=== PATIENT | female | born 1965 | race Caucasian/White ===

== ENCOUNTER → 2018-03-06 15:12 | Outpatient (CLI) | payer BC, SELFPAY ==
[2018-03-06 17:46] LABS: Absolute Lymphocyte Count 2.09 X10^3/ul (0.83-4.51); Absolute Neutrophil Count 5.8 X10^3/uL (2.0-7.7); Basophil# 0.05 X10^3/uL; Basophil% 0.6 % (0-1); Eosinophil# 0.31 X10^3/uL; Eosinophils% 3.5 % (0-5); Hematocrit 37.1 % (37-47); Lymphocyte # 2.09 X10^3/ul (4.0); Lymphocyte % 23.7 % (19-41); Mean Corp Hgb Conc 32.3 g/gl (32-36); Mean Corpuscular Hgb 29.6 pg (27.0-32.0); Mean Corpuscular Volume 91.6 fL (81-99); Mean Platelet Vol. 10.1 fl (6.2-12.0); Monocyte# 0.61 X10^3/uL; Monocyte% 6.9 % (0-10); Neutrophil # 5.75 X10^3/uL (2.7-7.7); Neutrophil % 65.2 % (47-70); Platelet Count 377 K/mm3 (150-450); RBC Distribution Width CV 13.4 % (11.6-14.6); RBC Distribution Width SD 44.3 fl (35.1-43.9); Red Blood Count 4.05 M/mm3 (4.2-5.4); White Blood Count 8.8 K/mm3 (4.4-11.0)
[2018-03-06 17:49] LABS: POSITIVE COUNT NO; POSITIVE DIFFERENTIAL NO; POSITIVE MORPHOLOGY NO
[2018-03-06 18:28] LABS: ALB/GLOB Ratio 1.1 RATIO (0.9-2.4); AST(SGOT) 20 U/L (15-37); Alanine Aminotransfer ALT/SGPT 26 U/L (13-56); Albumin, Serum 3.7 g/dL (3.2-5.0); Alkaline Phosphatase 69 U/L (45-117); Anion Gap 6 (5-15); BUN 15 mg/dL (7-18); BUN/Creat Ratio 20.1 RATIO (10-20); Calcium,Total 8.3 mg/dL (8.5-10.1); Chloride 107 mmol/L (98-107); Creatinine, Serum 0.75 mg/dL (0.55-1.02); EST Glomerular Filtration Rate 87 mL/min (>60); Est Glom Filt Rate - Afr Amer 105 mL/min (>60); Globulin 3.3 g/dL (2.2-4.2); Glucose 79 mg/dL (74-106); Potassium 4.3 mmol/L (3.5-5.1); Sodium Level 141 mmol/L (136-145); Thyroid Stim Hormone (TSH) 0.81 uIU/mL (0.358-3.74)
[2018-03-07 08:36] LABS: Vitamin D,25 Hydroxy 31.4 ng/mL (29.95-100.01)
[2018-03-07 08:40] LABS: PTHIN 73.1 pg/mL (18.4-80.1)
== END ==
PROVIDERS: Family Provider Family Medicine; PCP Family Medicine; Visit Provider Family Medicine
DX: N25.81 Secondary hyperparathyroidism of renal origin (principal); R53.83 Other fatigue
CPT/HCPCS: 36415; 80053; 82306; 83970; 84443; 85025

== ENCOUNTER 2020-11-17 08:55 | Day surgery (SDC) | payer OTHER, SELFPAY ==
[2020-08-27 12:11] VITALS: BMI 33.2
--- NOTE | 2020-11-14 17:30 | HP.PCM_ITS ---
- Problem List (1) Menorrhagia Status: Acute History and Physical Date of Admission: 11/17/20 DATE OF SERVICE: November 10, 2020 ? PROBLEM:?Menorrhagia ? DIAGNOSIS:?Menorrhagia ? PAST SURGICAL HISTORY:? PAST SURGICAL HISTORY PAST SURGICAL HISTORY Procedure Laterality Date ? D+C ? ? ? PAST SURGICAL HISTORY OF ? ? ? bengin lumps removals from different parts of body ? PAST MEDICAL HISTORY:? PAST MEDICAL HISTORY PAST MEDICAL HISTORY Diagnosis Date ? Blood clot in vein ? ? left leg linked to nuvaring ? Thyroid disease ? ? SUBJECTIVE:?Menstrual cycles irregular with menorrhagia. IUD was placed 01/2020 and she reports her bleeding is still heavy where she is passing clots. She reports there is tissue in the clots as well. She also reports pain with ovarian cysts since the IUD was placed. Currently sexually active. Using IUD for contraception. She reports a prior blood clot?while on nuvaring. She says she has never been formally worked up for any blood clotting disorders.? ? Pelvic US 09/13/2020: Impression Normal appearing retroverted uterus that measures 81 mm x 50 mm x 55 mm. 3-D imaging of the uterus confirms the proper location of the IUD within the endometrial cavity. Normal appearing endometrium measuring 7.2 mm in thickness - limited visibility given presence of IUD. The right ovary is normal appearing. There is a 3.9 cm simple appearing left ovarian cyst present. There is no free fluid visualized in the peritoneal cavity. Recommendations A simple ovarian cyst less than 5cm in a premenopausal woman is likely benign. Follow up imaging as clinically indicated. IUD correctly positioned. Follow up as clinically indicated. ? EMB 10/05/2020: FINAL DIAGNOSIS Endometrium, biopsy - Benign endometrium with hormonal therapy effect. ? ? ? SOCIAL HISTORY:? SOCIAL HISTORY Social History ? Tobacco Use ? Smoking status: Never Smoker ? Smokeless tobacco: Never Used Substance Use Topics ? Alcohol use: Yes ? ? Comment: occasional ? Drug use: No ? ALLERGIES ALLERGIES No Known Allergies ? Current Outpatient Medications on File Prior to Visit Medication Sig ? levonorgestrel (MIRENA) 20 mcg/24 hours (5 yrs) 52 mg IUD 1 Each by INTRAUTERINE route as directed. ? calcium-vits X5-Y-G9-minerals 166.75 mg- 166.75 unit cap Take by mouth. ? glucosamine/msm/chondroitin A ([id number]-JGNLCX-WBD ORAL) Take by mouth. ? ibuprofen (ADVIL) 200 mg tablet Take 200 mg by mouth every 6 hours as needed. ? FLUTICASONE PROPIONATE (FLONASE NASAL)w Use ?in the nose. No current facility-administered medications on file prior to visit. ? ? OBJECTIVE: ? VITALS:? BP 110/70 ? Pulse 76 ? Resp 16 ? Ht 5' 5.5 (1.664 m) ? Wt 209 lb 12.8 oz (95.2 kg) ? LMP 07/19/2020 ? BMI 34.38 kg/m? ? HEENT: ?Normocephalic, atraumatic, Mucus membranes moist without lesions. ? NECK: ???Soft and Supple. ?No adenopathy , thyromegaly or bruits. ? SKIN: No lesions. ? CHEST: Clear to auscultation. ?No wheezes or rales. ?Good air exchange. ? HEART: Regular rate and rhythm ?No S3 or S4. ?No gallops or rubs. ? BACK: Nontender with no CVA tenderness. ? ABDOMEN: Soft, non-tender, non-distended, no masses, no hepatosplenomegaly. ? LOWER EXTREMITIES: There was no pitting edema, no palpable cords and no skin changes. ? ASSESSMENT:?Menorrhagia ? PLAN:?Discussed hysteroscopy, D&C, ablation, IUD removal, laparoscopic bilateral salpingectomy, possible ovarian cystectomy, possible oophorectomy. Discussed that the ovarian cyst will likely resolve given size and appearance. Reviewed physiologic cysts. Discussed r/b/a of ovarian cystectomy or oophorectomy. Discussed that if cyst is not removed, there is a chance that she needs surgery in the future. Pt desires to monitor cyst at this time, but desires a cystectomy or oophorectomy if the cyst has significantly grown in size or has concerning features. She understands that a tubal ligation is permanent and irreversilbe and she can no longer have children.?The rationale for the proposed surgery was discussed in addition to risks, benefits, and alternatives. ?General pre- and post-operative care was reviewed. ?Questions were answered. ?After discussion, the patient indicated a desire to proceed with the planned surgery. ? Lisseth Meek,?DO
[2020-11-17] VITALS (10 sets, daily range): BP systolic 123–146; BP diastolic 70–91; PULSE 56–89; RESP 16–18; TEMP 36.1–36.9; O2SAT 93–99; BMI 33.6
[2020-11-17 09:26] LABS: Hematocrit 40.4 % (37-47); Mean Corp Hgb Conc 32.2 g/dL (32-36); Mean Corpuscular Hgb 29.1 pg (27.0-32.0); Mean Corpuscular Volume 90.4 fL (81-99); Mean Platelet Vol. 9.3 fl (6.2-12.0); Platelet Count 431 K/mm3 (150-450); RBC Distribution Width CV 13.7 % (11.6-14.6); RBC Distribution Width SD 45.8 fl (35.1-43.9); Red Blood Count 4.47 M/mm3 (4.2-5.4); White Blood Count 9.5 K/mm3 (4.4-11.0)
[2020-11-17 09:28] LABS: Internal QC Validated? YES +Cl - CLEAR BKGD; Pregnancy, Urine Negative Negative
[2020-11-17] MEDS: Lactated Ringers 1,000 ML 100 ML IV ×2 (09:58→11:33)
--- NOTE | 2020-11-17 09:59 | PCM.DC ---
- Discharge Diagnoses Current Active Problems: Current Active and Chronic Problems (Last Updated 08/27/20 @ 12:16 by Falguni Cleary) Menorrhagia (Acute) You will use the following diet at home:: Regular Your food should be the consistency of: Regular Discharge Activity: May not drive while taking narcotic pain medications., May Shower May resume sexual activity in: 1 week - No intercourse, no tampons, no hot tubs, no tub baths for 1 week after the surgery Ice area for (Minutes): 15 Weight Bearing Status: Weight bearing as tolerated Lifting Restrictions: Nothing greater than 5-10 lbs for 1-2 weeks Call your doctor if your incision/area has: Sudden Increased Bleeding, Increased Pain/ Swelling, Increased Redness, Foul Smelling Discharge, Swelling at the incision site Call your doctor if you observe: Fever of 101 or Higher, Change in Color, Inability to urinate, Inability to have a bowel movement, Using more than one pad per hour, Shortness of breath, Dizziness, Fainting spells, Swelling in the ankles, Chest pain, Increased palpitations (irregular heartbeat), Calf discomfort, Uncontrolled pain Suture Line Care: Avoid Pulling/Pushing, Avoid Pinching/Bending Cleanse incision/area with: Soap & Water Allergies/Adverse Reactions: Allergies No Known Allergies Allergy (Unverified 11/17/20 09:25) Medications to take at Discharge acetaminophen 325 mg capsule 325 mg PO ONCE PRN 08/27/20 calcium carbonate 500 mg (1,250 mg)-vitamin D3 200 unit tablet 1 tab PO DAILY 08/27/20 glucosamine sulfate 500 mg tablet 500 mg PO QODAY 08/27/20 ibuprofen 200 mg tablet 400 mg PO DAILY 08/27/20 Keto Bhb 1 tab PO DAILY 11/09/20 Orders to be completed after discharge: Type & Screen - PAT ONLY Time Frame: 11/17/20, Facility: [facility], Location: Laboratory Primary Care Physician: Indio Singh MD [Primary Care Provider] - Test Results: Test results from this visit will be discussed in further detail at your follow-up appointment, if applicable. Please Follow Up With: Lisseth Meek DO When: 1 week
--- NOTE | 2020-11-17 10:01 | OP.PCM_ITS ---
Problem List (1) Menorrhagia Status: Acute Report of Operation Date of Procedure: 11/17/20 Pre-Operative Diagnosis: Menorrhagia, failed medical management, desires permanent sterilization Post-Operative Diagnosis: As above Surgery/Procedure Performed:: IUD removal, hysteroscopy, Rita ablation, laparoscopic bilateral salpingectomy Description of Surgical Findings:: Good descent of the uterus and cervix. Normal-appearing uterine cavity and bilateral tubal ostia visualized. Endometrium very thin appearing consistent with progesterone effect given the presence of the Mirena IUD. Normal-appearing pelvis. The uterus was normal-appearing. Bilateral fallopian tubes were normal-appearing. The right ovary was normal-appearing. The left ovary had a 1 to 2 cm simple cyst present. director of direct marketing: Saima Jo Type of Anesthesia:: General Special Medications: None Specimen's removed: Bilateral fallopian tubes Drains: None Estimated Blood Loss (mL): < 50 cc Fluids Replaced: Fluid deficit 100 cc Description of Procedure: Start time: 1026 Stop time: 1118 Food And Nutrition Services Assistant was present for the entire laparoscopic portion of the case. She assisted with prepping the patient, draping the patient, assisted with the salpingectomy, and assisted with closure of port sites. The patient was taken back to the operating room where general anesthesia was induced. She was prepped and draped in the dorsal lithotomy position using yellowfin stirrups. From below a weighted speculum was placed to expose the cervix. A straight catheterization was performed to drain the bladder. A single -tooth tenaculum was placed on the anterior lip of the cervix. The IUD was removed with a polyp forceps as the IUD strings were not visualized. The IUD was removed easily and intact. The cervix was serially dilated to accommodate the hysteroscope. The hysteroscope was advanced to the fundus of the uterus, and the uterus was distended using normal saline. The uterine cavity was normal-appearing. Bilateral tubal ostia visualized. The endometrium was very thin appearing consistent with progesterone effect. No polyps or fibroids were noted. The cervical canal was normal-appearing. The uterus sounded to 10 cm. The cervical length was 5 cm. A uterine cavity of 4 cm was noted. The Rita ablation device was set to a cavity length of 4 cm. The Rita ablation device was easily inserted to the fundus of the uterus. The device passed the cavity test assessment. The Rita ablation was performed in usual fashion. The Rita ablation device was then removed. The Florina cannula was placed for uterine manipulation with the single-tooth tenaculum. The speculum was removed. Gloves were changed and attention was turned to the abdominal portion of the procedure. Local was infiltrated at all port sites. An incision was made infraumbilically to accommodate a 5 mm port. This port was placed under direct visualization with the laparoscope. Once confirmed intraperitoneal, CO2 insufflation was initiated. Next a left lateral 5 mm port was placed. Then a right lateral 5 mm port was placed. The pelvis was inspected and noted to be normal-appearing. The left ovary had a 1 to 2 cm simple cyst. The right fallopian tubes was followed out to the fimbriated end. The right fallopian tube was elevated and using the LigaSure device the mesosalpinx was serially clamped, cauterized and transected to the level of the cornua of the uterus. The right fallopian tube was then removed and sent to pathology review. The left fallopian tube and elevated on the pelvis and followed out to the fimbriated end. Using the LigaSure device the mesosalpinx was serially clamped, cauterized and transected to the level of the cornua of the uterus. The left fallopian tube was then removed and sent to pathology for review. Hemostasis was noted. All ports were removed and the abdomen was exsufflated. Suture and glue were placed over the incision sites. From below all instruments were removed and a vaginal sweep was performed. Instrument, sponge count and the needle counts were correct. Patient was taken to recovery in stable condition. Grafts/Implants Used: None - Complications None - Admit VTE Documentation VTE Present on Admission: No VTE Mechan Device Prophylaxis: SCD's VTE Pharm Prophylaxis ordered?: No
[2020-11-17] MEDS: Bupivacaine Mpf 0.5% 30 ML VIAL (10:26)
[2020-11-17] MEDS: Lidocaine 1%/Epi 1:200 (30ml) 30 ML AMPUL (10:26)
--- NOTE | 2020-11-17 10:30 | FALS_PTH ---
PATIENT: JOSE MOYA LOC: [facility] U#:[id number] AGE/SX: 55/F ROOM: RE11/17/[address]: Dr. Lisseth Meek DO : 1965 BED: DIS: 11/17/2020 SPEC #: [id number] RECD: 11/17/20 12:23 STATUS: GUERDA JENNYFER #: [id number] MURIEL: 11/17/20 10:[address]: Lisseth Meek DEPT: SURGICAL PATHOLOGY RECD BY: Mady Canas ENTERED: 11/17/20 13:06 SP TYPE: FALL TUBES OTHR DR: Dr. Indio Singh MD Tissues: Fallopian tube Procedures: Surgery Specimen Level II Surgery Specimen Level IV HEADER OPERATION: Hysteroscopy, uterine ablation, Rita, IUD removal PRE-OP DIAGNOSIS: Menorrhagia TISSUE SUBMITTED: Bilateral fallopian tubes MICROSCOPIC DIAGNOSIS Right and left fallopian tubes, bilateral salpingectomies: Complete cross-sections of two fallopian tubes. One fallopian tube with benign paratubal cyst. AM:ayan 11/18/2020 MICROSCOPIC DESCRIPTION Slides are reviewed. GROSS DESCRIPTION Received in fixative is one container labeled with the patient's name and designated bilateral fallopian tubes. The specimen consists of two fallopian tubes with an average length of 7 cm and has an average diameter of 0.8 cm. The fallopian tubes are not identified as right or left. One fallopian tube contains a smooth, glistening, benign paratubal cyst measuring 5 mm in greatest dimension. This fallopian tube and paratubal cyst are submitted in cassette 1. Admissions Manager sections of the other fallopian tube are submitted in cassette 2. / AM:ayan 11/17/20 TC:5 CPT: 44295, 76010
== END 2020-11-17 15:00 | disposition home or self-care (01) ==
LOC: SDC 08:57 → AC 08:58
PROVIDERS: Anesthesiology; PCP Family Medicine; Referring Provider Obstetrics & Gynecology; Visit Provider Obstetrics & Gynecology
PROC: 0U5B8ZZ Destruction of Endometrium, Via Natural or Artificial Opening Endoscopic (ICD-10-PCS; CPT 58558; principal; 2020-11-17 10:15)
PROC: (CPT 58661; 2020-11-17 10:15)
DX: N92.0 Excessive and frequent menstruation with regular cycle (principal); N83.8 Other noninflammatory disorders of ovary, fallopian tube and broad ligament; N83.292 Other ovarian cyst, left side; Z30.2 Encounter for sterilization; Z86.718 Personal history of other venous thrombosis and embolism
CPT/HCPCS: 58301; 58563; 58661; 81025; 85027; 86850; 86900; 86901; 88302; 88305; 93005; J7120; J2405

== ENCOUNTER → 2022-07-06 | Outpatient (CLI) | payer BC, SELFPAY ==
--- NOTE | 2022-07-06 08:33 | US_ITS ---
STUDY: ABDOMINAL ULTRASOUND REASON FOR EXAM: Female, 57 years old. Pain and indigestion TECHNIQUE: Transabdominal ultrasound was performed with real-time and static mason scale imaging. TECHNICAL QUALITY: Adequate. COMPARISON: None. FINDINGS: Liver: The liver measures 12.4 cm. There is increased echogenicity consistent with a mild degree of fatty infiltration. The bile ducts are within normal limits. There is hepatic color flow. The direction of portal flow is hepatopetal. There is no demonstrated mass lesion. Gallbladder: Normal distended gallbladder. The gallbladder wall measures 3.0 mm. There is a negative sonographic Streeter''s sign. There is no pericholecystic fluid. There are multiple echogenic structures within the gallbladder, consistent with multiple gallstones. Common Bile Duct (C.B.D.): The common bile duct measures 2.4 mm. Pancreas: Normal size of the head, body and tail of the pancreas. There is normal echogenicity of the pancreas. There is no demonstrated pancreatic mass or cyst. Spleen: Normal size of the spleen. The spleen measures 8.8 cm x 6.4 cm x 3.7 cm. Right Kidney: Normal size of the right kidney. The right kidney measures 10.4 cm x 5.2 cm x 4.7 cm. Normal renal cortex. The right cortex measures 1.6 cm. There is a 1.4 cm x 1 cm x 1.4 cm cyst. There is no right hydronephrosis. Left Kidney: Normal size of the left kidney. The left kidney measures 11.1 cm x 4.2 cm x 5.1 cm. Normal renal cortex. The left cortex measures 1.8 cm. There is a 1.1 cm x 1.2 cm x 2.9 cm cyst. There is no left hydronephrosis. Aorta: Limited visualization due to overlying bowel gas. I.V.C.: The IVC is patent. There is no ascites. US/Abdomen Complete IMPRESSION: Mild degree of fatty infiltration of the liver. Multiple gallstones. Electronically Signed: Bryan Barriga MD at 12:20 EDT ,
== END | disposition home or self-care (01) ==
LOC: US 08:32 → OPUS 08:38
PROVIDERS: PCP Family Medicine; Referring Provider Family Medicine; Visit Provider Family Medicine
DX: K76.0 Fatty (change of) liver, not elsewhere classified (principal); K80.20 Calculus of gallbladder without cholecystitis without obstruction; K30 Functional dyspepsia
CPT/HCPCS: 76700

== ENCOUNTER 2023-05-02 10:18 | Emergency (ER) | payer BC, SELFPAY ==
[2023-05-02 10:19] VITALS: BP 124/81; PULSE 91; RESP 16; TEMP 36.7; O2SAT 100; BMI 32.5
--- NOTE | 2023-05-02 10:49 | US_ITS ---
STUDY: ABDOMINAL ULTRASOUND - RIGHT UPPER QUADRANT REASON FOR VISIT: Female, 58 years old RUQ PAIN . History of gallstones. TECHNIQUE: Ultrasound evaluation of the right upper quadrant was performed with real-time and static mason-scale imaging. TECHNICAL QUALITY: Adequate. COMPARISON: Comparison is made with prior study July 06, 2022. FINDINGS: Liver: The liver measures 14.1 cm. There is normal echogenicity of the liver. The bile ducts are within normal limits. There is hepatic color flow. The direction of portal flow is hepatopetal. There is no demonstrated mass lesion. Gallbladder: Normal distended gallbladder. The gallbladder wall measures 3 mm. There is a negative sonographic Streeter''s sign. There is no pericholecystic fluid. There are multiple echogenic structures within the gallbladder, consistent with multiple gallstones. Common Bile Duct (C.B.D.): The common bile duct measures 4 mm. Pancreas: Normal size of the head, body of the pancreas. The tail portion is obscured due to overlying bowel gas. There is normal echogenicity of the pancreas. There is no demonstrated pancreatic mass or cyst. Right Kidney: Normal size of the right kidney. The right kidney measures 10.6 cm x 4.9 cm x 4.9 cm. Normal renal cortex. The right cortex measures 1.6 cm. There is no demonstrated renal mass or cyst. There is no right hydronephrosis. US/Gallbladder IMPRESSION: Multiple gallstones in the gallbladder lumen. Electronically Signed: Bryan Barriga MD at 12:08 EDT ,
--- NOTE | 2023-05-02 10:51 | EX.ED.DYSGE1 ---
HPI History of Present Illness Chief Complaint: Nausea/Vomiting/Diarrhea Narrative Narrative: Presents with nausea and upper abdominal pain since Saturday 3 days ago. She ate chili the night before. 1 emesis on Saturday no hematemesis. No diarrhea. Has not eaten for 3 days due to nausea symptoms. 2 days ago had a fever. States myalgias. No cough or urinary symptoms. No congestion. Tolerating liquids. Has not had an appetite. Denies any abdominal surgeries in the past. Reports last fall had findings of cholelithiasis by her PCP follow-up with surgeon Dr. Ta, watch and monitoring plan per patient. Had not had issues since then until 3 days ago. Pain is in the epigastrium more than right upper quadrant. Denies any allergies. COVID vaccinated is to had COVID back in 2019. Prior similar symptoms: Yes PFSH PFSH Medical History Abnormal bruising child Chronic neck and back pain Fatigue Hemorrhoids Hx of blood clots Home Medications acetaminophen 325 mg capsule (Tylenol) 325 mg PO ONCE PRN Pain 1-10 Or Fever 08/27/20 [History Last Taken Unknown] calcium carbonate 500 mg-vitamin D3 5 mcg (200 unit) tablet (Calcium 500 + D) 1 tab PO DAILY 08/27/20 [History Last Taken Unknown] glucosamine sulfate 500 mg tablet (Glucosamine) 500 mg PO QODAY 08/27/20 [History Last Taken Unknown] ibuprofen 200 mg tablet (Advil) 400 mg PO DAILY 08/27/20 [History Last Taken Unknown] docusate sodium 100 mg capsule 100 mg PO BID PRN PRN Constipation #20 caps 11/17/20 [Rx Last Taken Unknown] ondansetron 4 mg disintegrating tablet 4 mg PO Q8H PRN PRN Nausea #10 tabs 05/02/23 [Rx Last Taken Unknown] Allergy/AdvReac Type Severity Reaction Status Date / Time No Known Allergies Allergy Verified 05/02/23 10:21 Family History Unknown Diabetes CVA (cerebral vascular accident) Other Heart disease Surgical History History of dilatation and curettage History of endometrial ablation History of lumpectomy Social History Smoking Status: Never smoker alcohol intake: current details: occasional substance use type: does not use ROS ROS ED Constitutional Constitutional ED: Reports fever(s); Denies chills or sweats Eyes Eyes: Denies change in vision ENT ENT ED: Denies dysphagia or sore throat Cardiovascular Cardiovascular: Denies chest pain, leg edema, palpitations or racing heartbeat Respiratory/Chest Respiratory/Chest: Denies cough, dyspnea or dyspnea on exertion Gastrointestinal Gastrointestinal: Reports abdominal pain, nausea and vomiting; Denies diarrhea Genitourinary Genitourinary ED: Denies dysuria, hematuria or urinary frequency Musculoskeletal Musculoskeletal: Reports myalgias; Denies back pain, extremity pain or neck pain Integumentary Denies rash or wounds Neurologic Neurologic: Denies headache(s), paresthesias or weakness EXAM Physical Exam Const Vital Signs: 05/02/23 10:19 05/02/23 12:19 Temperature 98.0 F Temperature Source Temporal Pulse Rate 91 Respiratory Rate 16 16 Blood Pressure 124/81 H Blood Pressure Mean 95 Pulse Ox 100 Oxygen Delivery Method Room Air Positive well nourished and well developed General Appearance ED: well developed and NAD HEENT Reports moist mucous membranes normocephalic and atraumatic Eyes PERRL, EOMs intact bilaterally and conjunctivae normal General Eye ED: Yes normal appearance of both eyes Neck no lymphadenopathy and supple General: Negative for tenderness Chest Wall Chest: Negative for tenderness Resp normal respiratory effort and normal air movement Effort and Inspection: symmetric chest movement; Negative for respiratory distress Cardio regular rate, regular rhythm and no murmurs Peripheral Pulses: pulses 2+ throughout GI normal to inspection, nondistended, normoactive bowel sounds GI Narrative: Tender epigastrium and right upper quadrant without guarding or rebound. Negative McBurney's. Palpation: Negative for guarding or rebound tenderness present Back/Spine no CVA tenderness and no thoracic nor lumbar tenderness Extremity normal to inspection General Extremety ED: Negative for edema or tenderness General Extremity: Negative for edema Neuro oriented x3 and no sensory deficits noted Sensorium / Orientation: awake and alert Skin no rashes or lesions noted and no wounds MDM MDM MDM Narrative Medical decision making narrative: Interventions / MDM: Differential diagnosis: Cholelithiasis, cholecystitis, gastritis Diagnosis considered but do not suspect: N/A My EKG interpretation: N/A Imaging independently reviewed and interpreted by myself: Right upper quadrant ultrasound: Cholelithiasis without cholecystitis. Also read by radiology. External documents reviewed: Patient's visit from surgery office July 2022, no clear biliary colic symptoms there was plans for colonoscopy with monitoring symptoms. Test considered but not ordered:N/A ED course: Patient declines any pain medicines. We will start fluids Zofran we will check abdominal labs and right upper quadrant ultrasound for further evaluation. Re-evaluation: stable, abdominal labs are all stable and normal. Ultrasound possible cholelithiasis with no signs of cholecystitis. Patient feeling better tolerating oral fluids on reevaluation. Prescription for Zofran to use as needed. Outpatient follow-up with her surgeon with return precautions. All questions were answered. Disposition discussed with patient/family/significant other: Patient Case discussed with consulting clinician: N/A This note was generated with [employer] dictation software. It may contain incorrect words, spelling, and punctuation that were not noted in checking the note before signing. Lab Data Attestation: I reviewed the patient's lab results. Labs: Laboratory Results - last 24 hr 05/02/23 11:00 WBC 8.6 RBC 4.45 Hgb 13.0 Hct 40.1 MCV 90.1 MCH 29.2 MCHC 32.4 RDW Std Deviation 42.5 RDW Coeff of April 12.8 Plt Count 326 MPV 9.0 Immature Gran % (Auto) 0.300 Neut % (Auto) 75.5 H Lymph % (Auto) 14.7 L [place] % (Auto) 7.8 Eos % (Auto) 1.2 Baso % (Auto) 0.5 Absolute Neuts (auto) 6.5 Absolute Lymphs (auto) 1.26 Nucleated RBC % 0 Sodium 138 Potassium 3.2 L Chloride 105 Carbon Dioxide 24.0 Anion Gap 9 BUN 10 Creatinine 0.76 Estim Creat Clear Calc 74.38 Est GFR (MDRD) Af Amer 101 Est GFR (MDRD) Non-Af 84 BUN/Creatinine Ratio 13.2 Glucose 101 Calcium 8.5 Total Bilirubin 0.40 Direct Bilirubin 0.11 AST 17 ALT 18 Alkaline Phosphatase 71 Total Protein 6.9 Albumin 3.4 Globulin 3.5 Lipase 20 Radiography Diagnostic Testing: Clinical Impression(s) from Imaging Studies Gallbladder Ultrasound 05/02/23 10:49 IMPRESSION: Multiple gallstones in the gallbladder lumen. Electronically Signed: Bryan Barriga MD at 12:08 EDT , Discharge Plan Triage Chief Complaint: Nausea/Vomiting/Diarrhea ED Provider: Salvatore Lamb Dx/Rx/DC Orders Clinical Impression: Nausea & vomiting, Cholelithiases, Abdominal pain, Acute viral syndrome Instructions: ED Diet Vomiting Diarrhea, ED Gallstones with Biliary Colic Prescriptions: New ondansetron [ondansetron] 4 mg tablet,disintegrating 4 mg PO Q8H PRN PRN (Reason: Nausea) Qty: 10 0RF No Action ibuprofen [Advil] 200 mg tablet 400 mg PO DAILY acetaminophen [Tylenol] 325 mg capsule 325 mg PO ONCE PRN (Reason: Pain 1-10 Or Fever) calcium carbonate-vitamin D3 [Calcium 500 + D] 500 mg(1,250mg) -200 unit tablet 1 tab PO DAILY glucosamine sulfate [Glucosamine] 500 mg tablet 500 mg PO QODAY Rx Instructions: administer with meals docusate sodium 100 MG capsule 100 mg PO BID PRN PRN (Reason: Constipation) Qty: 20 0RF Primary Care Provider: Indio Singh Referrals: Indio Singh MD [Primary Care Provider] - Farooq Ta MD [Med Staff - Active Staff] - 3-5 Days Activity Restrictions/Additional Instructions: Ultrasound with gallstones, no signs of cholecystitis. White count 8.6 normal lipase and liver enzymes. Continue oral fluids. Avoid dairy products and greasy products. Follow-up with Dr. Ta. COVID influenza negative. Return if worsening symptoms.. Disposition Disposition: Home, Self Care Discharge Date/Time: 05/02/23 12:51
[2023-05-02] MEDS: Ondansetron 4 MG/2 ML Vial IV (11:04)
[2023-05-02] MEDS: 0.9% Normal Saline 1,000 ML 1000 ML IV (11:04)
[2023-05-02 11:12] LABS: Absolute Lymphocyte Count 1.26 X10^3/uL (0.83-4.51); Absolute Neutrophil Count 6.5 X10^3/uL (2.0-7.7); Basophil# 0.04 X10^3/uL; Basophil% 0.5 % (0-1); Eosinophils% 1.2 % (0-5); Hematocrit 40.1 % (37-47); Lymphocyte # 1.26 X10^3/ul (0.83-4.51); Lymphocyte % 14.7 % (19-41); Mean Corp Hgb Conc 32.4 g/dL (32-36); Mean Corpuscular Hgb 29.2 pg (27.0-32.0); Mean Corpuscular Volume 90.1 fL (81-99); Monocyte# 0.67 X10^3/uL; Monocyte% 7.8 % (0-10); NRBC Flagged by Analyzer 0 % (0-5); Neutrophil # 6.48 X10^3/uL (2.7-7.7); Neutrophil % 75.5 % (47-70); Platelet Count 326 K/mm3 (150-450); RBC Distribution Width CV 12.8 % (11.6-14.6); RBC Distribution Width SD 42.5 fl (35.1-43.9); Red Blood Count 4.45 M/mm3 (4.2-5.4); White Blood Count 8.6 K/mm3 (4.4-11.0)
[2023-05-02 11:33] LABS: AST(SGOT) 17 U/L (15-37); Alanine Aminotransfer ALT/SGPT 18 U/L (13-56); Albumin, Serum 3.4 g/dL (3.2-5.0); Alkaline Phosphatase 71 U/L (45-117); Anion Gap 9 (5-15); BUN 10 mg/dL (7-18); BUN/Creat Ratio 13.2 RATIO (10-20); Bilirubin, Direct 0.11 mg/dL (0.00-0.30); Calcium,Total 8.5 mg/dL (8.5-10.1); Chloride 105 mmol/L (98-107); Creatinine, Serum 0.76 mg/dL (0.55-1.02); EST Glomerular Filtration Rate 84 mL/min (>60); Est Glom Filt Rate - Afr Amer 101 mL/min (>60); Estimated Creatinine Clearance 74.38 ml/min; Globulin 3.5 g/dL (2.2-4.2); Glucose 101 mg/dL (74-106); Lipase 20 U/L (13-75); Potassium 3.2 mmol/L (3.5-5.1); Protein, Total 6.9 g/dL (6.4-8.2); Sodium Level 138 mmol/L (136-145)
[2023-05-02 12:19] VITALS: RESP 16
== END 2023-05-02 12:51 | disposition home or self-care (01) ==
PROVIDERS: Emergency Provider Emergency Medicine; PCP Family Medicine; Visit Provider Emergency Medicine
DX: K80.20 Calculus of gallbladder without cholecystitis without obstruction (principal); B34.9 Viral infection, unspecified
CPT/HCPCS: 76705; 80048; 80076; 83690; 85025; 87428; 96374; 99283; J7030; A4216; J2405

== ENCOUNTER 2025-09-12 14:53 | Observation (INO) | payer BC, SELFPAY ==
[2025-09-12] VITALS (9 sets, daily range): BP systolic 133–170; BP diastolic 79–94; PULSE 78–94; RESP 13–18; TEMP 36.5–37.3; O2SAT 94–99; BMI 34.8; BMI 34.1
--- NOTE | 2025-09-12 15:34 | EX.ED.DYSGE1 ---
HPI History of Present Illness Chief Complaint: Ear Problem Informant: patient Onset/Context/Timing Onset: Weeks (1) Context: Gradual Onset Timing: Continuous Quality: Sharp, stabbing Location: Left ear, head Worsened by: Nothing Relieved by: Nothing Narrative Narrative: Patient presents with left ear pain and dizziness that has been getting worse over the past week. Patient was started on Augmentin for mastoiditis 3 days ago. Patient states he has not felt any relief after taking this. Patient describes her pain as sharp and stabbing. Patient states it is over the posterior aspect of her left ear and head. Patient states nothing makes it worse and nothing makes it better. Patient admits to some vertigo symptoms where she feels like everything is spinning. Patient admits to low-grade fever of 100. Patient also admits to some blurred vision with the dizziness. Patient admits to some nausea but denies any vomiting. Patient states she had a lumbar epidural injection 10 days ago. Patient states she called her pain management physician who performed this and he does not feel this is related to that. [facility] Medical History Bacterial sinusitis child Chronic neck and back pain Abnormal bruising Hx of blood clots Fatigue Hemorrhoids Home Medications ?Medication ?Instructions ?Recorded ?Last Taken ?Type acetaminophen 325 mg capsule 325 mg PO ONCE PRN Pain 1-10 Or 08/27/20 Unknown History (Tylenol) Fever ascorbate calcium (vitamin C) 500 500 mg PO QDAY 07/01/25 Unknown History mg tablet magnesium 200 mg tablet 200 mg PO QDAY 07/01/25 Unknown History methocarbamol 500 mg tablet 500 mg PO TID PRN pain/spasms #60 07/01/25 Unknown Rx tabs turmeric 400 mg capsule mg PO 07/01/25 Unknown History amoxicillin 875 mg-potassium 1 tab PO BID 09/12/25 Unknown History clavulanate 125 mg tablet Allergy/AdvReac Type Severity Reaction Status Date / Time No Known Allergies Allergy Verified 09/12/25 14:57 Family History Unknown Diabetes CVA (cerebral vascular accident) Other Heart disease Surgical History History of endometrial ablation History of dilatation and curettage History of lumpectomy Social History (Updated 09/12/25 @ 22:[address] Barbara Carlin, DO) household members: spouse housing: house current occupational status: employed Smoking Status: Never smoker alcohol intake: current details: occasional substance use type: does not use ROS ROS ED Constitutional Constitutional ED: Reports chills and fever(s) Eyes Eyes: Denies blurry vision or change in vision ENT ENT ED: Reports ear pain left; Denies rhinorrhea or sore throat Cardiovascular Cardiovascular: Denies chest pain or palpitations Respiratory/Chest Respiratory/Chest: Denies cough or dyspnea Gastrointestinal Gastrointestinal: Reports nausea; Denies vomiting Genitourinary Genitourinary ED: Denies dysuria or hematuria Musculoskeletal Musculoskeletal: Reports neck pain; Denies back pain Integumentary Denies abscess or rash Neurologic Neurologic: Reports headache(s); Denies weakness Allergic/Immunologic Allergic/Immunologic ED: Denies mouth swelling or urticaria EXAM Physical Exam Const Vital Signs: 09/12/25 14:54 09/12/25 16:09 09/12/25 16:13 Temperature 97.7 F L 98.6 F Temperature Source Oral Oral Pulse Rate 90 83 Pulse Rate [Lying] 92 Pulse Rate [Sitting (for 1 minute prior to obtaining)] 94 Pulse Rate [Standing (for 1 minute prior to obtaining)] 91 Respiratory Rate 18 14 Blood Pressure 133/93 H 135/85 H Blood Pressure [Lying] 141/80 H Blood Pressure [Sitting (for 1 minute prior to obtaining)] 143/91 H Blood Pressure [Standing (for 1 minute prior to obtaining)] 135/85 H Blood Pressure Mean 106 101 Blood Pressure Mean [Lying] 100 Blood Pressure Mean [Sitting (for 1 minute prior to obtaining)] 108 Blood Pressure Mean [Standing (for 1 minute prior to obtaining)] 101 Pulse Ox 99 96 Oxygen Delivery Method Room Air Room Air 09/12/25 17:00 09/12/25 18:00 09/12/25 19:47 Temperature 98.4 F 99.2 F H Temperature Source Oral Oral Pulse Rate 78 81 88 Pulse Rate [Lying] Pulse Rate [Sitting (for 1 minute prior to obtaining)] Pulse Rate [Standing (for 1 minute prior to obtaining)] Respiratory Rate 14 14 16 Blood Pressure 146/79 H 149/85 H 138/84 H Blood Pressure [Lying] Blood Pressure [Sitting (for 1 minute prior to obtaining)] Blood Pressure [Standing (for 1 minute prior to obtaining)] Blood Pressure Mean 101 106 102 Blood Pressure Mean [Lying] Blood Pressure Mean [Sitting (for 1 minute prior to obtaining)] Blood Pressure Mean [Standing (for 1 minute prior to obtaining)] Pulse Ox 99 99 95 Oxygen Delivery Method Room Air Room Air 09/12/25 19:58 Temperature 99.2 F H Temperature Source Pulse Rate 84 Pulse Rate [Lying] Pulse Rate [Sitting (for 1 minute prior to obtaining)] Pulse Rate [Standing (for 1 minute prior to obtaining)] Respiratory Rate 13 Blood Pressure 170/94 H Blood Pressure [Lying] Blood Pressure [Sitting (for 1 minute prior to obtaining)] Blood Pressure [Standing (for 1 minute prior to obtaining)] Blood Pressure Mean 119 Blood Pressure Mean [Lying] Blood Pressure Mean [Sitting (for 1 minute prior to obtaining)] Blood Pressure Mean [Standing (for 1 minute prior to obtaining)] Pulse Ox 96 Oxygen Delivery Method Positive well nourished and well developed General Appearance ED: well developed and NAD HEENT Reports TM's clear and moist mucous membranes Tympanic Membrane ED: Yes TM's clear bilateral Eyes PERRL and EOMs intact bilaterally Eyes Narrative: There is nystagmus with left lateral gaze. This did reproduce her dizziness. Neck supple and no JVD Resp normal respiratory effort and clear to auscultation bilaterally Cardio regular rate and regular rhythm GI non-tender and non-distended Palpation: soft Extremity normal to inspection General Extremety ED: Negative for edema or tenderness General Extremity: Negative for edema Neuro oriented x3, CN's II-XII intact bilaterally and no sensory deficits noted Sensorium / Orientation: alert Motor Exam: strength 5/5 throughout Psych mental status grossly normal MDM MDM MDM Narrative Medical decision making narrative: Differential diagnosis includes mastoiditis, stroke, intracranial bleeding, viral illness, electrolyte abnormality, vertigo, and dehydration. CT scan of the brain will be obtained to assess for intracranial bleeding and mastoiditis. CBC will be obtained to assess for leukocytosis and anemia. Basic metabolic profile will be obtained to assess for electrolyte abnormality and renal function. Urinalysis will be obtained to assess for urinary tract infection and hematuria. COVID-19, influenza, RSV PCR will be obtained to assess for viral illness. Orthostatic vital signs will be obtained to assess for hypokalemia and dehydration. History & Record Review Additional record(s) reviewed:: Prior outpatient record and Prior labs Lab Data Attestation: I reviewed the patient's lab results. Lab results narrative: CBC was reviewed. There is a mild leukocytosis of 11.7. The remainder is within normal limits. Basic metabolic profile was reviewed and was essentially within normal limits. Urinalysis was reviewed. There is no evidence of urinary tract infection or hematuria. Labs: Laboratory Results - last 24 hr 09/12/25 09/12/25 16:05 16:19 WBC 11.7 H RBC 4.65 Hgb 13.5 Hct 40.0 MCV 86.0 MCH 29.0 MCHC 33.8 RDW Std Deviation 42.1 RDW Coeff of April 13.3 Plt Count 383 MPV 9.2 Immature Gran % (Auto) 0.400 Neut % (Auto) 72.1 H Lymph % (Auto) 20.9 Garza % (Auto) 5.2 Eos % (Auto) 0.9 Baso % (Auto) 0.5 Absolute Neuts (auto) 8.4 H Absolute Lymphs (auto) 2.44 Nucleated RBC % 0 ESR 5 Sodium 137 Potassium 3.8 Chloride 102 Carbon Dioxide 23.4 Anion Gap 12 BUN 12 Creatinine 0.66 L Estim Creat Clear Calc 105.84 Est GFR (MDRD) Non-Af 102 BUN/Creatinine Ratio 18.4 Glucose 129 H Calcium 9.3 C-React Prot Ext Range 6.89 H Procalcitonin 0.05 Urine Color Straw Urine Clarity Clear Urine pH 7.0 Ur Specific [place] 1.005 Urine Protein Negative Urine Glucose (UA) Normal Urine Ketones Negative Urine Occult Blood Negative Urine Nitrite Negative Urine Bilirubin Negative Urine Urobilinogen Normal Ur Leukocyte Esterase Negative Urine RBC 0 SEEN Urine WBC 0 SEEN Ur Squamous Epith Cells 0 SEEN Urine Bacteria RARE Urine Mucus 0 SEEN Radiography Diagnostic Testing: Clinical Impression(s) from Imaging Studies Brain CT 09/12/25 16:35 IMPRESSION: Negative study Reading [facility] Head/Neck CTA 09/12/25 19:58 IMPRESSION: Normal CTA of the head and neck. Reading Location: [id number] CT scan of the brain was obtained. There is no acute intracranial abnormality. This was interpreted by the radiologist and was also independently reviewed by myself. CTA of the head and neck was obtained. There is no evidence of large vessel occlusion. There is no aneurysm or dissection. This was interpreted by the radiologist and was also independently reviewed by myself. Management Discussion w/another healthcare provider: Hospitalist Treatment and Re-Evaluation :: Patient was given IV fluids and Valium. Patient had minimal relief with Valium. Patient was given a dose of meclizine. Patient had minimal relief with this. Patient states she was able to ambulate to the bathroom but felt very unsteady with ambulation. Patient states she still feels like she is off balance. Case was discussed with the hospitalist. She recommended obtaining a CTA of the head and neck. This was ordered. She will admit the patient to her service. Patient and family understood and were agreeable with the plan. All questions were answered. Discharge Plan Dx/Rx/DC Orders Clinical Impression: Vertigo, Leukocytosis, Elevated blood pressure reading Disposition Disposition: Acute Care Hospital [facility] Discharge Date/Time: 09/12/25 22:26
--- OUTSIDE RECORDS SUMMARY | 2025-09-12 15:47 | XMS RPT_ITS | CCD ---
Author Organization [facility] Care Team Providers Care Joiner Name Role Phone Vince Murry Unavailable Christina Singh MD Primary Care Provider Christina Singh MD Primary Care Provider [phone] RAFI LUBIN Attending Unavailable OSWALDO, RAFI P Referring Unavailable FRANCISCO, CHRISTINA A Primary Care Unavailable OSWALDO, RAFI Thorne Referring Unavailable FRANCISCO, CHRISTINA A Primary Care Unavailable TIZZANO, RAFI P Referring Unavailable SINGH, CHRISTINA A Primary Care Unavailable TIZZANO, RAFI P Attending Unavailable FRANCISCO, CHRISTINA A Primary Care Unavailable TISTELLA, RAFI Thorne Attending Unavailable FRANCISCO, CHRISTINA A Primary Care Unavailable TIZZANO, RAFI P Referring Unavailable SINGH, CHRISTINA A Primary Care Unavailable TIZZANO, RAFI P Attending Unavailable MICHAEL EUBANKS Referring Unavailable FRANCISCO, CHRISTINA A Primary Care Unavailable Dr. Christina Singh MD Primary Care Provider Dr. Christina Singh MD Referring Provider [phone] Jennifer Kim Attending Provider [phone] Tony Elliott MD Attending Provider [phone] Christina Singh Primary Care Unavailable Tony Elliott Attending Unavailable Christina Singh Primary Care Unavailable Christina Singh Referring Unavailable Torrey Solano Attending Unavailable Francisco, Christina Primary Care Unavailable Singh, Christina Referring Unavailable Jennifer Daly Attending Unavailable Francisco, Christina Primary Care Unavailable Torrey Solano Attending Unavailable Medications Current Medications Medication Drug Class(es) Dates Sig (Normalized) Sig (Original) acetaminophen 325 mg oral capsule (4 sources) Start: 08-27-2020 take 1-10 capsules by mouth once as needed for pain Acetaminophen (Tylenol) 325 mg capsule Active 325 mg PO ONCE as needed for Pain 1-10 Or Fever August 27, 2020 12:00am Ascorbic Acid (8 sources) Vitamin C ascorbic acid (VITAMIN C ORAL) Take by mouth. Active calcium ascorbate 500 mg oral tablet (2 sources) Start: 07-01-2025 take 1 tablet by mouth once daily Ascorbate Calcium (Vitamin C) 500 mg tablet Active 500 mg PO daily July 01, 2025 12:00am ELDERBERRY FRUIT (8 sources) elderberry fruit (ELDERBERRY ORAL) Take by mouth. Active Magnesium (15 sources) Start: 07-01-2025 take 1 tablet by mouth once daily Magnesium 200 mg tablet Active 200 mg PO daily July 01, 2025 12:00am Magnesium 250 mg tab Take 250 mg by mouth. Active Magnesium 250 mg tab Take 250 mg by mouth. 0 Active Comment on above: Take 250 mg by mouth . methocarbamol 500 mg oral tablet (1 source) Muscle Relaxant Start: take 1 tablet by mouth three times daily as needed for pain Methocarbamol 500 mg tablet Active 500 mg PO THREE TIMES A DAY as needed for pain/spasms 60 0 July 01, 2025 12:00am Turmeric extract (2 sources) Start: Turmeric 400 mg capsule Active mg PO July 01, 2025 12:00am Zinc (8 sources) ZINC ORAL Take b y mouth. Active Completed/Discontinued Medications Medication Drug Class(es) Dates Sig (Normalized) Sig (Original) acetaminophen 325 mg / oxyCODONE hydrochloride 5 mg oral tablet (4 sources) Opioid Agonist Start: 11-17-2020 End: 11-24-2020 Oxycodone-Acetaminoph en 1 TABLET tablet Discontinued 1 {tbl} PO EVERY 6 HOURS NEEDED as needed for Pain Score 6-10 15 7 0 November 17, 2020 November 23, 2020 1:00am November 24, 2020 1:03am Postoperative pain Other acute postprocedural pain Start: 11-17-2020 End: 11-24-2020 take 1 tablet by mouth every six hours as needed Oxycodone-Acetaminophen Discontinued 1 TABLET PO EVERY 6 HOURS NEEDED 15 7 November 17, 2020 November 24, 2020 1:03am amoxicillin 500 mg oral capsule (6 sources) Penicillin-class Antibacterial Start: 08-27-2020 End: 09-06-2020 take 2 capsules by mouth twice daily Amoxicillin 500 mg capsule Discontinued 1000 mg PO TWICE A DAY 40 10 August 27, 2020 12:00am September 05, 2020 1:00am September 06, 2020 1:02am Start: 08-27-2020 End: 09-06-2020 take 1000 mg by mouth twice daily Amoxicillin Discontinued 1000 MG PO TWICE A DAY 40 August 27, 2020 12:00am September 06, 2020 1:02am Start: 03-11-2017 AMOXICILLIN 50 0 MG CAPS 2 capsules twice daily AMOXICILLIN [id number] Vince FRANCO amoxicillin 875 mg / clavulanate 125 mg oral tablet (2 sources) Penicillin-class Antibacterial Start: 12-22-2024 End: 12-29-2024 Amoxicillin-Pot Clavulanate 875-125 mg tablet Discontinued 1 {tbl} PO TWICE A DAY 14 7 0 December 22, 2024 1:00am December 28, 2024 1:00am December 29, 2024 1:12am calcium carbonate 1250 mg / cholecalciferol 200 unt oral tablet (4 sources) Vitamin D Start: 08-27-2020 End: 07-01-2025 Calcium Carbonate-Vitamin D3 (Calcium 500 + D) 500 mg(1,250mg) -200 unit tablet Discontinued 1 {tbl} PO DAILY August 27, 2020 12:00am July 01, 2025 2:28pm calcium-vits X9-H-R1-minerals 166.75 mg- 166.75 unit cap (1 source) End: 10-14-2023 calcium-vits H9-W-S9-minerals 166.75 mg- 166.75 unit cap Take by mouth. 0 10/14/2023 Discontinued (Course of therapy completed) Comment on above: Take by mouth. docusate sodium 100 mg oral capsule (4 sources) Start: 11-17-2020 End: 07-01-2025 take 1 capsule by mouth twice daily as needed for constipation Docusate Sodium 100 MG capsule Discontinued 100 mg PO TWICE DAILY NEEDED as needed for Constipation 20 0 November 17, 2020 1:00am July 01, 2025 2:28pm ergocalciferol, vitamin D2, (VITAMIN D2 ORAL) (2 sources) End: 03-09-2025 ergocalciferol, vitamin D2, (VITAMIN D2 ORAL) Take by mouth. 03/09/2025 Discontinued ergocalciferol, vitamin D2, (VITAMIN D2 ORAL) Take by mouth. Active fluconazole 200 mg oral tablet (2 sources) Azole Antifungal Start: 03-11-2017 DIFLUCAN 200 MG TABS 1 tablet 1 FLUCONAZOLE [id number] Vince FRANCO fluticasone (1 source) Corticosteroid End: 10-14-2023 FLUTICASONE PROPIONATE (FLONASE NASAL) Use in the nose. 0 10/14/2023 Discontinued (Course of therapy completed) Comment on above: Use in the nose. glucosamine sulfate 500 mg oral tablet (4 sources) Start: 08-27-2020 End: 07-01-2025 take 1 tablet by mouth every other day at mealtime Glucosamine Sulfate (Glucosamine) 500 mg tablet Discontinued 500 mg PO EVERY OTHER DAY August 27, 2020 12:00am July 01, 2025 2:28pm administer with meals glucosamine/msm/c hondroitin A (GLUCOSAMINE-IGLESIA DR-MSM ORAL) (1 source) End: 10-14-2023 glucosamine/msm/ch ondroitin A (GLUCOSAMINE-CHOND R-MSM ORAL) Take by mouth. 0 10/14/2023 Discontinued (Course of therapy completed) Comment on above: Take by mouth. ibuprofen 600 mg oral tablet (20 sources) Nonsteroidal Anti-inflammatory Drug Start: 11-17-2020 End: 07-31-2022 take 1 tablet by mouth every six hours as needed for pain Ibuprofen 600 MG tablet Discontinued 600 mg PO EVERY 6 HOURS NEEDED as needed for Pain Score 4-10 30 0 November 17, 2020 1:00am July 31, 2022 3:10pm Start: 08-27-2020 take 2 tablets by mo uth once daily Ibuprofen (Advil) 200 mg tablet Active 400 mg PO DAILY August 27, 2020 12:00am take 1 tablet by monica th every six hours as needed ibuprofen (ADVIL) 200 mg tablet Take 200 mg by mouth every 6 hours as needed. Active Comment on above: Take 200 mg by mouth every 6 hours as needed. Keto Bhb (4 sources) Start: 11-09-2020 End: 07-31-2022 Keto Bhb Discontinued 1 {tbl} PO DAILY November 09, 2020 1:00am July 31, 2022 3:11pm Start: 11-09-2020 End: 07-31-2022 take 1 tablet by mouth once daily Keto Bhb Discontinued 1 TABLET PO DAILY November 09, 2020 1:00am July 31, 2022 3:11pm Start: 11-09-2020 take 1 tablet by monica th once daily Keto Bhb Active 1 TABLET PO DAILY November 09, 2020 1:00am levonorgestrel 0.212674 mg/hr intrauterine system (1 source) Progestin, Progestin-containing Intrauterine Device Start: 02-01-2020 End: 10-14-2023 levonorgestrel (MIRENA) 20 mcg/24 hours (5 yrs) 52 mg IUD Indications: Encounter for IUD insertion 1 Each by INTRAUTERINE route as directed. 1 Each 0 02/01/2020 10/14/2023 Discontinued (Course of therapy completed) Comment on above: 1 Each by INTRAUTERI NE route as directed. MEDROXYPROGESTERONE ACETATE MEGAN (2 sources) Progestin Start: 03-11-2017 DEPO-SUBQ PROVERA 104 MEGAN as directed MEDROXYPROGESTERONE ACETATE MEGAN [id number] Vince FRANCO ondansetron 4 mg disintegrating oral tablet (3 sources) Serotonin-3 Receptor Antagonist Start: 05-02-2023 End: 07-01-2025 take 1 tablet by mouth every eight hours as needed for nausea Ondansetron 4 mg tablet,disintegrating Discontinued 4 mg PO EVERY 8 HOURS NEEDED as needed for Nausea 10 0 May 02, 2023 12:00am July 01, 2025 2:28pm Problems Active Problems Problem Classification Problem Date Documented Da te Episodic/Chronic Abdominal pain (6 sources) Abdominal pain; Translations: [Unspecified abdominal pain] 07-31-2022 Episodic Biliary tract disease (6 sources) Calculus of gallbladder with cholecystitis; Translations: [Calculus of gallbladder with chronic cholecystitis without obstruction] 07-31-2022 Episodic Cancer of cervix (9 sources) Atypical squamous cells of undetermined significance on cervical Papanicolaou smear; Translations: [Atypical squamous cells of undetermined significance on cytologic smear of cervix (ASC-US)] Onset: 03-11-2025 03-15-2025 Episodic Endometriosis (1 source) Uterine adenomyosis; Translations: [Adenomyosis] 04-14-2025 Chronic Immunizations and screening for infectious disease (7 sources) Contact with and (suspected) exposure to other viral communicable diseases; Translations: [Contact with or suspected exposure to other viral communicable disease] Onset: 03-03-2025 11-14-2020 Episodic Menopausal disorders (12 sources) Postmenopausal bleeding; Translations: [Postmenopausal bleeding] Onset: 11-14-2023 03-03-2025 Chronic Menstrual disorders (4 sources) Menorrhagia; Translations: [Excessive and frequent menstruation with regular cycle] 11-14-2020 Chronic Nausea and vomiting (3 sources) Nausea and vomiting; Translations: [Nausea with vomiting, unspecified] 05-02-2023 Episodic Other female genital disorders (10 sources) Postcoital bleeding; Translations: [Postcoital and contact bleeding] Onset: 11-14-2023 10-14-2023 Chronic Other female genital disorders (6 sources) Abnormal uterine bleeding; Translations: [Abnormal uterine and vaginal bleeding, unspecified] 03-03-2025 Chronic Other female genital disorders (1 source) Abnormal uterine and vaginal bleeding, unspecified; Translations: [Abnormal uterine bleeding (AUB)] Onset: 03-10-2025 Chronic Other screening for suspected conditions (not mental disorders or infectious disease) (9 sources) Patient encounter status; Translations: [Encounter for screening for malignant neoplasm of cervix] Onset: 03-03-2025 10-14-2023 Episodic Other upper respiratory infections (2 sources) Bacterial sinusitis; Translations: [Chronic sinusitis, unspecified] 12-22-2024 Chronic Other upper respiratory infections (6 sources) Acute maxillary sinusitis; Translations: [Acute maxillary sinusitis, unspecified] Onset: 03-11-2017 03-11-2017 Episodic Phlebitis; thrombophlebitis and thromboembolism (1 source) H/O: Deep vein thrombosis; Translations: [Personal history of other venous thrombosis and embolism] 10-14-2023 Episodic Residual codes; unclassified (1 source) FH: Thrombosis; Translations: [Family history of ischemic heart disease and other diseases of the circulatory system] 10-14-2023 Episodic Sexually transmitted infections (not HIV or hepatitis) (1 source) Cervical high risk human papillomavirus (HPV) DNA test positive; Translations: [ASCUS with positive high risk HPV cervical] Onset: 03-11-2025 Episodic Spondylosis; intervertebral disc disorders; other back problems (1 source) Inflammation of sacroiliac joint Chronic Spondylosis; intervertebral disc disorders; other back problems (2 sources) Lumbar radiculopathy; Translations: [Dorsalgia, unspecified] Onset: 07-01-2025 Episodic Unclassified (1 source) Patient encounter status 03-03-2025 Unclassified (1 source) Adenomyosis; Translations: [Adenomyosis] Onset: 04-14-2025 Unclassified (1 source) M54.16 - Radiculopathy, lumbar region,M46.1 - Sacroiliitis, not elsewhere classified Viral infection (3 sources) Acute viral disease; Translations: [Viral infection, unspecified] 05-02-2023 Episodic Past or Other Problems Problem Classification Problem Date Documented Da te Episodic/Chronic Unclassified (4 sources) child 05-25-2022 Results Test Name Value Interpretation Reference Range Facility L/S Spine Min 4 Viewson 06-05 L/S Spine Min 4 Views [facility] [address] [place], [place] [id number] L/S Spine Min 4 Views MR#: [id number] Acct: [id number] Name: KATHRIN BROWNLEE Rep #: [id number] : 1965 F 60 From: Diana Lin MD PCP: Dr. Christina Singh MD Status: DEP AMB Study: L/S Spine Min 4 Views Date of Exam: 07/01/25 Exam# [id number] Ordering Dr: Jennifer Daly PROCEDURE: L/S SPINE MIN 4 VIEWS 07/01/2025 REASON FOR EXAM: CHRONIC BACK PAIN TECHNIQUE: L/S SPINE MIN 4 VIEWS COMPARISON: None. FINDINGS: BONES: Five pqe-rgy-xrbvcfq lumbar vertebral bodies. No fracture or focal osseous lesion. Minimal grade 1 anterolisthesis of L4 on L5, which is unchanged with flexion and extension. Minimal thoracolumbar levoscoliosis. DISC/DEGENERATIVE CHANGES: Disc spaces are preserved. Minimal vertebral endplate osteophytes at a few levels. SOFT TISSUES: No acute abnormality seen. RAD/L/S Spine Min 4 Views IMPRESSION: 1. No acute osseous abnormality. 2. Grade 1 anterolisthesis at L4-L5. No instability with flexion or extension. Reading Location: [id number] CC: SALVADOR Tatum; Dr. Christina Singh MD Blacksmith Assistant: Signed Normal [facility] Orthopedic Visit Reporton Orthopedic Visit Report [facility] [address] [place] [address] [address] [place] [address] OFFICE VISIT Date of Service: 07/01/25 MR#: [id number] Acct: [id number] Name: KATHRIN BROWNLEE Rep #: [id number] : 1965 Provider: SALVADOR Tatum Age/Sex: 60/F Location: [facility] Status: Signed Intake Vital Signs 12/22/24 16:44 07/01/25 14:26 Height 5 ft 5 in 5 ft 5 in Weight: 217 lb 215 lb BMI 36.1 35.7 BP 128/70 H Blood Pressure Location Lt brachial Position Sitting Respiration 112 H Pulse 76 Pulse Source NIBP Temp 98.4 F Temp Source Oral Pulse Oximetry (%) 100 Oxygen Delivery Method room air Intake Visit Reasons: LUMBAR SPINE Chief Complaint: Lumbar Spine Pain Accompanied by: Self Is patient in pain?: Yes Pain scale (1-10): 5 Allergies No Known Allergies Allergy (Verified 07/01/25 14:26) Medications ???Medication ???Instructions ???Recorded ???Confirmed ???Type acetaminophen 325 mg capsule 325 mg PO ONCE PRN Pain 1-10 Or 07/01/25 History (Tylenol) Fever ibuprofen 200 mg tablet (Advil) 400 mg PO DAILY 08/27/20 07/01/25 History ascorbate calcium (vitamin C) 500 500 mg PO QDAY 07/01/25 07/01/25 History mg tablet magnesium 200 mg tablet 200 mg PO QDAY 07/01/25 07/01/25 H istory methocarbamol 500 mg tablet 500 mg PO TID PRN pain/spasms #60 07/01/25 07/01/25 Rx tabs turmeric 400 mg capsule mg PO 07/01/25 07/01/25 History PFSH Medical History Bacterial sinusitis child Chronic neck and back pain Abnormal bruising Hx of blood clots Fatigue Hemorrhoids Surgical History History of endometrial ablation History of dilatation and curettage History of lumpectomy Family History Unknown Diabetes CVA (cerebral vascular accident) Other Heart disease Social History Smoking Status: Never smoker alcohol intake: current details: occasional substance use type: does not use HPI LUMBAR SPINE Details: This documentation accurately reflects the service provided and the decisions made by me, SALVADOR Tatum 07/01/25 [id number]. Part of today???s visit was documented by Pao Andrade ATC, acting as scribe. KATHRIN BROWNLEE is a 60 year old F here today for lumbar spine pain. Patient rates her pain a 5/10 today. Patient saw Андрей Hung a little over a year ago for sciatica and they did x-rays and an MRI. She states they gave her a prescription for prednisone but denies any pain management or physical therapy. She states [facility] did have her see the physical therapist but she did not continue on. She did a home exercise program on her own. She states she was doing really well and towards the end of May it flared up. She describes the pain across the lumbar spine. Says that it is equal on both sides. She denies any falls or injuries to increase this pain. She states occasionally she will get tingling in the left leg. Says that she will get pain that goes down the lateral side of the left leg that stops above the knees. She gets this bilaterally but the left side is worse. Says that her symptoms increased with sitting. She states she can feel pain radiating towards her hips and outward occasionally. She states she has to lean forward when sitting because of the pain. She states it is very uncomfortable to sit and ride in a car. She states standing, walking and laying flat seems to alleviate the pain at times. She states she had leftover prednisone from the initial injury and it did take the edge off. She has been taking Advil twice a day and she states it does seem to keep it under control. She denies any surgery on the cervical or lumbar spine. Tylenol hasn't worked. hx of renal cyst and is uncertain about the amount of ibuprofen that she can take. No diabetes, no heart or lung issues, no current blood thinners. Last blood thinner was in 2009 for blood clot. Ortho Exam General General: Yes no acute distress Neurologic: Yes alert and Yes oriented x3 Psychologic: Yes reasonable and appropriate Spine SPINE TESTING CERVICAL THORACIC LUMBAR Musculoskeletal Strength 0=absent - 5=normal Details: Neurological exam of the lower extremities shows 5x5 power. Normal sensations across all dermatomes. No hyperreflexia. No midline or paraspinal tenderness. Figure 4 positive on the left. Gaenslen's negative. Coding Level of Care Code Off vis,new,level 4 Diagnoses Lumbar radiculopathy M54.16 Spondylolisthesis of lumbar region M43.16 Sacroiliitis M46.1 Assessment and Plan Assessment and Plan (1) Lumbar radiculopathy: Status: Acute (2) Spondy (more content not included)... Normal [facility] CNOVon 04-14-2025 CNOV Office Visit (OBGYWM) KATHRIN BROWNLEE ([id number]) 1965 F Date Time Provider Department 04/14/25 10:30 AM RAFI LUBIN OBGYWM During your visit today, we recorded the following information about you: Blood pressure Weight 128/72 98.1 kg Rafi Lubin MD 04/14/2025 10:59 AM Signed Kathrin Cross Torrie is a 60 year old female who presents for problem visit discuss AUB, ultrasound results 03/05/2025. HPI: No additional bleeding since endometrial Unremarkable colp, endocervical cells, pelvic ultrasound and FSH suggesting at 26 suggesting perimenopause. 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 Thyroid disease PAST SURGICAL HISTORY Procedure Laterality Date D+C HYSTEROSCOPY, DIAGNOSTIC (SEPARATE 11/17/2020 IUD Removal, baltazar ablation laproscopic bilateral salpingectomy LIGATE FALLOPIAN TUBE PAST SURGICAL HISTORY OF bengin lumps removals from different parts of body FAMILY HISTORY Problem Relation Age of Onset Stroke Mother Blood Clots Father after knee surgery Stroke Brother Diabetes Brother Breast Cancer Paternal Grandmother Blood Clots Paternal Grandmother Social History Tobacco Use Smoking status: Never Passive exposure: Never Smokeless tobacco: Never Vaping Use Vaping status: Never Used Substance Use Topics Alcohol use: Yes Comment: occasional Drug use: No Current Outpatient Medications Medication Sig elderberry fruit (ELDERBERRY ORAL) Take by mouth. ZINC ORAL Take by mouth. ascorbic acid (VITAMIN C ORAL) Take by mouth. Magnesium 250 mg tab Take 250 mg by mouth. ibuprofen (ADVIL) 200 mg tablet Take 200 mg by mouth every 6 hours as needed. No current facility-administere d medications for this visit. Allergies As of Date: 04/14/2025 (No Known Allergies) Fully Assessed 03/15/2025 REVIEW OF SYSTEMS Abdomen: No bloating, early satiety, indigestion, or increased flatulence. No abdominal pain, nausea, vomiting, diarrhea, or constipation. Bladder: No dysuria, gross hematuria, urinary frequency, urinary urgency, or incontinence. Breast: No breast lumps, nipple d/c, overlying skin changes, redness or skin retraction. Expanded ROS: N/A Allergies and current medication updated:Yes SENSITIVE EXAM: Sensitive exam not performed. EXAM: LMP 07/19/2020 GENERAL: pleasant, female in no apparent distress ASSESSMENT AND PLAN: Assessment AND Plan Perimenopause Adenomyosis ftft > 30 min Rafi Lubin MD Allergies As of Date: 04/14/2025 (No Known Allergies) Date Reviewed: 04/14/2025 Reviewed by: Tiffanie Ignacio LPN - Fully Assessed Reason for Visit: Problem Visit [Other] Primary Visit Diagnosis:Perimenopa use [N95.1] Other Visit Diagnosis:Adenomyosi s [N80.03] Prescriptions as of 04/14/2025 - elderberry fruit (ELDERBERRY ORAL) Take by mouth. - ZINC ORAL Take by mouth. - ascorbic acid (VITAMIN C ORAL) Take by mouth. - Magnesium 250 mg tab Take 250 mg by mouth. - ibuprofen (ADVIL) 200 mg tablet Take 200 mg by mouth every 6 hours as needed. Problem List As Of Date 04/14/2025 Noted Resolved PCB (post coital bleeding) [N93.0] 11/14/2023 Post-menopausal bleeding [N95.0] 11/14/2023 ASCUS with positive high risk HPV cervical [R87*03/11/2025 Encounter Status:Closed by RAFI LUBIN on 04/14/25 Normal [facility] DUANE SCREENING W TOMOon 03-17 DUANE SCREENING W BRADEN * * *Final Report* * * DATE OF EXAM: Mar 17 2025 1:51PM [facility]UST 0582 - DUANE SCREENING W BRADEN / PROCEDURE REASON: Encounter for screening mammogram for breast cancer * * * * Physician Interpretation * * * * RESULT: [place] [address] #[id number] - DUANE SCREENING W BRADEN HISTORY: 59 year-old patient seen for screening. Patient is asymptomatic in both breasts. Patient states no personal history of breast cancer. The patient has a family history of breast cancer. COMPARISON STUDIES: The present examination has been compared to prior imaging studies dated 04/03/2018 (mammogram), 04/10/2019 (mammogram) and 10/17/2020 (mammogram). MAMMOGRAM TECHNIQUE: The study was acquired using full field digital technology and interpreted from soft copy. Digital Breast Tomosynthesis (DBT) images were obtained and used to assist in the interpretation of this examination. MAMMOGRAM FINDINGS: There are scattered areas of fibroglandular density. No suspicious masses, calcifications or other abnormalities are seen in either breast. There are no significant interval changes. IMPRESSION: There is no mammographic evidence of malignancy in either breast. Routine screening mammogram is recommended. Annual mammogram will be due in 1 year. BI-RADS Category 1: Negative RISK: Based on the Tyrer-Cuzick (TC) risk assessment model, this patient has a 15.5% lifetime risk of developing breast cancer, meaning they are at average risk for developing breast cancer. However, this is only an estimate based on available history provided on the patient's questionnaire. We encourage all patients to talk with their providers about these results, further recommendations for managing breast health, and appropriate supplemental screening options if the patient has dense breast tissue. Interpreting Radiologist: Rafi Barrera M.D. Electronically signed on: 03/20/2025 Blacksmith Assistant: CRISTOFER Transcribe Date/Time: Mar 17 2025 12:55P Dictated by: RAFI BARRERA MD This examination was interpreted and the report reviewed and electronically signed by: RAFI BARRERA MD on Mar 20 2025 10:48AM EST [id number] CN Normal [facility] CNOVon 03-15-2025 CNOV Office Visit (OBGYWM) KATHRIN BROWNLEE ([id number]) 1965 F Date Time Provider Department 03/15/25 11:40 AM RAFI LUBIN OBGYWM During your visit today, we recorded the following information about you: Blood pressure Weight 124/82 97.5 kg Rafi Lubin MD 03/15/2025 12:23 PM Signed Kathrin is a 59 year old who presents today for a colposcopy. The patient's last pap smear was ASCUS with positive HPV from February 2025. Patient has a history of abnormal pap: No. The patient has had prior treatment: none. test: negative UNIVERSAL PROTOCOL / SAFETY CHECKLIST Procedure to be Performed: clposcopy Sign In: A Moment of CARE was completed. Appropriate PPE (Personal Protective Equipment) worn by all providers involved with the procedure. Special equipment utilized colposcope. Patient/Surrogate Stated/Verified: Patient name, Date of , Relevant allergies, and The intended procedure Time Out: Relevant labs, photos, and/or imaging studies have been reviewed. Intended patient and procedure match the source document(s) (e.g. consent, HANDP, associated studies [imaging, pathology]) are not applicable. Consent obtained and matches the intended procedure. Yes. Correct side/site is not applicable. Medications required for this procedure are verified. Fire risk assessed and is not applicable. Implants: are not applicable. Sign Out: Specimens are all correctly labeled and sent. All instruments, equipment, possible retained foreign bodies are accounted for. Yes. The post-procedure plan of care has been communicated to the patient or surrogate. PROCEDURE: EXTERNAL GENITALIA: Normal in appearance without lesions VAGINA: Normal in appearance without lesions CERVIX: Speculum placed in vagina and excellent visualization of cervix achieved. Cervix swabbed x 3 with 3% acetic acid solution. Cervix grossly normal. Squamocolumnar junction visualized. acetowhite changes noted at 1:00. BIOPSY: Done at 1:00 ECC: done HEMOSTASIS: Obtained with silver nitrate Procedure Summary: Patient tolerated procedure well and colposcopy was adequate. ASSESSMENT: HPV effect PLAN: Specimens labeled and sent to Pathology. If indicated, lesion by colpo is amenable to office LEEP as lesion is small. Rafi Lubin MD [place], [place] 03/15/2025 11:46 AM Signed YOUR RECOVERY It may take a few weeks for your cervix to heal. While your cervix heals, you may have: - Vaginal bleeding (less than a normal menstrual period) - Mild cramping - A brown-black vaginal discharge (similar to coffee grounds) which is a result of the paste used to help stop bleeding from the procedure Do NOT put anything in the vagina for 1 week after your colposcopy if your doctor does a biopsy of your cervix. This includes sex, tampons, and douches. If you have any discomfort, you may take an over the counter pain medication (motrin, advil, ibuprofen, tylenol, etc). If this does not relieve your discomfort, contact your doctor's office for a prescription strength pain medication. It is okay to wear a sanitary pad until the discharge and spotting stops. RISKS Although problems seldom occur with colposcopy, there can be some complications. You may feel faint during and shortly after the procedure as well as have some bleeding and vaginal discharge after the procedure. There is also a risk of infection after the procedure. These complications are rare and can be easily treated. You should contact you doctor is you have any of the following: - Heavy bleeding (more than your normal period) - Bleeding with clots - Severe abdominal pain - Fever (more than 100.4F) - Foul smelling vaginal discharge RESULTS If a biopsy was taken, we will have the results of your biopsy in 1-2 weeks. If you do not hear the results of your biopsy after 2 weeks, please contact your physicians office for the results. Depending on the biopsy results, your doctor will determine your follow up plan which may include further testing or treatments. STAYING HEALTHY After the procedure, you will need to see your doctor for follow up visits during the year. At these visits your doctor will check the health of your cervix with a pap smear. After three normal pap smears, your doctor will allow you to return to having exams once a year. If you have another abnormal pap smear, you may need closer follow up for longer or you may need additional treatment. By making a few lifestyle changes after the procedure, you can help protect the health of your cervix: - Have regular pelvic exams and pap smears as ordered by your doctor. - Stop smoking as smoking increases your risk of developing a cancer of the cervix - If you have more than one sexual partner, limit your number of partners and use condoms to reduce your risks of STDs. If you (more content not included)... Normal [facility] Pathology biopsy report Karel (Tiss)on 03-15-2025 AP DISCLAIMER Normal [facility] Comment on above: Order Comment: Speci men Type: TISSUE SPECIMEN Ordering Facility: [facility] Address: [address] [place] [address] Result Comment: Zakia cano Developed Test (LDT) Disclaimer: Performance characteristics of immunohistochemical, immunofluorescent, and chromogenic in-situ hybridization tests have been determined by the performing laboratory within [facility]'s [facility] Pathology and Laboratory Medicine Department ([facility], [facility], [facility], [facility], [facility], [facility], or [facility]) in a manner consistent with CLIA requirements. One or more of these tests may not have been cleared or approved by the FDA. RT-PLM is regulated under CLIA as qualified to perform high-complexity testing. These tests are used for clinical purposes. These should not be regarded as investigational or for research. Positive and negative controls stain appropriately. Performed By: #### 6 6121-5 #### [facility] CLIA [id number] [address] [place] [address] [place] CASE REPORT Normal [facility] Comment on above: Order Comment: Speci men Type: TISSUE SPECIMEN Ordering Facility: [facility] Address: [address] [place] [address] Result Comment: Surg [facility] Pathology Report Case: [id number] Authorizing Provider: Rafi Lubin MD Collected: 03/15/2025 12:31 PM Ordering Location: OB/Gynecology Received: 03/16/2025 07:14 AM Pathologist: Darcy Middleton MD Specimens: A) - Cervix, Biopsy, 1 oclock B) - Endocervix, Curettings Performed By: #### 6 6121-5 #### [facility] CLIA [id number] [address] [place] [address] [place] CLINICAL HISTORY ASCUS HPV POS Normal [facility] Comment on above: Order Comment: Speci men Type: TISSUE SPECIMEN Ordering Facility: [facility] Address: [address] [place] [address] Performed By: #### 6 6121-5 #### [facility] CLIA [id number] [address] [place] [address] [place] FINAL DIAGNOSIS Normal [facility] Comment on above: Order Comment: Speci men Type: TISSUE SPECIMEN Ordering Facility: [facility] Address: [address] [place] [address] Result Comment: A. C ervix, 1 o'clock, biopsy -Benign squamous mucosa B. Cervix, endocervix, curettage -Rare scant fragments of benign endocervix; nondiagnostic specimen -Predominantly mucin and inflammatory cells at 1255 EDT Performed By: #### 6 6121-5 #### [facility] CLIA [id number] [address] [place] [address] [place] FINAL PERFORMING LAB Normal [facility] Comment on above: Order Comment: Speci men Type: TISSUE SPECIMEN Ordering Facility: [facility] Address: [address] [place] [address] Result Comment: Diag nostic interpretation performed at: [facility], [address] [place] [address] CLIA# [id number] Ice Cream Van Vendor: Hector Drummond MD Performed By: #### 6 6121-5 #### [facility] CLIA [id number] [address] [place] [address] OF [facility] GROSS DESCRIPTION Normal [facility] Comment on above: Order Comment: Speci men Type: TISSUE SPECIMEN Ordering Facility: [facility] Address: [address] [place] [address] Result Comment: A. C ervix, Biopsy Received in formalin are two pieces of henderson-brown, soft mucosal covered tissue aggregating to 0.5 x 0.3 x 0.2 cm. Totally submitted in one cassette. B. Endocervix, Curettings Received in formalin are multiple henderson, soft feathery segments of tissue admixed with mucinous material aggregating to 0.2 x 0.1 x 0.1 cm. Totally submitted in one cassette. May not survive processing. DL March 17, 2025 1:45 AM Gross examination performed at [facility], [address] [place] [address] Performed By: #### 6 6121-5 #### [facility] CLIA [id number] [address] [place] [address] OF [place] CNOVon 03-10-2025 CNOV Office Visit (OBGYWM) KATHRIN BROWNLEE ([id number]) 1965 F Date Time Provider Department 03/10/25 11:40 AM RAFI LUBIN OBDEAWMeghna During your visit today, we recorded the following information about you: Blood pressure Weight 120/80 96.3 kg Rafi Lubin MD 03/10/2025 12:28 PM Signed Skiing Instructor offered: Patient accepts, visit chaperoned by Iris Greer MA. Kathrin is a 59 year old who presents today for an endometrial biopsy for abnormal uterine bleeding. test: n/a UNIVERSAL PROTOCOL / SAFETY CHECKLIST Procedure to be Performed: Endometrial Biopsy Sign In: A Moment of CARE was completed. Appropriate PPE (Personal Protective Equipment) worn by all providers involved with the procedure. Special equipment not required. Patient/Surrogate Stated/Verified: Patient name, Date of , Relevant allergies, and The intended procedure Time Out: Relevant labs, photos, and/or imaging studies have been reviewed. Intended patient and procedure match the source document(s) (e.g. consent, HANDP, associated studies [imaging, pathology]) are not applicable. Consent obtained and matches the intended procedure. Yes. Correct side/site is not applicable. Medications required for this procedure are verified. Fire risk assessed and is not applicable. Implants: are not applicable. Sign Out: Specimens are all correctly labeled and sent. All instruments, equipment, possible retained foreign bodies are accounted for. Yes. The post-procedure plan of care has been communicated to the patient or surrogate. PROCEDURE: EXTERNAL GENITALIA: Normal in appearance without lesions VAGINA: Normal in appearance without lesions BIOPSY: Speculum placed into the vagina with excellent visualization of the cervix. Cervix cleaned with betadine. Anterior lip of cervix grasped with single toothed tenaculum. Uterus sounded to 5 cm. Procedure Summary: Patient tolerated procedure well. ASSESSMENT: post menopausal bleeding PLAN: Specimens labeled and sent to Pathology. Will notify patient of results in 1-2 weeks. MD Zoey Driver [place], [place] 03/10/2025 11:56 AM Signed YOUR RECOVERY After your biopsy you may have: Vaginal bleeding (less than a normal menstrual period) Mild cramping Do NOT put anything in the vagina for 1 week after your endometrial biopsy. This includes: tampons douches and refraining from having sexual intercourse If you have any discomfort, you may take an over the counter pain medication (motrin, advil, ibuprofen, tylenol, etc). If this does not relieve your discomfort, contact the office. It is okay to wear a sanitary pad until the discharge and spotting stops. RISKS Although problems seldom occur with endometrial biopsies, there can be some complications. You may feel faint during and shortly after the procedure as well as have some bleeding after the procedure. There is also a risk of infection after the procedure. These complications are rare and can be easily treated. You should contact you doctor is you have any of the following: Heavy bleeding (more than your normal period) Bleeding with clots Severe abdominal pain Fever (more than 100.4F) Foul smelling vaginal discharge RESULTS We will have the results of your biopsy in 1-2 weeks. If you do not hear the results of your biopsy after 2 weeks, please contact the office for the results. If you have any additional questions or concerns please do not hesitate to contact the office. Referring Provider: RAFI LUBIN [[id number]] Allergies As of Date: 03/10/2025 (No Known Allergies) Date Reviewed: 03/10/2025 Reviewed by: Iris Greer MA - Fully Assessed Reason for Visit: Endometrial Biopsy [7501] Primary Visit Diagnosis:Abnormal uterine bleeding (AUB) [N93.9] Order(s):ENDOMETRIAL BIOPSY [[id number]] Order #: [id number] SURGICAL PATHOLOGY [XLS0356] Order #: [id number] Prescriptions as of 03/10/2025 - elderberry fruit (ELDERBERRY ORAL) Take by mouth. - ZINC ORAL Take by mouth. - ascorbic acid (VITAMIN C ORAL) Take by mouth. - Magnesium 250 mg tab Take 250 mg by mouth. - ibuprofen (ADVIL) 200 mg tablet Take 200 mg by mouth every 6 hours as needed. Problem List As Of Date 03/10/2025 Noted Resolved PCB (post coital bleeding) [N93.0] 11/14/2023 Post-menopausal bleeding [N95.0] 11/14/2023 Other instructions from your clinician: YOUR RECOVERY After your biopsy you may have: Vaginal bleeding (less than a normal menstrual period) Mild cramping Do NOT put anything in the vagina for 1 week after your endometrial biopsy. This includes: tampons douches and refraining from having sexual intercourse If you have any discomfort, you may take an over the counter pain medication (motrin, advil, ibuprofen, tylenol, etc). If this does not relieve your discomfort, conta (more content not included)... Normal [facility] Pathology biopsy report Karel (Tiss)on 03-10-2025 AP DISCLAIMER Normal [facility] Comment on above: Order Comment: Speci men Type: TISSUE SPECIMEN Ordering Facility: [facility] Address: [address] [place] [address] Result Comment: Zakia cano Developed Test (LDT) Disclaimer: Performance characteristics of immunohistochemical, immunofluorescent, and chromogenic in-situ hybridization tests have been determined by the performing laboratory within [facility]'s [facility] Pathology and Laboratory Medicine Department ([facility], [facility], [facility], [facility], [facility], [facility], or [facility]) in a manner consistent with CLIA requirements. One or more of these tests may not have been cleared or approved by the FDA. RT-PLM is regulated under CLIA as qualified to perform high-complexity testing. These tests are used for clinical purposes. These should not be regarded as investigational or for research. Positive and negative controls stain appropriately. Performed By: #### 6 6121-5 #### [facility] CLIA [id number] [address] [place], [place] [address] [place] [address] [place] CASE REPORT Normal [facility] Comment on above: Order Comment: Speci men Type: TISSUE SPECIMEN Ordering Facility: [facility] Address: [address] [place] [address] Result Comment: Surg ical Pathology Report Case: [id number] Authorizing Provider: Rafi Lubin MD Collected: 03/10/2025 12:34 PM Ordering Location: OB/Gynecology Received: 03/10/2025 04:15 PM Pathologist: Truong Greenwood MD Specimen: Endometrium, Biopsy Performed By: #### 6 6121-5 #### [facility] CLIA [id number] [address] [place] [address] [place] CLINICAL HISTORY AUB Normal [facility] Comment on above: Order Comment: Speci men Type: TISSUE SPECIMEN Ordering Facility: [facility] Address: [address] [place] [address] Performed By: #### 6 6121-5 #### [facility] CLIA [id number] [address] [place] [address] [place] FINAL DIAGNOSIS Normal [facility] Comment on above: Order Comment: Speci men Type: TISSUE SPECIMEN Ordering Facility: [facility] Address: [address] [place] [address] Result Comment: Endo metrium, biopsy: - Benign endocervix, no endometrium identified. ACV/bs 03/12/2025 at 1515 EDT Performed By: #### 6 6121-5 #### [facility] CLIA [id number] [address] [place] [address] [place] FINAL PERFORMING LAB Normal [facility] Comment on above: Order Comment: Speci men Type: TISSUE SPECIMEN Ordering Facility: [facility] Address: [address] [place] [address] Result Comment: Diag nostic interpretation performed at: [facility], [address] [place] [address] CLIA# [id number] Ice Cream Van Vendor: Hector Drummond MD Performed By: #### 6 6121-5 #### [facility] CLIA [id number] [address] [place], [place] [id number] [place] GROSS DESCRIPTION Normal [facility] Comment on above: Order Comment: Speci men Type: TISSUE SPECIMEN Ordering Facility: [facility] Address: [address] [place] [address] Result Comment: A. E ndometrium, Biopsy Received in formalin are multiple henderson-brown, soft feathery segments of tissue admixed with mucinous material aggregating to 1.4 x 0.3 x 0.1 cm. Totally submitted in one cassette. DL March 11, 2025 1:32 AM Gross examination performed at [facility], [address] [place] [address], [place] [address] Performed By: #### 6 6121-5 #### [facility] CLIA [id number] [address] [place] [address] [place] [address] [place] 03-09-2025 Indication Abnormal uterine bleeding Impression The uterus is anteflexed and measures 70 mm x 39 mm x 49 mm. The endometrial thickness is 3.3 mm. There are hyperechoic islands within the myometrium which are suggestive of adenomyosis. The junctional zone is ill defined, which is expected in the setting of endometrial ablation. The right ovary measures 21 mm x 10 mm x 14 mm. The left ovary measures 17 mm x 16 mm x 9 mm. There is no free fluid visualized. Recommendations Ultrasound suggestive of adenomyosis. History Medical History Surgery: Endometrial Ablation Year 2020 Surgery: Tubal ligation Menstrual History LMP on 02/26/2025. Cycle: irregular cycle Method Transabdominal, transvaginal, 3D ultrasound examination, Color Doppler examination. View: Suboptimal view: restricted by increased bowel gas Uterus Uterus: Visualized Uterus position: anteflexed Description of uterine malformations: arcuate Myometrium: heterogeneous, asymmetrically thickened Endometrium: normal Cervix details: normal Uterus length 70 mm Uterus width 49 mm Uterus height 39 mm Uterus Vol 70.4 cm Endometrial thickness, total 3.3 mm Fibroids: No fibroids identified Polyps: No polyps identified Right Ovary Rt ovary: Visualized Rt ovary morphology: postmenopausal atrophic Rt ovary D1 21 mm Rt ovary D2 10 mm Rt ovary D3 14 mm Rt ovary Vol 1.5 cm Left Ovary Lt ovary: Suboptimal Lt ovary details: TA only Lt ovary morphology: postmenopausal atrophic Lt ovary D1 17 mm Lt ovary D2 16 mm Lt ovary D3 9 mm Lt ovary Vol 1.3 cm Cul de Sac Visualized. no free fluid visualized Performed By: Amanda Nazario RDMS Read By: Alexia Cassidy M.D. MATERNAL MEDICINE [facility] US [place] 03-05-2025 Radiology Study observation (narrative) [facility] CNOVon 03-03-2025 CNOV Office Visit (OBGYWM) KATHRIN BROWNLEE ([id number]) 1965 F Date Time Provider Department 03/03/25 9:30 AM RAFI LUBIN During your visit today, we recorded the following information about you: Blood pressure Weight Height 120/80 97.7 kg 1.651 m Rafi Lubin MD 03/03/2025 10:45 AM Signed Skiing Instructor offered: Patient accepts, visit chaperoned by Iris Greer MA. Katrhin is a 59 year old who presents for an annual gynecologic exam with complaints, had an ablation in 2020, has just started having some AUB . Postmenopausal: ablation HRT use: No. Age at Menarche: 13 Still get period: No, had an ablation, recently started having bleeding LMP: 02/27/2025 Menses: AUB Menstrual flow: Heavy at first Bleeding amount bothersome: Yes Bleeding between periods: Yes Period symptoms: Breast tenderness, acne and cramps Sexually active: Yes Time with current partner: 2.5 years Contraception: Tubal Ligation Contraception frequency: Always HPV vaccine: No Last pap smear: 10/14/2023, ASCUS, HPV negative History of abnormal pap: Yes Colposcopy: No. Leep: No. Cone biopsy: No. Bothersome pelvic pain: No Last mammogram: 2022 normal History of abnormal mammogram: No OB History Gravida6 Para2 Term0 Preterm0 AB4 Living2 SAB4 IAB0 Ectopic0 Multiple0 Live Births2 Comment: x 2 FAMILY HISTORY Problem Relation Age of Onset Stroke Mother Blood Clots Father after knee surgery Stroke Brother Diabetes Brother Breast Cancer Paternal Grandmother Blood Clots Paternal Grandmother SOCIAL HISTORY Social History Tobacco Use Smoking status: Never Passive exposure: Never Smokeless tobacco: Never Vaping Use Vaping status: Never Used Substance Use Topics Alcohol use: Yes Comment: occasional Drug use: No REVIEW OF SYSTEMS Abdomen: No abdominal pain, nausea, vomiting, diarrhea, or constipation. No bloating, early satiety, indigestion, or increased flatulence. Bladder: No dysuria, gross hematuria, urinary frequency, urinary urgency, or incontinence Breast: No breast lumps, nipple d/c, overlying skin changes, redness or skin retraction Allergies and current medication updated:Yes SENSITIVE EXAM: Sensitive exam not performed. EXAM: BP 120/80 Ht 5' 5 (1.65m) Wt 215 lb 6.4 oz (97.7kg) LMP 07/19/2020 BMI 35.84 kg/(m2). GENERAL: pleasant, female in no apparent distress HEENT: Normocephalic, atraumatic, mucus membranes moist, and no lesions NECK: Supple, full range of motion, no adenopathy, and thyroid normal DERMATOLOGY: Normal, without lesions, non-icteric, and non-hirsute BREAST: soft, non-tender, symmetric, no dominant mass, normal nipple-areolar complex, no lymphadenopathy, and no nipple discharge CHEST: Normal inspiratory effort ABDOMEN: soft, non-tender, and no masses PELVIC: external genitalia normal, normal Bartholin's glands, urethra, [place]'s glands, no vulvar lesions, no cervical lesions, good vaginal support, physiologic discharge present, normal appearing perineal body and perianal region BIMANUAL: uterus normal size, shape and consistency, no adnexal masses, non-tender, and slow egress of dark blood from cervix RECTOVAGINAL: deferred. NEURO: alert and oriented x3,exam grossly non-focal EXTREMITIES: normal ASSESSMENT/PLAN: 1) Health maintenance: Pap done with reflex HPV Mammogram ordered 2) PMB schedule endometrial bx/pelvic ultrasound Rafi Lubin MD Allergies As of Date: 03/03/2025 (No Known Allergies) Date Reviewed: 03/03/2025 Reviewed by: Iris Greer MA - Fully Assessed Reason for Visit: Well Woman [1463] Visit Diagnoses:Encounter for gynecological examination (general) (routine) without abnormal findings [Z01.419] Encounter for screening mammogram for breast cancer [Z12.31] Abnormal uterine bleeding (AUB) [N93.9] Screening for cervical cancer [Z12.4] Screening for human papillomavirus (HPV) [Z11.51] PMB (postmenopausal bleeding) [N95.0] Order(s):DUANE SCREENING W BRADEN [[id number]] Order #: [id number] FUTURE PELVIC US WHI [[id number]] Order #: [id number]: 1 FUTURE ENDOMETRIAL BIOPSY [[id number]] Order #: [id number] PAP TEST [[id number]] Order #: [id number] FOLLICLE STIMULATING HORMONE [SQFSH] Order #: [id number] FUTURE Prescriptions as of 03/03/2025 - elderberry fruit (ELDERBERRY ORAL) Take by mouth. - ZINC ORAL Take by mouth. - ascorbic acid (VITAMIN C ORAL) Take by mouth. - ergocalciferol, vitamin D2, (VITAMIN D2 ORAL) Take by mouth. - Magnesium 250 mg tab Take 250 mg by mouth. - ibuprofen (ADVIL) 200 mg tablet Take 200 mg by mouth every 6 hours as needed. Problem List As Of Date 03/03/2025 Noted Resolved PCB (post coital bleeding) [N93.0] 11/14/2023 Post-menopausal bleeding [N95.0] 11/14/2023 Disposition: Return in 1 year (on 03/03/2026) for Annual Exam. Follow- (more content not included)... Normal [facility] SerPl-aCncon 03-03-2025 Follitropin Qn 24.8 m[IU]/mL Normal See comment [facility] Comment on above: Order Comment: Speci men Type: TISSUE SPECIMEN Ordering Facility: [facility] Address: [address] [place] [id number] Result Comment: Willie devries range: Follicular: 3.5-12.5 mIU/mL Ovulation: 4.7-21.5 mIU/mL Luteal: 1.7-7.7 mIU/mL Postmenopausal: 25.8-134.8 mIU/mL Performed By: #### 6 6121-5 #### [facility] CLIA [id number] [address] [place] [address] [place] HIGH RISK HUMAN PAPILLOMA SHANTA (HPV), PCR FOR DETECTION AND GENOTYPINGon 03-03-2025 HPV 16 Ag Ql (Unsp spec) Not detected Normal Not detected [facility] Comment on above: Order Comment: Speci men Type: TISSUE SPECIMEN Ordering Facility: [facility] Address: [address] [place] [address] Performed By: #### 6 6121-5 #### [facility] CLIA [id number] [address] [place] [address] [place] HPV 18 Ag Ql (Unsp spec) Not detected Normal Not detected [facility] Comment on above: Order Comment: Speci men Type: TISSUE SPECIMEN Ordering Facility: [facility] Address: [address] [place] [address] Performed By: #### 6 6121-5 #### [facility] CLIA [id number] [address] [place] [address] [place] HPV 31+33+35+39+45+51+52+5 6+58+59+66+68 DNA FLACA+probe Ql (Cvx) Detected Abnormal Not detected [facility] Comment on above: Order Comment: Speci men Type: TISSUE SPECIMEN Ordering Facility: [facility] Address: [address] [place] [address] Result Comment: High Risk HPV Other Type includes HPV types 31, 33, 35, 39, 45, 51, 52, 56, 58, 59, 66 and 68. Performed By: #### 6 6121-5 #### [facility] CLIA [id number] [address] [place] [address] [place] PAP TESTon 03-03-2025 ADEQUACY Normal [facility] Comment on above: Order Comment: Speci men Type: FLUID SPECIMEN Ordering Facility: [facility] Address: [address] [place] [address] Result Comment: Sati sfactory for interpretation. Transformation zone present Performed By: #### L [id number] #### [facility] CLIA [id number] [address] [place] [address] [place] [facility] CLIA [id number] [address] [place] [address] [place] CASE REPORT Normal [facility] Comment on above: Order Comment: Speci men Type: FLUID SPECIMEN Ordering Facility: [facility] Address: [address] [place] [address] Result Comment: Gyne cologic Cytology Report Case: [id number] Authorizing Provider: Rafi Lubin MD Collected: 03/03/2025 10:51 AM Ordering Location: OB/Gynecology Received: 03/03/2025 11:50 AM First Screen: Aleksandra Pope CT, ASCP Pathologist: Julieta Guo MD Specimen: Pap Test, ThinPrep, Cervix Performed By: #### L [id number] #### [facility] CLIA [id number] [address] [place] [address] [place] [facility] CLIA [id number] [address] [place] [address] [place] CLINICAL HISTORY, CYTOLOGY, TELEGRAPH MESSENGER Abnormal Bleeding (Describe) Normal [facility] Comment on above: Order Comment: Speci men Type: FLUID SPECIMEN Ordering Facility: [facility] Address: [address] [place] [address] Performed By: #### L [id number] #### [facility] CLIA [id number] [address] [place] [address] [place] [facility] CLIA [id number] [address] [place] [address] [place] FINAL PERFORMING LAB Normal [facility] Comment on above: Order Comment: Speci men Type: FLUID SPECIMEN Ordering Facility: [facility] Address: [address] [place] [address] Result Comment: Tech nical component, welding process specialist screening performed at: Laboratory, [address] [place] [address] CLIA: [id number] Diagnostic interpretation performed at: [facility], [address] [place] [address] CLIA# [id number] Ice Cream Van Vendor: Ephraim Fatima MD Performed By: #### L [id number] #### [facility] CLIA [id number] [address] [place], [place] [id number] [place] [facility] CLIA [id number] [address] [place], [place] [id number] [place] INTERPRETATION, CYTOLOGY, TELEGRAPH MESSENGER Abnormal [facility] Comment on above: Order Comment: Speci men Type: FLUID SPECIMEN Ordering Facility: [facility] Address: [address] [place] [address] Result Comment: Atyp ical squamous cells of undetermined significance (ASC-US). at 1309 EDT Performed By: #### L [id number] #### [facility] CLIA [id number] [address] [place] [address] [place] [facility] CLIA [id number] [address] [place] [address] [place] LMP 02/27/2025 Normal [facility] Comment on above: Order Comment: Speci men Type: FLUID SPECIMEN Ordering Facility: [facility] Address: [address] [place] [address] Performed By: #### L [id number] #### [facility] CLIA [id number] [address] [place] [address] [place] [facility] CLIA [id number] [address] [place] [address] [place] PAP DISCLAIMER COMMENT The Pap Smear is a screening test for cervical cancer. False negative results occur with all screening tests, emphasizing the need for rescreening at recommended intervals, and clinical correlation. Normal [facility] Comment on above: Order Comment: Speci men Type: FLUID SPECIMEN Ordering Facility: [facility] Address: [address] [place] [address] Performed By: #### L [id number] #### [facility] CLIA [id number] [address] [place] [address] [place] [facility] CLIA [id number] [address] [place] [address] [place] PAP GENERAL CATEGORIZATION Epithelial Cell Abnormality Normal [facility] Comment on above: Order Comment: Speci men Type: FLUID SPECIMEN Ordering Facility: [facility] Address: [address] [place] [address] Performed By: #### L [id number] #### [facility] CLIA [id number] [address] [place] [address] [place] [facility] CLIA [id number] [address] [place] [address] [place] PAP DISTRIBUTION A CLASS LINEMAN COMMENT This specimen has been analyzed by the ThinPrep Imaging System, an automated imaging and review system, which assists the laboratory in evaluating cells on ThinPrep Pap tests. Following automated imaging, selected [place] from every slide are reviewed by a welding process specialist. Normal [facility] Comment on above: Order Comment: Speci men Type: FLUID SPECIMEN Ordering Facility: [facility] Address: [address] [place] [address] Performed By: #### L [id number] #### [facility] CLIA [id number] [address] [place] [address] [place] [facility] CLIA [id number] [address] [place] [address] [place] Urgent Care Visit Reporton 0 12-22-2024 Urgent Care Visit Report [facility] [address] [facility], [address] [place] [address] OFFICE VISIT Date of Service: 12/22/24 MR#: [id number] Acct: [id number] Name: KATHRIN BROWNLEE Rep #: [id number] : 1965 Provider: MELIA Solano Age/Sex: 59/F Location: [facility] Status: Signed with Addenda ADDENDUM by MELIA Solano on 01/04/25 at 0742 HPI Details: KATHRIN BROWNLEE, is a 59 F who presents to the office today for Assessment and Plan Assessment and Plan (1) Bacterial sinusitis: Status: Acute (2) Contact with and (suspected) exposure to other viral communicable diseases: Status: Acute Plan: Patient tested for flu and COVID which were negative. Orders: Orders POC Polly Covid FLUAB PCR 12/22/24 01/04/25 0742 Date Torrey Solano cc: * Signed Intake Vital Signs 05/02/23 10:19 12/22/24 16:44 Height 5 ft 5 in 5 ft 5 in Weight: 217 lb BMI 36.1 BP 128/70 H Blood Pressure Location Lt brachial Position Sitting Respiration 112 H Pulse 76 Pulse Source NIBP Temp 98.4 F Temp Source Oral Pulse Oximetry (%) 100 Oxygen Delivery Method room air Intake Visit Reasons: ST/[facility]/SINUS COMPLAINT/BA Chief Complaint: Gallstones Allergies No Known Allergies Allergy (Verified 05/02/23 10:21) [facility] Medical History (Updated 12/22/24 @ 17:19 by MELIA Perera) Bacterial sinusitis child Chronic neck and back pain Abnormal bruising Hx of blood clots Fatigue Hemorrhoids Surgical History History of endometrial ablation History of dilatation and curettage History of lumpectomy Family History Unknown Diabetes CVA (cerebral vascular accident) Other Heart disease Social History Smoking Status: Never smoker alcohol intake: current details: occasional substance use type: does not use HPI HPI Chief Complaint: Gallstones Details: KATHRIN BROWNLEE, is a 59 F who presents to the office today for HPI: Starting about 10 days ago patient had nasal congestion and sore throat. She notes that the sore throat has mostly resolved but then suddenly today she developed worsening sinus pain and pressure and nasal drainage. She otherwise denies any known fevers or cough. ROS: As noted in HPI Physical Exam: VITALS: Reviewed. GEN: Healthy appearing, well-developed, NAD. PSYCH: AOx3. Normal memory, mood, and affect. HEENT -Eyes: -No discharge or redness; -Ears: Tympanic membranes normal bilaterally -Mouth and throat: Moist mucous membranes. No pharyngeal swelling, erythema, or exudate noted NECK: CV: Regular rate and rhythm LUNGS: Normal respiratory effort. Lungs clear bilaterally. SKIN: Warm, well perfused. No skin rashes or abnormal lesions noted. MSK: Normal gait. NEURO: Ambulating with no limitations. Normal muscle strength and tone. No focal deficits. Results POC POLLY Covid FluAB PCR POC Polly Covid PCR Not Detected Last Edit by Macarena Durbin on 12/22/24 17:06 POC POLLY FLU NOT DETECTED FLU A B Last Edit by Macarena Durbin on 12/22/24 17:06 Coding Level of Care Code Off vis,new,level 3 Diagnoses Bacterial sinusitis J32.9; B96.89 Assessment and Plan Assessment and Plan (1) Bacterial sinusitis: Status: Acute Plan: Flu and COVID test negative today. Symptoms do appear more consistent with a sinus infection and patient started on Augmentin. She will otherwise use Flonase and antihistamines for symptomatic relief. Orders: Orders POC Polly Covid FLUAB PCR Today Medications: New amoxicillin-pot clavulanate 875-125 mg 1 TAB PO BID 7 days 14 tabs 0RF 12/22/24 1720 Date Torrey Solano SOFTWARE QUALITY ASSURANCE ENGINEER-C Cosigner Signature: Date (if applicable) CC: Normal [facility] Absolute lymphocyte countOrd ered By: Salvatore Le on 05-02-2023 Lymphocytes Auto (Unsp spec) [#/Vol] 1.26 10*3/uL 0.83-4.51 [facility] Basophil percentageOrdered B y: Salvatore Lamb on 05-02-2023 Basophils/100 WBC (Bld) 0.5 % 0-1 [facility] Bilirubin [Mass/Vol] 0.40 mg/dL 0.20-1.00 [facility] Comment on above: For patients on eltr ombopag therapy, use of Dimension [place] TBIL is not recommended. Chloride [Moles/Vol] 105 mmol/L 98-107 [facility] Eosinophils/100 WBC (Bld) 1.2 % 0-5 [facility] Glucose [Mass/Vol] 101 mg/dL 74-106 [facility] Comment on above: Fasting Glucose resu lt from 100 to 125 mg/dL suggests IMPAIRED HOMEOSTASIS per A.D.A. criteria. Neutrophils (Bld) [#/Vol] 6.5 10*3/uL 2.0-7.7 [facility] Neutrophils/100 WBC (Bld) 75.5 % 47-70 [facility] Potassium [Moles/Vol] 3.2 mmol/L 3.5-5.1 [facility] Protein [Mass/Vol] 6.9 g/dL 6.4-8.2 [facility] Sodium [Moles/Vol] 138 mmol/L 136-145 [facility] WBC (Bld) [#/Vol] 8.6 10*3/uL 4.4-11.0 [facility] Blood erythrocytes count (nu mber/volume)Ordered By: Salvatore Lamb on 05-02-2023 RBC (Bld) [#/Vol] 4.45 10*6/uL 4.2-5.4 [facility] Blood hemoglobin measurement (mass/volume)Ordered By: Salvatore Lamb on 05-02-2023 Hemoglobin (Bld) [Mass/Vol] 13.0 g/dL 12.0-15.0 [facility] Blood lymphocytes/100 leukoc ytesOrdered By: Salvatore Lamb on 05-02-2023 Lymphocytes/100 WBC (Bld) 14.7 % 19-41 [facility] Blood monocytes/100 leukocyt esOrdered By: Salvatore Lamb on 05-02-2023 Monocytes/100 WBC (Bld) 7.8 % 0-10 [facility] Blood platelet mean volumeOr dered By: Salvatore Lamb on 05-02-2023 Platelet mean volume (Bld) [Entitic vol] 9.0 fL 6.2-12.0 [facility] Determination of erythrocyte mean corpuscular volume (MCV)Ordered By: Salvatore Lamb on 05-02-2023 MCV (RBC) [Entitic vol] 90.1 fL 81-99 [facility] Direct bilirubinOrdered By: Salvatore Lamb on 05-02-2023 Bilirubin.direct [Mass/Vol] 0.11 mg/dL 0.00-0.30 [facility] Hematocrit Auto (Bld) [Volum e fraction]Ordered By: Salvatore Lamb on 05-02-2023 Hematocrit (Bld) [Volume fraction] 40.1 % 37-47 [facility] Influenza virus A and B and SARS-CoV-2 (COVID-19) Ag panel - Upper respiratory specimOrdered By: Salvatore Lamb on 05-02-2023 SARS-CoV-2 (COVID-19) RNA FLACA+probe Ql (Resp) [facility] Laboratory - Chemistry and C hemistry - challengeOrdered By: Salvatore Lamb on 05-02-2023 ALP [Catalytic activity/Vol] 71 U/L 45-117 [facility] ALT [Catalytic activity/Vol] 18 U/L 13-56 [facility] CO2 [Moles/Vol] 24.0 mmol/L 21.0-32.0 [facility] Globulin (S) [Mass/Vol] 3.5 g/dL 2.2-4.2 [facility] Lipase [Catalytic activity/Vol] 20 U/L 13-75 [facility] Comment on above: Please note:LIPASE r evised reference range effective 23. New Lipase methodology. Expected to produce lower values than the previous assay method. NEW Reference Range: 13 - 75 U/L Urea nitrogen/Creatinine [Mass ratio] 13.2 mg/mg 10-20 [facility] Laboratory - Hematology and Cell countsOrdered By: Salvatore Lamb on 05-02-2023 Erythrocyte distribution width (RBC) [Entitic vol] 42.5 fL 35.1-43.9 [facility] Erythrocyte distribution width (RBC) [Ratio] 12.8 % 11.6-14.6 [facility] Immature granulocytes/100 WBC (Bld) 0.300 % 0.0-0.9 [facility] Comment on above: IG% - Immature Granu locytes (promyelocytes, myelocytes and metamyelocytes) > 1% indicates that a LEFT SHIFT is Present. MCH (RBC) [Entitic mass] 29.2 pg 27.0-32.0 [facility] Nucleated RBC/100 WBC (Bld) [Ratio] 0 % 0-5 [facility] MCHC Auto (RBC) [Mass/Vol]Or dered By: Salvatore Lamb on 05-02-2023 MCHC (RBC) [Mass/Vol] 32.4 g/dL 32-36 [facility] No Panel InformationOrdered By: Salvatore Lamb on 05-02-2023 Estimated Creatinine Clearance Calc 74.38 ml/min [facility] Estimated GFR (MDRD) Amer 101 mL/min >60 [facility] Comment on above: GFR Calc Estimated GFR (MDRD) Non-Af Amer 84 mL/min >60 [facility] Comment on above: Non- GFR Calc Platelets bldOrdered By: Baljit Lamb on 05-02-2023 Platelets (Bld) [#/Vol] 326 10*3/uL 150-450 [facility] Serum or plasma albumin aravind urement (mass/volume)Ordered By: Salvatore Lamb on 05-02-2023 Albumin [Mass/Vol] 3.4 g/dL 3.2-5.0 [facility] Serum or plasma calcium aravind urement (mass/volume)Ordered By: Salvatore Lamb on 05-02-2023 Calcium [Mass/Vol] 8.5 mg/dL 8.5-10.1 [facility] Serum or plasma creatinine m easurement (mass/volume)Ordered By: Salvatore Lamb on 05-02-2023 Creatinine [Mass/Vol] 0.76 mg/dL 0.55-1.02 [facility] Comment on above: The validity of the calculated GFR & GFRAA in patients over 70 years has not been determined. Clinical correlation is essential. Serum or plasma urea nitroge n measurement (mass/volume)Ordered By: Salvatore Lamb on 05-02-2023 Urea nitrogen [Mass/Vol] 10 mg/dL 7-18 [facility] Thin prep Papanicolaou smear with manual screeningOrdered By: Salvatore Lamb on 05-02-2023 Thin prep Papanicolaou smear with manual screening 17 U/L 15-37 [facility] Thin prep Papanicolaou smear with manual screening 9 5-15 [facility] Office Visit: UC: sinusitiso n 03-11-2017 Documentation of current medications (procedure) Done Invalid Interpretation Code [facility] Work Phone: Fall risk assessment No Invalid Interpretation Code [facility] Work Phone: Tobacco use [facility] Never smoker Invalid Interpretation Code [facility] Work Phone: Vital Signs Date Time Vital Sign Value Performing Clinician Faci lity 07-01-2025 14:26-0400 Body height 165.[address] Christina Singh MD Work Phone: [facility] 07-01-2025 14:26-0400 Body mass index (BMI) [Ratio] 35.7 kg/m2 Dr. Christina Singh MD Work Phone: [facility] 07-01-2025 14:26-0400 Body weight 97.[address] Christina Singh MD Work Phone: [facility] 04-14-2025 10:35-0400 Body mass index (BMI) [Ratio] 35.98 kg/m2 Rafi Lubin MD Work Phone: [facility] 04-14-2025 10:35-0400 Body weight 98.07 kg Rafi Lubin MD Work Phone: [facility] 04-14-2025 10:35-0400 Diastolic blood pressure 72 mm[Hg] Rafi Lubin MD Work Phone: [facility] 04-14-2025 10:35-0400 Systolic blood pressure 128 mm[Hg] Rafi Lubin MD Work Phone: [facility] 03-15-2025 11:50-0400 Body mass index (BMI) [Ratio] 35.78 kg/m2 Rafi Lubin MD Work Phone: [facility] 03-15-2025 11:50-0400 Body weight 97.52 kg Rafi Lubin MD Work Phone: [facility] 03-15-2025 11:50-0400 Diastolic blood pressure 82 mm[Hg] Rafi Lubin MD Work Phone: [facility] 03-15-2025 11:50-0400 Systolic blood pressure 124 mm[Hg] Rafi Lubin MD Work Phone: [facility] 03-10-2025 11:59-0400 Body mass index (BMI) [Ratio] 35.35 kg/m2 Rafi Lubin MD Work Phone: [facility] 03-10-2025 11:59-0400 Body weight 96.34 kg Rafi Lubin MD Work Phone: [facility] 03-10-2025 11:59-0400 Diastolic blood pressure 80 mm[Hg] Rafi Lubin MD Work Phone: [facility] 03-10-2025 11:59-0400 Systolic blood pressure 120 mm[Hg] Rafi Lubin MD Work Phone: [facility] 03-03-2025 10:16-0400 Body height 165.1 cm Rafi Lubin MD Work Phone: [facility] 03-03-2025 10:16-0400 Body mass index (BMI) [Ratio] 35.84 kg/m2 Rafi Lubin MD Work Phone: [facility] 03-03-2025 10:16-0400 Body weight 97.7 kg Rafi Lubin MD Work Phone: [facility] 03-03-2025 10:16-0400 Diastolic blood pressure 80 mm[Hg] Rafi Lubin MD Work Phone: [facility] 03-03-2025 10:16-0400 Systolic blood pressure 120 mm[Hg] Rafi Lubin MD Work Phone: [facility] 10-14-2023 15:30-0500 Body height 165.1 cm Shantal Montalvo APRN.CNP Work Phone: [facility] 10-14-2023 15:30-0500 Body weight 96.34 kg Shantal Montalvo SUPPORT TECHNICIAN.PRINCIPAL ACCOUNT CLERK Work Phone: [facility] 10-14-2023 15:30-0500 Diastolic blood pressure 66 mm[Hg] Shantal Montalvo SUPPORT TECHNICIAN.PRINCIPAL ACCOUNT CLERK Work Phone: [facility] 10-14-2023 15:30-0500 Systolic blood pressure 124 mm[Hg] Shantal Montalvo SUPPORT TECHNICIAN.PRINCIPAL ACCOUNT CLERK Work Phone: [facility] 05-02-2023 12:19-0400 Respiratory rate 16 /min [facility] 05-02-2023 10:19-0400 Body height 165.1 cm [facility] 05-02-2023 10:19-0400 Body mass index (BMI) [Ratio] 32.5 kg/m2 [facility] 05-02-2023 10:19-0400 Body temperature 98 [degF] [facility] 05-02-2023 10:19-0400 Body weight 88.9 kg [facility] 05-02-2023 10:19-0400 Diastolic blood pressure 81 mm[Hg] [facility] 05-02-2023 10:19-0400 Heart rate 91 /min [facility] 05-02-2023 10:19-0400 SaO2% (BldA) [Mass fraction] 100 % [facility] 05-02-2023 10:19-0400 Systolic blood pressure 124 mm[Hg] [facility] 03-11-2017 17:22-0400 BMI (Body Mass Index) 37.55 kg/m2 [facility] Work Phone: 03-11-2017 17:22-0400 Body Temperature 98.9 [degF] [facility] Work Phone: 03-11-2017 17:22-0400 BP Diastolic 82 mm[Hg] [facility] Work Phone: 03-11-2017 17:22-0400 BP Systolic 122 mm[Hg] Vince Morley [facility] Work Phone: 03-11-2017 17:22-040 Height 162.56 cm [facility] Work Phone: 03-11-2017 17:22-0400 Pulse (Heart Rate) 82 /min [facility] Work Phone: 03-11-2017 17:22-0400 Pulse Oximetry 99 % [facility] Work Phone: 03-11-2017 17:22-0400 Respiratory Rate 14 /min [facility] Work Phone: 03-11-2017 17:22-0400 Weight 99.25 kg Vince [facility] Work Phone: Encounters Encounter Date Encounter Type Care Provider Facility Start: 07-01-2025 End: 07-01-[address] Tony Elliott MD -[facility] Start: 07-01-2025 End: 07-01-[address] Christina Singh MD Work Phone: -[facility] Start: 04-14-2025 End: 04-14-2025 ambulatory RAFI LUBIN Facility:[facility] Start: 04-14-2025 End: 04-14-2025 Patient encounter procedure Rafi Lubin MD Work Phone: OB/Gynecology Comment on above: Perimenopause (Prima ry Dx); Adenomyosis Start: 03-17-2025 End: 05-17-2025 Follow-up encounter Michael Eubanks MD Work Phone: OB/Gynecology Start: 03-17-2025 ambulatory RAFI LUBIN [facility] ity:[facility] Start: 03-17-2025 End: 03-17-2025 Subsequent hospital visit by physician Screen Mammo [facility] Comment on above: Encounter for screen ing mammogram for breast cancer [Z12.31] Start: 03-15-2025 End: 03-15-2025 Patient encounter procedure Rafi Lubin MD Work Phone: OB/Gynecology Comment on above: ASCUS with positive high risk HPV cervical (Primary Dx) Start: 03-15-2025 End: 03-15-2025 ambulatory RAFI LUBIN Facility:[facility] Start: 03-10-2025 End: 03-10-2025 Patient encounter procedure Rafi Lubin MD Work Phone: OB/Gynecology Comment on above: Abnormal uterine ble eding (AUB) (Primary Dx) Start: 03-10-2025 End: 03-10-2025 ambulatory RAFI LUBIN Facility:[facility] Start: 03-05-2025 End: 05-05-2025 Follow-up encounter Rafi Lubin MD Work Phone: OB/Gynecology Comment on above: pap results Start: 03-05-2025 End: 03-05-2025 Patient encounter procedure [facility] Start: 03-05-2025 End: 03-05-2025 ambulatory Service Assistant [facility] Work Phone: OB/Gynecology Start: 03-03-2025 End: 03-03-2025 ambulatory RAFI LUBIN Facility:[facility] Start: 03-03-2025 End: 03-03-2025 Patient encounter procedure Rafi Lubin MD Work Phone: OB/Gynecology Comment on above: Encounter for gyneco logical examination (general) (routine) without abnormal findings; Encounter for screening mammogram for breast cancer; Abnormal uterine bleeding (AUB); Screening for cervical cancer; Screening for human papillomavirus (HPV); PMB (postmenopausal bleeding) Start: 03-03-2025 End: 03-03-2025 Patient encounter status Rafi Lubin MD Work Phone: [facility] Start: 03-03-2025 End: 03-03-2025 ambulatory RAFI LUBIN Facility:[facility] Start: 03-03-2025 Encounter for gynecological examination (general) (routine) without abnormal findings RAFI LUBIN [facility] Start: 12-22-2024 End: 12-22-2024 ambulatory Christina Singh Facility:[facility] Start: 10-21-2023 Documentation procedure Mammog briana Coordinator [facility] Start: 10-21-2023 Letter encounter Mammography Coordinator [facility] Department Start: 10-18-2023 End: 10-18-2023 Subsequent hospital visit by physician Screen Mammo [facility] M[facility]ogram Comment on above: Encounter for screen ing mammogram for breast cancer [Z12.31] PCB (post coital ble eding) [N93.0] Start: 10-14-2023 End: 10-14-2023 Patient encounter procedure Shantal Montalvo APRN.PRINCIPAL ACCOUNT CLERK Work Phone: OB/Gynecology Comment on above: Encounter for gyneco logical examination (general) (routine) without abnormal findings (Primary Dx); Encounter for screening for human papillomavirus (HPV); Pap smear for cervical cancer screening; Encounter for screening mammogram for breast cancer; Colon cancer screening; Family history of blood clots; History of deep vein thrombosis; PCB (post coital bleeding) Start: 10-14-2023 End: 10-14-2023 Patient encounter status Shantal Montalvo APRN.CNP Work Phone: [facility] Work Phone: Start: 10-14-2023 Telephone encounter Shantal nice APRN.CNP Work Phone: OB/Gynecology Comment on above: Orders; Patient Upda te Start: 05-02-2023 End: 05-02-2023 Emergency department patient visit [facility] Work Phone: Start: 07-06-2022 End: 07-06-2022 ambulatory [facility] Work Phone: Start: 07-06-2022 End: 07-06-2022 Patient encounter procedure [facility] Ultrasound Procedures Date Procedure Procedure Detail Performing Clinician Start: 03-05-2025 Us pelvic nonobstetr ic real-time image complete Rafi Lubin MD Work Phone: Start: 05-02-2023 SARS-CoV-2 & FLU Ant igen (Rapid) Start: 05-02-2023 US scan of gallbladder Start: 07-06-2022 CT of abdomen Plan of Treatment Date Care Activity Detail Author Start: 10-14-2028 Screening for malign ant neoplasm of cervix [facility] Start: 03-06-2028 Urine microalbumin profile DTaP,Tdap,Td Vaccine (3 - Td or Tdap) [facility] Start: 03-17-2026 Screening for malign ant neoplasm of breast Mammogram Screening [facility] Start: 03-03-2026 Screening for malign ant neoplasm of cervix Cervical Cancer Screening [facility] Start: 07-05-2025 Influenza vaccination [facility] Start: 07-01-2025 L/S Spine Min 4 Views L/S Spine Min 4 Views [facility] Start: 07-01-2025 XR Spine Lumbar and Sacrum GE 4 Views [facility] Start: 03-17-2025 End: 03-17-2025 Patient encounter procedure 03/17/2025 12:50 PM EDT Appointment Mammogram [address] [place] [address] Encounter for screening mammogram for breast cancer [Z12.31] Mammogram Comment on above: Encounter for screen ing mammogram for breast cancer [Z12.31] Start: 03-10-2025 End: 03-10-2025 Patient encounter procedure 03/10/2025 11:40 AM EDT Office Visit OB/Gynecology [address] [place] [address] Rafi Lubin MD [address] [place] [address] [facility] OB/Gynecology Comment on above: [facility] Start: 03-05-2025 End: 03-05-2025 ambulatory 03/05/2025 1:00 PM EDT Procedure OB/Gynecology [address] [place] [address] [facility], Service Assistant [facility] [address] [place] [address] Abnormal uterine bleeding (AUB) [N93.9] OB/Gynecology Comment on above: Abnormal uterine ble eding (AUB) [N93.9] Start: 03-03-2025 End: 06-02-2025 Follitropin [Units/volume] in Serum or Plasma [facility] Comment on above: Expected: 03/03/2025 , Expires: 06/02/2025 Start: 03-03-2025 End: 03-03-2026 US Pelvis PELVIC US [facility] Routine Abnormal uterine bleeding (AUB) Expected: 03/03/2025, Expires: 03/03/2026 [facility] Comment on above: Expected: 03/03/2025 , Expires: 03/03/2026 Start: 10-18-2024 Screening for malign ant neoplasm of breast Mammogram Screening [facility] Start: 10-14-2024 Screening for malign ant neoplasm of cervix Cervical Cancer Screening [facility] Start: 07-05-2024 Covid-19 Vaccine ( season) Covid-19 Vaccine () [facility] Start: 07-05-2024 Influenza vaccination Influenza Vacc ine (#1) [facility] Start: 07-05-2023 Influenza vaccination Influenza Vacc ine (#1) [facility] Start: 04-03-2023 HPV Testing HPV Testing [facility] Start: 04-03-2023 Pap Testing Pap Testing [facility] Start: 04-03-2023 Screening for malign ant neoplasm of cervix Pap Testing [facility] Start: 11-04-2022 Depression Assessment Depression Ass essment [facility] Start: 10-17-2021 Mammography Mammogram Screening [facility] Start: 10-17-2021 Screening for malign ant neoplasm of breast Mammogram Screening [facility] Start: 2017 Pneumococcal Vaccine : 50+ (1 of 1 - PCV) Pneumococcal Vaccine: 50+ (1 of 1 - PCV) [facility] Start: 2017 Shingrix Vaccine (1 of 2) Shingrix Vaccine (1 of 2) [facility] Start: 03-11-2017 End: 03-11-2017 Appointment Appointment [facility] Work Phone: Start: 2012 Cologuard (FIT-DNA) Cologuard (FIT-D NA) [facility] Start: 2012 Colonoscopy Colonoscopy [facility] Start: 2012 Colorectal Cancer Screening Colorectal Cancer Screening [facility] Start: [address] Colonography [facility] Start: 2012 Diabetes Screening Diabetes Screenin g [facility] Start: 2012 Fecal Occult Blood Fecal Occult Bloo d [facility] Start: 2012 Lipid 1996 panel - Serum or Plasma Lipid Screening [facility] Start: 2012 Lipid panel Lipid Screening [facility] Start: 2012 Screening for malign ant neoplasm of colon [facility] Start: 2012 Sigmoidoscopy Sigmoidoscopy [facility] Start: 1986 Hepatitis B Vaccine (1 of 3 - 19+ 3-dose series) Hepatitis B Vaccine (1 of 3 - 19+ 3-dose series) [facility] Start: 1985 Anxiety Screening Anxiety Screening [facility] Start: 1985 Depression Screening Depression Scre ening [facility] Start: 1985 Hepatitis C Screening Hepatitis C [facility] Start: 1985 Hepatitis C screening Hepatitis C [facility] Start: 1985 HIV Screening HIV Screening [facility] Start: 1985 HIV screening HIV Screening [facility] Start: 1967 Covid-19 Vaccine (#1) Covid-19 Vacci ne (#1) [facility] Start: 1967 Hepatitis B Vaccine (1 of 3 - 3-dose series) Hepatitis B Vaccine (1 of 3 - 3-dose series) [facility] COLPOSCOPY COLPOSCOPY Proce balbina Routine ASCUS with positive high risk HPV cervical Ordered: 03/11/2025 [facility] Work Phone: Comment on above: Ordered: 03/11/2025 End: 04-02-2026 DBT Breast - bilateral screening [facility] SCREENING [facility] Routine Encounter for screening mammogram for breast cancer 1 Occurrences starting 03/03/2025 until 04/02/2026 [facility] Work Phone: Comment on above: 1 Occurrences starti ng 03/03/2025 until 04/02/2026 DBT Breast - bilater al screening DUANE SCREENING [facility] Radiology Routine Encounter for screening mammogram for breast cancer 03/17/2025 1:51 PM EDT [facility] Work Phone: Endometrial bx w/wo endocervix bx w/o dilat spx ENDOMETRIAL BIOPSY Procedures Routine Abnormal uterine bleeding (AUB) Ordered: 03/03/2025 [facility] Comment on above: Ordered: 03/03/2025 Endometrial bx w/wo endocervix bx w/o dilat spx ENDOMETRIAL BIOPSY Procedures Routine Abnormal uterine bleeding (AUB) Ordered: 03/10/2025 [facility] Work Phone: Comment on above: Ordered: 03/10/2025 End: 11-12-2024 DUANE SCREENING [facility] SCREENING Radiology Routine Encounter for screening mammogram for breast cancer 1 Occurrences starting 10/14/2023 until 11/12/2024 [facility] Work Phone: Comment on above: 1 Occurrences starti ng 10/14/2023 until 11/12/2024 DUANE SCREENING DUANE SCREENING Ra diology Routine Encounter for screening mammogram for breast cancer 10/18/2023 10:40 AM [facility] Work Phone: PAP TEST PAP TEST Lab Rou in[place] Encounter for gynecological examination (general) (routine) without abnormal findings Encounter for screening for human papillomavirus (HPV) Pap smear for cervical cancer screening 10/14/2023 4:09 PM EST [facility] Work Phone: PAP TEST PAP TEST Lab [facility] Encounter for gynecological examination (general) (routine) without abnormal findings Abnormal uterine bleeding (AUB) Screening for cervical cancer Screening for human papillomavirus (HPV) 03/03/2025 10:51 AM EDT [facility] Patient Education ED Diet Vomiti ng Diarrhea ED Gallstones with Biliary Colic [facility] Work Phone: Patient referral [facility] Work Phone: Tissue Pathology bio psy report SURGICAL PATHOLOGY Lab Routine Abnormal uterine bleeding (AUB) 03/10/2025 12:34 PM EDT [facility] Tissue Pathology bio psy report SURGICAL PATHOLOGY Lab Routine ASCUS with positive high risk HPV cervical Ordered: 03/15/2025 [facility] Work Phone: Comment on above: Ordered: 03/15/2025 End: 11-12-2024 Us transvaginal US FEMALE PELVIS TRANSVAG Radiology Routine PCB (post coital bleeding) 1 Occurrences starting 10/14/2023 until 11/12/2024 [facility] Work Phone: Comment on above: 1 Occurrences starti ng 10/14/2023 until 11/12/2024 Us transvaginal US FEMALE PELVIS TRANSVAG Radiology Routine PCB (post coital bleeding) 10/18/2023 9:34 AM EST [facility] Work Phone: [facility] Work Phone: [facility] Immunizations Immunization Date Immunization Notes Care Provider Alex gilliland 10-11-2010 influenza virus vaccine, unspecified formulation Shantal Montalvo APRN.[facility] Work Phone: [facility] Work Phone: Payers Date Payer Category Payer Self-pay [id number] 2021 [employer] [facility] BLUE ACCE PPO Member Subscriber Plan / Payer (Effective 2021-Present) Name: Kathrin Brownlee Relation to Subscriber: Self Name: Kathrin Brownlee Payer ID: [id number] (NAIC) Type: PPO Address: [place] [id number] 2021 Unknown [employer] BLUE ACCE SS PPO [id number] 2021-Present [phone] [id number] [place] [address] O [id number] 2016 Unknown [id number] Unknown [id number] Unknown [id number] Unknown [id number] Social History Date Type Detail Facility Start: 11-09-2020 End: 05-02-2023 Tobacco smoking status IDIS Unknown if ever smoked [facility] Start: 11-09-2020 Non-smoker [facility] Start: 1965 Sex Assigned At Female W [facility] Start: 05-02-2023 End: 10-14-2023 Tobacco smoking status IDIS Never smoked tobacco [facility] Work Phone: Start: 10-14-2023 Tobacco use and exposure Smoke less tobacco non-user [facility] Work Phone: Start: 10-14-2023 End: 03-15-2025 Alcohol intake Current drinker of alcohol (finding) [facility] Start: 08-18-2020 End: 10-14-2023 History of Social function [facility] Work Phone: Start: 08-18-2020 End: 10-14-2023 Social connection and isolation panel [facility] Work Phone: Do you belong to any clubs or organizations such as bahai groups, unions, fraternal or athletic groups, or school groups? Yes [facility] Work Phone: Are you now , , , , never or living with a partner? [facility] Work Phone: How hard is it for y ou to pay for the very basics like food, housing, medical care, and heating Not hard at all [facility] Work Phone: Do you feel stress - tense, restless, nervous, or anxious, or unable to sleep at night because your mind is troubled all the time - these days [OSQ] Only a little [facility] Work Phone: (I/We) worried ingrid er (my/our) food would run out before (I/we) got money to buy more. Never true [facility] Work Phone: Start: 08-18-2020 Education 16 [facility] Start: 04-03-2018 Alcohol Comment [facility] Start: 1965 Sex Assigned At Not on file [facility] NEGATED: Highlighted rowStart: NINF History of tobacco use Passive smoker [facility] Work Phone: Clinical Notes 10-14-2023 to 04-14-2025 Rafi Lubin MD - 04/14/2025 10:32 AM Veda Velazquez Mammo Tech - 03/17/2025 12:50 PM EDTPatient InstructionsRafi Lubin MD - 03/15/2025 11:43 AM EDTPatient Instructions Note Date & Type Note Facility 04-14-2025 Note HNO ID: [id number] Author: RAFI LUBIN MD Service: ? Author Type: Physician Type: Progress Notes Filed: 04/14/2025 10:59 Note Text: Kathrin Brownlee is a 60 year old female who presents for problem visit discuss AUB, ultrasound results 03/05/2025. HPI: No additional bleeding since endometrial Unremarkable colp, endocervical cells, pelvic ultrasound and FSH suggesting at 26 suggesting perimenopause. 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 Thyroid disease PAST SURGICAL HISTORY Procedure Laterality Date D+C HYSTEROSCOPY, DIAGNOSTIC (SEPARATE 11/17/2020 IUD Removal, baltazar ablation laproscopic bilateral salpingectomy LIGATE FALLOPIAN TUBE PAST SURGICAL HISTORY OF bengin lumps removals from different parts of body FAMILY HISTORY Problem Relation Age of Onset Stroke Mother Blood Clots Father after knee surgery Stroke Brother Diabetes Brother Breast Cancer Paternal Grandmother Blood Clots Paternal Grandmother Social History Tobacco Use Smoking status: Never Passive exposure: Never Smokeless tobacco: Never Vaping Use Vaping status: Never Used Substance Use Topics Alcohol use: Yes Comment: occasional Drug use: No Current Outpatient Medications Medication Sig elderberry fruit (ELDERBERRY ORAL) Take by mouth. ZINC ORAL Take by mouth. ascorbic acid (VITAMIN C ORAL) Take by mouth. Magnesium 250 mg tab Take 250 mg by mouth. ibuprofen (ADVIL) 200 mg tablet Take 200 mg by mouth every 6 hours as needed. No current facility-administered medications for this visit. Allergies As of Date: 04/14/2025 (No Known Allergies) Fully Assessed 03/15/2025 REVIEW OF SYSTEMS Abdomen: No bloating, early satiety, indigestion, or increased flatulence. No abdominal pain, nausea, vomiting, diarrhea, or constipation. Bladder: No dysuria, gross hematuria, urinary frequency, urinary urgency, or incontinence. Breast: No breast lumps, nipple d/c, overlying skin changes, redness or skin retraction. Expanded ROS: N/A Allergies and current medication updated:Yes SENSITIVE EXAM: Sensitive exam not performed. EXAM: LMP 07/19/2020 GENERAL: pleasant, female in no apparent distress ASSESSMENT AND PLAN: Assessment AND Plan Perimenopause Adenomyosis ftft > 30 min Rafi Lubin MD [facility] 04-14-2025 History of Presen t illness Narrative Kathrin Brownlee is a 60 year old female who presents for problem visit discuss AUB, ultrasound results 03/05/2025. HPI: No additional bleeding since endometrial Unremarkable colp, endocervical cells, pelvic ultrasound and FSH suggesting at 26 suggesting perimenopause. 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 Thyroid disease PAST SURGICAL HISTORY Procedure Laterality Date D+C HYSTEROSCOPY, DIAGNOSTIC (SEPARATE 11/17/2020 IUD Removal, baltazar ablation laproscopic bilateral salpingectomy LIGATE FALLOPIAN TUBE PAST SURGICAL HISTORY OF bengin lumps removals from different parts of body FAMILY HISTORY Problem Relation Age of Onset Stroke Mother Blood Clots Father after knee surgery Stroke Brother Diabetes Brother Breast Cancer Paternal Grandmother Blood Clots Paternal Grandmother Social History Tobacco Use Smoking status: Never Passive exposure: Never Smokeless tobacco: Never Vaping Use Vaping status: Never Used Substance Use Topics Alcohol use: Yes Comment: occasional Drug use: No Current Outpatient Medications Medication Sig elderberry fruit (ELDERBERRY ORAL) Take by mouth. ZINC ORAL Take by mouth. ascorbic acid (VITAMIN C ORAL) Take by mouth. Magnesium 250 mg tab Take 250 mg by mouth. ibuprofen (ADVIL) 200 mg tablet Take 200 mg by mouth every 6 hours as needed. No current facility-administered medications for this visit. Allergies As of Date: 04/14/2025 (No Known Allergies) Fully Assessed 03/15/2025 REVIEW OF SYSTEMS Abdomen: No bloating, early satiety, indigestion, or increased flatulence. No abdominal pain, nausea, vomiting, diarrhea, or constipation. Bladder: No dysuria, gross hematuria, urinary frequency, urinary urgency, or incontinence. Breast: No breast lumps, nipple d/c, overlying skin changes, redness or skin retraction. Expanded ROS: N/A Allergies and current medication updated:Yes SENSITIVE EXAM: Sensitive exam not performed. EXAM: LMP 07/19/2020 GENERAL: pleasant, female in no apparent distress ASSESSMENT AND PLAN: Assessment & Plan Perimenopause Adenomyosis ftft > 30 min Rafi Lubin MD documented in this encounter [facility] 03-17-2025 History of Presen t illness Narrative Radiology Service Progress Note PATIENT NAME: Kathrin Brownlee DATE OF SERVICE: March 17, 2025 TIME: 12:54 PM PATIENT IDENTITY VERIFICATION COMPLETED USING TWO (2) IDENTIFIERS: Name and Date of confirmed by patient verbally. FALL SCREENING: Has the patient had 2 falls in the last year or 1 fall with injury or currently using an Ambulatory Assistive Device (Walker, Cane, Wheelchair, Crutches, etc.)? No PATIENT GENDER DATA: Assigned female at . status: : No status: NO. PATIENT RELEVANT IMPLANT DATA REVIEWED: Not Applicable PATIENT PRESENTS WITH AN IMPLANTABLE OR ATTACHED EVALUATION ENGINEER: No RADIOLOGY DEPARTMENT: Mammography PERIPHERAL IV DATA: Not applicable SIGNED BY: Liz Dawkins March 17, 2025 12:54 PM documented in this encounter [facility] 03-17-2025 Note HNO ID: [id number] Author: VEDA DOUGHERTY Mammo Tech Service: ? Author Type: Plate Glass Polisher Type: Progress Notes Filed: 03/17/2025 12:54 Note Text: Radiology Service Progress Note PATIENT NAME: Kathrin Brownlee DATE OF SERVICE: March 17, 2025 TIME: 12:54 PM PATIENT IDENTITY VERIFICATION COMPLETED USING TWO (2) IDENTIFIERS: Name and Date of confirmed by patient verbally. FALL SCREENING: Has the patient had 2 falls in the last year or 1 fall with injury or currently using an Ambulatory Assistive Device (Walker, Cane, Wheelchair, Crutches, etc.)? No PATIENT GENDER DATA: Assigned female at . status: : No status: NO. PATIENT RELEVANT IMPLANT DATA REVIEWED: Not Applicable PATIENT PRESENTS WITH AN IMPLANTABLE OR ATTACHED EVALUATION ENGINEER: No RADIOLOGY DEPARTMENT: Mammography PERIPHERAL IV DATA: Not applicable SIGNED BY: Liz Dawkins March 17, 2025 12:54 PM [facility] 03-15-2025 Instructions Juliette Jurado MA - 03/15/2025 11:46 AM EDT YOUR RECOVERY It may take a few weeks for your cervix to heal. While your cervix heals, you may have: - Vaginal bleeding (less than a normal menstrual period) - Mild cramping - A brown-black vaginal discharge (similar to coffee grounds) which is a result of the paste used to help stop bleeding from the procedure Do NOT put anything in the vagina for 1 week after your colposcopy if your doctor does a biopsy of your cervix. This includes sex, tampons, and douches. If you have any discomfort, you may take an over the counter pain medication (motrin, advil, ibuprofen, tylenol, etc). If this does not relieve your discomfort, contact your doctor's office for a prescription strength pain medication. It is okay to wear a sanitary pad until the discharge and spotting stops. RISKS Although problems seldom occur with colposcopy, there can be some complications. You may feel faint during and shortly after the procedure as well as have some bleeding and vaginal discharge after the procedure. There is also a risk of infection after the procedure. These complications are rare and can be easily treated. You should contact you doctor is you have any of the following: - Heavy bleeding (more than your normal period) - Bleeding with clots - Severe abdominal pain - Fever (more than 100.4F) - Foul smelling vaginal discharge RESULTS If a biopsy was taken, we will have the results of your biopsy in 1-2 weeks. If you do not hear the results of your biopsy after 2 weeks, please contact your physicians office for the results. Depending on the biopsy results, your doctor will determine your follow up plan which may include further testing or treatments. STAYING HEALTHY After the procedure, you will need to see your doctor for follow up visits during the year. At these visits your doctor will check the health of your cervix with a pap smear. After three normal pap smears, your doctor will allow you to return to having exams once a year. If you have another abnormal pap smear, you may need closer follow up for longer or you may need additional treatment. By making a few lifestyle changes after the procedure, you can help protect the health of your cervix: - Have regular pelvic exams and pap smears as ordered by your doctor. - Stop smoking as smoking increases your risk of developing a cancer of the cervix - If you have more than one sexual partner, limit your number of partners and use condoms to reduce your risks of STDs. If you have any additional questions, please contact your doctor's office. documented in this encounter [facility] 03-15-2025 Note HNO ID: [id number] Author: RAFI LUBIN MD Service: ? Author Type: Physician Type: Progress Notes Filed: 03/15/2025 12:23 Note Text: Kathrin is a 59 year old who presents today for a colposcopy. The patient's last pap smear was ASCUS with positive HPV from February 2025. Patient has a history of abnormal pap: No. The patient has had prior treatment: none. test: negative UNIVERSAL PROTOCOL / SAFETY CHECKLIST Procedure to be Performed: clposcopy Sign In: A Moment of CARE was completed. Appropriate PPE (Personal Protective Equipment) worn by all providers involved with the procedure. Special equipment utilized colposcope. Patient/Surrogate Stated/Verified: Patient name, Date of , Relevant allergies, and The intended procedure Time Out: Relevant labs, photos, and/or imaging studies have been reviewed. Intended patient and procedure match the source document(s) (e.g. consent, HANDP, associated studies [imaging, pathology]) are not applicable. Consent obtained and matches the intended procedure. Yes. Correct side/site is not applicable. Medications required for this procedure are verified. Fire risk assessed and is not applicable. Implants: are not applicable. Sign Out: Specimens are all correctly labeled and sent. All instruments, equipment, possible retained foreign bodies are accounted for. Yes. The post-procedure plan of care has been communicated to the patient or surrogate. PROCEDURE: EXTERNAL GENITALIA: Normal in appearance without lesions VAGINA: Normal in appearance without lesions CERVIX: Speculum placed in vagina and excellent visualization of cervix achieved. Cervix swabbed x 3 with 3% acetic acid solution. Cervix grossly normal. Squamocolumnar junction visualized. acetowhite changes noted at 1:00. BIOPSY: Done at 1:00 ECC: done HEMOSTASIS: Obtained with silver nitrate Procedure Summary: Patient tolerated procedure well and colposcopy was adequate. ASSESSMENT: HPV effect PLAN: Specimens labeled and sent to Pathology. If indicated, lesion by colpo is amenable to office LEEP as lesion is small. Rafi Lubin MD [facility] 03-15-2025 History of Presen t illness Narrative Kathrin is a 59 year old who presents today for a colposcopy. The patient's last pap smear was ASCUS with positive HPV from February 2025. Patient has a history of abnormal pap: No. The patient has had prior treatment: none. test: negative UNIVERSAL PROTOCOL / SAFETY CHECKLIST Procedure to be Performed: clposcopy Sign In: A Moment of CARE was completed. Appropriate PPE (Personal Protective Equipment) worn by all providers involved with the procedure. Special equipment utilized colposcope. Patient/Surrogate Stated/Verified: Patient name, Date of , Relevant allergies, and The intended procedure Time Out: Relevant labs, photos, and/or imaging studies have been reviewed. Intended patient and procedure match the source document(s) (e.g. consent, H&P, associated studies [imaging, pathology]) are not applicable. Consent obtained and matches the intended procedure. Yes. Correct side/site is not applicable. Medications required for this procedure are verified. Fire risk assessed and is not applicable. Implants: are not applicable. Sign Out: Specimens are all correctly labeled and sent. All instruments, equipment, possible retained foreign bodies are accounted for. Yes. The post-procedure plan of care has been communicated to the patient or surrogate. PROCEDURE: EXTERNAL GENITALIA: Normal in appearance without lesions VAGINA: Normal in appearance without lesions CERVIX: Speculum placed in vagina and excellent visualization of cervix achieved. Cervix swabbed x 3 with 3% acetic acid solution. Cervix grossly normal. Squamocolumnar junction visualized. acetowhite changes noted at 1:00. BIOPSY: Done at 1:00 ECC: done HEMOSTASIS: Obtained with silver nitrate Procedure Summary: Patient tolerated procedure well and colposcopy was adequate. ASSESSMENT: HPV effect PLAN: Specimens labeled and sent to Pathology. If indicated, lesion by colpo is amenable to office LEEP as lesion is small. Rafi Lubin MD documented in this encounter [facility] 03-10-2025 Instructions Iris Greer MA - 03/10/2025 11:56 AM EDT YOUR RECOVERY After your biopsy you may have: Vaginal bleeding (less than a normal menstrual period) Mild cramping Do NOT put anything in the vagina for 1 week after your endometrial biopsy. This includes: tampons douches and refraining from having sexual intercourse If you have any discomfort, you may take an over the counter pain medication (motrin, advil, ibuprofen, tylenol, etc). If this does not relieve your discomfort, contact the office. It is okay to wear a sanitary pad until the discharge and spotting stops. RISKS Although problems seldom occur with endometrial biopsies, there can be some complications. You may feel faint during and shortly after the procedure as well as have some bleeding after the procedure. There is also a risk of infection after the procedure. These complications are rare and can be easily treated. You should contact you doctor is you have any of the following: Heavy bleeding (more than your normal period) Bleeding with clots Severe abdominal pain Fever (more than 100.4F) Foul smelling vaginal discharge RESULTS We will have the results of your biopsy in 1-2 weeks. If you do not hear the results of your biopsy after 2 weeks, please contact the office for the results. If you have any additional questions or concerns please do not hesitate to contact the office. documented in this encounter [facility] 03-10-2025 Note HNO ID: [id number] Author: RAFI LUBIN MD Service: ? Author Type: Physician Type: Progress Notes Filed: 03/10/2025 12:28 Note Text: Skiing Instructor offered: Patient accepts, visit chaperoned by Iris Greer MA. Kathrin is a 59 year old who presents today for an endometrial biopsy for abnormal uterine bleeding. test: n/a UNIVERSAL PROTOCOL / SAFETY CHECKLIST Procedure to be Performed: Endometrial Biopsy Sign In: A Moment of CARE was completed. Appropriate PPE (Personal Protective Equipment) worn by all providers involved with the procedure. Special equipment not required. Patient/Surrogate Stated/Verified: Patient name, Date of , Relevant allergies, and The intended procedure Time Out: Relevant labs, photos, and/or imaging studies have been reviewed. Intended patient and procedure match the source document(s) (e.g. consent, HANDP, associated studies [imaging, pathology]) are not applicable. Consent obtained and matches the intended procedure. Yes. Correct side/site is not applicable. Medications required for this procedure are verified. Fire risk assessed and is not applicable. Implants: are not applicable. Sign Out: Specimens are all correctly labeled and sent. All instruments, equipment, possible retained foreign bodies are accounted for. Yes. The post-procedure plan of care has been communicated to the patient or surrogate. PROCEDURE: EXTERNAL GENITALIA: Normal in appearance without lesions VAGINA: Normal in appearance without lesions BIOPSY: Speculum placed into the vagina with excellent visualization of the cervix. Cervix cleaned with betadine. Anterior lip of cervix grasped with single toothed tenaculum. Uterus sounded to 5 cm. Procedure Summary: Patient tolerated procedure well. ASSESSMENT: post menopausal bleeding PLAN: Specimens labeled and sent to Pathology. Will notify patient of results in 1-2 weeks. Rafi Lubin MD [facility] 03-10-2025 History of Presen t illness Narrative Skiing Instructor offered: Patient accepts, visit chaperoned by Iris Greer MA. Kathrin is a 59 year old who presents today for an endometrial biopsy for abnormal uterine bleeding. test: n/a UNIVERSAL PROTOCOL / SAFETY CHECKLIST Procedure to be Performed: Endometrial Biopsy Sign In: A Moment of CARE was completed. Appropriate PPE (Personal Protective Equipment) worn by all providers involved with the procedure. Special equipment not required. Patient/Surrogate Stated/Verified: Patient name, Date of , Relevant allergies, and The intended procedure Time Out: Relevant labs, photos, and/or imaging studies have been reviewed. Intended patient and procedure match the source document(s) (e.g. consent, H&P, associated studies [imaging, pathology]) are not applicable. Consent obtained and matches the intended procedure. Yes. Correct side/site is not applicable. Medications required for this procedure are verified. Fire risk assessed and is not applicable. Implants: are not applicable. Sign Out: Specimens are all correctly labeled and sent. All instruments, equipment, possible retained foreign bodies are accounted for. Yes. The post-procedure plan of care has been communicated to the patient or surrogate. PROCEDURE: EXTERNAL GENITALIA: Normal in appearance without lesions VAGINA: Normal in appearance without lesions BIOPSY: Speculum placed into the vagina with excellent visualization of the cervix. Cervix cleaned with betadine. Anterior lip of cervix grasped with single toothed tenaculum. Uterus sounded to 5 cm. Procedure Summary: Patient tolerated procedure well. ASSESSMENT: post menopausal bleeding PLAN: Specimens labeled and sent to Pathology. Will notify patient of results in 1-2 weeks. Rafi Lubin MD documented in this encounter [facility] 03-09-2025 Note HNO ID: [id number] Author: ALEXIA CASSIDY MD Service: ? Author Type: Physician Type: Progress Notes Filed: 03/09/2025 10:22 Note Text: The patient presents for requested ultrasound. Full report available in the Imaging tab in [employer]. Alexia Cassidy MD [facility] 03-09-2025 History of Presen t illness Narrative The patient presents for requested ultrasound. Full report available in the Imaging tab in [employer]. Alexia Cassidy MD documented in this encounter [facility] 03-03-2025 Note HNO ID: [id number] Author: RAFI LUBIN MD Service: ? 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 Kathrin is a 59 year old who presents for an annual gynecologic exam with complaints, had an ablation in 2020, has just started having some AUB . Postmenopausal: ablation HRT use: No. Age at Menarche: 13 Still get period: No, had an ablation, recently started having bleeding LMP: 02/27/2025 Menses: AUB Menstrual flow: Heavy at first Bleeding amount bothersome: Yes Bleeding between periods: Yes Period symptoms: Breast tenderness, acne and cramps Sexually active: Yes Time with current partner: 2.5 years Contraception: Tubal Ligation Contraception frequency: Always HPV vaccine: No Last pap smear: 10/14/2023, ASCUS, HPV negative History of abnormal pap: Yes Colposcopy: No. Leep: No. Cone biopsy: No. Bothersome pelvic pain: No Last mammogram: 2022 normal History of abnormal mammogram: No OB History Gravida6 Para2 Term0 Preterm0 AB4 Living2 SAB4 IAB0 Ectopic0 Multiple0 Live Births2 Comment: x 2 FAMILY HISTORY Problem Relation Age of Onset Stroke Mother Blood Clots Father after knee surgery Stroke Brother Diabetes Brother Breast Cancer Paternal Grandmother Blood Clots Paternal Grandmother SOCIAL HISTORY Social History Tobacco Use Smoking status: Never Passive exposure: Never Smokeless tobacco: Never Vaping Use Vaping status: Never Used Substance Use Topics Alcohol use: Yes Comment: occasional Drug use: No REVIEW OF SYSTEMS Abdomen: No abdominal pain, nausea, vomiting, diarrhea, or constipation. No bloating, early satiety, indigestion, or increased flatulence. Bladder: No dysuria, gross hematuria, urinary frequency, urinary urgency, or incontinence Breast: No breast lumps, nipple d/c, overlying skin changes, redness or skin retraction Allergies and current medication updated:Yes SENSITIVE EXAM: Sensitive exam not performed. EXAM: BP 120/80 Ht 5' 5 (1.65m) Wt 215 lb 6.4 oz (97.7kg) LMP 07/19/2020 BMI 35.84 kg/(m2). GENERAL: pleasant, female in no apparent distress HEENT: Normocephalic, atraumatic, mucus membranes moist, and no lesions NECK: Supple, full range of motion, no adenopathy, and thyroid normal DERMATOLOGY: Normal, without lesions, non-icteric, and non-hirsute BREAST: soft, non-tender, symmetric, no dominant mass, normal nipple-areolar complex, no lymphadenopathy, and no nipple discharge CHEST: Normal inspiratory effort ABDOMEN: soft, non-tender, and no masses PELVIC: external genitalia normal, normal Bartholin's glands, urethra, [place]'s glands, no vulvar lesions, no cervical lesions, good vaginal support, physiologic discharge present, normal appearing perineal body and perianal region BIMANUAL: uterus normal size, shape and consistency, no adnexal masses, non-tender, and slow egress of dark blood from cervix RECTOVAGINAL: deferred. NEURO: alert and oriented x3,exam grossly non-focal EXTREMITIES: normal ASSESSMENT/PLAN: 1) Health maintenance: Pap done with reflex HPV Mammogram ordered 2) PMB schedule endometrial bx/pelvic ultrasound Rafi Lubin MD [facility] 03-03-2025 History of Presen t illness Narrative Skiing Instructor offered: Patient accepts, visit chaperoned by Iris Greer MA. Kathrin is a 59 year old who presents for an annual gynecologic exam with complaints, had an ablation in 2020, has just started having some AUB . Postmenopausal: ablation HRT use: No. Age at Menarche: 13 Still get period: No, had an ablation, recently started having bleeding LMP: 02/27/2025 Menses: AUB Menstrual flow: Heavy at first Bleeding amount bothersome: Yes Bleeding between periods: Yes Period symptoms: Breast tenderness, acne and cramps Sexually active: Yes Time with current partner: 2.5 years Contraception: Tubal Ligation Contraception frequency: Always HPV vaccine: No Last pap smear: 10/14/2023, ASCUS, HPV negative History of abnormal pap: Yes Colposcopy: No. Leep: No. Cone biopsy: No. Bothersome pelvic pain: No Last mammogram: 2022 normal History of abnormal mammogram: No OB History Gravida6 Para2 Term0 Preterm0 AB4 Living2 SAB4 IAB0 Ectopic0 Multiple0 Live Births2 Comment: x 2 FAMILY HISTORY Problem Relation Age of Onset Stroke Mother Blood Clots Father after knee surgery Stroke Brother Diabetes Brother Breast Cancer Paternal Grandmother Blood Clots Paternal Grandmother SOCIAL HISTORY Social History Tobacco Use Smoking status: Never Passive exposure: Never Smokeless tobacco: Never Vaping Use Vaping status: Never Used Substance Use Topics Alcohol use: Yes Comment: occasional Drug use: No REVIEW OF SYSTEMS Abdomen: No abdominal pain, nausea, vomiting, diarrhea, or constipation. No bloating, early satiety, indigestion, or increased flatulence. Bladder: No dysuria, gross hematuria, urinary frequency, urinary urgency, or incontinence Breast: No breast lumps, nipple d/c, overlying skin changes, redness or skin retraction Allergies and current medication updated:Yes SENSITIVE EXAM: Sensitive exam not performed. EXAM: BP 120/80 Ht 5' 5 (1.65m) Wt 215 lb 6.4 oz (97.7kg) LMP 07/19/2020 BMI 35.84 kg/(m^2). GENERAL: pleasant, female in no apparent distress HEENT: Normocephalic, atraumatic, mucus membranes moist, and no lesions NECK: Supple, full range of motion, no adenopathy, and thyroid normal DERMATOLOGY: Normal, without lesions, non-icteric, and non-hirsute BREAST: soft, non-tender, symmetric, no dominant mass, normal nipple-areolar complex, no lymphadenopathy, and no nipple discharge CHEST: Normal inspiratory effort ABDOMEN: soft, non-tender, and no masses PELVIC: external genitalia normal, normal Bartholin's glands, urethra, [place]'s glands, no vulvar lesions, no cervical lesions, good vaginal support, physiologic discharge present, normal appearing perineal body and perianal region BIMANUAL: uterus normal size, shape and consistency, no adnexal masses, non-tender, and slow egress of dark blood from cervix RECTOVAGINAL: deferred. NEURO: alert and oriented x3,exam grossly non-focal EXTREMITIES: normal ASSESSMENT/PLAN: 1) Health maintenance: Pap done with reflex HPV Mammogram ordered 2) PMB schedule endometrial bx/pelvic ultrasound Rafi Lubin MD documented in this encounter [facility] 10-21-2023 Miscellaneous Notes October 22, 2023 PID: [id number] Kathrin Brownlee [address] [place] [address] Dear Ms. Brownlee, We are pleased to inform you that the results of your recent breast imaging exam on 10/18/2023 are normal. Early detection of cancer is very important. We also understand recommendations regarding breast cancer screening are controversial. Please discuss with your primary care provider which strategy is best for you and whether a mammogram is right for you. Your imaging studies and report will be kept on file at [facility] as part of your permanent medical record and are available for your continuing care. Thank you for allowing us to help in meeting your health care needs. Sincerely, Dr. Puente Interpreting Radiologist [facility] (Normal over 40) documented in this encounter [facility] 10-18-2023 History of Presen t illness Narrative Radiology Service Progress Note PATIENT NAME: Kathrin Brownlee DATE OF SERVICE: October 18, 2023 TIME: 9:43 AM PATIENT IDENTITY VERIFICATION COMPLETED USING TWO (2) IDENTIFIERS: Name and Date of confirmed by patient verbally. FALL SCREENING: Has the patient had 2 falls in the last year or 1 fall with injury or currently using an Ambulatory Assistive Device (Walker, Cane, Wheelchair, Crutches, etc.)? No PATIENT GENDER DATA: Female. status: : No status: NO. PATIENT RELEVANT IMPLANT DATA REVIEWED: Not Applicable RADIOLOGY DEPARTMENT: Mammography PERIPHERAL IV DATA: Not applicable SIGNED BY: Liz Baxter October 18, 2023 9:43 AM documented in this encounter [facility] 10-18-2023 History of Presen t illness Narrative Radiology Service Progress Note PATIENT NAME: Kathrin Brownlee DATE OF SERVICE: October 18, 2023 TIME: 11:52 AM PATIENT IDENTITY VERIFICATION COMPLETED USING TWO (2) IDENTIFIERS: Name and Date of confirmed by patient verbally. FALL SCREENING: Has the patient had 2 falls in the last year or 1 fall with injury or currently using an Ambulatory Assistive Device (Walker, Cane, Wheelchair, Crutches, etc.)? No PATIENT GENDER DATA: Female. status: : No status: NO. PATIENT RELEVANT IMPLANT DATA REVIEWED: Not Applicable RADIOLOGY DEPARTMENT: Ultrasound PERIPHERAL IV DATA: Not applicable SIGNED BY: Aleksandra Spangler RDMS T October 18, 2023 11:52 AM documented in this encounter [facility] 10-14-2023 Miscellaneous Notes Patient notified and voiced understanding. Appointment scheduled. Oksana Patel RN Please notify patient: I would like her to have an ultrasound for the post coital bleeding. It has been ordered. Please assist in scheduling. Shantal Montalvo APRN.CNP documented in this encounter [facility] 10-14-2023 Instructions Shantal Montalvo APRN.CNP - 10/14/2023 3:53 PM EST Calcium and Vitamin D Supplementation (from the National Institutes of Health Office of Dietary Supplements 2011) Calcium is required by the body for blood vessel, muscle, hormone and nerve functioning. Most of the body's calcium is stored in the bones and teeth where it supports structure and function. Bone is continuously broken down and reformed. When bone breakdown exceeds formation, especially in postmenopausal women, bone loss can increase the risk of osteoporosis and fractures. In addition to low calcium intake, women who smoke, have a family history of osteoporosis, are thin, or , or who take certain medications such as cancer chemotherapy, seizure mediations and steroids are at increased risk of osteoporosis. The calcium requirements in women change with age. The National Institutes of Health (NIH) recommends: 1000mg elemental calcium for premenopausal women age 19-50 1200mg elemental calcium for postmenopausal women and all women over 50 Milk, yogurt, and cheese are rich natural sources of calcium and are the major food contributors in the [place]. For example, 8oz of milk (whole, lowfat or skim) contains about 300mg calcium, 8oz of yogurt contains 415mg. Nondairy sources include salmon and sardines and vegetables, such as Maltese cabbage, kale, and broccoli. Foods fortified with calcium include many fruit juices, tofu and cereals. For more food calcium content information, visit http://ods.od.nih.gov/factsheet s/calcium. Calcium supplements come in several different forms. Remember that the recommendations are for millgrams (mg) of elemental calcium which may be less than the total weight of the supplement. The amount of elemental calcium is required to be printed on the label. Calcium carbonate is the least expensive form. It must be taken on a full stomach to be properly absorbed. Some patients may experience gas or constipation. Calcium phosphate and calcium citrate may be taken either with or without food and tend to have less side effects but are generally more expensive. Because of its ability to neutralize stomach acid, calcium carbonate is found in some [id number] antacid products, such as Tums and Rolaids . Depending on its strength, each chewable pill or softchew provides 200 to 400 mg of elemental calcium. The percentage of calcium absorbed depends on the total amount of elemental calcium consumed at one time. Absorption is highest in doses <500mg. So a woman who takes 1,000mg/day of calcium from supplements should split the dose and take 500mg at two separate times during the day. Too much calcium can cause kidney stones, constipation, difficulty absorbing other nutrients and calcium buildup in blood vessels. Women under 50 should not exceed 2500mg/day (2000mg/day for women over 50) of calcium from food and supplements. Excessive alcohol and caffeine intake can inhibit absorption of calcium. Calcium can reduce the absorption of some medications if taken at the same time of day (bisphosphonates, thyroid medication, Phenytoin and other seizure medications, some antibiotics and iron supplements). Vitamin D promotes calcium absorption in the gut and maintains adequate blood levels of calcium and phosphate for normal bone growth and bone remodeling. Vitamin D also helps regulate cell growth as well as nerve, muscle and immune system function. Vitamin D is produced in the skin as a result of ultraviolet sunlight rays and must be altered in the liver and kidney to become its active form. Recommended intake according to the National Institutes of Health is 600 International Units (IU) for girls and women ages 1-70 and 800 IU for women over 70. Very few foods in nature contain vitamin D. The flesh of fatty fish (such as salmon, tuna, and mackerel) and fish liver oils are among the best sources. Small amounts of vitamin D are found in beef liver, cheese, mushrooms and egg yolks. Most people meet at least some of their vitamin D needs through exposure to sunlight. Season, time of day, length of day, cloud cover, smog, skin melanin content, and sunscreen are among the factors that affect UV radiation exposure and vitamin D synthesis. Despite the importance of the sun for vitamin D synthesis, it is prudent to limit exposure of skin to sunlight and avoid tanning beds. UV radiation is a carcinogen responsible for most of the estimated 1.5 million skin cancers that occur annually in the [place]. Lifetime cumulative UV damage to skin is also responsible for some age-associated dryness and other cosmetic changes. In supplements and fortified foods, vitamin D is available in two forms, D2 (ergocalciferol) and D3 (cholecalciferol). The two are equivalent at normal supplement doses. For women who require high supplement doses because of vitamin D deficiency, D3 may work better to raise blood levels. Some medications can prevent proper absorption of Vitamin D. These include laxatives, corticosteroids like prednisone, the seizure drugs phenobarbital and phenytoin, the weight-loss drug orlistat ( Xenical and AlliTM) and the cholesterol-lowering drug cholestyramine (Questran , LoCholest , and Prevalite ). Talk to your doctor about adjusting your recommended daily vitamin D dosage if you take these medications. You should not exceed 4000 mg of vitamin D supplementation daily unless specifically prescribed by your doctor. documented in this encounter [facility] 10-14-2023 History of Presen t illness Narrative Patient declined laminator printed circuit boards Kathrin is a 58 year old who presents for an annual gynecologic exam with complaints, bleeding with intercourse . Has not had period since , but now has bleeding today. Postmenopausal: No. LMP . Also history of ablation. HRT use: No. 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: 07/19/2020, Ablation Age at Menarche: Age at First : Age at Menopause: Job Counselor History Comments: Sexual Activity: Yes; Male Contraception: No contraception data on record PAST MEDICAL HISTORY Diagnosis Date 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 Thyroid disease PAST SURGICAL HISTORY Procedure Laterality Date D+C HYSTEROSCOPY, DIAGNOSTIC (SEPARATE 11/17/2020 IUD Removal, baltazar ablation laproscopic bilateral salpingectomy LIGATE FALLOPIAN TUBE PAST SURGICAL HISTORY OF bengin lumps removals from different parts of body FAMILY HISTORY Problem Relation Age of Onset Stroke Mother Blood Clots Father after knee surgery Stroke Brother Diabetes Brother Breast Cancer Paternal Grandmother Blood Clots Paternal Grandmother SOCIAL HISTORY Social History Tobacco Use Smoking status: Never Passive exposure: Never Smokeless tobacco: Never Vaping Use Vaping Use: Never used Substance Use Topics Alcohol use: Yes Comment: occasional Drug use: No REVIEW OF SYSTEMS Abdomen: No abdominal pain, nausea, vomiting, diarrhea, or constipation. No bloating, early satiety, indigestion, or increased flatulence. Bladder: No dysuria, gross hematuria, urinary frequency, urinary urgency, or incontinence Breast: No breast lumps, nipple d/c, overlying skin changes, redness or skin retraction Allergies and current medication updated:Yes EXAM: Ht 5' 5 (1.65m) Wt 212 lb 6.4 oz (96.3kg) LMP 07/19/2020 BMI 35.35 kg/(m^2). GENERAL: pleasant, female in no apparent distress HEENT: Normocephalic, atraumatic, mucus membranes moist, and no lesions NECK: Supple, full range of motion, no adenopathy, and thyroid normal DERMATOLOGY: Normal, without lesions, non-icteric, and non-hirsute BREAST: soft, non-tender, symmetric, no dominant mass, normal nipple-areolar complex, no lymphadenopathy, and no nipple discharge CHEST: Normal inspiratory effort ABDOMEN: soft, non-tender, and no masses PELVIC: external genitalia normal, normal Bartholin's glands, urethra, [place]'s glands, no vulvar lesions, no cervical lesions, good vaginal support, physiologic discharge present, normal appearing perineal body and perianal region BIMANUAL: uterus normal size, shape and consistency, no adnexal masses, and non-tender RECTOVAGINAL: deferred. NEURO: alert and oriented x3,exam grossly non-focal EXTREMITIES: normal ASSESSMENT/PLAN: 1) Health maintenance: Pap done with HPV. Mammogram ordered Nutrition, exercise and routine health maintenance exams reviewed. Calcium/Vitamin D supplementation information provided. Colon cancer screening: colonoscopy ordered 2) Follow up one year or sooner as needed Reviewed definition of menopause. Perimenopausal at this time. Has not completed a full year without bleeding. History of deep vein thrombosis - ICD9: V12.51, ICD10: Z86.718 Family history of blood clots - ICD9: V18.3, ICD10: Z82.49 - History of DVT (possibly r/t Nuvaring) - Strong family history of blood clots - Recommend following with hematology to consider ruling out underlying clotting disorders - CONSULT TO HEMATOLOGY PROBLEM PCB (post coital bleeding) - ICD9: 626.7, ICD10: N93.0 - Pap today - Patient denies concerns for vaginal dryness - No atrophy noted - Cervix WNL - Plan for pelvic ultrasound Shantal Montalvo APRN.CNP Medical Decision Making: Problems: Moderate: New problem with uncertain prognosis Data: Unique test(s) ordered: 1 Risk: Low: Low risk from testing/treatment Medical Decision Making Level: 3 - Low documented in this encounter [facility] Evaluation note No assessment inform ation available [facility] Work Phone: Evaluation note Diagnosis Encounter for gynecological examination (general) (routine) without abnormal findings- Primary Encounter for screening for human papillomavirus (HPV) Special screening examination for human papillomavirus (HPV) Pap smear for cervical cancer screening Screening for malignant neoplasm of the cervix Encounter for screening mammogram for breast cancer Colon cancer screening Special screening for malignant neoplasms, colon Family history of blood clots Family history of other blood disorders History of deep vein thrombosis Personal history of venous thrombosis and embolism PCB (post coital bleeding) Postcoital bleeding [facility] Diagnosis Encounter for screening mammogram for breast cancer [facility] Diagnosis PCB (post coital bleeding) Postcoital bleeding [facility] Diagnosis Encounter for gynecological examination (general) (routine) without abnormal findings Encounter for screening mammogram for breast cancer Abnormal uterine bleeding (AUB) Screening for cervical cancer Screening for malignant neoplasm of the cervix Screening for human papillomavirus (HPV) Special screening examination for human papillomavirus (HPV) PMB (postmenopausal bleeding) Postmenopausal bleeding [facility] Abnormal [facility] (AUB) [facility] Abnormal uterine bleeding (AUB)- Primary [facility] Diagnosis ASCUS with positive high risk HPV cervical- Primary Cervical high risk human papillomavirus (HPV) DNA test positive [facility] Diagnosis Encounter for screening mammogram for breast cancer [facility] Diagnosis Perimenopause- Primary Symptomatic menopausal or female climacteric states Adenomyosis Endometriosis of uterus [facility] Diagnosis ASCUS with positive high risk HPV cervical- Primary Cervical high risk human papillomavirus (HPV) DNA test positive [facility] Discharge instructions Additional Instructions Ultrasound with gallstones, no signs of cholecystitis. White count 8.6 normal lipase and liver enzymes. Continue oral fluids. Avoid dairy products and greasy products. Follow- up with Dr. Ta. COVID influenza negative. Return if worsening symptoms..[facility] Work Phone: Hospital Discharge instructionsAmbulatory Orders* Pain Management Location: None Selected [facility] Work Phone: Reason for referral (narrative)* Diagnostic Procedure Only (Routine) - Authorized Specialty Diagnoses / Procedures Referred By Mami yanes Referred To Contact [facility] Diagnoses PCB (post coital bleeding) Procedures US FEMALE PELVIS TRANSVAG US TRANSVAGINAL Shantal Montalvo APRN.CNP [address] [place] [address] [facility] [place] [address] Referral ID Status Reason Start Date Expiration Date Visits Requested Visits Authorized [id number] Authorized Auto-Generat ed Referral 3 11/12/2024 1 1 * Consult, Test, Treat (Routine) - Authorized Specialty Diagnoses / Procedures Referred By Mami yanes Referred To Contact Hematology Diagnoses Family history of blood clots History of deep vein thrombosis Procedures CONSULT TO HEMATOLOGY OFFICE/OUTPATIENT [facility] 60-74 MINUTES Shantal Montalvo APRN.CNP [address] [place] [address] Referral ID Status Reason Start Date Expiration Date Visits Requested Visits Authorized [id number] Authorized PCP Requested Referral 3 10/13/2024 1 1 * Consult, Test, Treat (Routine) - Authorized Specialty Diagnoses / Procedures Referred By Mami yanes Referred To Contact General Surgery Diagnoses Colon cancer screening Procedures CONSULT TO GENERAL SURGERY OFFICE/OUTPATIENT [facility] MDM 60-74 MINUTES Shantal Montalvo APRN.CNP [address] [place] [address] Referral ID Status Reason Start Date Expiration Date Visits Requested Visits Authorized [id number] Authorized PCP Requested Referral 3 10/13/2024 1 1 * Diagnostic Procedure Only (Routine) - Authorized Specialty Diagnoses / Procedures Referred By Mami yanes Referred To Contact [facility] Diagnoses Encounter for screening mammogram for breast cancer Procedures DUANE SCREENING SCREENING MAMMOGRAPHY BI 2-VIEW BREAST INC CAD Shantal Montalvo APRN.CNP [address] [place] [address] [facility] [address] [place] [address] Referral ID Status Reason Start Date Expiration Date Visits Requested Visits Authorized [id number] Authorized Auto-Generat ed Referral 3 11/12/2024 1 1 [facility]narrative)No reason for referral [facility] Work Phone: Reason for visit Narrative* Diagnostic Procedure Only (Routine) - Closed Specialty Diagnoses / Procedures Referred By Mami yanes Referred To Contact [facility] Diagnoses Encounter for screening mammogram for breast cancer Procedures DUANE SCREENING SCREENING MAMMOGRAPHY BI 2-VIEW BREAST INC CAD Shantal Montalvo APRN.CNP [address] [place] [address] [facility] [address] [place] [address] Referral ID Status Reason Start Date Expiration Date V isits Requested Visits Authorized [id number] Closed Auto-Generate d Referral 10/14/2023 11/12/2024 [address] [facility] for visit Narrative* Diagnostic Procedure Only (Routine) - Closed Specialty Diagnoses / Procedures Referred By Mami yanes Referred To Contact [facility] Diagnoses Abnormal uterine bleeding (AUB) Procedures PELVIC US WHI US PELVIC NONOBSTETRIC REAL-TIME IMAGE COMPLETE Rafi Lubin MD [address] [place] [address] Phone: tel: fax: [facility] [address] [place] [address] Referral ID Status Reason Start Date Expiration Date V isits Requested Visits Authorized [id number] Closed Auto-Generate d Referral 03/03/2025 03/03/2026 [address] [facility] for visit Narrative* Diagnostic Procedure Only (Routine) - Closed Specialty Diagnoses / Procedures Referred By Mami yanes Referred To Contact [facility] Diagnoses Encounter for screening mammogram for breast cancer Procedures DUANE SCREENING W BRADEN SCREENING DIGITAL BREAST TOMOSYNTHESIS BI SCREENING MAMMOGRAPHY BI 2-VIEW BREAST INC CAD Rafi Lubin MD [address] [place] [address] Phone: tel: fax:[phone] [facility] [address] [place] [address] Referral ID Status Reason Start Date Expiration Date V isits Requested Visits Authorized [id number] Closed Auto-Generate d Referral 03/03/2025 04/02/2026 1 1 [facility] Chief Complaint and Reason for Visit Chief Complaint PAIN AND INDIGESTION Chief Complaint ABD PAIN N/V/D Chief Complaint Admit Date LUMBAR SPINE July 01, 2025 2: 19pm Room 4 July 01, 2025 2: 35pm Advance Directives No Advanced Directives Records Found Advance Directive Response Recorded Date/ Time Living Will No November 09 2:10pm Power of Concrete Finisher Apprentice No November 09 2:10pm Advance Directive Response Recorded Date/ Time Living Will No May 02, 2023 10:26am Power of Concrete Finisher Apprentice No May 02 10:26am Family History Relationship Condition Age at Onset Recorded Date/T poornima Not Specified Cardiac disease Unknown unrelated friend Diabetes mellitus Unknown Cerebrovascular accident (CVA) Unknown No Family History Records Found Relationship Condition Age at Onset Recorded Date/T poornima Not Specified Cardiac disease Unknown Not Specified Diabetes mellitus Unknown Cerebrovascular accident (CVA) Unknown Summary Purpose Additional Source Comments Goals (unrecognized section and content) Goals may be documented in a n alternate sectionGoals may be documented in an alternate sectionGoals may be documented in an alternate sectionGoals may be documented in an alternate section Care Teams (unrecognized sec tion and content) Team Status: Active Member Role Status Dates Dr. Christina Singh MD Family Provider Active Dr. Christina Singh MD Primary Care Provider Active Team Status: Inactive Member Role Status Dates Dr. Christina Singh MD Primary Care Provider Active Dr. Salvatore Lamb DO Emergency Provider Active Joiner Relationship Specialty Start Date End Date Christina Singh MD PCP - General Family Medicine 10/11/10 Joiner Relationship Specialty Start Date End Date Christina Singh MD PCP - General Family Medicine 10/11/10 Joiner Relationship Specialty Start Date End Date Christina Singh MD PCP - General Family Medicine 10/11/10 Joiner Relationship Specialty Start Date End Date Christina Singh MD PCP - General Family Medicine 10/11/10 Joiner Relationship Specialty Start Date End Date Christina Singh MD PCP - General Family Medicine 10/11/10 Joiner Relationship Specialty Start Date End Date Christina Singh MD PCP - General Family Medicine 10/11/10 Joiner Relationship Specialty Start Date End Date Christina Singh MD PCP - General Family Medicine 10/11/10 Joiner Relationship Specialty Start Date End Date Christina Singh MD PCP - General Family Medicine 10/11/10 Joiner Relationship Specialty Start Date End Date Christina Singh MD PCP - General Family Medicine 10/11/10 Joiner Relationship Specialty Start Date End Date Christina Singh MD PCP - General Family Medicine 10/11/10 Joiner Relationship Specialty Start Date End Date Christina Singh MD PCP - General Family Medicine 10/11/10 Joiner Relationship Specialty Start Date End Date Christina Singh MD PCP - General Family Medicine 10/11/10 Team Status: Active Member Role/Relationship Status Dates Dr. Christina Singh MD Family Provider Active Dr. Christina Singh MD Primary Care Provider Active Team Status: Active Member Role/Relationship Status Dates Dr. Christina Singh MD Primary Care Provider Active Start: July 01, 2025 Dr. Christina Singh MD Referring Provider Active St art: July 01, 2025 SALVADOR Tatum Attending Provider Active Star t: July 01, 2025 Team Status: Inactive Member Role/Relationship Status Dates Dr. Christina Singh MD Primary Care Provider Active Start: July 01, 2025 End: July 01, 2025 Dr. Tony Elliott MD Attending Provider Active S tart: July 01, 2025 End: July 01, 2025 Team Status: Inactive Member Role/Relationship Status Dates Dr. Christina Singh MD Primary Care Provider Active Start: July 01, 2025 End: July 01, 2025 Dr. Christina Singh MD Referring Provider Active St art: July 01, 2025 End: July 01, 2025 SALVADOR Tatum Attending Provider Active Star t: July 01, 2025 End: July 01, 2025 Source Comments (unrecognize d section and content) In the event this informatio n is protected by the Federal Confidentiality of Alcohol and Drug Abuse Patient Records regulations: The Federal rules restrict any use of the information to criminally investigate or prosecute any alcohol or drug abuse patient.[facility] the event this information is protected by the Federal Confidentiality of Alcohol and Drug Abuse Patient Records regulations: The Federal rules restrict any use of the information to criminally investigate or prosecute any alcohol or drug abuse patient.[facility] the event this information is protected by the Federal Confidentiality of Alcohol and Drug Abuse Patient Records regulations: The Federal rules restrict any use of the information to criminally investigate or prosecute any alcohol or drug abuse patient.[facility] the event this information is protected by the Federal Confidentiality of Alcohol and Drug Abuse Patient Records regulations: The Federal rules restrict any use of the information to criminally investigate or prosecute any alcohol or drug abuse patient.[facility] the event this information is protected by the Federal Confidentiality of Alcohol and Drug Abuse Patient Records regulations: The Federal rules restrict any use of the information to criminally investigate or prosecute any alcohol or drug abuse patient.[facility] the event this information is protected by the Federal Confidentiality of Alcohol and Drug Abuse Patient Records regulations: The Federal rules restrict any use of the information to criminally investigate or prosecute any alcohol or drug abuse patient.[facility] the event this information is protected by the Federal Confidentiality of Alcohol and Drug Abuse Patient Records regulations: The Federal rules restrict any use of the information to criminally investigate or prosecute any alcohol or drug abuse patient.[facility] the event this information is protected by the Federal Confidentiality of Alcohol and Drug Abuse Patient Records regulations: The Federal rules restrict any use of the information to criminally investigate or prosecute any alcohol or drug abuse patient.[facility] the event this information is protected by the Federal Confidentiality of Alcohol and Drug Abuse Patient Records regulations: The Federal rules restrict any use of the information to criminally investigate or prosecute any alcohol or drug abuse patient.[facility] the event this information is protected by the Federal Confidentiality of Alcohol and Drug Abuse Patient Records regulations: The Federal rules restrict any use of the information to criminally investigate or prosecute any alcohol or drug abuse patient.[facility] the event this information is protected by the Federal Confidentiality of Alcohol and Drug Abuse Patient Records regulations: The Federal rules restrict any use of the information to criminally investigate or prosecute any alcohol or drug abuse patient.[facility] the event this information is protected by the Federal Confidentiality of Alcohol and Drug Abuse Patient Records regulations: The Federal rules restrict any use of the information to criminally investigate or prosecute any alcohol or drug abuse patient.[facility] the event this information is protected by the Federal Confidentiality of Alcohol and Drug Abuse Patient Records regulations: The Federal rules restrict any use of the information to criminally investigate or prosecute any alcohol or drug abuse patient.[facility] Reason for Visit (unrecogniz ed section and content) Reason Comments Yearly Exam Reason Comments Orders Patient Update Reason Comments Radiology US Specialty Diagnoses / Procedures Referred By Contac t Referred To Contact [facility] Diagnoses PCB (post coital bleeding) Procedures US FEMALE PELVIS TRANSVAG US TRANSVAGINAL Shantal Montalvo APRN.SAROJ [address] [place] [address] [place] [address] Referral ID Status Reason Start Date Expiration Date V isits Requested Visits Authorized [id number] Closed Auto-Generate d Referral 10/14/2023 11/12/2024 1 1 Reason Comments Well Woman Reason Comments Endometrial Biopsy Specialty Diagnoses / Procedures Referred By Contac t Referred To Contact [facility] Diagnoses Abnormal uterine bleeding (AUB) Procedures ENDOMETRIAL BIOPSY ENDOMETRIAL BX W/WO ENDOCERVIX BX W/O DILAT SPX Rafi Lubin MD [address] [place] [address] Phone: tel: fax: [facility] [address] [place] [address] Referral ID Status Reason Start Date Expiration Date V isits Requested Visits Authorized [id number] Closed Auto-Generate d Referral 03/03/2025 03/03/2026 1 1 Reason Comments Colposcopy Specialty Diagnoses / Procedures Referred By Contjaylene t Referred To Contact [facility] Diagnoses ASCUS with positive high risk HPV cervical Procedures COLPOSCOPY COLPOSCOPY CERVIX BX CERVIX & ENDOCRV Michael Pretty MD [address] [place] [address] Phone: tel: fax: [facility] [address] [place] [address] Referral ID Status Reason Start Date Expiration Date V isits Requested Visits Authorized [id number] Closed Auto-Generate d Referral 03/11/2025 03/11/2026 1 1 Reason Comments Problem Visit Reason Onset Date Comments pap results 03/05/2025 INFORMATION SOURCE (unrecogn ized section and content) DATE CREATED AUTHOR 04/16/2025 [facility] DATE CREATED AUTHOR AUTHOR'S ORGANIZ ATION 07/01/2025 [facility] FOR RECORDS PERTAINING TO PATIENTS WHO ARE OR HAVE BEEN ENROLLED IN A CHEMICAL DEPENDENCY/SUBSTANCEABUSE PROGRAM, SOME INFORMATION MAY BE OMITTED. This clinical summary was aggregated from multiple sources. Caution should be exercised in using it in the provision of clinical care. This summary normalizes information from multiple sources, and as a consequence, information in this document may materially change the coding, format and clinical context of patient data. In addition, data may be omitted in some cases. CLINICAL DECISIONS SHOULD BE BASED ON THE PRIMARY CLINICAL RECORDS. [employer] [facility]. provides no warranty or guarantee of the accuracy or completeness of information in this document.
[2025-09-12] MEDS: 0.9% Normal Saline (1000mL) 1,000 ML 1000 ML IV (15:56)
[2025-09-12 16:20] LABS: Mucous, Urine 0 SEEN /hpf (<or=2+); Red Blood Cells-Urine 0 SEEN /hpf (0-5); Squamous Epithelial Cells - UA 0 SEEN /hpf (5-10)
[2025-09-12 16:22] LABS: Color, Urine Straw (Yellow); Glucose, Dipstick Normal (Normal); Hematocrit 40.0 % (37-47); Hemoglobin 13.5 g/dL (12.0-15.0); Immature Granulocytes Count 0.050 X10^3/uL (0.0-0.0); Ketone-Dipstick Negative (Negative); Leukocyte Esterase-Dipstick Negative /ul (Negative); Mean Corp Hgb Conc 33.8 g/dL (32-36); Mean Corpuscular Volume 86.0 fL (81-99); Mean Platelet Vol. 9.2 fl (6.2-12.0); NRBC Flagged by Analyzer 0 % (0-5); Nitrite-Dipstick Negative (Negative); Occult Blood-Urine Negative /ul (Negative); Platelet Count 383 K/mm3 (150-450); Protein-Dipstick Negative (Negative); RBC Distribution Width CV 13.3 % (11.6-14.6); RBC Distribution Width SD 42.1 fl (35.1-43.9); Red Blood Count 4.65 M/mm3 (4.2-5.4); Specific Gravity, Urine 1.005 (1.002-1.030); Urine Bilirubin Dipstick Negative (Negative); White Blood Count 11.7 K/mm3 (4.4-11.0)
--- NOTE | 2025-09-12 16:35 | CT_ITS ---
PROCEDURE: BRAIN/HEAD WITHOUT CONTRAST 09/12/2025 REASON FOR EXAM: DIZZINESS, LEFT MASTOID TENDERNESS TECHNIQUE: Procedure Code: CTBR Modality: CT Procedure: BRAIN/HEAD WITHOUT CONTRAST Coronal and Sagittal reconstruction series were provided. One or more dose reduction techniques were used (e.g., Automated exposure control, adjustment of the mA and/or kV according to patient size, use of iterative reconstruction technique. RADIATION DOSE SUMMARY: CTDlvol: 45 mGy DLP: 830 mGycm FINDINGS: There is no mastoid or middle ear fluid. The bony calvarium appears intact. The sinuses are clear. Normal brainstem and cerebellum. No mass, hydrocephalus or edema CT/Brain/Head without Contrast IMPRESSION: Negative study Reading [facility]
[2025-09-12 16:46] LABS: Anion Gap 12 (5-15); BUN 12 mg/dL (4-19); BUN/Creat Ratio 18.4 RATIO (10-20); Calcium,Total 9.3 mg/dL (7.6-11.0); Carbon Dioxide 23.4 mmol/L (21.0-32.0); Chloride 102 mmol/L (98-108); Estimated Creatinine Clearance 105.84 ml/min (50-250); Glucose 129 mg/dL (70-99); Potassium 3.8 mmol/L (3.3-5.1)
--- NOTE | 2025-09-12 19:58 | CT_ITS ---
PROCEDURE: CTA HEAD AND NECK W/ CONTRAST 09/12/2025 REASON FOR EXAM: VERTIGO TECHNIQUE: Procedure Code: CTCTA.HDNCK Modality: CT Procedure: CTA HEAD AND NECK W/ CONTRAST Multiplanar Sagittal and Coronal images were obtained. 3D post processing was performed. CONTRAST: Isovue 370 VOLUME: 100 mL One or more dose reduction techniques were used (e.g., Automated exposure control, adjustment of the mA and/or kV according to patient size, use of iterative reconstruction technique). RADIATION DOSE SUMMARY: DLP: 705.41 mGycm COMPARISON: None. FINDINGS: CTA HEAD: Patent intracranial arterial vasculature. No large vessel occlusion, significant stenosis, saccular aneurysm, or vascular malformation identified. Dural venous sinuses appear patent. CTA NECK: Conventional aortic arch branching. Bilateral cervical carotid and codominant vertebral arteries are patent, normal in course and caliber. No aneurysm or dissection. CT/CTA Head AND Neck W/ Contrast IMPRESSION: Normal CTA of the head and neck. Reading Location: [id number]
--- NOTE | 2025-09-12 19:59 | HP.PCM.HOS_ITS ---
HPI - General General Date of Admission: 09/12/25 Date of Service: 09/12/25 Chief Complaint: Vertigo HPI Narrative JOSE MOYA, is a 60 F who presented to the emergency department at [facility] on 09/12/2025 due to worsening vertigo symptoms. Patient states that she has had symptoms similar for about a week. She has had associated left-sided mastoid and neck pain. She was seen by her primary care physician and was given the diagnosis of mastoiditis and placed on Augmentin. She has been taking this but continuing to get worse. She stated she presented today because of the vertigo has been very debilitating for her. She states she gets spinning anytime she moves. She states she has mild disequilibrium when she is lying down. She states that the spinning does trent slowly when she holds her position after she is moves but never completely goes away. She denies any tingling numbness or weakness. She has had no speech abnormalities. She has never had anything like this previously. She has had no recent viral illnesses. She also states that she feels a fullness in her left ear and she is having difficulty hearing out of that side. Vital signs at the time of presentation showed temperature of 97.7, heart rate 90, blood pressure 133/93, respiratory rate was 18 and pulse ox was 99% on room air. CBC showed a very mild leukocytosis with white count of 11.7. She does have a minimal left shift with a 72.1% neutrophilia but her CBC is otherwise unremarkable. Chemistry panel was unremarkable. Procalcitonin was 0.05. Her urine was unremarkable. CT of the brain was obtained and was unremarkable and not consistent with mastoiditis. Given her vertigo a CTA of the head and neck was performed and was unremarkable. Given her persistent vertigo and length of symptoms, observation status was pursued as we do anticipate hospital stay less than 2 midnights for continued workup and treatment. [facility], [facility] Medical History Bacterial sinusitis child Chronic neck and back pain Abnormal bruising Hx of blood clots Fatigue Hemorrhoids Home Medications ?Medication ?Instructions ?Recorded ?Last Taken ?Type acetaminophen 325 mg capsule 325 mg PO ONCE PRN Pain 1 -10 Or 08/27/20 Unknown History (Tylenol) Fever ascorbate calcium (vitamin C) 500 500 mg PO QDAY 07/01 Unknown History mg tablet magnesium 200 mg tablet 200 mg PO QDAY 07/01/25 Unkn own History methocarbamol 500 mg tablet 500 mg PO TID PRN pain/spa sms #60 07/01/25 Unknown Rx tabs turmeric 400 mg capsule mg PO 07/01/25 Unknown Histo ry amoxicillin 875 mg-potassium 1 tab PO BID 09/12/25 Unk nown History clavulanate 125 mg tablet Allergy/AdvReac Type Severity Reaction Status Date / Time No Known Allergies Allergy Verified 09/12/25 14:57 Family History Unknown Diabetes CVA (cerebral vascular accident) Other Heart disease Surgical History History of endometrial ablation History of dilatation and curettage History of lumpectomy Social History (Updated 09/12/25 @ 22:[address] Barbara Carlin DO) household members: spouse housing: house current occupational status: employed Smoking Status: Never smoker alcohol intake: current details: occasional substance use type: does not use ROS Constitutional Constitutional: Denies anorexia, change in weight, chills, fatigue, fever(s), malaise, night sweats, weakness or other Eyes Eyes: Denies blurry vision, change in eye color, change in vision, discharge from eye(s), double vision, erythema, eye pain, loss of vision or other ENT HEENT: Reports abnormal hearing and ear pain; Denies dysphagia, epistaxis, headache(s), hearing loss, nasal congestion, nasal discharge, post nasal drip, sinus pressure, sore throat or other Cardiovascular Cardiovascular: Denies chest pain, claudication, dyspnea on exertion, edema, lightheadedness, orthopnea, palpitations, paroxysmal nocturnal dyspnea, rapid heart rate, syncope or other Respiratory/Chest Respiratory/Chest: Denies cough, dyspnea, excessive phlegm production, hemoptysis, productive cough, shortness of breath at rest, shortness of breath with exertion, wheezing or other Gastrointestinal Gastrointestinal: Reports nausea; Denies abdominal pain, coffee ground emesis, constipation, diarrhea, dyspepsia, hematemesis, hematochezia, loose stools, melena, vomiting or other Genitourinary Genitourinary: Denies burning urination, difficulty urinating, dysuria, hematuria, nocturia, urinary frequency, urinary hesitancy, urinary incontinence, urinary urgency or other Musculoskeletal Musculoskeletal: Denies arthralgias, back pain, joint pain, joint stiffness, joint swelling, myalgias, neck pain or other Neurologic Neurologic: Reports disequilibrium and other Details: Vertigo Psychiatric Psychiatric: Denies anxiety, depression, homicidal ideation, suicidal ideation or other Endocrine Endocrinology: Denies change in body appearance, cold intolerance, excessive sweating, heat intolerance, polydipsia, polyuria or other Hematologic/Lymphatic Hematologic/Lymphatic: Denies anemia, easy bleeding, easy bruising, lymphadenopathy or other Allergic/Immunologic Allergic/Immunologic: Denies rhinitis, hives, eczemia, asthma or other Vital Signs Vital Signs Vital Signs: 09/12/25 14:54 09/12/25 16:09 09/12/25 16:13 Temperature 97.7 F L 98.6 F Temperature Source Oral Oral Pulse Rate 90 83 Pulse Rate [Lying] 92 Pulse Rate [Sitting (for 1 minute prior to obtaining)] 94 Pulse Rate [Standing (for 1 minute prior to obtaining)] 91 Respiratory Rate 18 14 Blood Pressure 133/93 H 135/85 H Blood Pressure [Lying] 141/80 H Blood Pressure [Sitting (for 1 minute prior to obtaining)] 143/91 H Blood Pressure [Standing (for 1 minute prior to obtaining)] 135/85 H Blood Pressure Mean 106 101 Blood Pressure Mean [Lying] 100 Blood Pressure Mean [Sitting (for 1 minute prior to obtaining)] 108 Blood Pressure Mean [Standing (for 1 minute prior to obtaining)] 101 Pulse Ox 99 96 Oxygen Delivery Method Room Air Room Air 09/12/25 17:00 09/12/25 18:00 09/12/25 19:47 Temperature 98.4 F 99.2 F H Temperature Source Oral Oral Pulse Rate 78 81 88 Pulse Rate [Lying] Pulse Rate [Sitting (for 1 minute prior to obtaining)] Pulse Rate [Standing (for 1 minute prior to obtaining)] Respiratory Rate 14 14 16 Blood Pressure 146/79 H 149/85 H 138/84 H Blood Pressure [Lying] Blood Pressure [Sitting (for 1 minute prior to obtaining)] Blood Pressure [Standing (for 1 minute prior to obtaining)] Blood Pressure Mean 101 106 102 Blood Pressure Mean [Lying] Blood Pressure Mean [Sitting (for 1 minute prior to obtaining)] Blood Pressure Mean [Standing (for 1 minute prior to obtaining)] Pulse Ox 99 99 95 Oxygen Delivery Method Room Air Room Air Weight Weight: 94.9 kg Body Mass Index (BMI) 34.8 Physical Exam Const alert, oriented x3, no apparent distress, healthy appearing and well nourished; Negative for average body habitus Constitutional Narrative: Obese, upper middle-aged, white female, lying in bed, appears afraid to move but does not appear sick or toxic, pleasant, at bedside General Appearance: cooperative HEENT normocephalic, head/scalp atraumatic and moist oral mucous membranes; Negative for hearing grossly normal bilaterally HEENT Narrative: Decreased hearing left ear, left ear is mildly swollen and the auricle region, eardrum is unremarkable bilaterally with no tenderness to external ear with palpation Eyes conjunctivae normal Eyes Narrative: No scleral icterus Neck supple Neck Narrative: Trachea midline Resp normal respiratory effort, no retractions, no use of accessory muscles and clear to auscultation bilaterally Auscultation: Negative for rales, rhonchi or wheezes Cardio regular rate, regular rhythm, S1 normal heart sound, S2 normal heart sound, no murmurs, no rub, no gallops and no clicks GI normal to inspection, nondistended, normoactive bowel sounds, soft to palpation and non-tender Extremity no clubbing, cyanosis or edema Extremity Narrative: 2+ pedal pulses Neuro moves all extremities and no focal motor deficits Neuro Narrative: Patient very hesitant to move so unable to elicit any nystagmus at this time Speech: speech normal Psych affect normal Psych Narrative: Pleasant, interacts appropriately Results Lab / Micro Data 09/12/25 16:05 09/12/25 16:05 Labs: Laboratory Results - last 24 hr 09/12/25 16:05: WBC 11.7 H, RBC 4.65, Hgb 13.5, Hct 40.0, MCV 86.0, MCH 29.0, MCHC 33.8, RDW Std Deviation 42.1, RDW Coeff of April 13.3, Plt Count 383, MPV 9.2, Immature Gran % (Auto) 0.400, Neut % (Auto) 72.1 H, Lymph % (Auto) 20.9, [place] % (Auto) 5.2, Eos % (Auto) 0.9, Baso % (Auto) 0.5, Absolute Neuts (auto) 8.4 H, Absolute Lymphs (auto) 2.44, Nucleated RBC % 0, Sodium 137, Potassium 3.8, Chloride 102, Carbon Dioxide 23.4, Anion Gap 12, BUN 12, Creatinine 0.66 L, Estim Creat Clear Calc 105.84, Est GFR (MDRD) Non-Af 102, BUN/Creatinine Ratio 18.4, Glucose 129 H, Calcium 9.3, Urine Color Straw, Urine Clarity Clear, Urine pH 7.0, Ur Specific [place] 1.005, Urine Protein Negative, Urine Glucose (UA) Normal, Urine Ketones Negative, Urine Occult Blood Negative, Urine Nitrite Negative, Urine Bilirubin Negative, Urine Urobilinogen Normal, Ur Leukocyte Esterase Negative, Urine RBC 0 SEEN, Urine WBC 0 SEEN, Ur Squamous Epith Cells 0 SEEN, Urine Bacteria RARE, Urine Mucus 0 SEEN Micro: Microbiology 09/12/25 16:05 Mucosa - Nose SARS-CoV-2, Influenza & RSV (PCR) - Final Imaging Radiology Impression Brain CT 09/12/25 16:35 IMPRESSION: Negative study Reading Location: [facility] Assessment & Plan Assessment/Plan (1) Elevated blood pressure reading: (2) Leukocytosis: (3) Vertigo: (4) Neck pain on left side: PLAN: Plan Vertigo - Rule out posterior fossa stroke with MRI - Obtain MRI with and without contrast - Will hold on echocardiogram for now - Check hemoglobin A1c and lipid profile per stroke order set - Patient received Valium in the emergency department with not much relief so we will try meclizine - PT/OT consultation as mobility have been a problem due to her vertiginous state - Neuro consultation Left-sided neck pain/ ear pain - Seems to be nerve related - Will try low-dose Lyrica 25 mg p.o. 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
[2025-09-12 21:08] LABS: Procalcitonin 0.05 ng/mL (<=0.10)
--- OUTSIDE RECORDS SUMMARY | 2025-09-12 21:37 | XMS RPT_ITS | CCD ---
Author Organization [facility] Care Team Providers Care Mouthpiece Maker Name Role Phone Vince Murry Unavailable [phone] Christina Singh MD Primary Care Provider Christina Singh MD Primary Care Provider RAFI LUBIN Attending Unavailable OSWALDO, RAFI P Referring Unavailable FRANCISCO, CHRISTINA A Primary Care Unavailable OSWALDO, RAFI Thoren Referring Unavailable FRANCISCO, CHRISTINA A Primary Care [...] Dr. Christina Singh MD Primary Care Provider [phone] Dr. Christina Singh MD Referring Provider [phone] Jennifer Kim Attending Provider [phone] Tony Elliott MD Attending Provider [phone] Christina Singh Primary Care Unavailable Tony Elliott [...] MG CAPS 2 capsules twice daily AMOXICILLIN [id number] Vince FRANCO amoxicillin 875 mg / clavulanate [...] 2020 12:00am July 01, 2025 2:28pm calcium-vits T0-A-F8-minerals 166.75 mg- 166.75 unit cap (1 source) End: 10-14-2023 calcium-vits H4-X-U7-minerals 166.75 mg- 166.75 unit cap Take by [...] 200 MG TABS 1 tablet 1 FLUCONAZOLE [id number] Vince FRANCO fluticasone (1 source) Corticosteroid End: [...] PO DAILY November 09, 2020 1:00am levonorgestrel 0.925666 mg/hr intrauterine system (1 source) Progestin, Progestin-containing [...] 104 MEGAN as directed MEDROXYPROGESTERONE ACETATE MEGAN [id number] Vince FRANCO ondansetron 4 mg disintegrating oral [...] Viewson 06-05 L/S Spine Min 4 Views [facility] [address] [place], [place] [address] L/S Spine Min 4 Views MR#: [id number] Acct: [id number] Name: KATHRIN BROWNLEE Rep #: [id number] : 1965 F 60 From: Diana Lin MD PCP: Dr. Christina Singh MD Status: DEP AMB Study: L/S Spine Min 4 Views Date of Exam: 07/01/25 Exam# [id number] Ordering Dr: Jennifer Daly PROCEDURE: L/S SPINE MIN 4 VIEWS 07/01/2025 REASON FOR EXAM: CHRONIC BACK PAIN TECHNIQUE: L/S SPINE MIN 4 VIEWS COMPARISON: None. FINDINGS: BONES: Five gbw-fji-heytisi lumbar vertebral bodies. No fracture or focal [...] instability with flexion or extension. Reading Location: [facility] CC: SALVADOR Tatum; Dr. Christina Singh MD Carpenter Refrigerator: Signed Normal [facility] Orthopedic Visit Reporton Orthopedic Visit Report [facility] [address] [place] [address] [address] [place] [address] OFFICE VISIT Date of Service: 07/01/25 MR#: [id number] Acct: [id number] Name: KATHRIN BROWNLEE Rep #: [id number] : 1965 Provider: SALVADOR Tatum Age/Sex: 60/F Location: [facility] Status: Signed Intake Vital Signs 12/22/24 16:44 [...] decisions made by me, SALVADOR Tatum 07/01/25 6823. Part of today???s visit was documented by [...] pain management or physical therapy. She states [facility] did have her see the physical [...] (2) Spondy (more content not included)... Normal [facility] CNOVon 04-14-2025 CNOV Office Visit (OBGYWM) KATHRIN BROWNLEE ([id number]) 1965 F Date Time Provider Department 04/14/25 [...] Ectopic0 Multiple0 Live Births2 Comment: x 2 Tripe Scraper History LMP: 07/19/2020, Ablation Age at Menarche: Age at First : Age at Menopause: Tripe Scraper History Comments: Sexual Activity: Yes; Male Contraception: [...] HPV cervical [R87*03/11/2025 Encounter Status:Closed by RAFI LUIBN on 04/14/25 Normal [facility] DUANE SCREENING W TOMOon 03-17 DUANE SCREENING W BRADEN * * *Final Report* * * DATE OF EXAM: Mar 17 2025 1:51PM [facility] 0582 - DUANE SCREENING W BRADEN / PROCEDURE REASON: Encounter for screening mammogram for breast cancer * * * * Physician Interpretation * * * * RESULT: [place] [address] #[id number] - DUANE SCREENING W BRADEN HISTORY: 59 [...] Rafi Barrera M.D. Electronically signed on: 03/20/2025 Carpenter Refrigerator: CRISTOFER Transcribe Date/Time: Mar 17 2025 12:55P Dictated by: RAFI BARRERA MD This examination was interpreted and the report reviewed and electronically signed by: RAFI BARRERA MD on Mar 20 2025 10:48AM EST [id number] Normal [facility] CNOVon 03-15-2025 CNOV Office Visit (OBGYWM) KATHRIN BROWNLEE ([id number]) 1965 F Date Time Provider Department 03/15/25 [...] as lesion is small. Rafi Lubin MD [place], [place] 03/15/2025 11:46 AM Signed YOUR RECOVERY [...] If you (more content not included)... Normal [facility] Pathology biopsy report Karel (Tiss)on 03-15-2025 AP DISCLAIMER Normal [facility] Comment on above: Order Comment: Speci men Type: TISSUE SPECIMEN Ordering Facility: [facility] Address: [address] [place] [address] Result Comment: Zakia cano Developed Test (LDT) Disclaimer: Performance characteristics of immunohistochemical, immunofluorescent, and chromogenic in-situ hybridization tests have been determined by the performing laboratory within [facility]'s [facility]night Pathology and Laboratory Medicine Department ([facility], [facility], [facility], [facility], [facility], [facility], or [facility]) in a manner consistent with CLIA requirements. One or more of these tests may not have been cleared or approved by the FDA. RT-PLM is regulated under CLIA as qualified to perform high-complexity testing. These tests are used for clinical purposes. These should not be regarded as investigational or for research. Positive and negative controls stain appropriately. Performed By: #### 6 6121-5 #### [facility] CLIA [id number] [address] [place] [address] [place] CASE REPORT Normal [facility] Comment on above: Order Comment: Speci men Type: TISSUE SPECIMEN Ordering Facility: [facility] Address: [address] [place] [address] Result Comment: Surg [facility] Pathology Report Case: [id number] Authorizing Provider: Rafi Lubin MD Collected: 03/15/2025 12:31 PM Ordering Location: OB/Gynecology Received: 03/16/2025 07:14 AM Pathologist: Darcy Middleton MD Specimens: A) - Cervix, Biopsy, 1 oclock B) - Endocervix, Curettings Performed By: #### 6 6121-5 #### [facility] CLIA [id number] [address] [place] [address] [place] CLINICAL HISTORY ASCUS HPV POS Normal [facility] Comment on above: Order Comment: Speci men Type: TISSUE SPECIMEN Ordering Facility: [facility] Address: [address] [place] [address] Performed By: #### 6 6121-5 #### [facility] CLIA [id number] [address] [place] [address] [place] FINAL DIAGNOSIS Normal [facility] Comment on above: Order Comment: Speci men Type: TISSUE SPECIMEN Ordering Facility: [facility] Address: [address] [place] [address] Result Comment: A. C ervix, 1 o'clock, biopsy -Benign squamous mucosa B. Cervix, endocervix, curettage -Rare scant fragments of benign endocervix; nondiagnostic specimen -Predominantly mucin and inflammatory cells at 1255 EDT Performed By: #### 6 6121-5 #### [facility] CLIA [id number] [address] [place] [address] [place] FINAL PERFORMING LAB Normal [facility] Comment on above: Order Comment: Speci men Type: TISSUE SPECIMEN Ordering Facility: [facility] Address: [address] [place] [address] Result Comment: Diag nostic interpretation performed at: [facility], [address] [place] [address] CLIA# [id number] People Greeter: Hector Drummond MD Performed By: #### 6 6121-5 #### [facility] CLIA [id number] [address] [place] [address] [facility] GROSS DESCRIPTION Normal [facility] Comment on above: Order Comment: Speci men Type: TISSUE SPECIMEN Ordering Facility: [facility] Address: [address] [place] [address] Result Comment: A. C ervix, Biopsy Received [...] 2025 1:45 AM Gross examination performed at [facility], [address] [place] [address] Performed By: #### 6 6121-5 #### [facility] CLIA [id number] [address] [place] [address] OF [place] CNOVon 03-10-2025 CNOV Office Visit (OBGYWM) KATHRIN BROWNLEE ([id number]) 1965 F Date Time Provider Department 03/10/25 11:40 AM RAFI LUBIN OBDEAWMeghna During your visit today, we recorded the following information about you: Blood pressure Weight 120/80 96.3 kg Rafi Lubin MD 03/10/2025 12:28 PM Signed Rehab Manager offered: Patient accepts, visit chaperoned by Iris [...] contact the office. Referring Provider: RAFI LUBIN [[id number]] Allergies As of Date: 03/10/2025 (No Known Allergies) Date Reviewed: 03/10/2025 Reviewed by: Iris Greer MA - Fully Assessed Reason for Visit: Endometrial Biopsy [7501] Primary Visit Diagnosis:Abnormal uterine bleeding (AUB) [N93.9] Order(s):ENDOMETRIAL BIOPSY [2013059] Order #: [id number] SURGICAL PATHOLOGY [BIP0033] Order #: [id number] Prescriptions as of 03/10/2025 - elderberry fruit [...] discomfort, conta (more content not included)... Normal [facility] Pathology biopsy report Karel (Tiss)on 03-10-2025 AP DISCLAIMER Normal [facility] Comment on above: Order Comment: Speci men Type: TISSUE SPECIMEN Ordering Facility: [facility] Address: [address] [place] [address] Result Comment: Zakia cano Developed Test (LDT) Disclaimer: Performance characteristics of immunohistochemical, immunofluorescent, and chromogenic in-situ hybridization tests have been determined by the performing laboratory within [facility]'s [facility] Pathology and Laboratory Medicine Department ([facility], [facility], [facility], [facility], [facility], [facility], or [facility]) in a manner consistent with CLIA requirements. One or more of these tests may not have been cleared or approved by the FDA. RT-PLM is regulated under CLIA as qualified to perform high-complexity testing. These tests are used for clinical purposes. These should not be regarded as investigational or for research. Positive and negative controls stain appropriately. Performed By: #### 6 6121-5 #### [facility] CLIA [id number] [address] [place], [place] [address] [address] [place] CASE REPORT Normal [facility] Comment on above: Order Comment: Speci men Type: TISSUE SPECIMEN Ordering Facility: [facility] Address: [address] [place] [address] Result Comment: Surg ical Pathology Report Case: [id number] Authorizing Provider: Rafi Lubin MD Collected: 03/10/2025 12:34 PM Ordering Location: OB/Gynecology Received: 03/10/2025 04:15 PM Pathologist: Truong Greenwood MD Specimen: Endometrium, Biopsy Performed By: #### 6 6121-5 #### [facility] CLIA [id number] [address] [place] [address] [place] CLINICAL HISTORY AUB Normal [facility] Comment on above: Order Comment: Speci men Type: TISSUE SPECIMEN Ordering Facility: [facility] Address: [address] [place] [address] Performed By: #### 6 6121-5 #### [facility] CLIA [id number] [address] [place] [address] [place] FINAL DIAGNOSIS Normal [facility] Comment on above: Order Comment: Speci men Type: TISSUE SPECIMEN Ordering Facility: [facility] Address: [address] [place] [address] Result Comment: Endo metrium, biopsy: - Benign endocervix, no endometrium identified. ACV/bs 03/12/2025 at 1515 EDT Performed By: #### 6 6121-5 #### [facility] CLIA [id number] [address] [place] [address] [place] FINAL PERFORMING LAB Normal [facility] Comment on above: Order Comment: Speci men Type: TISSUE SPECIMEN Ordering Facility: [facility] Address: [address] [place] [address] Result Comment: Diag nostic interpretation performed at: [facility], [address] [place] [address] CLIA# [id number] People Greeter: Hector Drummond MD Performed By: #### 6 6121-5 #### [facility] CLIA [id number] [address] [place], [place] [address] [place] GROSS DESCRIPTION Normal [facility] Comment on above: Order Comment: Speci men Type: TISSUE SPECIMEN Ordering Facility: [facility] Address: [address] [place] [address] Result Comment: A. E ndometrium, Biopsy Received in formalin are multiple henderson-brown, soft feathery segments of tissue admixed with mucinous material aggregating to 1.4 x 0.3 x 0.1 cm. Totally submitted in one cassette. DL March 11, 2025 1:32 AM Gross examination performed at [facility], [address] [place] [address], [place] [address] Performed By: #### 6 6121-5 #### [facility] CLIA [id number] [address] [place] [address] [place] [address] [place] US Pelvison 03-09-2025 [...] Read By: Alexia Cassidy M.D. MATERNAL MEDICINE [facility] US Pelvison 03-05-2025 Radiology Study observation (narrative) [facility] CNOVon 03-03-2025 CNOV Office Visit (OBGYWM) KATHRIN BROWNLEE ([id number]) 1965 F Date Time Provider Department 03/03/25 9:30 AM RAFI LUBIN During your visit today, we recorded the following information about you: Blood pressure Weight Height 120/80 97.7 kg 1.651 m Rafi Lubin MD 03/03/2025 10:45 AM Signed Rehab Manager offered: Patient accepts, visit chaperoned by Iris [...] external genitalia normal, normal Bartholin's glands, urethra, [place]'s glands, no vulvar lesions, no cervical lesions, [...] (postmenopausal bleeding) [N95.0] Order(s):DUANE SCREENING W BRADEN [1588582] Order #: [id number] FUTURE PELVIC US WHI [2084582] Order #: [id number]: 1 FUTURE ENDOMETRIAL BIOPSY [8293351] Order #: [id number] PAP TEST [XUS8053] Order #: [id number] FOLLICLE STIMULATING HORMONE [SQFSH] Order #: [id number] FUTURE Prescriptions as of 03/03/2025 - elderberry [...] Exam. Follow- (more content not included)... Normal [facility] FSH SerPl-aCncon 03-03-2025 Follitropin Qn 24.8 m[IU]/mL Normal See comment [facility] Comment on above: Order Comment: Speci men Type: TISSUE SPECIMEN Ordering Facility: [facility] Address: [address] [place] [address] Result Comment: Willie devries range: Follicular: 3.5-12.5 mIU/mL Ovulation: 4.7-21.5 mIU/mL Luteal: 1.7-7.7 mIU/mL Postmenopausal: 25.8-134.8 mIU/mL Performed By: #### 6 6121-5 #### [facility] CLIA [id number] [address] [place] [address] [place] HIGH RISK HUMAN PAPILLOMA SHANTA (HPV), PCR FOR DETECTION AND GENOTYPINGon 03-03-2025 HPV 16 Ag Ql (Unsp spec) Not detected Normal Not detected [facility] Comment on above: Order Comment: Speci men Type: TISSUE SPECIMEN Ordering Facility: [facility] Address: [address] [place] [address] Performed By: #### 6 6121-5 #### [facility] CLIA [id number] [address] [place] [address] [place] HPV 18 Ag Ql (Unsp spec) Not detected Normal Not detected [facility] Comment on above: Order Comment: Speci men Type: TISSUE SPECIMEN Ordering Facility: [facility] Address: [address] [place] [address] Performed By: #### 6 6121-5 #### [facility] CLIA [id number] [address] [place] [address] [place] HPV 31+33+35+39+45+51+52+5 6+58+59+66+68 DNA FLACA+probe Ql (Cvx) Detected Abnormal Not detected [facility] Comment on above: Order Comment: Speci men Type: TISSUE SPECIMEN Ordering Facility: [facility] Address: [address] [place] [address] Result Comment: High Risk HPV Other Type includes HPV types 31, 33, 35, 39, 45, 51, 52, 56, 58, 59, 66 and 68. Performed By: #### 6 6121-5 #### [facility] CLIA [id number] [address] [place] [address] [place] PAP TESTon 03-03-2025 ADEQUACY Normal [facility] Comment on above: Order Comment: Speci men Type: FLUID SPECIMEN Ordering Facility: [facility] Address: [address] [place] [address] Result Comment: Sati sfactory for interpretation. Transformation zone present Performed By: #### L [id number] #### [facility] CLIA [id number] [address] [place] [address] [place] [facility] CLIA [id number] [address] [place] [address] [place] CASE REPORT Normal [facility] Comment on above: Order Comment: Speci men Type: FLUID SPECIMEN Ordering Facility: [facility] Address: [address] [place] [address] Result Comment: Gyne cologic Cytology Report Case: [id number] Authorizing Provider: Rafi Lubin MD Collected: 03/03/2025 10:51 AM Ordering Location: OB/Gynecology Received: 03/03/2025 11:50 AM First Screen: Aleksandra Pope CT, ASCP Pathologist: Julieta Guo MD Specimen: Pap Test, ThinPrep, Cervix Performed By: #### L [id number] #### [facility] CLIA [id number] [address] [place] [address] [place] [facility] CLIA [id number] [address] [place] [address] [place] CLINICAL HISTORY, CYTOLOGY, PROFILING MACHINE SET UP OPERATOR Abnormal Bleeding (Describe) Normal [facility] Comment on above: Order Comment: Speci men Type: FLUID SPECIMEN Ordering Facility: [facility] Address: [address] [place] [address] Performed By: #### L [id number] #### [facility] CLIA [id number] [address] [place] [address] [place] [facility] CLIA [id number] [address] [place] [address] [place] FINAL PERFORMING LAB Normal [facility] Comment on above: Order Comment: Speci men Type: FLUID SPECIMEN Ordering Facility: [facility] Address: [address] [place] [address] Result Comment: Tech nical component, traffic signal technician screening performed at: [facility], [address] [place] [address] CLIA: [id number] Diagnostic interpretation performed at: [facility], [address] [place] [address] CLIA# [id number] People Greeter: Ephraim Fatima MD Performed By: #### L [id number] #### [facility] CLIA [id number] [address] [place], [place] [address] [place] [facility] CLIA [id number] [address] [place], [place] [address] [place] INTERPRETATION, CYTOLOGY, PROFILING MACHINE SET UP OPERATOR Abnormal [facility] Comment on above: Order Comment: Speci men Type: FLUID SPECIMEN Ordering Facility: [facility] Address: [address] [place] [address] Result Comment: Atyp ical squamous cells of undetermined significance (ASC-US). at 1309 EDT Performed By: #### L [id number] #### [facility] CLIA [id number] [address] [place] [address] [place] [facility] CLIA [id number] [address] [place] [address] [place] LMP 02/27/2025 Normal [facility] Comment on above: Order Comment: Speci men Type: FLUID SPECIMEN Ordering Facility: [facility] Address: [address] [place] [address] Performed By: #### L [id number] #### [facility] CLIA [id number] [address] [place] [address] [place] [facility] CLIA [id number] [address] [place] [address] [place] PAP DISCLAIMER COMMENT The Pap Smear is a screening test for cervical cancer. False negative results occur with all screening tests, emphasizing the need for rescreening at recommended intervals, and clinical correlation. Normal [facility] Comment on above: Order Comment: Speci men Type: FLUID SPECIMEN Ordering Facility: [facility] Address: [address] [place] [address] Performed By: #### L [id number] #### [facility] CLIA [id number] [address] [place] [address] [place] [facility] CLIA [id number] [address] [place] [address] [place] PAP GENERAL CATEGORIZATION Epithelial Cell Abnormality Normal [facility] Comment on above: Order Comment: Speci men Type: FLUID SPECIMEN Ordering Facility: [facility] Address: [address] [place] [address] Performed By: #### L [id number] #### [facility] CLIA [id number] [address] [place] [address] [place] [facility] CLIA [id number] [address] [place] [address] [place] PAP ICT SUPPORT TECHNICIANS COMMENT This specimen has been analyzed by the ThinPrep Imaging System, an automated imaging and review system, which assists the laboratory in evaluating cells on ThinPrep Pap tests. Following automated imaging, selected [place] from every slide are reviewed by a traffic signal technician. Normal [facility] Comment on above: Order Comment: Speci men Type: FLUID SPECIMEN Ordering Facility: [facility] Address: [address] [place] [address] Performed By: #### L [id number] #### [facility] CLIA [id number] [address] [place] [address] [place] [facility] CLIA [id number] [address] [place] [address] [place] Urgent Care Visit Reporton 0 12-22-2024 Urgent Care Visit Report [facility] [address] [facility], [address] [place] [address] OFFICE VISIT Date of Service: 12/22/24 MR#: [id number] Acct: [id number] Name: KATHRIN BROWNLEE Rep #: [id number] : 1965 Provider: MELIA Solano Age/Sex: 59/F Location: [facility] Status: Signed with Addenda ADDENDUM by MELIA [...] No Known Allergies Allergy (Verified 05/02/23 10:21) [facility] Medical History (Updated 12/22/24 @ 17:19 by [...] tabs 0RF 12/22/24 1720 Date Torrey Solano TECHNOLOGIST DEVELOPMENT-C Cosigner Signature: Date (if applicable) CC: Normal [facility] Absolute lymphocyte countOrd ered By: Salvatore Le on 05-02-2023 Lymphocytes Auto (Unsp spec) [#/Vol] 1.26 10*3/uL 0.83-4.51 [facility] Basophil percentageOrdered B y: Salvatore Lamb on 05-02-2023 Basophils/100 WBC (Bld) 0.5 % 0-1 [facility] Bilirubin [Mass/Vol] 0.40 mg/dL 0.20-1.00 [facility] Comment on above: For patients on eltr ombopag therapy, use of Dimension [place] TBIL is not recommended. Chloride [Moles/Vol] 105 mmol/L 98-107 [facility] Eosinophils/100 WBC (Bld) 1.2 % 0-5 [facility] Glucose [Mass/Vol] 101 mg/dL 74-106 [facility] Comment on above: Fasting Glucose resu lt from 100 to 125 mg/dL suggests IMPAIRED HOMEOSTASIS per A.D.A. criteria. Neutrophils (Bld) [#/Vol] 6.5 10*3/uL 2.0-7.7 [facility] Neutrophils/100 WBC (Bld) 75.5 % 47-70 [facility] Potassium [Moles/Vol] 3.2 mmol/L 3.5-5.1 [facility] Protein [Mass/Vol] 6.9 g/dL 6.4-8.2 [facility] Sodium [Moles/Vol] 138 mmol/L 136-145 [facility] WBC (Bld) [#/Vol] 8.6 10*3/uL [facility] Blood erythrocytes count (nu mber/volume)Ordered By: Salvatore Lamb on 05-02-2023 RBC (Bld) [#/Vol] 4.45 10*6/uL 4.2-5.4 [facility] Blood hemoglobin measurement (mass/volume)Ordered By: Salvatore Lamb on 05-02-2023 Hemoglobin (Bld) [Mass/Vol] 13.0 g/dL 12.0-15.0 [facility] Blood lymphocytes/100 leukoc ytesOrdered By: Salvatore Lamb on 05-02-2023 Lymphocytes/100 WBC (Bld) 14.7 % 19-41 [facility] Blood monocytes/100 leukocyt esOrdered By: Salvatore Lamb on 05-02-2023 Monocytes/100 WBC (Bld) 7.8 % 0-10 [facility] Blood platelet mean volumeOr dered By: Salvatore Lamb on 05-02-2023 Platelet mean volume (Bld) [Entitic vol] 9.0 fL 6.2-12.0 [facility] Determination of erythrocyte mean corpuscular volume (MCV)Ordered By: Salvatore Lamb on 05-02-2023 MCV (RBC) [Entitic vol] 90.1 fL 81-99 [facility] Direct bilirubinOrdered By: Salvatore Lamb on 05-02-2023 Bilirubin.direct [Mass/Vol] 0.11 mg/dL 0.00-0.30 [facility] Hematocrit Auto (Bld) [Volum e fraction]Ordered By: Salvatore Lamb on 05-02-2023 Hematocrit (Bld) [Volume fraction] 40.1 % 37-47 [facility] Influenza virus A and B and SARS-CoV-2 (COVID-19) Ag panel - Upper respiratory specimOrdered By: Salvatore Lamb on 05-02-2023 SARS-CoV-2 (COVID-19) RNA FLACA+probe Ql (Resp) [facility] Laboratory - Chemistry and C hemistry - challengeOrdered By: Salvatore Lamb on 05-02-2023 ALP [Catalytic activity/Vol] 71 U/L 45-117 [facility] ALT [Catalytic activity/Vol] 18 U/L 13-56 [facility] CO2 [Moles/Vol] 24.0 mmol/L 21.0-32.0 [facility] Globulin (S) [Mass/Vol] 3.5 g/dL 2.2-4.2 [facility] Lipase [Catalytic activity/Vol] 20 U/L 13-75 [facility] Comment on above: Please note:LIPASE r evised reference range effective 23. New Lipase methodology. Expected to produce lower values than the previous assay method. NEW Reference Range: 13 - 75 U/L Urea nitrogen/Creatinine [Mass ratio] 13.2 mg/mg 10-20 [facility] Laboratory - Hematology and Cell countsOrdered By: Salvatore Lamb on 05-02-2023 Erythrocyte distribution width (RBC) [Entitic vol] 42.5 fL 35.1-43.9 [facility] Erythrocyte distribution width (RBC) [Ratio] 12.8 % 11.6-14.6 [facility] Immature granulocytes/100 WBC (Bld) 0.300 % 0.0-0.9 [facility] Comment on above: IG% - Immature Granu locytes (promyelocytes, myelocytes and metamyelocytes) > 1% indicates that a LEFT SHIFT is Present. MCH (RBC) [Entitic mass] 29.2 pg 27.0-32.0 [facility] Nucleated RBC/100 WBC (Bld) [Ratio] 0 % 0-5 [facility] MCHC Auto (RBC) [Mass/Vol]Or dered By: Salvatore Lamb on 05-02-2023 MCHC (RBC) [Mass/Vol] 32.4 g/dL 32-36 [facility] No Panel InformationOrdered By: Salvatore Lamb on 05-02-2023 Estimated Creatinine Clearance Calc 74.38 ml/min [facility] Estimated GFR (MDRD) Amer 101 mL/min >60 [facility] Comment on above: GFR Calc Estimated GFR (MDRD) Non-Af Amer 84 mL/min >60 [facility] Comment on above: Non- GFR Calc Platelets bldOrdered By: Baljit Lamb on 05-02-2023 Platelets (Bld) [#/Vol] 326 10*3/uL 150-450 [facility] Serum or plasma albumin aravind urement (mass/volume)Ordered By: Salvatore Lamb on 05-02-2023 Albumin [Mass/Vol] 3.4 g/dL 3.2-5.0 [facility] Serum or plasma calcium aravind urement (mass/volume)Ordered By: Salvatore Lamb on 05-02-2023 Calcium [Mass/Vol] 8.5 mg/dL 8.5-10.1 [facility] Serum or plasma creatinine m easurement (mass/volume)Ordered By: Salvatore Lamb on 05-02-2023 Creatinine [Mass/Vol] 0.76 mg/dL 0.55-1.02 [facility] Comment on above: The validity of the calculated GFR & GFRAA in patients over 70 years has not been determined. Clinical correlation is essential. Serum or plasma urea nitroge n measurement (mass/volume)Ordered By: Salvatore Lamb on 05-02-2023 Urea nitrogen [Mass/Vol] 10 mg/dL 7-18 [facility] Thin prep Papanicolaou smear with manual screeningOrdered By: Salvatore Lamb on 05-02-2023 Thin prep Papanicolaou smear with manual screening 17 U/L 15-37 [facility] Thin prep Papanicolaou smear with manual screening 9 5-15 [facility] Office Visit: UC: sinusitiso n 03-11-2017 Documentation of current medications (procedure) Done Invalid Interpretation Code [facility] Work Phone: Fall risk assessment No Invalid Interpretation Code [facility] Work Phone: Tobacco use CPHS Never smoker Invalid Interpretation Code [facility] Work Phone: Vital Signs Date Time Vital Sign Value Performing Clinician Faci lity 07-01-2025 14:26-0400 Body height 165.[address] Christina Singh MD Work Phone: [facility] 07-01-2025 14:26-0400 Body mass index (BMI) [Ratio] 35.7 kg/m2 Dr. Christina Singh MD Work Phone: [facility] 07-01-2025 14:26-0400 Body weight 97.[address] Christina Singh MD Work Phone: [facility] 04-14-2025 10:35-0400 Body mass index (BMI) [Ratio] 35.98 kg/m2 Rafi Lubin MD Work Phone: [facility] 04-14-2025 10:35-0400 Body weight 98.07 kg Rafi Lubin MD Work Phone: [facility] 04-14-2025 10:35-0400 Diastolic blood pressure 72 mm[Hg] Rafi Lubin MD Work Phone: [facility] 04-14-2025 10:35-0400 Systolic blood pressure 128 mm[Hg] Rafi Lubin MD Work Phone: [facility] 03-15-2025 11:50-0400 Body mass index (BMI) [Ratio] 35.78 kg/m2 Rafi Lubin MD Work Phone: [facility] 03-15-2025 11:50-0400 Body weight 97.52 kg Rafi Lubin MD Work Phone: [facility] 03-15-2025 11:50-0400 Diastolic blood pressure 82 mm[Hg] Rafi Lubin MD Work Phone: [facility] 03-15-2025 11:50-0400 Systolic blood pressure 124 mm[Hg] Rafi Lubin MD Work Phone: [facility] 03-10-2025 11:59-0400 Body mass index (BMI) [Ratio] 35.35 kg/m2 Rafi Lubin MD Work Phone: [facility] 03-10-2025 11:59-0400 Body weight 96.34 kg Rafi Lubin MD Work Phone: [facility] 03-10-2025 11:59-0400 Diastolic blood pressure 80 mm[Hg] Rafi Lubin MD Work Phone: [facility] 03-10-2025 11:59-0400 Systolic blood pressure 120 mm[Hg] Rafi Lubin MD Work Phone: [facility] 03-03-2025 10:16-0400 Body height 165.1 cm Rafi Lubin MD Work Phone: [facility] 03-03-2025 10:16-0400 Body mass index (BMI) [Ratio] 35.84 kg/m2 Rafi Lubin MD Work Phone: [facility] 03-03-2025 10:16-0400 Body weight 97.7 kg Rafi Lubin MD Work Phone: [facility] 03-03-2025 10:16-0400 Diastolic blood pressure 80 mm[Hg] Rafi Lubin MD Work Phone: [facility] 03-03-2025 10:16-0400 Systolic blood pressure 120 mm[Hg] Rafi Lubin MD Work Phone: [facility] 10-14-2023 15:30-0500 Body height 165.1 cm Shantal Montalvo APRN.CNP Work Phone: [facility] 10-14-2023 15:30-0500 Body weight 96.34 kg Shantal Montalvo [employer] Work Phone: [facility] 10-14-2023 15:30-0500 Diastolic blood pressure 66 mm[Hg] Shantal Montalvo [employer] Work Phone: [facility] 10-14-2023 15:30-0500 Systolic blood pressure 124 mm[Hg] Shantal Montalvo [employer] Work Phone: [facility] 05-02-2023 12:19-0400 Respiratory rate 16 /min [facility] 05-02-2023 10:19-0400 Body height 165.1 cm [facility] 05-02-2023 10:19-0400 Body mass index (BMI) [Ratio] 32.5 kg/m2 [facility] 05-02-2023 10:19-0400 Body temperature 98 [degF] [facility] 05-02-2023 10:19-0400 Body weight 88.9 kg [facility] 05-02-2023 10:19-0400 Diastolic blood pressure 81 mm[Hg] [facility] 05-02-2023 10:19-0400 Heart rate 91 /min [facility] 05-02-2023 10:19-0400 SaO2% (BldA) [Mass fraction] 100 % [facility] 05-02-2023 10:19-0400 Systolic blood pressure 124 mm[Hg] [facility] 03-11-2017 17:22-0400 BMI (Body Mass Index) 37.55 kg/m2 Vince FRANCO [facility] Work Phone: 03-11-2017 17:22-0400 Body Temperature 98.9 [degF] Vince FRANCO [facility] Work Phone: 03-11-2017 17:22-0400 BP Diastolic 82 mm[Hg] Vince FRANCO [facility] Work Phone: 03-11-2017 17:22-0400 BP Systolic 122 mm[Hg] Vince Morley SALVADOR [facility] Work Phone: 03-11-2017 17:22-040 Height 162.56 cm Vince FRANCO [facility] Work Phone: 03-11-2017 17:22-0400 Pulse (Heart Rate) 82 /min Vince [facility]ANCO [facility] Work Phone: 03-11-2017 17:22-0400 Pulse Oximetry 99 % Vince FRANCO [facility] Work Phone: 03-11-2017 17:22-0400 Respiratory Rate 14 /min Vince FRANCO [facility] Work Phone: 03-11-2017 17:22-0400 Weight 99.25 kg Vince FRANCO [facility] Work Phone: Encounters Encounter Date Encounter Type Care Provider Facility Start: 07-01-2025 End: 07-01-[address] Tony Elliott MD -[facility] Start: 07-01-2025 End: 07-01-[address] Christina Singh MD Work Phone: -[facility] Start: 04-14-2025 End: 04-14-2025 ambulatory RAFI LUBIN Facility:[facility] Start: 04-14-2025 End: 04-14-2025 Patient encounter procedure Rafi Lubin MD Work Phone: OB/Gynecology Comment on above: Perimenopause (Prima ry Dx); Adenomyosis Start: 03-17-2025 End: 05-17-2025 Follow-up encounter Michael Eubanks MD Work Phone: OB/Gynecology Start: 03-17-2025 ambulatory RAFI LUBIN [facility] ity:[facility] Start: 03-17-2025 End: 03-17-2025 Subsequent hospital visit by physician Screen Mammo [facility] Comment on above: Encounter for screen ing mammogram for breast cancer [Z12.31] Start: 03-15-2025 End: 03-15-2025 Patient encounter procedure Rafi Lubin MD Work Phone: OB/Gynecology Comment on above: ASCUS with positive high risk HPV cervical (Primary Dx) Start: 03-15-2025 End: 03-15-2025 ambulatory RAFI LUBIN Facility:[facility] Start: 03-10-2025 End: 03-10-2025 Patient encounter procedure Rafi Lubin MD Work Phone: OB/Gynecology Comment on above: Abnormal uterine ble eding (AUB) (Primary Dx) Start: 03-10-2025 End: 03-10-2025 ambulatory RAFI LUBIN Facility:[facility] Start: 03-05-2025 End: 05-05-2025 Follow-up encounter Rafi Lubin MD Work Phone: OB/Gynecology Comment on above: pap results Start: 03-05-2025 End: 03-05-2025 Patient encounter procedure [facility] OB/Gynecology Start: 03-05-2025 End: 03-05-2025 ambulatory [employer] [facility] Work Phone: OB/Gynecology Start: 03-03-2025 End: 03-03-2025 ambulatory RAFI LUBIN Facility:[facility] Start: 03-03-2025 End: 03-03-2025 Patient encounter procedure Rafi Lubin MD Work Phone: OB/Gynecology Comment on above: Encounter for gyneco logical examination (general) (routine) without abnormal findings; Encounter for screening mammogram for breast cancer; Abnormal uterine bleeding (AUB); Screening for cervical cancer; Screening for human papillomavirus (HPV); PMB (postmenopausal bleeding) Start: 03-03-2025 End: 03-03-2025 Patient encounter status Rafi Lubin MD Work Phone: [facility] Start: 03-03-2025 End: 03-03-2025 ambulatory RAFI LUBIN Facility:[facility] Start: 03-03-2025 Encounter for gynecological examination (general) (routine) without abnormal findings RAFI LUBIN [facility] Start: 12-22-2024 End: 12-22-2024 ambulatory Christina Singh Facility:[facility] Start: 10-21-2023 Documentation procedure Mammog briana Coordinator [facility] Start: 10-21-2023 Letter encounter Mammography Coordinator [facility] Department Start: 10-18-2023 End: 10-18-2023 Subsequent hospital visit by physician Screen Mammo [facility] Comment on above: Encounter for screen ing mammogram for breast cancer [Z12.31] PCB (post coital ble eding) [N93.0] Start: 10-14-2023 End: 10-14-2023 Patient encounter procedure Shantal Montalvo APRN.[employer] Work Phone: OB/Gynecology Comment on above: Encounter [...] encounter status Shantal Montalvo APRN.CNP Work Phone: [facility] Work Phone: Start: 10-14-2023 Telephone encounter Shantal nice APRN.CNP Work Phone: OB/Gynecology Comment on above: Orders; Patient Upda te Start: 05-02-2023 End: 05-02-2023 Emergency department patient visit [facility] Work Phone: Start: 07-06-2022 End: 07-06-2022 ambulatory [facility] Work Phone: Start: 07-06-2022 End: 07-06-2022 Patient encounter procedure [facility] Ul[facility]ound Procedures Date Procedure Procedure Detail Performing Clinician Start: 03-05-2025 Us pelvic nonobstetr ic real-time image complete Rafi Lubin MD Work Phone: Start: 05-02-2023 SARS-CoV-2 & FLU Ant igen (Rapid) Start: 05-02-2023 US scan of gallbladder Start: 07-06-2022 CT of abdomen Plan of Treatment Date Care Activity Detail Author Start: 10-14-2028 Screening for malign ant neoplasm of cervix [facility] Start: 03-06-2028 Urine microalbumin profile DTaP,Tdap,Td Vaccine (3 - Td or Tdap) [facility] Start: 03-17-2026 Screening for malign ant neoplasm of breast Mammogram Screening [facility] Start: 03-03-2026 Screening for malign ant neoplasm of cervix Cervical Cancer Screening [facility] Start: 07-05-2025 Influenza vaccination [facility] Start: 07-01-2025 L/S Spine Min 4 Views L/S Spine Min 4 Views [facility] Start: 07-01-2025 XR Spine Lumbar and Sacrum GE 4 Views [facility] Start: 03-17-2025 End: 03-17-2025 Patient encounter procedure 03/17/2025 12:50 PM EDT Appointment Mammogram [address] [place] [address] Encounter for screening mammogram for breast cancer [Z12.31] Mammogram Comment on above: Encounter for screen ing mammogram for breast cancer [Z12.31] Start: 03-10-2025 End: 03-10-2025 Patient encounter procedure 03/10/2025 11:40 AM EDT Office Visit OB/Gynecology [address] [place] [address] Rafi Lubin MD [address] [place] [address] [facility] OB/Gynecology Comment on above: [facility] Start: 03-05-2025 End: 03-05-2025 ambulatory 03/05/2025 1:00 PM EDT Procedure OB/Gynecology [address] [place] [address] [facility], [facility] [facility] [address] [place] [address] Abnormal uterine bleeding (AUB) [N93.9] OB/Gynecology Comment on above: Abnormal uterine ble eding (AUB) [N93.9] Start: 03-03-2025 End: 06-02-2025 Follitropin [Units/volume] in Serum or Plasma [facility] Comment on above: Expected: 03/03/2025 , Expires: 06/02/2025 Start: 03-03-2025 End: 03-03-2026 US Pelvis PELVIC US [facility] Anc Imaging Routine Abnormal uterine bleeding (AUB) Expected: 03/03/2025, Expires: 03/03/2026 [facility] Comment on above: Expected: 03/03/2025 , Expires: 03/03/2026 Start: 10-18-2024 Screening for malign ant neoplasm of breast Mammogram Screening [facility] Start: 10-14-2024 Screening for malign ant neoplasm of cervix Cervical Cancer Screening [facility] Start: 07-05-2024 Covid-19 Vaccine ( season) Covid-19 Vaccine () [facility] Start: 07-05-2024 Influenza vaccination Influenza Vacc ine (#1) [facility] Start: 07-05-2023 Influenza vaccination Influenza Vacc ine (#1) [facility] Start: 04-03-2023 HPV Testing HPV Testing [facility] Start: 04-03-2023 Pap Testing Pap Testing [facility] Start: 04-03-2023 Screening for malign ant neoplasm of cervix Pap Testing [facility] Start: 11-04-2022 Depression Assessment Depression Ass essment [facility] Start: 10-17-2021 Mammography Mammogram Screening [facility] Start: 10-17-2021 Screening for malign ant neoplasm of breast Mammogram Screening [facility] Start: 2017 Pneumococcal Vaccine : 50+ (1 of 1 - PCV) Pneumococcal Vaccine: 50+ (1 of 1 - PCV) [facility] Start: 2017 Shingrix Vaccine (1 of 2) Shingrix Vaccine (1 of 2) [facility] Start: 03-11-2017 End: 03-11-2017 Appointment Appointment [facility] Work Phone: Start: 2012 Cologuard (FIT-DNA) Cologuard (FIT-D NA) [facility] Start: 2012 Colonoscopy Colonoscopy [facility] Start: 2012 Colorectal Cancer Screening Colorectal Cancer Screening [facility] Start: [address] Colonography [facility] Start: 2012 Diabetes Screening Diabetes Screenin g [facility] Start: 2012 Fecal Occult Blood Fecal Occult Bloo d [facility] Start: 2012 Lipid 1996 panel - Serum or Plasma Lipid Screening [facility] Start: 2012 Lipid panel Lipid Screening [facility] Start: 2012 Screening for malign ant neoplasm of colon [facility] Start: [address] [facility] Start: 1986 Hepatitis B Vaccine (1 of 3 - 19+ 3-dose series) Hepatitis B Vaccine (1 of 3 - 19+ 3-dose series) [facility] Start: 1985 Anxiety Screening Anxiety Screening [facility] Start: 1985 Depression Screening Depression Scre ening [facility] Start: 1985 Hepatitis C Screening Hepatitis C [facility] Start: 1985 Hepatitis C screening Hepatitis C [facility] Start: 1985 HIV Screening HIV Screening [facility] Start: 1985 HIV screening HIV Screening [facility] Start: 1967 Covid-19 Vaccine (#1) Covid-19 Vacci ne (#1) [facility] Start: 1967 Hepatitis B Vaccine (1 of 3 - 3-dose series) Hepatitis B Vaccine (1 of 3 - 3-dose series) [facility] COLPOSCOPY COLPOSCOPY Proce balbina Routine ASCUS with positive high risk HPV cervical Ordered: 03/11/2025 [facility] Work Phone: Comment on above: Ordered: 03/11/2025 End: 04-02-2026 DBT Breast - bilateral screening [facility] Routine Encounter for screening mammogram for breast cancer 1 Occurrences starting 03/03/2025 until 04/02/2026 [facility] Work Phone: Comment on above: 1 Occurrences starti ng 03/03/2025 until 04/02/2026 DBT Breast - bilater al screening [facility]CREEN[facility] Routine Encounter for screening mammogram for breast cancer 03/17/2025 1:51 PM EDT [facility] Work Phone: Endometrial bx w/wo endocervix bx w/o dilat spx ENDOMETRIAL BIOPSY Procedures Routine Abnormal uterine bleeding (AUB) Ordered: 03/03/2025 [facility] Comment on above: Ordered: 03/03/2025 Endometrial bx w/wo endocervix bx w/o dilat spx ENDOMETRIAL BIOPSY Procedures Routine Abnormal uterine bleeding (AUB) Ordered: 03/10/2025 [facility] Work Phone: Comment on above: Ordered: 03/10/2025 End: 11-12-2024 DUANE SCREENING [facility] Routine Encounter for screening mammogram for breast cancer 1 Occurrences starting 10/14/2023 until 11/12/2024 [facility] Work Phone: Comment on above: 1 Occurrences starti ng 10/14/2023 until 11/12/2024 DUANE SCREENING DUANE SCREENING Ra diology Routine Encounter for screening mammogram for breast cancer 10/18/2023 10:40 AM [facility] Work Phone: PAP TEST PAP TEST Lab Rou inna Encounter for gynecological examination (general) (routine) without abnormal findings Encounter for screening for human papillomavirus (HPV) Pap smear for cervical cancer screening 10/14/2023 4:09 PM EST [facility] Work Phone: PAP TEST PAP TEST Lab [facility] Encounter for gynecological examination (general) (routine) without abnormal findings Abnormal uterine bleeding (AUB) Screening for cervical cancer Screening for human papillomavirus (HPV) 03/03/2025 10:51 AM EDT [facility] Patient Education ED Diet Vomiti ng Diarrhea ED Gallstones with Biliary Colic [facility] Work Phone: Patient referral [facility] Work Phone: Tissue Pathology bio psy report SURGICAL PATHOLOGY Lab Routine Abnormal uterine bleeding (AUB) 03/10/2025 12:34 PM EDT [facility] Tissue Pathology bio psy report SURGICAL PATHOLOGY Lab Routine ASCUS with positive high risk HPV cervical Ordered: 03/15/2025 [facility] Work Phone: Comment on above: Ordered: 03/15/2025 End: 11-12-2024 Us transvaginal US FEMALE PELVIS TRANSVAG Radiology Routine PCB (post coital bleeding) 1 Occurrences starting 10/14/2023 until 11/12/2024 [facility] Work Phone: Comment on above: 1 Occurrences starti ng 10/14/2023 until 11/12/2024 Us transvaginal US FEMALE PELVIS TRANSVAG Radiology Routine PCB (post coital bleeding) 10/18/2023 9:34 AM EST [facility] Work Phone: [facility] Work Phone: [facility] Immunizations Immunization Date Immunization Notes Care Provider Alex gilliland 10-11-2010 influenza virus vaccine, unspecified formulation Shantal Montalvo APRN.[facility] Work Phone: [facility] Work Phone: Payers Date Payer Category Payer Self-pay [id number] 2021 [employer] [facility] BLUE ACCE PPO Member Subscriber Plan / Payer (Effective 2021-Present) Name: Kathrin Brownlee Relation to Subscriber: Self Name: Kathrin Brownlee Payer ID: [id number] (NAIC) Type: PPO Address: [place] [id number] 2021 Unknown [employer]ING BLUE ACCE SS PPO [id number] 2021-Present [phone] [address] [place] [address] O [id number] 2016 Unknown [id number] Unknown [id number] Unknown [id number] Unknown [id number] Social History Date Type Detail Facility Start: 11-09-2020 End: 05-02-2023 Tobacco smoking status MIIS Unknown if ever smoked [facility] Start: 11-09-2020 Non-smoker [facility] Start: 1965 Sex Assigned At Female [facility] Start: 05-02-2023 End: 10-14-2023 Tobacco smoking status MIIS Never smoked tobacco [facility] Work Phone: Start: 10-14-2023 Tobacco use and exposure Smoke less tobacco non-user [facility] Work Phone: Start: 10-14-2023 End: 03-15-2025 Alcohol intake Current drinker of alcohol (finding) [facility] Start: 08-18-2020 End: 10-14-2023 History of Social function [facility] Work Phone: Start: 08-18-2020 End: 10-14-2023 Social connection and isolation panel [facility] Work Phone: Do you belong to any clubs or organizations such as hinduism groups, unions, fraternal or athletic groups, or school groups? Yes [facility] Work Phone: Are you now , , , , never or living with a partner? [facility] Work Phone: How hard is it for y ou to pay for the very basics like food, housing, medical care, and heating Not hard at all [facility] Work Phone: Do you feel stress - tense, restless, nervous, or anxious, or unable to sleep at night because your mind is troubled all the time - these days [OSQ] Only a little [facility] Work Phone: (I/We) worried ingrid er (my/our) food would run out before (I/we) got money to buy more. Never true [facility] Work Phone: Start: 08-18-2020 Education 16 [facility] Start: 04-03-2018 [facility] Start: 1965 Sex Assigned At [facility] NEGATED: Highlighted rowStart: NINF History of tobacco use Passive smoker [facility] Work Phone: Clinical Notes 10-14-2023 to 04-14-2025 Rafi Lubin MD - 04/14/2025 10:32 AM Veda Velazquez Mammo Tech - 03/17/2025 12:50 PM EDTPatient InstructionsRafi Lubin MD - 03/15/2025 11:43 AM EDTPatient Instructions Note Date & Type Note Facility 04-14-2025 Note HNO ID: [id number] Author: RAFI LUBIN MD Service: ? Author [...] Ectopic0 Multiple0 Live Births2 Comment: x 2 [employer] History LMP: 07/19/2020, Ablation Age at Menarche: Age at First : Age at Menopause: Tripe Scraper History Comments: Sexual Activity: Yes; Male Contraception: [...] ftft > 30 min Rafi Lubin MD [facility] 04-14-2025 History of Presen t illness [...] Ectopic0 Multiple0 Live Births2 Comment: x 2 [employer] Sc[employer] History LMP: 07/19/2020, Ablation Age at Menarche: Age at First : Age at Menopause: Tripe Scraper History Comments: Sexual Activity: Yes; Male Contraception: [...] Rafi Lubin MD documented in this encounter [facility] 03-17-2025 History of Presen t illness Narrative [...] PATIENT PRESENTS WITH AN IMPLANTABLE OR ATTACHED CLARIFIER: No RADIOLOGY DEPARTMENT: Mammography PERIPHERAL IV DATA: Not applicable SIGNED BY: Liz Dawkins March 17, 2025 12:54 PM documented in this encounter [facility] 03-17-2025 Note HNO ID: [id number] Author: VEDA DOUGHERTY Mammo Tech Service: ? Author Type: Brush Cleaner Type: Progress Notes Filed: 03/17/2025 12:54 Note [...] PATIENT PRESENTS WITH AN IMPLANTABLE OR ATTACHED CLARIFIER: No RADIOLOGY DEPARTMENT: Mammography PERIPHERAL IV DATA: Not applicable SIGNED BY: Liz Dawkins March 17, 2025 12:54 PM [facility] 03-15-2025 Instructions Juliette Jurado MA - [...] your doctor's office. documented in this encounter [facility] 03-15-2025 Note HNO ID: [id number] Author: RAFI LUBIN MD Service: ? Author [...] as lesion is small. Rafi Lubin MD [facility] 03-15-2025 History of Presen t illness [...] Rafi Lubin MD documented in this encounter [facility] 03-10-2025 Instructions Iris Greer MA - 03/10/2025 [...] contact the office. documented in this encounter [facility] 03-10-2025 Note HNO ID: [id number] Author: RFAI LUBIN MD Service: ? Author Type: Physician Type: Progress Notes Filed: 03/10/2025 12:28 Note Text: Rehab Manager offered: Patient accepts, visit chaperoned by Iris [...] results in 1-2 weeks. Rafi Lubin MD [facility] 03-10-2025 History of Presen t illness Narrative Rehab Manager offered: Patient accepts, visit chaperoned by Iris [...] Rafi Lubin MD documented in this encounter [facility] 03-09-2025 Note HNO ID: [id number] Author: ALEXIA CASSIDY MD Service: ? Author Type: Physician Type: Progress Notes Filed: 03/09/2025 10:22 Note Text: The patient presents for requested ultrasound. Full report available in the Imaging tab in [facility]. Alexia Cassidy MD [facility] 03-09-2025 History of Presen t illness Narrative The patient presents for requested ultrasound. Full report available in the Imaging tab in [facility]. Alexia Cassidy MD documented in this encounter [facility] 03-03-2025 Note HNO ID: [id number] Author: RAFI LUBIN MD Service: ? Author Type: Physician Type: Progress Notes Filed: 03/03/2025 10:45 Note Text: Rehab Manager offered: Patient accepts, visit chaperoned by Iris [...] external genitalia normal, normal Bartholin's glands, urethra, [place]'s glands, no vulvar lesions, no cervical lesions, [...] schedule endometrial bx/pelvic ultrasound Rafi Lubin MD [facility] 03-03-2025 History of Presen t illness Narrative Rehab Manager offered: Patient accepts, visit chaperoned by Iris [...] external genitalia normal, normal Bartholin's glands, urethra, [place]'s glands, no vulvar lesions, no cervical lesions, [...] Rafi Lubin MD documented in this encounter [facility] 10-21-2023 Miscellaneous Notes October 22, 2023 PID: [id number] Kathrin Brownlee [address] [place] [address] Dear Ms. Brownlee, We are pleased to [...] report will be kept on file at [facility] as part of your permanent medical record and are available for your continuing care. Thank you for allowing us to help in meeting your health care needs. Sincerely, Dr. Puente Interpreting Radiologist [facility] (Normal over 40) documented in this encounter [facility] 10-18-2023 History of Presen t illness Narrative [...] 2023 9:43 AM documented in this encounter [facility] 10-18-2023 History of Presen t illness Narrative [...] 2023 11:52 AM documented in this encounter [facility] 10-14-2023 Miscellaneous Notes Patient notified and voiced understanding. Appointment scheduled. Oksana Patel RN Please notify patient: I would like her to have an ultrasound for the post coital bleeding. It has been ordered. Please assist in scheduling. Shantal Montalvo APRN.CNP documented in this encounter [facility] 10-14-2023 Instructions Shantla Montalvo APRN.CNP - 10/14/2023 3:53 PM EST [...] salmon and sardines and vegetables, such as Sami cabbage, kale, and broccoli. Foods fortified with [...] acid, calcium carbonate is found in some [id number]-fokimma antacid products, such as Tums and Rolaids [...] by your doctor. documented in this encounter [facility] 10-14-2023 History of Presen t illness Narrative Patient declined senior service aide Kathrin is a 58 year old who [...] Ectopic0 Multiple0 Live Births2 Comment: x 2 [employer] Sc[employer]per History LMP: 07/19/2020, Ablation Age at Menarche: Age at First : Age at Menopause: Tripe Scraper History Comments: Sexual Activity: Yes; Male Contraception: [...] external genitalia normal, normal Bartholin's glands, urethra, [place]'s glands, no vulvar lesions, no cervical lesions, [...] 3 - Low documented in this encounter [facility] Evaluation note No assessment inform ation available [facility] Work Phone: Evaluation note Diagnosis Encounter for [...] bleeding) Postcoital bleeding [facility] Diagnosis Encounter for screening mammogram for breast cancer [facility] Diagnosis PCB (post coital bleeding) Postcoital bleeding [facility] Diagnosis Encounter for gynecological examination (general) (routine) without abnormal findings Encounter for screening mammogram for breast cancer Abnormal uterine bleeding (AUB) Screening for cervical cancer Screening for malignant neoplasm of the cervix Screening for human papillomavirus (HPV) Special screening examination for human papillomavirus (HPV) PMB (postmenopausal bleeding) Postmenopausal bleeding [facility] Abnormal uterine bleeding (AUB) [facility] Diagnosis Abnormal uterine bleeding (AUB)- Primary [facility] Diagnosis ASCUS with positive high risk HPV cervical- Primary Cervical high risk human papillomavirus (HPV) DNA test positive [facility] Diagnosis Encounter for screening mammogram for breast cancer [facility] Diagnosis Perimenopause- Primary Symptomatic menopausal or female climacteric states Adenomyosis Endometriosis of uterus [facility] Diagnosis ASCUS with positive high risk HPV cervical- Primary Cervical high risk human papillomavirus (HPV) DNA test positive [facility] Additional Instructions Ultrasound with gallstones, no signs of cholecystitis. White count 8.6 normal lipase and liver enzymes. Continue oral fluids. Avoid dairy products and greasy products. Follow- up with Dr. Ta. COVID influenza negative. Return if worsening symptoms..[facility] Work Phone: Hospital Discharge instructionsAmbulatory Orders* Pain Management Location: None [facility] Work Phone: Reason for referral (narrative)* Diagnostic Procedure Only (Routine) - Authorized Specialty Diagnoses / Procedures Referred By Mami yanes Referred To Contact [facility] Diagnoses PCB (post coital bleeding) Procedures US FEMALE PELVIS TRANSVAG US TRANSVAGINAL Shantal Montalvo APRN.CNP [address] [place] [address] [facility] [place] [address] Referral ID Status Reason Start Date Expiration Date Visits Requested Visits Authorized [id number] Authorized Auto-Generat ed Referral 3 11/12/2024 1 1 * Consult, Test, Treat (Routine) - Authorized Specialty Diagnoses / Procedures Referred By Mami yanes Referred To Contact Hematology Diagnoses Family history of blood clots History of deep vein thrombosis Procedures CONSULT TO HEMATOLOGY OFFICE/OUTPATIENT [facility] 60-74 MINUTES Shantal Montalvo APRN.CNP [address] [place] [address] Referral ID Status Reason Start Date Expiration Date Visits Requested Visits Authorized [id number] Authorized PCP Requested Referral 3 10/13/2024 1 1 * Consult, Test, Treat (Routine) - Authorized Specialty Diagnoses / Procedures Referred By Mami yanes Referred To Contact General Surgery Diagnoses Colon cancer screening Procedures CONSULT TO GENERAL SURGERY OFFICE/[facility]IENT [facility] 60-74 MINUTES Shantal Montalvo APRN.CNP [address] [place] [address] Referral ID Status Reason Start Date Expiration Date Visits Requested Visits Authorized [id number] Authorized PCP Requested Referral 3 10/13/2024 1 1 * Diagnostic Procedure Only (Routine) - Authorized Specialty Diagnoses / Procedures Referred By Mami yanes Referred To Contact [facility] Diagnoses Encounter for screening mammogram for breast cancer Procedures DUANE SCREENING SCREENING MAMMOGRAPHY BI 2-VIEW BREAST INC CAD Shantal Montalvo APRN.CNP [address] [place] [address] [facility] [address] [place] [address] Referral ID Status Reason Start Date Expiration Date Visits Requested Visits Authorized [id number] Authorized Auto-Generat ed Referral 3 11/12/2024 1 1 [facility] (narrative)No reason for referral information [facility] Work Phone: Reason for visit Narrative* Diagnostic Procedure Only (Routine) - Closed Specialty Diagnoses / Procedures Referred By Mami yanes Referred To Contact [facility] Diagnoses Encounter for screening mammogram for breast cancer Procedures DUANE SCREENING SCREENING MAMMOGRAPHY BI 2-VIEW BREAST INC CAD Shantal Montalvo APRN.CNP [address] [place] [address] [facility] [address] [place] [address] Referral ID Status Reason Start Date Expiration Date V isits Requested Visits Authorized [id number] Closed Auto-Generate d Referral 10/14/2023 11/12/2024 1 1 [facility] for visit Narrative* Diagnostic Procedure Only (Routine) - Closed Specialty Diagnoses / Procedures Referred By Mami yanes Referred To Contact [facility] Diagnoses Abnormal uterine bleeding (AUB) Procedures PELVIC US WHI US PELVIC NONOBSTETRIC REAL-TIME IMAGE COMPLETE Rafi Lubin MD [address] [place] [address] Phone: tel: fax: [facility] [address] [place] [address] Referral ID Status Reason Start Date Expiration Date V isits Requested Visits Authorized [id number] Closed Auto-Generate d Referral 03/03/2025 03/03/2026 1 1 [facility] for visit Narrative* Diagnostic Procedure Only (Routine) - Closed Specialty Diagnoses / Procedures Referred By Mami yanes Referred To Contact [facility] Diagnoses Encounter for screening mammogram for breast cancer Procedures DUANE SCREENING W BRADEN SCREENING DIGITAL BREAST TOMOSYNTHESIS BI SCREENING MAMMOGRAPHY BI 2-VIEW BREAST INC CAD Rafi Lubin MD [address] [place] [address] Phone: tel: fax:[phone] [facility] [address] [place] [address] Referral ID Status Reason Start Date Expiration Date V isits Requested Visits Authorized [id number] Closed Auto-Generate d Referral 03/03/2025 04/02/2026 1 1 [facility] Chief Complaint and Reason for Visit Chief Complaint PAIN AND INDIGESTION Chief Complaint ABD PAIN N/V/D Chief Complaint Admit Date LUMBAR SPINE July 01, 2025 2: 19pm Room 4 July 01, 2025 2: 35pm Advance Directives No Advanced Directives Records Found Advance Directive Response Recorded Date/ Time Living Will No November 09 2:10pm Power of Manager Technical Training No November 09 2:10pm Advance Directive Response Recorded Date/ Time Living Will No May 02, 2023 10:26am Power of Manager Technical Training No May 02 10:26am Family History Relationship [...] Dr. 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 Relationship Specialty Start Date End Date Christina Singh MD PCP - General Family Medicine 10/11/10 Mouthpiece Maker Relationship Specialty Start Date End Date Christina Singh MD PCP - General Family Medicine 10/11/10 Mouthpiece Maker Relationship Specialty Start Date End Date Christina Singh MD PCP - General Family Medicine 10/11/10 Mouthpiece Maker Relationship Specialty Start Date End Date Christina Snigh MD PCP - General Family Medicine 10/11/10 Mouthpiece Maker Relationship Specialty Start Date End Date Christina Singh MD PCP - General Family Medicine 10/11/10 Mouthpiece Maker Relationship Specialty Start Date End Date Christina Singh MD PCP - General Family Medicine 10/11/10 Mouthpiece Maker Relationship Specialty Start Date End Date Christina Singh MD PCP - General Family Medicine 10/11/10 Mouthpiece Maker Relationship Specialty Start Date End Date Christina Singh MD PCP - General Family Medicine 10/11/10 Mouthpiece Maker Relationship Specialty Start Date End Date Christina Singh MD PCP - General Family Medicine 10/11/10 Mouthpiece Maker Relationship Specialty Start Date End Date Christina Singh MD PCP - General Family Medicine 10/11/10 Mouthpiece Maker Relationship Specialty Start Date End Date Christina Singh MD PCP - General Family Medicine 10/11/10 Mouthpiece Maker Relationship Specialty Start Date End Date Christina [...] or prosecute any alcohol or drug abuse patient.[facility] the event this information is protected by the Federal Confidentiality of Alcohol and Drug Abuse Patient Records regulations: The Federal rules restrict any use of the information to criminally investigate or prosecute any alcohol or drug abuse patient.[facility] Center[facility] the event this information is protected by the Federal Confidentiality of Alcohol and Drug Abuse Patient Records regulations: The Federal rules restrict any use of the information to criminally investigate or prosecute any alcohol or drug abuse patient.[facility] CenterIn the event this information is protected by the Federal Confidentiality of Alcohol and Drug Abuse Patient Records regulations: The Federal rules restrict any use of the information to criminally investigate or prosecute any alcohol or drug abuse patient.[facility] Center[facility] the event this information is protected by the Federal Confidentiality of Alcohol and Drug Abuse Patient Records regulations: The Federal rules restrict any use of the information to criminally investigate or prosecute any alcohol or drug abuse patient.[facility] CenterIn the event this information is protected by the Federal Confidentiality of Alcohol and Drug Abuse Patient Records regulations: The Federal rules restrict any use of the information to criminally investigate or prosecute any alcohol or drug abuse patient.[facility] CenterIn the event this information is protected by the Federal Confidentiality of Alcohol and Drug Abuse Patient Records regulations: The Federal rules restrict any use of the information to criminally investigate or prosecute any alcohol or drug abuse patient.[facility] CenterIn the event this information is protected by the Federal Confidentiality of Alcohol and Drug Abuse Patient Records regulations: The Federal rules restrict any use of the information to criminally investigate or prosecute any alcohol or drug abuse patient.[facility] CenterIn the event this information is protected by the Federal Confidentiality of Alcohol and Drug Abuse Patient Records regulations: The Federal rules restrict any use of the information to criminally investigate or prosecute any alcohol or drug abuse patient.[facility] CenterIn the event this information is protected by the Federal Confidentiality of Alcohol and Drug Abuse Patient Records regulations: The Federal rules restrict any use of the information to criminally investigate or prosecute any alcohol or drug abuse patient.[facility] CenterIn the event this information is protected by the Federal Confidentiality of Alcohol and Drug Abuse Patient Records regulations: The Federal rules restrict any use of the information to criminally investigate or prosecute any alcohol or drug abuse patient.[facility] CenterIn the event this information is protected by the Federal Confidentiality of Alcohol and Drug Abuse Patient Records regulations: The Federal rules restrict any use of the information to criminally investigate or prosecute any alcohol or drug abuse patient.[facility] CenterIn the event this information is protected by the Federal Confidentiality of Alcohol and Drug Abuse Patient Records regulations: The Federal rules restrict any use of the information to criminally investigate or prosecute any alcohol or drug abuse patient.[facility] Reason for Visit (unrecogniz ed section and content) Reason Comments Yearly Exam Reason Comments Orders Patient Update Reason Comments Radiology US Specialty Diagnoses / Procedures Referred By Contac t Referred To Contact [facility] Diagnoses PCB (post coital bleeding) Procedures US FEMALE PELVIS TRANSVAG US TRANSVAGINAL Shantal Montalvo APRN.SAROJ [address] [place] [address] [place] [address] Referral ID Status Reason Start Date Expiration Date V isits Requested Visits Authorized [id number] Closed Auto-Generate d Referral 10/14/2023 11/12/2024 1 1 Reason Comments Well Woman Reason Comments Endometrial Biopsy Specialty Diagnoses / Procedures Referred By Contac t Referred To Contact [facility] Diagnoses Abnormal uterine bleeding (AUB) Procedures ENDOMETRIAL BIOPSY ENDOMETRIAL BX W/WO ENDOCERVIX BX W/O DILAT SPX Rafi Lubin MD [address] [place] [address] Phone: tel: fax: [facility] [address] [place] [address] Referral ID Status Reason Start Date Expiration Date V isits Requested Visits Authorized [id number] Closed Auto-Generate d Referral 03/03/2025 03/03/2026 1 1 Reason Comments Colposcopy Specialty Diagnoses / Procedures Referred By Contjaylene t Referred To Contact [facility] Diagnoses ASCUS with positive high risk HPV cervical Procedures COLPOSCOPY COLPOSCOPY CERVIX BX CERVIX & ENDOCRV Michael Pretty MD [address] [place] [address] Phone: tel: fax: [facility] [address] [place] [address] Referral ID Status Reason Start Date Expiration Date V isits Requested Visits Authorized [id number] Closed Auto-Generate d Referral 03/11/2025 03/11/2026 1 1 Reason Comments Problem Visit Reason Onset Date Comments pap results 03/05/2025 INFORMATION SOURCE (unrecogn ized section and content) DATE CREATED AUTHOR 04/16/2025 [facility] DATE CREATED AUTHOR AUTHOR'S ORGANIZ ATION 07/01/2025 [facility] FOR RECORDS PERTAINING TO PATIENTS WHO [...] BE BASED ON THE PRIMARY CLINICAL RECORDS. [employer] [facility]. provides no warranty or guarantee of the accuracy or completeness of information in this document.
--- OUTSIDE RECORDS SUMMARY | 2025-09-12 21:55 | XMS RPT_ITS | CCD ---
Author Organization [facility] Care Team Providers Care Sawing And Assembly Supervisor Name Role Phone Vince Murry Unavailable [phone] Christina Singh MD Primary Care Provider [phone] Christina Singh MD Primary Care Provider RAFI [...] Dr. Christina Singh MD Primary Care Provider [phone] Dr. Christina Singh MD Referring Provider [phone] Jennifer Kim Attending Provider [phone] Tony Elliott MD Attending Provider [phone] Christina Singh Primary Care Unavailable Tony Elliott [...] MG CAPS 2 capsules twice daily AMOXICILLIN [id number] Vince FRANCO amoxicillin 875 mg / clavulanate [...] 2020 12:00am July 01, 2025 2:28pm calcium-vits Z3-Y-U7-minerals 166.75 mg- 166.75 unit cap (1 source) End: 10-14-2023 calcium-vits K0-B-S4-minerals 166.75 mg- 166.75 unit cap Take by [...] 200 MG TABS 1 tablet 1 FLUCONAZOLE [id number] Vince FRANCO fluticasone (1 source) Corticosteroid End: [...] PO DAILY November 09, 2020 1:00am levonorgestrel 0.464037 mg/hr intrauterine system (1 source) Progestin, Progestin-containing [...] 104 MEGAN as directed MEDROXYPROGESTERONE ACETATE MEGAN [id number] Vince FRANCO ondansetron 4 mg disintegrating oral [...] Viewson 06-05 L/S Spine Min 4 Views [facility] Imaging Services [address] [place], [place] [address] L/S Spine Min 4 Views MR#: [id number] Acct: [id number] Name: KATHRIN BROWNLEE Rep #: [id number] : 1965 F 60 From: Diana Lin MD PCP: Dr. Christina Singh MD Status: DEP AMB Study: L/S Spine Min 4 Views Date of Exam: 07/01/25 Exam# [id number] Ordering Dr: Jennifer Daly PROCEDURE: L/S SPINE MIN 4 VIEWS 07/01/2025 REASON FOR EXAM: CHRONIC BACK PAIN TECHNIQUE: L/S SPINE MIN 4 VIEWS COMPARISON: None. FINDINGS: BONES: Five tap-xtr-gbfbpmu lumbar vertebral bodies. No fracture or focal [...] instability with flexion or extension. Reading Location: [id number] CC: SALVADOR Tatum; Dr. Christina Singh MD Barratte Operator: Signed Normal [facility] Orthopedic Visit Reporton Orthopedic Visit Report [facility] [address] [place] [address] [address] [place] [address] OFFICE VISIT Date of Service: 07/01/25 MR#: [id number] Acct: [id number] Name: KATHRIN BROWNLEE Rep #: [id number] : 1965 Provider: SALVADOR Tatum Age/Sex: 60/F Location[place] [facility] Status: Signed Intake Vital Signs 12/22/24 16:44 [...] decisions made by me, SALVADOR Tatum 07/01/25 6113. Part of today???s visit was documented by [...] pain management or physical therapy. She states [facility] did have her see the physical [...] (2) Spondy (more content not included)... Normal [facility] CNOVon 04-14-2025 CNOV Office Visit (OBGYWM) KATHRIN BROWNLEE ([id number]) 1965 F Date Time Provider Department 04/14/25 [...] Ectopic0 Multiple0 Live Births2 Comment: x 2 Marketing Program Manager History LMP: 07/19/2020, Ablation Age at Menarche: Age at First : Age at Menopause: Marketing Program Manager History Comments: Sexual Activity: Yes; Male Contraception: [...] Status:Closed by RAFI LUBIN on 04/14/25 Normal [facility] DUANE SCREENING W TOMOon 03-17 DUANE SCREENING W BRADEN * * *Final Report* * * DATE OF EXAM: Mar 17 2025 1:51PM [facility] 0582 - DUANE SCREENING W BRADEN / PROCEDURE REASON: Encounter for screening mammogram for breast cancer * * * * Physician Interpretation * * * * RESULT: [place] [address] #[id number] - DUANE SCREENING W BRADEN HISTORY: 59 [...] Rafi Barrera M.D. Electronically signed on: 03/20/2025 Barratte Operator: CRISTOFER Transcribe Date/Time: Mar 17 2025 12:55P Dictated by: RAFI BARRERA MD This examination was interpreted and the report reviewed and electronically signed by: RAFI BARRERA MD on Mar 20 2025 10:48AM EST [id number] Normal [facility] CNOVon 03-15-2025 CNOV Office Visit (OBGYWM) KATHRIN BROWNLEE ([id number]) 1965 F Date Time Provider Department 03/15/25 [...] as lesion is small. Rafi Lubin MD [place], [place] 03/15/2025 11:46 AM Signed YOUR RECOVERY [...] If you (more content not included)... Normal [facility] Pathology biopsy report Karle (Tiss)on 03-15-2025 AP DISCLAIMER Normal [facility] Comment on above: Order Comment: Speci men Type: TISSUE SPECIMEN Ordering Facility: [facility] Address: [address] [place] [address] Result Comment: Zakia cano Developed Test (LDT) Disclaimer: Performance characteristics of immunohistochemical, immunofluorescent, and chromogenic in-situ hybridization tests have been determined by the performing laboratory within [facility]'s Farooq Mcknight Pathology and Laboratory Medicine Department ([facility], [facility], [facility], [facility], [facility], [facility], or [facility]) in a manner consistent with CLIA [...] appropriately. Performed By: #### 6 6121-5 #### [facility] CLIA [id number] [address] [place] [address] [place] CASE REPORT Normal [facility] Comment on above: Order Comment: Speci men Type: TISSUE SPECIMEN Ordering Facility: [facility] Address: [address] [place] [address] Result Comment: Surg [facility] Pathology Report Case: [id number] Authorizing Provider: Rafi Lubin MD Collected: 03/15/2025 12:31 PM Ordering Location: OB/Gynecology Received: 03/16/2025 07:14 AM Pathologist: Darcy Middleton MD Specimens: A) - Cervix, Biopsy, 1 oclock B) - Endocervix, Curettings Performed By: #### 6 6121-5 #### [facility] CLIA [id number] [address] [place] [address] [place] CLINICAL HISTORY ASCUS HPV POS Normal [facility] Comment on above: Order Comment: Speci men Type: TISSUE SPECIMEN Ordering Facility: [facility] Address: [address] [place] [address] Performed By: #### 6 6121-5 #### [facility] CLIA [id number] [address] [place] [address] [place] FINAL DIAGNOSIS Normal [facility] Comment on above: Order Comment: Speci men Type: TISSUE SPECIMEN Ordering Facility: [facility] Address: [address] [place] [address] Result Comment: A. C ervix, 1 o'clock, biopsy -Benign squamous mucosa B. Cervix, endocervix, curettage -Rare scant fragments of benign endocervix; nondiagnostic specimen -Predominantly mucin and inflammatory cells at 1255 EDT Performed By: #### 6 6121-5 #### [facility] CLIA [id number] [address] [place] [address] [place] FINAL PERFORMING LAB Normal [facility] Comment on above: Order Comment: Speci men Type: TISSUE SPECIMEN Ordering Facility: [facility] Address: [address] [place] [address] Result Comment: Diag nostic interpretation performed at: [facility], [address] [place] [address] CLIA# [id number] Automotive Internet Sales Manager: Hector Drummond MD Performed By: #### 6 6121-5 #### [facility] CLIA [id number] [address] [place] [address] OF [facility] GROSS DESCRIPTION Normal [facility] Comment on above: Order Comment: Speci men Type: TISSUE SPECIMEN Ordering Facility: [facility] Address: [address] [place] [address] Result Comment: A. C ervix, Biopsy Received [...] 2025 1:45 AM Gross examination performed at [facility], [address] [place] [address] Performed By: #### 6 6121-5 #### [facility] CLIA [id number] [address] [place] [address] OF [place] CNOVon 03-10-2025 CNOV Office Visit (OBGYWM) KATHRIN BROWNLEE ([id number]) 1965 F Date Time Provider Department 03/10/25 11:40 AM RAFI LUBIN OBDEAWMeghna During your visit today, we recorded the following information about you: Blood pressure Weight 120/80 96.3 kg Rafi Lubin MD 03/10/2025 12:28 PM Signed Completions Engineer offered: Patient accepts, visit chaperoned by Iris [...] contact the office. Referring Provider: RAFI LUBIN [[id number]] Allergies As of Date: 03/10/2025 (No Known Allergies) Date Reviewed: 03/10/2025 Reviewed by: Iris Greer MA - Fully Assessed Reason for Visit: Endometrial Biopsy [7501] Primary Visit Diagnosis:Abnormal uterine bleeding (AUB) [N93.9] Order(s):ENDOMETRIAL BIOPSY [9122146] Order #: [id number] SURGICAL PATHOLOGY [TVX4126] Order #: [id number] Prescriptions as of 03/10/2025 - elderberry fruit [...] discomfort, conta (more content not included)... Normal [facility] Pathology biopsy report Karel (Tiss)on 03-10-2025 AP DISCLAIMER Normal [facility] Comment on above: Order Comment: Speci men Type: TISSUE SPECIMEN Ordering Facility: [facility] Address: [address] [place] [address] Result Comment: Zakia cano Developed Test (LDT) Disclaimer: Performance characteristics of immunohistochemical, immunofluorescent, and chromogenic in-situ hybridization tests have been determined by the performing laboratory within [facility]'s Psychiatric Pathology and Laboratory Medicine Department ([facility], [facility], [facility], [facility], [facility], [facility], or [facility]) in a manner consistent with CLIA [...] appropriately. Performed By: #### 6 6121-5 #### [facility] CLIA [id number] [address] [place], [place] [address] [place] [address] [place] CASE REPORT Normal [facility] Comment on above: Order Comment: Speci men Type: TISSUE SPECIMEN Ordering Facility: [facility] Address: [address] [place] [address] Result Comment: Surg ical Pathology Report Case: [id number] Authorizing Provider: Rafi Lubin MD Collected: 03/10/2025 12:34 PM Ordering Location: OB/Gynecology Received: 03/10/2025 04:15 PM Pathologist: Truong Greenwood MD Specimen: Endometrium, Biopsy Performed By: #### 6 6121-5 #### [facility] CLIA [id number] [address] [place] [address] [place] CLINICAL HISTORY AUB Normal [facility] Comment on above: Order Comment: Speci men Type: TISSUE SPECIMEN Ordering Facility: [facility] Address: [address] [place] [address] Performed By: #### 6 6121-5 #### [facility] CLIA [id number] [address] [place] [address] [place] FINAL DIAGNOSIS Normal [facility] Comment on above: Order Comment: Speci men Type: TISSUE SPECIMEN Ordering Facility: [facility] Address: [address] [place] [address] Result Comment: Endo metrium, biopsy: - Benign endocervix, no endometrium identified. ACV/bs 03/12/2025 at 1515 EDT Performed By: #### 6 6121-5 #### [facility] CLIA [id number] [address] [place] [address] [place] FINAL PERFORMING LAB Normal [facility] Comment on above: Order Comment: Speci men Type: TISSUE SPECIMEN Ordering Facility: [facility] Address: [address] [place] [address] Result Comment: Diag nostic interpretation performed at: [facility], [address] [place] [address] CLIA# [id number] Automotive Internet Sales Manager: Hector Drummond MD Performed By: #### 6 6121-5 #### [facility] CLIA [id number] [address] [place], [place] [address] [place] GROSS DESCRIPTION Normal [facility] Comment on above: Order Comment: Speci men Type: TISSUE SPECIMEN Ordering Facility: [facility] Address: [address] [place] [address] Result Comment: A. E ndometrium, Biopsy Received in formalin are multiple henderson-brown, soft feathery segments of tissue admixed with mucinous material aggregating to 1.4 x 0.3 x 0.1 cm. Totally submitted in one cassette. DL March 11, 2025 1:32 AM Gross examination performed at [facility], [address] [place] [address], [place] [address] Performed By: #### 6 6121-5 #### [facility] CLIA [id number] [address] [place] [address] [place] [address] [place] US Pelvison 03-09-2025 [...] Read By: Alexia Cassidy M.D. MATERNAL MEDICINE [facility] US Pelvison 03-05-2025 Radiology Study observation (narrative) [facility] CNOVon 03-03-2025 CNOV Office Visit (OBGYWM) KATHRIN BROWNLEE ([id number]) 1965 F Date Time Provider Department 03/03/25 9:30 AM RAFI LUBIN During your visit today, we recorded the following information about you: Blood pressure Weight Height 120/80 97.7 kg 1.651 m Rafi Lubin MD 03/03/2025 10:45 AM Signed Completions Engineer offered: Patient accepts, visit chaperoned by Iris [...] external genitalia normal, normal Bartholin's glands, urethra, Racine's glands, no vulvar lesions, no cervical lesions, [...] (postmenopausal bleeding) [N95.0] Order(s):DUANE SCREENING W BRADEN [[id number]] Order #: [id number] FUTURE PELVIC US WHI [4633707] Order #: [id number]: 1 FUTURE ENDOMETRIAL BIOPSY [5918527] Order #: [id number] PAP TEST [XSJ1315] Order #: [id number] FOLLICLE STIMULATING HORMONE [SQFSH] Order #: [id number] FUTURE Prescriptions as of 03/03/2025 - elderberry [...] Exam. Follow- (more content not included)... Normal [facility] FSH SerPl-aCncon 03-03-2025 Follitropin Qn 24.8 m[IU]/mL Normal See comment [facility] Comment on above: Order Comment: Speci men Type: TISSUE SPECIMEN Ordering Facility: [facility] Address: [address] [place] [address] Result Comment: Willie devries range: Follicular: 3.5-12.5 mIU/mL Ovulation: 4.7-21.5 mIU/mL Luteal: 1.7-7.7 mIU/mL Postmenopausal: 25.8-134.8 mIU/mL Performed By: #### 6 6121-5 #### [facility] CLIA [id number] [address] [place] [address] [place] HIGH RISK HUMAN PAPILLOMA SHANTA (HPV), PCR FOR DETECTION AND GENOTYPINGon 03-03-2025 HPV 16 Ag Ql (Unsp spec) Not detected Normal Not detected [facility] Comment on above: Order Comment: Speci men Type: TISSUE SPECIMEN Ordering Facility: [facility] Address: [address] [place] [address] Performed By: #### 6 6121-5 #### [facility] CLIA [id number] [address] [place] [address] [place] HPV 18 Ag Ql (Unsp spec) Not detected Normal Not detected [facility] Comment on above: Order Comment: Speci men Type: TISSUE SPECIMEN Ordering Facility: [facility] Address: [address] [place] [address] Performed By: #### 6 6121-5 #### [facility] CLIA [id number] [address] [place] [address] [place] HPV 31+33+35+39+45+51+52+5 6+58+59+66+68 DNA FLACA+probe Ql (Cvx) Detected Abnormal Not detected [facility] Comment on above: Order Comment: Speci men Type: TISSUE SPECIMEN Ordering Facility: [facility] Address: [address] [place] [address] Result Comment: High Risk HPV Other Type includes HPV types 31, 33, 35, 39, 45, 51, 52, 56, 58, 59, 66 and 68. Performed By: #### 6 6121-5 #### [facility] CLIA [id number] [address] [place] [address] [place] PAP TESTon 03-03-2025 ADEQUACY Normal [facility] Comment on above: Order Comment: Speci men Type: FLUID SPECIMEN Ordering Facility: [facility] Address: [address] [place] [address] Result Comment: Sati sfactory for interpretation. Transformation zone present Performed By: #### L [id number] #### [facility] CLIA [id number] [address] [place] [address] [place] [facility] CLIA [id number] [address] [place] [address] [place] CASE REPORT Normal [facility] Comment on above: Order Comment: Speci men Type: FLUID SPECIMEN Ordering Facility: [facility] Address: [address] [place] [address] Result Comment: Gyne cologic Cytology Report Case: [id number] Authorizing Provider: Rafi Lubin MD Collected: 03/03/2025 10:51 AM Ordering Location: OB/Gynecology Received: 03/03/2025 11:50 AM First Screen: Aleksandra Pope CT, ASCP Pathologist: Julieta Guo MD Specimen: Pap Test, ThinPrep, Cervix Performed By: #### L [id number] #### [facility] CLIA [id number] [address] [place] [address] [place] [facility] CLIA [id number] [address] [place] [address] [place] CLINICAL HISTORY, CYTOLOGY, DIVORCE MEDIATOR Abnormal Bleeding (Describe) Normal [facility] Comment on above: Order Comment: Speci men Type: FLUID SPECIMEN Ordering Facility: [facility] Address: [address] [place] [address] Performed By: #### L [id number] #### [facility] CLIA [id number] [address] [place] [address] [place] [facility] CLIA [id number] [address] [place] [address] [place] FINAL PERFORMING LAB Normal [facility] Comment on above: Order Comment: Speci men Type: FLUID SPECIMEN Ordering Facility: [facility] Address: [address] [place] [address] Result Comment: Tech nical component, communication specialist screening performed at: [facility], [address] [place] [address] CLIA: [id number] Diagnostic interpretation performed at: [facility], [address] [place] [address] CLIA# [id number] Automotive Internet Sales Manager: Ephraim Fatima MD Performed By: #### L [id number] #### [facility] CLIA [id number] [address] [place], [place] [address] [place] [facility] CLIA [id number] [address] [place], [place] [address] [place] INTERPRETATION, CYTOLOGY, DIVORCE MEDIATOR Abnormal [facility] Comment on above: Order Comment: Speci men Type: FLUID SPECIMEN Ordering Facility: [facility] Address: [address] [place] [address] Result Comment: Atyp ical squamous cells of undetermined significance (ASC-US). at 1309 EDT Performed By: #### L [id number] #### [facility] CLIA [id number] [address] [place] [address] [place] [facility] CLIA [id number] [address] [place] [address] [place] LMP 02/27/2025 Normal [facility] Comment on above: Order Comment: Speci men Type: FLUID SPECIMEN Ordering Facility: [facility] Address: [address] [place] [address] Performed By: #### L [id number] #### [facility] CLIA [id number] [address] [place] [address] [place] [facility] CLIA [id number] [address] [place] [address] [place] PAP DISCLAIMER COMMENT The Pap Smear is a screening test for cervical cancer. False negative results occur with all screening tests, emphasizing the need for rescreening at recommended intervals, and clinical correlation. Normal [facility] Comment on above: Order Comment: Speci men Type: FLUID SPECIMEN Ordering Facility: [facility] Address: [address] [place] [address] Performed By: #### L [id number] #### [facility] CLIA [id number] [address] [place] [address] [place] [facility] CLIA [id number] [address] [place] [address] [place] PAP GENERAL CATEGORIZATION Epithelial Cell Abnormality Normal [facility] Comment on above: Order Comment: Speci men Type: FLUID SPECIMEN Ordering Facility: [facility] Address: [address] [place] [address] Performed By: #### L [id number] #### [facility] CLIA [id number] [address] [place] [address] [place] [facility] CLIA [id number] [address] [place] [address] [place] PAP CLOTHES IRONER COMMENT This specimen has been analyzed by the ThinPrep Imaging System, an automated imaging and review system, which assists the laboratory in evaluating cells on ThinPrep Pap tests. Following automated imaging, selected [place] from every slide are reviewed by a communication specialist. Normal [facility] Comment on above: Order Comment: Speci men Type: FLUID SPECIMEN Ordering Facility: [facility] Address: [address] [place] [address] Performed By: #### L [id number] #### [facility] CLIA [id number] [address] [place] [address] [place] [facility] CLIA [id number] [address] [place] [address] [place] Urgent Care Visit Reporton 0 12-22-2024 Urgent Care Visit Report [facility] [address], [address] [place] [address] OFFICE VISIT Date of Service: 12/22/24 MR#: [id number] Acct: [id number] Name: KATHRIN BROWNLEE Rep #: [id number] : 1965 Provider: MELIA Solano Age/Sex: 59/F Location[place] [facility] Status: Signed with Addenda ADDENDUM by MELIA [...] No Known Allergies Allergy (Verified 05/02/23 10:21) [facility] Medical History (Updated 12/22/24 @ [...] tabs 0RF 12/22/24 1720 Date Torrey Solano REMOTE COMPUTER TERMINAL OPERATOR-C Cosigner Signature: Date (if applicable) CC: Normal [facility] Absolute lymphocyte countOrd ered By: Salvatore Le on 05-02-2023 Lymphocytes Auto (Unsp spec) [#/Vol] 1.26 10*3/uL 0.83-4.51 [facility] Basophil percentageOrdered B y: Salvatore Lamb on 05-02-2023 Basophils/100 WBC (Bld) 0.5 % 0-1 [facility] Bilirubin [Mass/Vol] 0.40 mg/dL 0.20-1.00 [facility] Comment on above: For patients on eltr ombopag therapy, use of Dimension [place] TBIL is not recommended. Chloride [Moles/Vol] 105 mmol/L 98-107 [facility] Eosinophils/100 WBC (Bld) 1.2 % 0-5 [facility] Glucose [Mass/Vol] 101 mg/dL 74-106 [facility] Comment on above: Fasting Glucose resu lt from 100 to 125 mg/dL suggests IMPAIRED HOMEOSTASIS per A.D.A. criteria. Neutrophils (Bld) [#/Vol] 6.5 10*3/uL 2.0-7.7 [facility] Neutrophils/100 WBC (Bld) 75.5 % 47-70 [facility] Potassium [Moles/Vol] 3.2 mmol/L 3.5-5.1 [facility] Protein [Mass/Vol] 6.9 g/dL 6.4-8.2 [facility] Sodium [Moles/Vol] 138 mmol/L 136-145 [facility] WBC (Bld) [#/Vol] 8.6 10*3/uL 4.4-11.0 [facility] Blood erythrocytes count (nu mber/volume)Ordered By: Salvatore Lamb on 05-02-2023 RBC (Bld) [#/Vol] 4.45 10*6/uL 4.2-5.4 [facility] Blood hemoglobin measurement (mass/volume)Ordered By: Salvatore Lamb on 05-02-2023 Hemoglobin (Bld) [Mass/Vol] 13.0 g/dL 12.0-15.0 [facility] Blood lymphocytes/100 leukoc ytesOrdered By: Salvatore Lamb on 05-02-2023 Lymphocytes/100 WBC (Bld) 14.7 % 19-41 [facility] Blood monocytes/100 leukocyt esOrdered By: Salvatore Lamb on 05-02-2023 Monocytes/100 WBC (Bld) 7.8 % 0-10 [facility] Blood platelet mean volumeOr dered By: Salvatore Lamb on 05-02-2023 Platelet mean volume (Bld) [Entitic vol] 9.0 fL 6.2-12.0 [facility] Determination of erythrocyte mean corpuscular volume (MCV)Ordered By: Salvatore Lamb on 05-02-2023 MCV (RBC) [Entitic vol] 90.1 fL 81-99 [facility] Direct bilirubinOrdered By: Salvatore Lamb on 05-02-2023 Bilirubin.direct [Mass/Vol] 0.11 mg/dL 0.00-0.30 [facility] Hematocrit Auto (Bld) [Volum e fraction]Ordered By: Salvatore Lamb on 05-02-2023 Hematocrit (Bld) [Volume fraction] 40.1 % 37-47 [facility] Influenza virus A and B and SARS-CoV-2 (COVID-19) Ag panel - Upper respiratory specimOrdered By: Salvatore Lamb on 05-02-2023 SARS-CoV-2 (COVID-19) RNA FLACA+probe Ql (Resp) [facility] Laboratory - Chemistry and C hemistry - challengeOrdered By: Salvatore Lamb on 05-02-2023 ALP [Catalytic activity/Vol] 71 U/L 45-117 [facility] ALT [Catalytic activity/Vol] 18 U/L 13-56 [facility] CO2 [Moles/Vol] 24.0 mmol/L 21.0-32.0 [facility] Globulin (S) [Mass/Vol] 3.5 g/dL 2.2-4.2 [facility] Lipase [Catalytic activity/Vol] 20 U/L 13-75 [facility] Comment on above: Please note:LIPASE r evised reference range effective 23. New Lipase methodology. Expected to produce lower values than the previous assay method. NEW Reference Range: 13 - 75 U/L Urea nitrogen/Creatinine [Mass ratio] 13.2 mg/mg 10-20 [facility] Laboratory - Hematology and Cell countsOrdered By: Salvatore Lamb on 05-02-2023 Erythrocyte distribution width (RBC) [Entitic vol] 42.5 fL 35.1-43.9 [facility] Erythrocyte distribution width (RBC) [Ratio] 12.8 % 11.6-14.6 [facility] Immature granulocytes/100 WBC (Bld) 0.300 % 0.0-0.9 [facility] Comment on above: IG% - Immature Granu locytes (promyelocytes, myelocytes and metamyelocytes) > 1% indicates that a LEFT SHIFT is Present. MCH (RBC) [Entitic mass] 29.2 pg 27.0-32.0 [facility] Nucleated RBC/100 WBC (Bld) [Ratio] 0 % 0-5 [facility] MCHC Auto (RBC) [Mass/Vol]Or dered By: Salvatore Lamb on 05-02-2023 MCHC (RBC) [Mass/Vol] 32.4 g/dL 32-36 [facility] No Panel InformationOrdered By: Salvatore Lamb on 05-02-2023 Estimated Creatinine Clearance Calc 74.38 ml/min [facility] Estimated GFR (MDRD) Amer 101 mL/min >60 [facility] Comment on above: GFR Calc Estimated GFR (MDRD) Non-Af Amer 84 mL/min >60 [facility] Comment on above: Non- GFR Calc Platelets bldOrdered By: Baljit Lamb on 05-02-2023 Platelets (Bld) [#/Vol] 326 10*3/uL 150-450 [facility] Serum or plasma albumin aravind urement (mass/volume)Ordered By: Salvatore Lamb on 05-02-2023 Albumin [Mass/Vol] 3.4 g/dL 3.2-5.0 [facility] Serum or plasma calcium aravind urement (mass/volume)Ordered By: Salvatore Lamb on 05-02-2023 Calcium [Mass/Vol] 8.5 mg/dL 8.5-10.1 [facility] Serum or plasma creatinine m easurement (mass/volume)Ordered By: Salvatore Lamb on 05-02-2023 Creatinine [Mass/Vol] 0.76 mg/dL 0.55-1.02 [facility] Comment on above: The validity of the calculated GFR & GFRAA in patients over 70 years has not been determined. Clinical correlation is essential. Serum or plasma urea nitroge n measurement (mass/volume)Ordered By: Salvatore Lamb on 05-02-2023 Urea nitrogen [Mass/Vol] 10 mg/dL 7-18 [facility] Thin prep Papanicolaou smear with manual screeningOrdered By: Salvatore Lamb on 05-02-2023 Thin prep Papanicolaou smear with manual screening 17 U/L 15-37 [facility] Thin prep Papanicolaou smear with manual screening 9 5-15 [facility] Office Visit: UC: sinusitiso n 03-11-2017 Documentation of current medications (procedure) Done Invalid Interpretation Code [facility] Work Phone: Fall risk assessment No Invalid Interpretation Code [facility] Work Phone: Tobacco use CPHS Never smoker Invalid Interpretation Code [facility] Work Phone: Vital Signs Date Time Vital Sign Value Performing Clinician Faci lity 07-01-2025 14:26-0400 Body height 165.[address] Christina Singh MD Work Phone: [facility] 07-01-2025 14:26-0400 Body mass index (BMI) [Ratio] 35.7 kg/m2 Dr. Chrsitina Singh MD Work Phone: [facility] 07-01-2025 14:26-0400 Body weight 97.[address] Christina Singh MD Work Phone: [facility] 04-14-2025 10:35-0400 Body mass index (BMI) [Ratio] 35.98 kg/m2 Rafi Lubin MD Work Phone: [facility] 04-14-2025 10:35-0400 Body weight 98.07 kg Rafi Lubin MD Work Phone: [facility] 04-14-2025 10:35-0400 Diastolic blood pressure 72 mm[Hg] Rafi Lubin MD Work Phone: [facility] 04-14-2025 10:35-0400 Systolic blood pressure 128 mm[Hg] Rafi Lubin MD Work Phone: [facility] 03-15-2025 11:50-0400 Body mass index (BMI) [Ratio] 35.78 kg/m2 Rafi Lubin MD Work Phone: [facility] 03-15-2025 11:50-0400 Body weight 97.52 kg Rafi Lubin MD Work Phone: [facility] 03-15-2025 11:50-0400 Diastolic blood pressure 82 mm[Hg] Rafi Lubin MD Work Phone: [facility] 03-15-2025 11:50-0400 Systolic blood pressure 124 mm[Hg] Rafi Lubin MD Work Phone: [facility] 03-10-2025 11:59-0400 Body mass index (BMI) [Ratio] 35.35 kg/m2 Rafi Lubin MD Work Phone: [facility] 03-10-2025 11:59-0400 Body weight 96.34 kg Rafi Lubin MD Work Phone: [facility] 03-10-2025 11:59-0400 Diastolic blood pressure 80 mm[Hg] Rafi Lubin MD Work Phone: [facility] 03-10-2025 11:59-0400 Systolic blood pressure 120 mm[Hg] Rafi Lubin MD Work Phone: [facility] 03-03-2025 10:16-0400 Body height 165.1 cm Rafi Lubin MD Work Phone: [facility] 03-03-2025 10:16-0400 Body mass index (BMI) [Ratio] 35.84 kg/m2 Rfai Lubin MD Work Phone: [facility] 03-03-2025 10:16-0400 Body weight 97.7 kg Rafi Lubin MD Work Phone: [facility] 03-03-2025 10:16-0400 Diastolic blood pressure 80 mm[Hg] Rafi Lubin MD Work Phone: [facility] 03-03-2025 10:16-0400 Systolic blood pressure 120 mm[Hg] Rafi Lubin MD Work Phone: [facility] 10-14-2023 15:30-0500 Body height 165.1 cm Shantal Montalvo APRN.CNP Work Phone: [facility] 10-14-2023 15:30-0500 Body weight 96.34 kg Shantal Montalvo ACQUISITION ADVISOR.EXPANDED DUTY DENTAL ASSISTANT Work Phone: [facility] 10-14-2023 15:30-0500 Diastolic blood pressure 66 mm[Hg] Shantal Montalvo ACQUISITION ADVISOR.EXPANDED DUTY DENTAL ASSISTANT Work Phone: [facility] 10-14-2023 15:30-0500 Systolic blood pressure 124 mm[Hg] Shantal Montalvo ACQUISITION ADVISOR.EXPANDED DUTY DENTAL ASSISTANT Work Phone: [facility] 05-02-2023 12:19-0400 Respiratory rate 16 /min [facility] 05-02-2023 10:19-0400 Body height 165.1 cm [facility] 05-02-2023 10:19-0400 Body mass index (BMI) [Ratio] 32.5 kg/m2 [facility] 05-02-2023 10:19-0400 Body temperature 98 [degF] [facility] 05-02-2023 10:19-0400 Body weight 88.9 kg [facility] 05-02-2023 10:19-0400 Diastolic blood pressure 81 mm[Hg] [facility] 05-02-2023 10:19-0400 Heart rate 91 /min [facility] 05-02-2023 10:19-0400 SaO2% (BldA) [Mass fraction] 100 % [facility] 05-02-2023 10:19-0400 Systolic blood pressure 124 mm[Hg] [facility] 03-11-2017 17:22-0400 BMI (Body Mass Index) 37.55 kg/m2 Vince FRANCO [facility] Work Phone: 03-11-2017 17:22-0400 Body Temperature 98.9 [degF] Vince FRANCO [facility] Work Phone: 03-11-2017 17:22-0400 BP Diastolic 82 mm[Hg] Vince FRANCO [facility] Work Phone: 03-11-2017 17:22-0400 BP Systolic 122 mm[Hg] Vince Morley SALVADOR [facility] Work Phone: 03-11-2017 17:22-040 Height 162.56 cm Vince FRANCO [facility] Work Phone: 03-11-2017 17:22-0400 Pulse (Heart Rate) 82 /min Vince FRANCO [facility] Work Phone: 03-11-2017 17:22-0400 Pulse Oximetry 99 % Vince FRANCO [facility] Work Phone: 03-11-2017 17:22-0400 Respiratory Rate 14 /min Vince FRANCO [facility] Work Phone: 03-11-2017 17:22-0400 Weight 99.25 kg Vince FRANCO [facility] Work Phone: Encounters Encounter Date Encounter Type Care Provider Facility Start: 07-01-2025 End: 07-01-[address] Tony Elliott MD -[facility] Start: 07-01-2025 End: 07-01-[address] Christina Singh MD Work Phone: -[facility] Start: 04-14-2025 End: 04-14-2025 ambulatory RAFI LUBIN Facility:[facility] Start: 04-14-2025 End: 04-14-2025 Patient encounter procedure Rafi Lubin MD Work Phone: OB/Gynecology Comment on above: Perimenopause (Prima ry Dx); Adenomyosis Start: 03-17-2025 End: 05-17-2025 Follow-up encounter Michael Eubanks MD Work Phone: OB/Gynecology Start: 03-17-2025 ambulatory RAFI LUBIN [facility] ity:[facility] Start: 03-17-2025 End: 03-17-2025 Subsequent hospital visit by physician Screen Mammo [facility] Mammogram Comment on above: Encounter for screen ing mammogram for breast cancer [Z12.31] Start: 03-15-2025 End: 03-15-2025 Patient encounter procedure Rafi Lubin MD Work Phone: OB/Gynecology Comment on above: ASCUS with positive high risk HPV cervical (Primary Dx) Start: 03-15-2025 End: 03-15-2025 ambulatory RAFI LUBIN Facility:[facility] Start: 03-10-2025 End: 03-10-2025 Patient encounter procedure Rafi Lubin MD Work Phone: OB/Gynecology Comment on above: Abnormal uterine ble eding (AUB) (Primary Dx) Start: 03-10-2025 End: 03-10-2025 ambulatory RAFI LUBIN Facility:[facility] Start: 03-05-2025 End: 05-05-2025 Follow-up encounter Rafi Lubin MD Work Phone: OB/Gynecology Comment on above: pap results Start: 03-05-2025 End: 03-05-2025 Patient encounter procedure [facility] OB/Gynecology Start: 03-05-2025 End: 03-05-2025 ambulatory [facility] Work Phone: OB/Gynecology Start: 03-03-2025 End: 03-03-2025 ambulatory RAFI LUBIN Facility:[facility] Start: 03-03-2025 End: 03-03-2025 Patient encounter procedure Rafi Lubin MD Work Phone: OB/Gynecology Comment on above: Encounter for gyneco logical examination (general) (routine) without abnormal findings; Encounter for screening mammogram for breast cancer; Abnormal uterine bleeding (AUB); Screening for cervical cancer; Screening for human papillomavirus (HPV); PMB (postmenopausal bleeding) Start: 03-03-2025 End: 03-03-2025 Patient encounter status Rafi Lubin MD Work Phone: [facility] Start: 03-03-2025 End: 03-03-2025 ambulatory RAFI LUBIN Facility:[facility] Start: 03-03-2025 Encounter for gynecological examination (general) (routine) without abnormal findings RAFI LUBIN [facility] Start: 12-22-2024 End: 12-22-2024 ambulatory Christina Singh Facility:[facility] Start: 10-21-2023 Documentation procedure Mammog briana Coordinator [facility] Start: 10-21-2023 Letter encounter Mammography Coordinator [facility] Department Start: 10-18-2023 End: 10-18-2023 Subsequent hospital visit by physician Screen Mammo [facility] Mammogram Comment on above: Encounter for screen ing mammogram for breast cancer [Z12.31] PCB (post coital ble eding) [N93.0] Start: 10-14-2023 End: 10-14-2023 Patient encounter procedure Shantal Montalvo APRN.EXPANDED DUTY DENTAL ASSISTANT Work Phone: OB/Gynecology Comment on above: Encounter [...] encounter status Shantal Montalvo APRN.CNP Work Phone: [facility] Work Phone: Start: 10-14-2023 Telephone encounter Shantal nice APRN.CNP Work Phone: OB/Gynecology Comment on above: Orders; Patient Upda te Start: 05-02-2023 End: 05-02-2023 Emergency department patient visit [facility] Work Phone: Start: 07-06-2022 End: 07-06-2022 ambulatory [facility] Work Phone: Start: 07-06-2022 End: 07-06-2022 Patient encounter procedure [facility] Ultrasound Procedures Date Procedure Procedure Detail Performing Clinician Start: 03-05-2025 Us pelvic nonobstetr ic real-time image complete Rafi Lubin MD Work Phone: Start: 05-02-2023 SARS-CoV-2 & FLU Ant igen (Rapid) Start: 05-02-2023 US scan of gallbladder Start: 07-06-2022 CT of abdomen Plan of Treatment Date Care Activity Detail Author Start: 10-14-2028 Screening for malign ant neoplasm of cervix [facility] Start: 03-06-2028 Urine microalbumin profile DTaP,Tdap,Td Vaccine (3 - Td or Tdap) [facility] Start: 03-17-2026 Screening for malign ant neoplasm of breast Mammogram Screening [facility] Start: 03-03-2026 Screening for malign ant neoplasm of cervix Cervical Cancer Screening [facility] Start: 07-05-2025 Influenza vaccination [facility] Start: 07-01-2025 L/S Spine Min 4 Views L/S Spine Min 4 Views [facility] Start: 07-01-2025 XR Spine Lumbar and Sacrum GE 4 Views [facility] Start: 03-17-2025 End: 03-17-2025 Patient encounter procedure 03/17/2025 12:50 PM EDT Appointment Mammogram [address] [place] [address] Encounter for screening mammogram for breast cancer [Z12.31] Mammogram Comment on above: Encounter for screen ing mammogram for breast cancer [Z12.31] Start: 03-10-2025 End: 03-10-2025 Patient encounter procedure 03/10/2025 11:40 AM EDT Office Visit OB/Gynecology [address] [place] [address] Rafi Lubin MD [address] [place] [address] [facility] OB/Gynecology Comment on above: [facility] Start: 03-05-2025 End: 03-05-2025 ambulatory 03/05/2025 1:00 PM EDT Procedure OB/Gynecology [address] [place] [address] [facility] [address] [place] [address] Abnormal uterine bleeding (AUB) [N93.9] OB/Gynecology Comment on above: Abnormal uterine ble eding (AUB) [N93.9] Start: 03-03-2025 End: 06-02-2025 Follitropin [Units/volume] in Serum or Plasma [facility] Comment on above: Expected: 03/03/2025 , Expires: 06/02/2025 Start: 03-03-2025 End: 03-03-2026 US Pelvis PELVIC US [facility] Routine Abnormal uterine bleeding (AUB) Expected: 03/03/2025, Expires: 03/03/2026 [facility] Comment on above: Expected: 03/03/2025 , Expires: 03/03/2026 Start: 10-18-2024 Screening for malign ant neoplasm of breast Mammogram Screening [facility] Start: 10-14-2024 Screening for malign ant neoplasm of cervix Cervical Cancer Screening [facility] Start: 07-05-2024 Covid-19 Vaccine ( season) Covid-19 Vaccine () [facility] Start: 07-05-2024 Influenza vaccination Influenza Vacc ine (#1) [facility] Start: 07-05-2023 Influenza vaccination Influenza Vacc ine (#1) [facility] Start: 04-03-2023 HPV Testing HPV Testing [facility] Start: 04-03-2023 Pap Testing Pap Testing [facility] Start: 04-03-2023 Screening for malign ant neoplasm of cervix Pap Testing [facility] Start: 11-04-2022 Depression Assessment Depression Ass essment [facility] Start: 10-17-2021 Mammography Mammogram Screening [facility] Start: 10-17-2021 Screening for malign ant neoplasm of breast Mammogram Screening [facility] Start: 2017 Pneumococcal Vaccine : 50+ (1 of 1 - PCV) Pneumococcal Vaccine: 50+ (1 of 1 - PCV) [facility] Start: 2017 Shingrix Vaccine (1 of 2) Shingrix Vaccine (1 of 2) [facility] Start: 03-11-2017 End: 03-11-2017 Appointment Appointment [facility] Work Phone: Start: 2012 Cologuard (FIT-DNA) Cologuard (FIT-D NA) [facility] Start: 2012 Colonoscopy Colonoscopy [facility] Start: 2012 Colorectal Cancer Screening Colorectal Cancer Screening [facility] Start: [address] Colonography [facility] Start: 2012 Diabetes Screening Diabetes Screenin g [facility] Start: 2012 Fecal Occult Blood Fecal Occult Bloo d [facility] Start: 2012 Lipid 1996 panel - Serum or Plasma Lipid Screening [facility] Start: 2012 Lipid panel Lipid Screening [facility] Start: 2012 Screening for malign ant neoplasm of colon [facility] Start: 2012 Sigmoidoscopy Sigmoidoscopy [facility] Start: 1986 Hepatitis B Vaccine (1 of 3 - 19+ 3-dose series) Hepatitis B Vaccine (1 of 3 - 19+ 3-dose series) [facility] Start: 1985 Anxiety Screening Anxiety Screening [facility] Start: 1985 Depression Screening Depression Scre ening [facility] Start: 1985 Hepatitis C Screening Hepatitis C [facility] Start: 1985 Hepatitis C screening Hepatitis C [facility] Start: 1985 HIV Screening HIV Screening [facility] Start: 1985 HIV screening HIV Screening [facility] Start: 1967 Covid-19 Vaccine (#1) Covid-19 Vacci ne (#1) [facility] Start: 1967 Hepatitis B Vaccine (1 of 3 - 3-dose series) Hepatitis B Vaccine (1 of 3 - 3-dose series) [facility] COLPOSCOPY COLPOSCOPY Proce balbina Routine ASCUS with positive high risk HPV cervical Ordered: 03/11/2025 [facility] Work Phone: Comment on above: Ordered: 03/11/2025 End: 04-02-2026 DBT Breast - bilateral screening [facility]CREEN[facility] Routine Encounter for screening mammogram for breast cancer 1 Occurrences starting 03/03/2025 until 04/02/2026 [facility] Work Phone: Comment on above: 1 Occurrences starti ng 03/03/2025 until 04/02/2026 DBT Breast - bilater al screening [facility] SCREENING [facility] Routine Encounter for screening mammogram for breast cancer 03/17/2025 1:51 PM EDT [facility] Work Phone: Endometrial bx w/wo endocervix bx w/o dilat spx ENDOMETRIAL BIOPSY Procedures Routine Abnormal uterine bleeding (AUB) Ordered: 03/03/2025 [facility] Comment on above: Ordered: 03/03/2025 Endometrial bx w/wo endocervix bx w/o dilat spx ENDOMETRIAL BIOPSY Procedures Routine Abnormal uterine bleeding (AUB) Ordered: 03/10/2025 [facility] Work Phone: Comment on above: Ordered: 03/10/2025 End: 11-12-2024 DUANE SCREENING [facility] Radiology Routine Encounter for screening mammogram for breast cancer 1 Occurrences starting 10/14/2023 until 11/12/2024 [facility] Work Phone: Comment on above: 1 Occurrences starti ng 10/14/2023 until 11/12/2024 DUANE SCREENING DUANE SCREENING Ra diology Routine Encounter for screening mammogram for breast cancer 10/18/2023 10:40 AM [facility] Work Phone: PAP TEST PAP TEST Lab Rou inna Encounter for gynecological examination (general) (routine) without abnormal findings Encounter for screening for human papillomavirus (HPV) Pap smear for cervical cancer screening 10/14/2023 4:09 PM EST [facility] Work Phone: PAP TEST PAP TEST Lab [facility] Encounter for gynecological examination (general) (routine) without abnormal findings Abnormal uterine bleeding (AUB) Screening for cervical cancer Screening for human papillomavirus (HPV) 03/03/2025 10:51 AM EDT [facility] Patient Education ED Diet Vomiti ng Diarrhea ED Gallstones with Biliary Colic [facility] Work Phone: Patient referral [facility] Work Phone: Tissue Pathology bio psy report SURGICAL PATHOLOGY Lab Routine Abnormal uterine bleeding (AUB) 03/10/2025 12:34 PM EDT [facility] Tissue Pathology bio psy report SURGICAL PATHOLOGY Lab Routine ASCUS with positive high risk HPV cervical Ordered: 03/15/2025 [facility] Work Phone: Comment on above: Ordered: 03/15/2025 End: 11-12-2024 Us transvaginal US FEMALE PELVIS TRANSVAG Radiology Routine PCB (post coital bleeding) 1 Occurrences starting 10/14/2023 until 11/12/2024 [facility] Work Phone: Comment on above: 1 Occurrences starti ng 10/14/2023 until 11/12/2024 Us transvaginal US FEMALE PELVIS TRANSVAG Radiology Routine PCB (post coital bleeding) 10/18/2023 9:34 AM EST [facility] Work Phone: [facility] Work Phone: [facility] Immunizations Immunization Date Immunization Notes Care Provider Alex gilliland 10-11-2010 influenza virus vaccine, unspecified formulation Shantal Montalvo APRN.[facility] Work Phone: [facility] Work Phone: Payers Date Payer Category Payer Self-pay [id number] [address] [employer] [facility] BLUE ACCE PPO Member Subscriber Plan / Payer (Effective 2021-Present) Name: Kathrin Brownlee Relation to Subscriber: Self Name: Kathrin Brownlee Payer ID: [id number] (NAIC) Type: PPO Address: [place] [id number] 2021 Unknown [employer] BLUE ACCE SS PPO [id number] 2021-Present [phone] [address] [place] [address] O [id number] 2016 Unknown [id number] Unknown [id number] Unknown [id number] Unknown [id number] Social History Date Type Detail Facility Start: 11-09-2020 End: 05-02-2023 Tobacco smoking status SCIS Unknown if ever smoked [facility] Start: 11-09-2020 Non-smoker [facility] Start: 1965 Sex Assigned At Female [facility] Start: 05-02-2023 End: 10-14-2023 Tobacco smoking status SCIS Never smoked tobacco [facility] Work Phone: Start: 10-14-2023 Tobacco use and exposure Smoke less tobacco non-user [facility] Work Phone: Start: 10-14-2023 End: 03-15-2025 Alcohol intake Current drinker of alcohol (finding) [facility] Start: 08-18-2020 End: 10-14-2023 History of Social function [facility] Work Phone: Start: 08-18-2020 End: 10-14-2023 Social connection and isolation panel [facility] Work Phone: Do you belong to any clubs or organizations such as orthodox groups, unions, fraternal or athletic groups, or school groups? Yes [facility] Work Phone: Are you now , , , , never or living with a partner? [facility] Work Phone: How hard is it for y ou to pay for the very basics like food, housing, medical care, and heating Not hard at all [facility] Work Phone: Do you feel stress - tense, restless, nervous, or anxious, or unable to sleep at night because your mind is troubled all the time - these days [OSQ] Only a little [facility] Work Phone: (I/We) worried ingrid er (my/our) food would run out before (I/we) got money to buy more. Never true [facility] Work Phone: Start: 08-18-2020 Education 16 [facility] Start: 04-03-2018 [facility] Start: 1965 Sex Assigned At Not on file [facility] NEGATED: Highlighted rowStart: NINF History of tobacco use Passive smoker [facility] Work Phone: Clinical Notes 10-14-2023 to 04-14-2025 Raif Lubin MD - 04/14/2025 10:32 AM Veda Velazquez Mammo Tech - 03/17/2025 12:50 PM EDTPatient InstructionsRafi Lubin MD - 03/15/2025 11:43 AM EDTPatient Instructions Note Date & Type Note Facility 04-14-2025 Note HNO ID: [id number] Author: RAFI LUBIN MD Service: ? Author [...] Ectopic0 Multiple0 Live Births2 Comment: x 2 Marketing Program Manager History LMP: 07/19/2020, Ablation Age at Menarche: Age at First : Age at Menopause: Marketing Program Manager History Comments: Sexual Activity: Yes; Male Contraception: [...] ftft > 30 min Rafi Lubin MD [facility] 04-14-2025 History of Presen t illness [...] Ectopic0 Multiple0 Live Births2 Comment: x 2 Marketing Program Manager History LMP: 07/19/2020, Ablation Age at Menarche: Age at First : Age at Menopause: Marketing Program Manager History Comments: Sexual Activity: Yes; Male Contraception: [...] Rafi Lubin MD documented in this encounter [facility] 03-17-2025 History of Presen t illness [...] PATIENT PRESENTS WITH AN IMPLANTABLE OR ATTACHED OFFICE DIRECTOR: No RADIOLOGY DEPARTMENT: Mammography PERIPHERAL IV DATA: Not applicable SIGNED BY: Liz Dawkins March 17, 2025 12:54 PM documented in this encounter [facility] 03-17-2025 Note HNO ID: [id number] Author: VEDA DOUGHERTY Mammo Tech Service: ? Author Type: Comfort Filler Type: Progress Notes Filed: 03/17/2025 12:54 Note [...] PATIENT PRESENTS WITH AN IMPLANTABLE OR ATTACHED OFFICE DIRECTOR: No RADIOLOGY DEPARTMENT: Mammography PERIPHERAL IV DATA: Not applicable SIGNED BY: Liz Dawkins March 17, 2025 12:54 PM [facility] 03-15-2025 Instructions Juliette Jurado MA - [...] your doctor's office. documented in this encounter [facility] 03-15-2025 Note HNO ID: [id number] Author: RAFI LUBIN MD Service: ? Author [...] as lesion is small. Rafi Lubin MD [facility] 03-15-2025 History of Presen t illness [...] Rafi Lubin MD documented in this encounter [facility] 03-10-2025 Instructions Iris Greer MA - [...] contact the office. documented in this encounter [facility] 03-10-2025 Note HNO ID: [id number] Author: RAFI LUBIN MD Service: ? Author Type: Physician Type: Progress Notes Filed: 03/10/2025 12:28 Note Text: Completions Engineer offered: Patient accepts, visit chaperoned by Iris [...] results in 1-2 weeks. Rafi Lubin MD [facility] 03-10-2025 History of Presen t illness Narrative Completions Engineer offered: Patient accepts, visit chaperoned by Iris [...] Rafi Lubin MD documented in this encounter [facility] 03-09-2025 Note HNO ID: [id number] Author: ALEXIA CASSIDY MD Service: ? Author Type: Physician Type: Progress Notes Filed: 03/09/2025 10:22 Note Text: The patient presents for requested ultrasound. Full report available in the Imaging tab in [place]. Alexia Cassidy MD [facility] 03-09-2025 History of Presen t illness Narrative The patient presents for requested ultrasound. Full report available in the Imaging tab in [place]. Alexia Cassidy MD documented in this encounter [facility] 03-03-2025 Note HNO ID: [id number] Author: RAFI LUBIN MD Service: ? Author Type: Physician Type: Progress Notes Filed: 03/03/2025 10:45 Note Text: Completions Engineer offered: Patient accepts, visit chaperoned by Iris [...] external genitalia normal, normal Bartholin's glands, urethra, Racine's glands, no vulvar lesions, no cervical lesions, [...] schedule endometrial bx/pelvic ultrasound Rafi Lubin MD [facility] 03-03-2025 History of Presen t illness Narrative Completions Engineer offered: Patient accepts, visit chaperoned by Iris [...] external genitalia normal, normal Bartholin's glands, urethra, Racine's glands, no vulvar lesions, no cervical lesions, [...] Rafi Lubin MD documented in this encounter [facility] 10-21-2023 Miscellaneous Notes October 22, 2023 PID: [id number] Kathrin Brownlee [address] [place] [address] Dear Ms. Brownlee, We are pleased to [...] report will be kept on file at [facility] as part of your permanent medical record and are available for your continuing care. Thank you for allowing us to help in meeting your health care needs. Sincerely, Dr. Puente Interpreting Radiologist [facility] (Normal over 40) documented in this encounter [facility] 10-18-2023 History of Presen t illness [...] 2023 9:43 AM documented in this encounter [facility] 10-18-2023 History of Presen t illness [...] 2023 11:52 AM documented in this encounter [facility] 10-14-2023 Miscellaneous Notes Patient notified and voiced understanding. Appointment scheduled. Oksana Patel RN Please notify patient: I would like her to have an ultrasound for the post coital bleeding. It has been ordered. Please assist in scheduling. Shantal Montalvo APRN.CNP documented in this encounter [facility] 10-14-2023 Instructions Shantal Montalvo APRN.CNP - [...] salmon and sardines and vegetables, such as Kazakh cabbage, kale, and broccoli. Foods fortified with [...] acid, calcium carbonate is found in some [id number] antacid products, such as Tums and Rolaids [...] by your doctor. 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 adult literacy instructor Kathrin is a 58 year old who [...] Ectopic0 Multiple0 Live Births2 Comment: x 2 Marketing Program Manager History LMP: 07/19/2020, Ablation Age at Menarche: Age at First : Age at Menopause: Marketing Program Manager History Comments: Sexual Activity: Yes; Male Contraception: [...] external genitalia normal, normal Bartholin's glands, urethra, Racine's glands, no vulvar lesions, no cervical lesions, [...] 3 - Low documented in this encounter [facility] Evaluation note No assessment inform ation available [facility] Work Phone: Evaluation note Diagnosis [...] bleeding) Postcoital bleeding [facility] Diagnosis Encounter for screening mammogram for breast cancer [facility] Diagnosis PCB (post coital bleeding) Postcoital bleeding [facility] Diagnosis Encounter for gynecological examination (general) (routine) without abnormal findings Encounter for screening mammogram for breast cancer Abnormal uterine bleeding (AUB) Screening for cervical cancer Screening for malignant neoplasm of the cervix Screening for human papillomavirus (HPV) Special screening examination for human papillomavirus (HPV) PMB (postmenopausal bleeding) Postmenopausal bleeding [facility] Abnormal [facility] (AUB) [facility] Abnormal uterine bleeding (AUB)- Primary [facility] Diagnosis ASCUS with positive high risk HPV cervical- Primary Cervical high risk human papillomavirus (HPV) DNA test positive [facility] Diagnosis Encounter for screening mammogram for breast cancer [facility] Diagnosis Perimenopause- Primary Symptomatic menopausal or female climacteric states Adenomyosis Endometriosis of uterus [facility] Diagnosis ASCUS with positive high risk HPV cervical- Primary Cervical high risk human papillomavirus (HPV) DNA test positive [facility] Additional Instructions Ultrasound with gallstones, no signs of cholecystitis. White count 8.6 normal lipase and liver enzymes. Continue oral fluids. Avoid dairy products and greasy products. Follow- up with Dr. Ta. COVID influenza negative. Return if worsening symptoms..[facility] Work Phone: Hospital Discharge instructionsAmbulatory Orders* Pain Management Location: None Selected [facility] Work Phone: Reason for referral (narrative)* Diagnostic Procedure Only (Routine) - Authorized Specialty Diagnoses / Procedures Referred By Mami yanes Referred To Contact [facility] Diagnoses PCB (post coital bleeding) Procedures US FEMALE PELVIS TRANSVAG US TRANSVAGINAL Shantal Montalvo APRN.CNP [address] [place] [address] [facility] [place] [address] Referral ID Status Reason Start Date Expiration Date Visits Requested Visits Authorized [id number] Authorized Auto-Generat ed Referral 3 11/12/2024 1 1 * Consult, Test, Treat (Routine) - Authorized Specialty Diagnoses / Procedures Referred By Mami yanes Referred To Contact Hematology Diagnoses Family history of blood clots History of deep vein thrombosis Procedures CONSULT TO HEMATOLOGY OFFICE/OUT[facility]IENT [facility] 60-74 MINUTES Shantal Montalvo APRN.CNP [address] [place] [address] Referral ID Status Reason Start Date Expiration Date Visits Requested Visits Authorized [id number] Authorized PCP Requested Referral 3 10/13/2024 1 1 * Consult, Test, Treat (Routine) - Authorized Specialty Diagnoses / Procedures Referred By Mami yanes Referred To Contact General Surgery Diagnoses Colon cancer screening Procedures CONSULT TO GENERAL SURGERY OFFICE/OUTPATIENT [facility] MDM 60-74 MINUTES Shantal Montalvo APRN.CNP [address] [place] [address] Referral ID Status Reason Start Date Expiration Date Visits Requested Visits Authorized [id number] Authorized PCP Requested Referral 3 10/13/2024 1 1 * Diagnostic Procedure Only (Routine) - Authorized Specialty Diagnoses / Procedures Referred By Mami yanes Referred To Contact [facility] Diagnoses Encounter for screening mammogram for breast cancer Procedures DUANE SCREENING SCREENING MAMMOGRAPHY BI 2-VIEW BREAST INC CAD Shantal Montalvo APRN.CNP [address] [place] [address] [facility] [address] [place] [address] Referral ID Status Reason Start Date Expiration Date Visits Requested Visits Authorized [id number] Authorized Auto-Generat ed Referral 3 11/12/2024 1 1 [facility]No reason for referral information [facility] Work Phone: Reason for visit Narrative* Diagnostic Procedure Only (Routine) - Closed Specialty Diagnoses / Procedures Referred By Mami yanes Referred To Contact [facility] Diagnoses Encounter for screening mammogram for breast cancer Procedures DUANE SCREENING SCREENING MAMMOGRAPHY BI 2-VIEW BREAST INC CAD Shantal Montalvo APRN.CNP [address] [place] [address] [facility] [address] [place] [address] Referral ID Status Reason Start Date Expiration Date V isits Requested Visits Authorized [id number] Closed Auto-Generate d Referral 10/14/2023 11/12/2024 1 1 [facility] for visit Narrative* Diagnostic Procedure Only (Routine) - Closed Specialty Diagnoses / Procedures Referred By Mami yanes Referred To Contact [facility] Diagnoses Abnormal uterine bleeding (AUB) Procedures PELVIC US WHI US PELVIC NONOBSTETRIC REAL-TIME IMAGE COMPLETE Rafi Lubin MD [address] [place] [address] Phone: tel: fax: [facility] [address] [place] [address] Referral ID Status Reason Start Date Expiration Date V isits Requested Visits Authorized [id number] Closed Auto-Generate d Referral 03/03/2025 03/03/2026 1 1 [facility] for visit Narrative* Diagnostic Procedure Only (Routine) - Closed Specialty Diagnoses / Procedures Referred By Mami yanes Referred To Contact [facility] Diagnoses Encounter for screening mammogram for breast cancer Procedures DUANE SCREENING W BRADEN SCREENING DIGITAL BREAST TOMOSYNTHESIS BI SCREENING MAMMOGRAPHY BI 2-VIEW BREAST INC CAD Rafi Lubin MD [address] [place] [address] Phone: tel: fax:[phone] [facility] [address] [place] [address] Referral ID Status Reason Start Date Expiration Date V isits Requested Visits Authorized [id number] Closed Auto-Generate d Referral 03/03/2025 04/02/2026 1 1 [facility] Chief Complaint and Reason for Visit Chief Complaint PAIN AND INDIGESTION Chief Complaint ABD PAIN N/V/D Chief Complaint Admit Date LUMBAR SPINE July 01, 2025 2: 19pm Room 4 July 01, 2025 2: 35pm Advance Directives No Advanced Directives Records Found Advance Directive Response Recorded Date/ Time Living Will No November 09 2:10pm Power of Assistant Tennis Coach No November 09 2:10pm Advance Directive Response Recorded Date/ Time Living Will No May 02, 2023 10:26am Power of Assistant Tennis Coach No May 02 10:26am Family History Relationship [...] Dr. Salvatore Lamb DO Emergency Provider Active Sawing And Assembly Supervisor Relationship Specialty Start Date End Date Christina Singh MD PCP - General Family Medicine 10/11/10 Sawing And Assembly Supervisor Relationship Specialty Start Date End Date Christina Singh MD PCP - General Family Medicine 10/11/10 Sawing And Assembly Supervisor Relationship Specialty Start Date End Date Christina Singh MD PCP - General Family Medicine 10/11/10 Sawing And Assembly Supervisor Relationship Specialty Start Date End Date Christina Singh MD PCP - General Family Medicine 10/11/10 Sawing And Assembly Supervisor Relationship Specialty Start Date End Date Christina Singh MD PCP - General Family Medicine 10/11/10 Sawing And Assembly Supervisor Relationship Specialty Start Date End Date Christina Singh MD PCP - General Family Medicine 10/11/10 Sawing And Assembly Supervisor Relationship Specialty Start Date End Date Christina Singh MD PCP - General Family Medicine 10/11/10 Sawing And Assembly Supervisor Relationship Specialty Start Date End Date Christina Singh MD PCP - General Family Medicine 10/11/10 Sawing And Assembly Supervisor Relationship Specialty Start Date End Date Christina Singh MD PCP - General Family Medicine 10/11/10 Sawing And Assembly Supervisor Relationship Specialty Start Date End Date Christina Singh MD PCP - General Family Medicine 10/11/10 Sawing And Assembly Supervisor Relationship Specialty Start Date End Date Christina Singh MD PCP - General Family Medicine 10/11/10 Sawing And Assembly Supervisor Relationship Specialty Start Date End Date Christina [...] or prosecute any alcohol or drug abuse patient.[facility] the event this information is protected by the Federal Confidentiality of Alcohol and Drug Abuse Patient Records regulations: The Federal rules restrict any use of the information to criminally investigate or prosecute any alcohol or drug abuse patient.[facility] the event this information is protected by the Federal Confidentiality of Alcohol and Drug Abuse Patient Records regulations: The Federal rules restrict any use of the information to criminally investigate or prosecute any alcohol or drug abuse patient.[facility] the event this information is protected by the Federal Confidentiality of Alcohol and Drug Abuse Patient Records regulations: The Federal rules restrict any use of the information to criminally investigate or prosecute any alcohol or drug abuse patient.[facility] the event this information is protected by the Federal Confidentiality of Alcohol and Drug Abuse Patient Records regulations: The Federal rules restrict any use of the information to criminally investigate or prosecute any alcohol or drug abuse patient.[facility] the event this information is protected by the Federal Confidentiality of Alcohol and Drug Abuse Patient Records regulations: The Federal rules restrict any use of the information to criminally investigate or prosecute any alcohol or drug abuse patient.[facility] HospitalIn the event this information is protected by the Federal Confidentiality of Alcohol and Drug Abuse Patient Records regulations: The Federal rules restrict any use of the information to criminally investigate or prosecute any alcohol or drug abuse patient.[facility] the event this information is protected by the Federal Confidentiality of Alcohol and Drug Abuse Patient Records regulations: The Federal rules restrict any use of the information to criminally investigate or prosecute any alcohol or drug abuse patient.[facility] HospitalIn the event this information is protected by the Federal Confidentiality of Alcohol and Drug Abuse Patient Records regulations: The Federal rules restrict any use of the information to criminally investigate or prosecute any alcohol or drug abuse patient.[facility] HospitalIn the event this information is protected by the Federal Confidentiality of Alcohol and Drug Abuse Patient Records regulations: The Federal rules restrict any use of the information to criminally investigate or prosecute any alcohol or drug abuse patient.[facility] HospitalIn the event this information is protected by the Federal Confidentiality of Alcohol and Drug Abuse Patient Records regulations: The Federal rules restrict any use of the information to criminally investigate or prosecute any alcohol or drug abuse patient.[facility] HospitalIn the event this information is protected by the Federal Confidentiality of Alcohol and Drug Abuse Patient Records regulations: The Federal rules restrict any use of the information to criminally investigate or prosecute any alcohol or drug abuse patient.[facility] HospitalIn the event this information is protected by the Federal Confidentiality of Alcohol and Drug Abuse Patient Records regulations: The Federal rules restrict any use of the information to criminally investigate or prosecute any alcohol or drug abuse patient.[facility] Reason for Visit (unrecogniz ed section and content) Reason Comments Yearly Exam Reason Comments Orders Patient Update Reason Comments Radiology US Specialty Diagnoses / Procedures Referred By Contac t Referred To Contact [facility] Diagnoses PCB (post coital bleeding) Procedures US FEMALE PELVIS TRANSVAG US TRANSVAGINAL Shantal Montalvo APRN.SAROJ [address] [place] [address] [place] [address] Referral ID Status Reason Start Date Expiration Date V isits Requested Visits Authorized [id number] Closed Auto-Generate d Referral 10/14/2023 11/12/2024 1 1 Reason Comments Well Woman Reason Comments Endometrial Biopsy Specialty Diagnoses / Procedures Referred By Contac t Referred To Contact [facility] Diagnoses Abnormal uterine bleeding (AUB) Procedures ENDOMETRIAL BIOPSY ENDOMETRIAL BX W/WO ENDOCERVIX BX W/O DILAT SPX Rafi Lubin MD [address] [place] [address] Phone: tel: fax: [facility] [address] [place] [address] Referral ID Status Reason Start Date Expiration Date V isits Requested Visits Authorized [id number] Closed Auto-Generate d Referral 03/03/2025 03/03/2026 1 1 Reason Comments Colposcopy Specialty Diagnoses / Procedures Referred By Contjaylene t Referred To Contact [facility] Diagnoses ASCUS with positive high risk HPV cervical Procedures COLPOSCOPY COLPOSCOPY CERVIX BX CERVIX & ENDOCRV Michael Pretty MD [address] [place] [address] Phone: tel: fax: [facility] [address] [place] [address] Referral ID Status Reason Start Date Expiration Date V isits Requested Visits Authorized [id number] Closed Auto-Generate d Referral 03/11/2025 03/11/2026 1 1 Reason Comments Problem Visit Reason Onset Date Comments pap results 03/05/2025 INFORMATION SOURCE (unrecogn ized section and content) DATE CREATED AUTHOR 04/16/2025 [facility] DATE CREATED AUTHOR AUTHOR'S ORGANIZ ATION 07/01/2025 [facility] FOR RECORDS PERTAINING TO PATIENTS WHO [...] BE BASED ON THE PRIMARY CLINICAL RECORDS. [facility]. provides no warranty or guarantee of the accuracy or completeness of information in this document.
--- OUTSIDE RECORDS SUMMARY | 2025-09-12 21:55 | XMS RPT_ITS | CCD ---
Author Organization [facility] Care Team Providers Care Finisher Accordion Name Role Phone Vince Murry Unavailable Christina [...] Provider Dr. Christina Singh MD Referring Provider Jennifer Kim Attending Provider [phone] Dr. Tony Elliott MD Attending Provider [phone] Christina Singh Primary Care Unavailable Tony Elliott Attending Unavailable Christina Singh Primary Care Unavailable Christina Sinhg Referring Unavailable Torrey Solano Attending Unavailable Francisco, [...] MG CAPS 2 capsules twice daily AMOXICILLIN [id number] Vince FRANCO amoxicillin 875 mg / clavulanate [...] 2020 12:00am July 01, 2025 2:28pm calcium-vits D2-Y-J6-minerals 166.75 mg- 166.75 unit cap (1 source) End: 10-14-2023 calcium-vits E3-O-H3-minerals 166.75 mg- 166.75 unit cap Take by [...] 200 MG TABS 1 tablet 1 FLUCONAZOLE [id number] Vince FRANCO fluticasone (1 source) Corticosteroid End: [...] PO DAILY November 09, 2020 1:00am levonorgestrel 0.894118 mg/hr intrauterine system (1 source) Progestin, Progestin-containing [...] 104 MEGAN as directed MEDROXYPROGESTERONE ACETATE MEGAN [id number] Vince FRANCO ondansetron 4 mg disintegrating oral [...] Viewson 06-05 L/S Spine Min 4 Views [facility] [address] [place], [place] [address] L/S Spine Min 4 Views MR#: [id number] Acct: [id number] Name: KATHRIN BROWNLEE Rep #: [id number] : 1965 F 60 From: Diana Lin MD PCP: Dr. Christina Singh MD Status: DEP AMB Study: L/S Spine Min 4 Views Date of Exam: 07/01/25 Exam# [id number] Ordering Dr: Jennifer Daly PROCEDURE: L/S SPINE MIN 4 VIEWS 07/01/2025 REASON FOR EXAM: CHRONIC BACK PAIN TECHNIQUE: L/S SPINE MIN 4 VIEWS COMPARISON: None. FINDINGS: BONES: Five gvx-ycu-iyjpscs lumbar vertebral bodies. No fracture or focal [...] instability with flexion or extension. Reading Location: GLI-KCXXFM-SA CC: SALVADOR Tatum; Dr. Christina Singh MD Hot Mill Supervisor: Signed Normal [facility] Orthopedic Visit Reporton Orthopedic Visit Report [facility] [address] [place] [address] [address] [place] [address] OFFICE VISIT Date of Service: 07/01/25 MR#: [id number] Acct: [id number] Name: KATHRIN BROWNLEE Rep #: [id number] : 1965 Provider: SALVADOR Tatum Age/Sex: 60/F Location: [facility] Status: Signed Intake Vital Signs 12/22/24 16:44 [...] decisions made by me, SALVADOR Tatum 07/01/25 5393. Part of today???s visit was documented by [...] pain management or physical therapy. She states [facility] did have her see the physical [...] (2) Spondy (more content not included)... Normal [facility] CNOVon 04-14-2025 CNOV Office Visit (OBGYWM) KATHRIN BROWNLEE ([id number]) 1965 F Date Time Provider Department 04/14/25 [...] Ectopic0 Multiple0 Live Births2 Comment: x 2 Rv Service Technician History LMP: 07/19/2020, Ablation Age at Menarche: Age at First : Age at Menopause: Rv Service Technician History Comments: Sexual Activity: Yes; Male Contraception: [...] Status:Closed by RAFI LUBIN on 04/14/25 Normal [facility] DUANE SCREENING W TOMOon 03-17 DUANE SCREENING W BRADEN * * *Final Report* * * DATE OF EXAM: Mar 17 2025 1:51PM [facility] 0582 - DUANE SCREENING W BRADEN / PROCEDURE REASON: Encounter for screening mammogram for breast cancer * * * * Physician Interpretation * * * * RESULT: [place] [address] #[id number] - DUANE SCREENING W BRADEN HISTORY: 59 [...] Rafi Barrera M.D. Electronically signed on: 03/20/2025 Hot Mill Supervisor: CRISTOFER Transcribe Date/Time: Mar 17 2025 12:55P Dictated by: RAFI BARRERA MD This examination was interpreted and the report reviewed and electronically signed by: RAFI BARRERA MD on Mar 20 2025 10:48AM EST [id number] Normal [facility] CNOVon 03-15-2025 CNOV Office Visit (OBGYWM) KATHRIN BROWNLEE ([id number]) 1965 F Date Time Provider Department 03/15/25 [...] as lesion is small. Rafi Lubin MD [place], [place] 03/15/2025 11:46 AM Signed YOUR RECOVERY [...] If you (more content not included)... Normal [facility] Pathology biopsy report Karel (Tiss)on 03-15-2025 AP DISCLAIMER Normal [facility] Comment on above: Order Comment: Speci men Type: TISSUE SPECIMEN Ordering Facility: [facility] Address: [address] [place] [address] Result Comment: Zakia cano Developed Test (LDT) Disclaimer: Performance characteristics of immunohistochemical, immunofluorescent, and chromogenic in-situ hybridization tests have been determined by the performing laboratory within [facility]'s Farooq Mcknight Pathology and Laboratory Medicine Department ([facility], [facility], [facility], [facility], [facility], [facility], or [facility]) in a manner consistent with CLIA [...] appropriately. Performed By: #### 6 6121-5 #### [facility] CLIA [id number] [address] [place] [address] [place] CASE REPORT Normal [facility] Comment on above: Order Comment: Speci men Type: TISSUE SPECIMEN Ordering Facility: [facility] Address: [address] [place] [address] Result Comment: Surg [facility] Pathology Report Case: [id number] Authorizing Provider: Rafi Lubin MD Collected: 03/15/2025 12:31 PM Ordering Location: OB/Gynecology Received: 03/16/2025 07:14 AM Pathologist: Darcy Middleton MD Specimens: A) - Cervix, Biopsy, 1 oclock B) - Endocervix, Curettings Performed By: #### 6 6121-5 #### [facility] CLIA [id number] [address] [place] [address] [place] CLINICAL HISTORY ASCUS HPV POS Normal [facility] Comment on above: Order Comment: Speci men Type: TISSUE SPECIMEN Ordering Facility: [facility] Address: [address] [place] [address] Performed By: #### 6 6121-5 #### [facility] CLIA [id number] [address] [place] [address] [place] FINAL DIAGNOSIS Normal [facility] Comment on above: Order Comment: Speci men Type: TISSUE SPECIMEN Ordering Facility: [facility] Address: [address] [place] [address] Result Comment: A. C ervix, 1 o'clock, biopsy -Benign squamous mucosa B. Cervix, endocervix, curettage -Rare scant fragments of benign endocervix; nondiagnostic specimen -Predominantly mucin and inflammatory cells at 1255 EDT Performed By: #### 6 6121-5 #### [facility] CLIA [id number] [address] [place] [address] [place] FINAL PERFORMING LAB Normal [facility] Comment on above: Order Comment: Speci men Type: TISSUE SPECIMEN Ordering Facility: [facility] Address: [address] [place] [address] Result Comment: Diag nostic interpretation performed at: [facility], [address] [place] [address] CLIA# [id number] Armored Service Technician: Hector Drummond MD Performed By: #### 6 6121-5 #### [facility] CLIA [id number] [address] [place] [address] OF [facility] GROSS DESCRIPTION Normal [facility] Comment on above: Order Comment: Speci men Type: TISSUE SPECIMEN Ordering Facility: [facility] Address: [address] [place] [address] Result Comment: A. C ervix, Biopsy Received [...] 2025 1:45 AM Gross examination performed at [facility], [address] [place] [address] Performed By: #### 6 6121-5 #### [facility] CLIA [id number] [address] [place] [address] OF [place] CNOVon 03-10-2025 CNOV Office Visit (OBGYWM) KATHRIN BROWNLEE ([id number]) 1965 F Date Time Provider Department 03/10/25 11:40 AM RAFI LUBIN OBDEAWMeghna During your visit today, we recorded the following information about you: Blood pressure Weight 120/80 96.3 kg Rafi Lubin MD 03/10/2025 12:28 PM Signed Prom Burn Off Operator offered: Patient accepts, visit chaperoned by Iris [...] contact the office. Referring Provider: RAFI LUBIN [[id number]] Allergies As of Date: 03/10/2025 (No Known Allergies) Date Reviewed: 03/10/2025 Reviewed by: Iris Greer MA - Fully Assessed Reason for Visit: Endometrial Biopsy [7501] Primary Visit Diagnosis:Abnormal uterine bleeding (AUB) [N93.9] Order(s):ENDOMETRIAL BIOPSY [[id number]] Order #: [id number] SURGICAL PATHOLOGY [[id number]] Order #: [id number] Prescriptions as of 03/10/2025 - elderberry fruit [...] discomfort, conta (more content not included)... Normal [facility] Pathology biopsy report Karel (Tiss)on 03-10-2025 AP DISCLAIMER Normal [facility] Comment on above: Order Comment: Speci men Type: TISSUE SPECIMEN Ordering Facility: [facility] Address: [address] [place] [address] Result Comment: Zakia cano Developed Test (LDT) Disclaimer: Performance characteristics of immunohistochemical, immunofluorescent, and chromogenic in-situ hybridization tests have been determined by the performing laboratory within [facility]'s [facility] Pathology and Laboratory Medicine Department ([facility], [facility], [facility], [facility], [facility], [facility], or [facility]) in a manner consistent with CLIA [...] appropriately. Performed By: #### 6 6121-5 #### [facility] CLIA [id number] [address] [place], [place] [address] [place] [address] [place] CASE REPORT Normal [facility] Comment on above: Order Comment: Speci men Type: TISSUE SPECIMEN Ordering Facility: [facility] Address: [address] [place] [address] Result Comment: Surg ical Pathology Report Case: [id number] Authorizing Provider: Rafi Lubin MD Collected: 03/10/2025 12:34 PM Ordering Location: OB/Gynecology Received: 03/10/2025 04:15 PM Pathologist: Truong Greenwood MD Specimen: Endometrium, Biopsy Performed By: #### 6 6121-5 #### [facility] CLIA [id number] [address] [place] [address] [place] CLINICAL HISTORY AUB Normal [facility] Comment on above: Order Comment: Speci men Type: TISSUE SPECIMEN Ordering Facility: [facility] Address: [address] [place] [address] Performed By: #### 6 6121-5 #### [facility] CLIA [id number] [address] [place] [address] [place] FINAL DIAGNOSIS Normal [facility] Comment on above: Order Comment: Speci men Type: TISSUE SPECIMEN Ordering Facility: [facility] Address: [address] [place] [address] Result Comment: Endo metrium, biopsy: - Benign endocervix, no endometrium identified. ACV/bs 03/12/2025 at 1515 EDT Performed By: #### 6 6121-5 #### [facility] CLIA [id number] [address] [place] [address] [place] FINAL PERFORMING LAB Normal [facility] Comment on above: Order Comment: Speci men Type: TISSUE SPECIMEN Ordering Facility: [facility] Address: [address] [place] [address] Result Comment: Diag nostic interpretation performed at: [facility], [address] [place] [address] CLIA# [id number] Armored Service Technician: Hector Drummond MD Performed By: #### 6 6121-5 #### [facility] CLIA [id number] [address] [place], [place] [address] [place] GROSS DESCRIPTION Normal [facility] Comment on above: Order Comment: Speci men Type: TISSUE SPECIMEN Ordering Facility: [facility] Address: [address] [place] [address] Result Comment: A. E ndometrium, Biopsy Received in formalin are multiple henderson-brown, soft feathery segments of tissue admixed with mucinous material aggregating to 1.4 x 0.3 x 0.1 cm. Totally submitted in one cassette. DL March 11, 2025 1:32 AM Gross examination performed at [facility], [address] [place] [address], [place] [address] Performed By: #### 6 6121-5 #### [facility] CLIA [id number] [address] [place] [address] [place] [address] [place] US Pelvison 03-09-2025 [...] Read By: Alexia Cassidy M.D. MATERNAL MEDICINE [facility] US Pelvison 03-05-2025 Radiology Study observation (narrative) [facility] CNOVon 03-03-2025 CNOV Office Visit (OBGYWM) KATHRNI BROWNLEE ([id number]) 1965 F Date Time Provider Department 03/03/25 9:30 AM RAFI LUBIN During your visit today, we recorded the following information about you: Blood pressure Weight Height 120/80 97.7 kg 1.651 m Rafi Lubin MD 03/03/2025 10:45 AM Signed Prom Burn Off Operator offered: Patient accepts, visit chaperoned by Iris [...] external genitalia normal, normal Bartholin's glands, urethra, Rumson's glands, no vulvar lesions, no cervical lesions, [...] (postmenopausal bleeding) [N95.0] Order(s):DUANE SCREENING W BRADEN [[id number]] Order #: [id number] FUTURE PELVIC US WHI [[id number]] Order #: [id number]: 1 FUTURE ENDOMETRIAL BIOPSY [[id number]] Order #: [id number] PAP TEST [[id number]] Order #: [id number] FOLLICLE STIMULATING HORMONE [SQFSH] Order #: [id number] FUTURE Prescriptions as of 03/03/2025 - elderberry [...] Exam. Follow- (more content not included)... Normal [facility] FSH SerPl-aCncon 03-03-2025 Follitropin Qn 24.8 m[IU]/mL Normal See comment [facility] Comment on above: Order Comment: Speci men Type: TISSUE SPECIMEN Ordering Facility: [facility] Address: [address] [place] [address] Result Comment: Willie devries range: Follicular: 3.5-12.5 mIU/mL Ovulation: 4.7-21.5 mIU/mL Luteal: 1.7-7.7 mIU/mL Postmenopausal: 25.8-134.8 mIU/mL Performed By: #### 6 6121-5 #### [facility] CLIA [id number] [address] [place] [address] [place] HIGH RISK HUMAN PAPILLOMA SHANTA (HPV), PCR FOR DETECTION AND GENOTYPINGon 03-03-2025 HPV 16 Ag Ql (Unsp spec) Not detected Normal Not detected [facility] Comment on above: Order Comment: Speci men Type: TISSUE SPECIMEN Ordering Facility: [facility] Address: [address] [place] [address] Performed By: #### 6 6121-5 #### [facility] CLIA [id number] [address] [place] [address] [place] HPV 18 Ag Ql (Unsp spec) Not detected Normal Not detected [facility] Comment on above: Order Comment: Speci men Type: TISSUE SPECIMEN Ordering Facility: [facility] Address: [address] [place] [address] Performed By: #### 6 6121-5 #### [facility] CLIA [id number] [address] [place] [address] [place] HPV 31+33+35+39+45+51+52+5 6+58+59+66+68 DNA FLACA+probe Ql (Cvx) Detected Abnormal Not detected [facility] Comment on above: Order Comment: Speci men Type: TISSUE SPECIMEN Ordering Facility: [facility] Address: [address] [place] [address] Result Comment: High Risk HPV Other Type includes HPV types 31, 33, 35, 39, 45, 51, 52, 56, 58, 59, 66 and 68. Performed By: #### 6 6121-5 #### [facility] CLIA [id number] [address] [place] [address] [place] PAP TESTon 03-03-2025 ADEQUACY Normal [facility] Comment on above: Order Comment: Speci men Type: FLUID SPECIMEN Ordering Facility: [facility] Address: [address] [place] [address] Result Comment: Sati sfactory for interpretation. Transformation zone present Performed By: #### L [id number] #### [facility] CLIA [id number] [address] [place] [address] [place] [facility] CLIA [id number] [address] [place] [address] [place] CASE REPORT Normal [facility] Comment on above: Order Comment: Speci men Type: FLUID SPECIMEN Ordering Facility: [facility] Address: [address] [place] [address] Result Comment: Gyne cologic Cytology Report Case: [id number] Authorizing Provider: Rafi Lubin MD Collected: 03/03/2025 10:51 AM Ordering Location: OB/Gynecology Received: 03/03/2025 11:50 AM First Screen: Aleksandra Pope CT, ASCP Pathologist: Julieta Guo MD Specimen: Pap Test, ThinPrep, Cervix Performed By: #### L [id number] #### [facility] CLIA [id number] [address] [place] [address] [place] [facility] CLIA [id number] [address] [place] [address] [place] CLINICAL HISTORY, CYTOLOGY, ADMISSIONS ASSISTANT Abnormal Bleeding (Describe) Normal [facility] Comment on above: Order Comment: Speci men Type: FLUID SPECIMEN Ordering Facility: [facility] Address: [address] [place] [address] Performed By: #### L [id number] #### [facility] CLIA [id number] [address] [place] [address] [place] [facility] CLIA [id number] [address] [place] [address] [place] FINAL PERFORMING LAB Normal [facility] Comment on above: Order Comment: Speci men Type: FLUID SPECIMEN Ordering Facility: [facility] Address: [address] [place] [address] Result Comment: Tech nical component, detention attendant screening performed at: [facility], [address] [place] [address] CLIA: [id number] Diagnostic interpretation performed at: [facility], [address] [place] [address] CLIA# [id number] Armored Service Technician: Ephraim Fatima MD Performed By: #### L [id number] #### [facility] CLIA [id number] [address] [place], [place] [address] [place] [facility] CLIA [id number] [address] [place], [place] [address] [place] INTERPRETATION, CYTOLOGY, ADMISSIONS ASSISTANT Abnormal [facility] Comment on above: Order Comment: Speci men Type: FLUID SPECIMEN Ordering Facility: [facility] Address: [address] [place] [address] Result Comment: Atyp ical squamous cells of undetermined significance (ASC-US). at 1309 EDT Performed By: #### L [id number] #### [facility] CLIA [id number] [address] [place] [address] [place] [facility] CLIA [id number] [address] [place] [address] [place] LMP 02/27/2025 Normal [facility] Comment on above: Order Comment: Speci men Type: FLUID SPECIMEN Ordering Facility: [facility] Address: [address] [place] [address] Performed By: #### L [id number] #### [facility] CLIA [id number] [address] [place] [address] [place] [facility] CLIA [id number] [address] [place] [address] [place] PAP DISCLAIMER COMMENT The Pap Smear is a screening test for cervical cancer. False negative results occur with all screening tests, emphasizing the need for rescreening at recommended intervals, and clinical correlation. Normal [facility] Comment on above: Order Comment: Speci men Type: FLUID SPECIMEN Ordering Facility: [facility] Address: [address] [place] [address] Performed By: #### L [id number] #### [facility] CLIA [id number] [address] [place] [address] [place] [facility] CLIA [id number] [address] [place] [address] [place] PAP GENERAL CATEGORIZATION Epithelial Cell Abnormality Normal [facility] Comment on above: Order Comment: Speci men Type: FLUID SPECIMEN Ordering Facility: [facility] Address: [address] [place] [address] Performed By: #### L [id number] #### [facility] CLIA [id number] [address] [place] [address] [place] [facility] CLIA [id number] [address] [place] [address] [place] PAP SUBASSEMBLY SUPERVISOR COMMENT This specimen has been analyzed by the ThinPrep Imaging System, an automated imaging and review system, which assists the laboratory in evaluating cells on ThinPrep Pap tests. Following automated imaging, selected [place] from every slide are reviewed by a detention attendant. Normal [facility] Comment on above: Order Comment: Speci men Type: FLUID SPECIMEN Ordering Facility: [facility] Address: [address] [place] [address] Performed By: #### L [id number] #### [facility] CLIA [id number] [address] [place] [address] [place] [facility] CLIA [id number] [address] [place] [address] [place] Urgent Care Visit Reporton 0 12-22-2024 Urgent Care Visit Report [facility] [address], [address] [place] [address] OFFICE VISIT Date of Service: 12/22/24 MR#: [id number] Acct: [id number] Name: KATHRIN BROWNLEE Rep #: [id number] : 1965 Provider: MELIA Solano Age/Sex: 59/F Location: [facility] Status: Signed with Addenda ADDENDUM by MELIA [...] No Known Allergies Allergy (Verified 05/02/23 10:21) FORMERLY [facility], [facility] Medical History (Updated 12/22/24 @ 17:19 by [...] tabs 0RF 12/22/24 1720 Date Torrey Solano FISHER EEL-C Cosigner Signature: Date (if applicable) CC: Normal [facility] Absolute lymphocyte countOrd ered By: Salvatore Le on 05-02-2023 Lymphocytes Auto (Unsp spec) [#/Vol] 1.26 10*3/uL 0.83-4.51 [facility] Basophil percentageOrdered B y: Salvatore Lamb on 05-02-2023 Basophils/100 WBC (Bld) 0.5 % 0-1 [facility] Bilirubin [Mass/Vol] 0.40 mg/dL 0.20-1.00 [facility] Comment on above: For patients on eltr ombopag therapy, use of Dimension [place] TBIL is not recommended. Chloride [Moles/Vol] 105 mmol/L 98-107 [facility] Eosinophils/100 WBC (Bld) 1.2 % 0-5 [facility] Glucose [Mass/Vol] 101 mg/dL 74-106 [facility] Comment on above: Fasting Glucose resu lt from 100 to 125 mg/dL suggests IMPAIRED HOMEOSTASIS per A.D.A. criteria. Neutrophils (Bld) [#/Vol] 6.5 10*3/uL 2.0-7.7 [facility] Neutrophils/100 WBC (Bld) 75.5 % 47-70 [facility] Potassium [Moles/Vol] 3.2 mmol/L 3.5-5.1 [facility] Protein [Mass/Vol] 6.9 g/dL 6.4-8.2 [facility] Sodium [Moles/Vol] 138 mmol/L 136-145 [facility] WBC (Bld) [#/Vol] 8.6 10*3/uL 4.4-11.0 [facility] Blood erythrocytes count (nu mber/volume)Ordered By: Salvatore Lamb on 05-02-2023 RBC (Bld) [#/Vol] 4.45 10*6/uL 4.2-5.4 [facility] Blood hemoglobin measurement (mass/volume)Ordered By: Salvatore Lamb on 05-02-2023 Hemoglobin (Bld) [Mass/Vol] 13.0 g/dL 12.0-15.0 [facility] Blood lymphocytes/100 leukoc ytesOrdered By: Salvatore Lamb on 05-02-2023 Lymphocytes/100 WBC (Bld) 14.7 % 19-41 [facility] Blood monocytes/100 leukocyt esOrdered By: Salvatore Lamb on 05-02-2023 Monocytes/100 WBC (Bld) 7.8 % 0-10 [facility] Blood platelet mean volumeOr dered By: Salvatore Lamb on 05-02-2023 Platelet mean volume (Bld) [Entitic vol] 9.0 fL 6.2-12.0 [facility] Determination of erythrocyte mean corpuscular volume (MCV)Ordered By: Salvatore Lamb on 05-02-2023 MCV (RBC) [Entitic vol] 90.1 fL 81-99 [facility] Direct bilirubinOrdered By: Salvatore Lamb on 05-02-2023 Bilirubin.direct [Mass/Vol] 0.11 mg/dL 0.00-0.30 [facility] Hematocrit Auto (Bld) [Volum e fraction]Ordered By: Salvatore Lamb on 05-02-2023 Hematocrit (Bld) [Volume fraction] 40.1 % 37-47 [facility] Influenza virus A and B and SARS-CoV-2 (COVID-19) Ag panel - Upper respiratory specimOrdered By: Salvatore Lamb on 05-02-2023 SARS-CoV-2 (COVID-19) RNA FLACA+probe Ql (Resp) [facility] Laboratory - Chemistry and C hemistry - challengeOrdered By: Salvatore Lamb on 05-02-2023 ALP [Catalytic activity/Vol] 71 U/L 45-117 [facility] ALT [Catalytic activity/Vol] 18 U/L 13-56 [facility] CO2 [Moles/Vol] 24.0 mmol/L 21.0-32.0 [facility] Globulin (S) [Mass/Vol] 3.5 g/dL 2.2-4.2 [facility] Lipase [Catalytic activity/Vol] 20 U/L 13-75 [facility] Comment on above: Please note:LIPASE r evised reference range effective 23. New Lipase methodology. Expected to produce lower values than the previous assay method. NEW Reference Range: 13 - 75 U/L Urea nitrogen/Creatinine [Mass ratio] 13.2 mg/mg 10-20 [facility] Laboratory - Hematology and Cell countsOrdered By: Salvatore Lamb on 05-02-2023 Erythrocyte distribution width (RBC) [Entitic vol] 42.5 fL 35.1-43.9 [facility] Erythrocyte distribution width (RBC) [Ratio] 12.8 % 11.6-14.6 [facility] Immature granulocytes/100 WBC (Bld) 0.300 % 0.0-0.9 [facility] Comment on above: IG% - Immature Granu locytes (promyelocytes, myelocytes and metamyelocytes) > 1% indicates that a LEFT SHIFT is Present. MCH (RBC) [Entitic mass] 29.2 pg 27.0-32.0 [facility] Nucleated RBC/100 WBC (Bld) [Ratio] 0 % 0-5 [facility] MCHC Auto (RBC) [Mass/Vol]Or dered By: Salvatore Lamb on 05-02-2023 MCHC (RBC) [Mass/Vol] 32.4 g/dL 32-36 [facility] No Panel InformationOrdered By: Salvatore Lamb on 05-02-2023 Estimated Creatinine Clearance Calc 74.38 ml/min [facility] Estimated GFR (MDRD) Amer 101 mL/min >60 [facility] Comment on above: GFR Calc Estimated GFR (MDRD) Non-Af Amer 84 mL/min >60 [facility] Comment on above: Non- GFR Calc Platelets bldOrdered By: Baljit Lamb on 05-02-2023 Platelets (Bld) [#/Vol] 326 10*3/uL 150-450 [facility] Serum or plasma albumin aravind urement (mass/volume)Ordered By: Salvatore Lamb on 05-02-2023 Albumin [Mass/Vol] 3.4 g/dL 3.2-5.0 [facility] Serum or plasma calcium aravind urement (mass/volume)Ordered By: Salvatore Lamb on 05-02-2023 Calcium [Mass/Vol] 8.5 mg/dL 8.5-10.1 [facility] Serum or plasma creatinine m easurement (mass/volume)Ordered By: Salvatore Lamb on 05-02-2023 Creatinine [Mass/Vol] 0.76 mg/dL 0.55-1.02 [facility] Comment on above: The validity of the calculated GFR & GFRAA in patients over 70 years has not been determined. Clinical correlation is essential. Serum or plasma urea nitroge n measurement (mass/volume)Ordered By: Salvatore Lamb on 05-02-2023 Urea nitrogen [Mass/Vol] 10 mg/dL 7-18 [facility] Thin prep Papanicolaou smear with manual screeningOrdered By: Salvatore Lamb on 05-02-2023 Thin prep Papanicolaou smear with manual screening 17 U/L 15-37 [facility] Thin prep Papanicolaou smear with manual screening 9 5-15 [facility] Office Visit: UC: sinusitiso n 03-11-2017 Documentation of current medications (procedure) Done Invalid Interpretation Code [facility] Work Phone: Fall risk assessment No Invalid Interpretation Code [facility] Work Phone: Tobacco use CPHS Never smoker Invalid Interpretation Code [facility] Work Phone: Vital Signs Date Time Vital Sign Value Performing Clinician Faci lity 07-01-2025 14:26-0400 Body height 165.[address] Christina Singh MD Work Phone: [facility] 07-01-2025 14:26-0400 Body mass index (BMI) [Ratio] 35.7 kg/m2 Dr. Christina Singh MD Work Phone: [facility] 07-01-2025 14:26-0400 Body weight 97.[address] Christina Singh MD Work Phone: [facility] 04-14-2025 10:35-0400 Body mass index (BMI) [Ratio] 35.98 kg/m2 Rafi Lubin MD Work Phone: [facility] 04-14-2025 10:35-0400 Body weight 98.07 kg Rafi Lubin MD Work Phone: [facility] 04-14-2025 10:35-0400 Diastolic blood pressure 72 mm[Hg] Rafi Lubin MD Work Phone: [facility] 04-14-2025 10:35-0400 Systolic blood pressure 128 mm[Hg] Rafi Lubin MD Work Phone: [facility] 03-15-2025 11:50-0400 Body mass index (BMI) [Ratio] 35.78 kg/m2 Rafi Lubin MD Work Phone: [facility] 03-15-2025 11:50-0400 Body weight 97.52 kg Rafi Lubin MD Work Phone: [facility] 03-15-2025 11:50-0400 Diastolic blood pressure 82 mm[Hg] Rafi Lubin MD Work Phone: [facility] 03-15-2025 11:50-0400 Systolic blood pressure 124 mm[Hg] Rafi Lubin MD Work Phone: [facility] 03-10-2025 11:59-0400 Body mass index (BMI) [Ratio] 35.35 kg/m2 Raif Lubin MD Work Phone: [facility] 03-10-2025 11:59-0400 Body weight 96.34 kg Rafi Lubin MD Work Phone: [facility] 03-10-2025 11:59-0400 Diastolic blood pressure 80 mm[Hg] Rafi Lubin MD Work Phone: [facility] 03-10-2025 11:59-0400 Systolic blood pressure 120 mm[Hg] Rafi Lubin MD Work Phone: [facility] 03-03-2025 10:16-0400 Body height 165.1 cm Rafi Lubin MD Work Phone: [facility] 03-03-2025 10:16-0400 Body mass index (BMI) [Ratio] 35.84 kg/m2 Rafi Lubin MD Work Phone: [facility] 03-03-2025 10:16-0400 Body weight 97.7 kg Rafi Lubin MD Work Phone: [facility] 03-03-2025 10:16-0400 Diastolic blood pressure 80 mm[Hg] Rafi Lubin MD Work Phone: [facility] 03-03-2025 10:16-0400 Systolic blood pressure 120 mm[Hg] Rafi Lubin MD Work Phone: [facility] 10-14-2023 15:30-0500 Body height 165.1 cm Shantal Montalvo APRN.CNP Work Phone: [facility] 10-14-2023 15:30-0500 Body weight 96.34 kg Shantal Montalvo KILNMAN.LAST MODEL DEPARTMENT SUPERVISOR Work Phone: [facility] 10-14-2023 15:30-0500 Diastolic blood pressure 66 mm[Hg] Shantal Montalvo KILNMAN.LAST MODEL DEPARTMENT SUPERVISOR Work Phone: [facility] 10-14-2023 15:30-0500 Systolic blood pressure 124 mm[Hg] Shantal Montalvo KILNMAN.LAST MODEL DEPARTMENT SUPERVISOR Work Phone: [facility] 05-02-2023 12:19-0400 Respiratory rate 16 /min [facility] 05-02-2023 10:19-0400 Body height 165.1 cm [facility] 05-02-2023 10:19-0400 Body mass index (BMI) [Ratio] 32.5 kg/m2 [facility] 05-02-2023 10:19-0400 Body temperature 98 [degF] [facility] 05-02-2023 10:19-0400 Body weight 88.9 kg [facility] 05-02-2023 10:19-0400 Diastolic blood pressure 81 mm[Hg] [facility] 05-02-2023 10:19-0400 Heart rate 91 /min [facility] 05-02-2023 10:19-0400 SaO2% (BldA) [Mass fraction] 100 % [facility] 05-02-2023 10:19-0400 Systolic blood pressure 124 mm[Hg] [facility] 03-11-2017 17:22-0400 BMI (Body Mass Index) 37.55 kg/m2 Vince FRANCO [facility] Work Phone: 03-11-2017 17:22-0400 Body Temperature 98.9 [degF] Vince FRANCO [facility] Work Phone: 03-11-2017 17:22-0400 BP Diastolic 82 mm[Hg] Vince FRANCO [facility] Work Phone: 03-11-2017 17:22-0400 BP Systolic 122 mm[Hg] Vince Morley [facility] Work Phone: 03-11-2017 17:22-040 Height 162.56 cm Vince FRANCO [facility] Work Phone: 03-11-2017 17:22-0400 Pulse (Heart Rate) 82 /min Vince FRANCO [facility] Work Phone: 03-11-2017 17:22-0400 Pulse Oximetry 99 % Vince FRANCO [facility] Work Phone: 03-11-2017 17:22-0400 Respiratory Rate 14 /min Vince FRANCO [facility] Work Phone: 03-11-2017 17:22-0400 Weight 99.25 kg Vince FRANCO [facility] Work Phone: Encounters Encounter Date Encounter Type Care Provider Facility Start: 07-01-2025 End: 07-01-[address] Tony Elliott MD -[facility] Start: 07-01-2025 End: 07-01-[address] Christina Singh MD Work Phone: -[facility] Start: 04-14-2025 End: 04-14-2025 ambulatory RAFI LUBIN Facility:[facility] Start: 04-14-2025 End: 04-14-2025 Patient encounter procedure Rafi Lubin MD Work Phone: OB/Gynecology Comment on above: Perimenopause (Prima ry Dx); Adenomyosis Start: 03-17-2025 End: 05-17-2025 Follow-up encounter Michael Eubanks MD Work Phone: OB/Gynecology Start: 03-17-2025 ambulatory RAFI LUBIN [facility] ity:[facility] Start: 03-17-2025 End: 03-17-2025 Subsequent hospital visit by physician Screen Mammo [facility] M[facility]ogram Comment on above: Encounter for screen ing mammogram for breast cancer [Z12.31] Start: 03-15-2025 End: 03-15-2025 Patient encounter procedure Rafi Lubin MD Work Phone: OB/Gynecology Comment on above: ASCUS with positive high risk HPV cervical (Primary Dx) Start: 03-15-2025 End: 03-15-2025 ambulatory RAFI LUBIN Facility:[facility] Start: 03-10-2025 End: 03-10-2025 Patient encounter procedure Rafi Lubin MD Work Phone: OB/Gynecology Comment on above: Abnormal uterine ble eding (AUB) (Primary Dx) Start: 03-10-2025 End: 03-10-2025 ambulatory RAFI LUBIN Facility:[facility] Start: 03-05-2025 End: 05-05-2025 Follow-up encounter Rafi Lubin MD Work Phone: OB/Gynecology Comment on above: pap results Start: 03-05-2025 End: 03-05-2025 Patient encounter procedure [facility] OB/Gynecology Start: 03-05-2025 End: 03-05-2025 ambulatory Film Writer [facility] Work Phone: OB/Gynecology Start: 03-03-2025 End: 03-03-2025 ambulatory RAFI LUBIN Facility:[facility] Start: 03-03-2025 End: 03-03-2025 Patient encounter procedure Rafi Lubin MD Work Phone: OB/Gynecology Comment on above: Encounter for gyneco logical examination (general) (routine) without abnormal findings; Encounter for screening mammogram for breast cancer; Abnormal uterine bleeding (AUB); Screening for cervical cancer; Screening for human papillomavirus (HPV); PMB (postmenopausal bleeding) Start: 03-03-2025 End: 03-03-2025 Patient encounter status Rafi Lubin MD Work Phone: [facility] Start: 03-03-2025 End: 03-03-2025 ambulatory RAFI LUBIN Facility:[facility] Start: 03-03-2025 Encounter for gynecological examination (general) (routine) without abnormal findings RAFI LUBIN [facility] Start: 12-22-2024 End: 12-22-2024 ambulatory Christina Singh Facility:[facility] Start: 10-21-2023 Documentation procedure Mammog briana Coordinator [facility] Start: 10-21-2023 Letter encounter Mammography Coordinator [facility] Department Start: 10-18-2023 End: 10-18-2023 Subsequent hospital visit by physician Screen Mammo [facility] Mammogram Comment on above: Encounter for screen ing mammogram for breast cancer [Z12.31] PCB (post coital ble eding) [N93.0] Start: 10-14-2023 End: 10-14-2023 Patient encounter procedure Shantal Montalvo APRN.LAST MODEL DEPARTMENT SUPERVISOR Work Phone: OB/Gynecology Comment on above: Encounter [...] encounter status Shantal Montalvo APRN.CNP Work Phone: [facility] Work Phone: Start: 10-14-2023 Telephone encounter Shantal nice APRN.CNP Work Phone: OB/Gynecology Comment on above: Orders; Patient Upda te Start: 05-02-2023 End: 05-02-2023 Emergency department patient visit [facility] Work Phone: Start: 07-06-2022 End: 07-06-2022 ambulatory [facility] Work Phone: Start: 07-06-2022 End: 07-06-2022 Patient encounter procedure [facility] Ul[facility]ound Procedures Date Procedure Procedure Detail Performing Clinician Start: 03-05-2025 Us pelvic nonobstetr ic real-time image complete Rafi Lubin MD Work Phone: Start: 05-02-2023 SARS-CoV-2 & FLU Ant igen (Rapid) Start: 05-02-2023 US scan of gallbladder Start: 07-06-2022 CT of abdomen Plan of Treatment Date Care Activity Detail Author Start: 10-14-2028 Screening for malign ant neoplasm of cervix [facility] Start: 03-06-2028 Urine microalbumin profile DTaP,Tdap,Td Vaccine (3 - Td or Tdap) [facility] Start: 03-17-2026 Screening for malign ant neoplasm of breast Mammogram Screening [facility] Start: 03-03-2026 Screening for malign ant neoplasm of cervix Cervical Cancer Screening [facility] Start: 07-05-2025 Influenza vaccination [facility] Start: 07-01-2025 L/S Spine Min 4 Views L/S Spine Min 4 Views [facility] Start: 07-01-2025 XR Spine Lumbar and Sacrum GE 4 Views [facility] Start: 03-17-2025 End: 03-17-2025 Patient encounter procedure 03/17/2025 12:50 PM EDT Appointment Mammogram [address] [place] [address] Encounter for screening mammogram for breast cancer [Z12.31] Mammogram Comment on above: Encounter for screen ing mammogram for breast cancer [Z12.31] Start: 03-10-2025 End: 03-10-2025 Patient encounter procedure 03/10/2025 11:40 AM EDT Office Visit OB/Gynecology [address] [place] [address] Rafi Lubin MD [address] [place] [address] [facility] OB/Gynecology Comment on above: [facility] Start: 03-05-2025 End: 03-05-2025 ambulatory 03/05/2025 1:00 PM EDT Procedure OB/Gynecology [address] [place] [address] [facility], [facility] [address] [place] [address] Abnormal uterine bleeding (AUB) [N93.9] OB/Gynecology Comment on above: Abnormal uterine ble eding (AUB) [N93.9] Start: 03-03-2025 End: 06-02-2025 Follitropin [Units/volume] in Serum or Plasma [facility] Comment on above: Expected: 03/03/2025 , Expires: 06/02/2025 Start: 03-03-2025 End: 03-03-2026 US Pelvis PELVIC US [facility] Anc Imaging Routine Abnormal uterine bleeding (AUB) Expected: 03/03/2025, Expires: 03/03/2026 [facility] Comment on above: Expected: 03/03/2025 , Expires: 03/03/2026 Start: 10-18-2024 Screening for malign ant neoplasm of breast Mammogram Screening [facility] Start: 10-14-2024 Screening for malign ant neoplasm of cervix Cervical Cancer Screening [facility] Start: 07-05-2024 Covid-19 Vaccine ( season) Covid-19 Vaccine () [facility] Start: 07-05-2024 Influenza vaccination Influenza Vacc ine (#1) [facility] Start: 07-05-2023 Influenza vaccination Influenza Vacc ine (#1) [facility] Start: 04-03-2023 HPV Testing HPV Testing [facility] Start: 04-03-2023 Pap Testing Pap Testing [facility] Start: 04-03-2023 Screening for malign ant neoplasm of cervix Pap Testing [facility] Start: 11-04-2022 Depression Assessment Depression Ass essment [facility] Start: 10-17-2021 Mammography Mammogram Screening [facility] Start: 10-17-2021 Screening for malign ant neoplasm of breast Mammogram Screening [facility] Start: 2017 Pneumococcal Vaccine : 50+ (1 of 1 - PCV) Pneumococcal Vaccine: 50+ (1 of 1 - PCV) [facility] Start: 2017 Shingrix Vaccine (1 of 2) Shingrix Vaccine (1 of 2) [facility] Start: 03-11-2017 End: 03-11-2017 Appointment Appointment [facility] Work Phone: Start: 2012 Cologuard (FIT-DNA) Cologuard (FIT-D NA) [facility] Start: 2012 Colonoscopy Colonoscopy [facility] Start: 2012 Colorectal Cancer Screening Colorectal Cancer Screening [facility] Start: [address] Colonography [facility] Start: 2012 Diabetes Screening Diabetes Screenin g [facility] Start: 2012 Fecal Occult Blood Fecal Occult Bloo d [facility] Start: 2012 Lipid 1996 panel - Serum or Plasma Lipid Screening [facility] Start: 2012 Lipid panel Lipid Screening [facility] Start: 2012 Screening for malign ant neoplasm of colon [facility] Start: 2012 Sigmoidoscopy Sigmoidoscopy [facility] Start: 1986 Hepatitis B Vaccine (1 of 3 - 19+ 3-dose series) Hepatitis B Vaccine (1 of 3 - 19+ 3-dose series) [facility] Start: 1985 Anxiety Screening Anxiety Screening [facility] Start: 1985 Depression Screening Depression Scre ening [facility] Start: 1985 Hepatitis C Screening Hepatitis C [facility] Start: 1985 Hepatitis C screening Hepatitis C [facility] Start: 1985 HIV Screening HIV Screening [facility] Start: 1985 HIV screening HIV Screening [facility] Start: 1967 Covid-19 Vaccine (#1) Covid-19 Vacci ne (#1) [facility] Start: 1967 Hepatitis B Vaccine (1 of 3 - 3-dose series) Hepatitis B Vaccine (1 of 3 - 3-dose series) [facility] COLPOSCOPY COLPOSCOPY Proce balbina Routine ASCUS [...] Routine Abnormal uterine bleeding (AUB) Ordered: 03/03/2025 [facility] Comment on above: Ordered: 03/03/2025 Endometrial [...] mammogram for breast cancer 10/18/2023 10:40 AM [facility] Work Phone: PAP TEST PAP TEST Lab [...] human papillomavirus (HPV) 03/03/2025 10:51 AM EDT [facility] Patient Education ED Diet Vomiti ng Diarrhea ED Gallstones with Biliary Colic [facility] Work Phone: Patient referral [facility] Work Phone: Tissue Pathology bio psy report SURGICAL PATHOLOGY Lab Routine Abnormal uterine bleeding (AUB) 03/10/2025 12:34 PM EDT [facility] Tissue Pathology bio psy report SURGICAL [...] AM EST [facility] Work Phone: [facility] Work Phone: [facility] Immunizations Immunization Date Immunization Notes Care Provider Alex gilliland 10-11-2010 influenza virus vaccine, unspecified formulation Shantal Montalvo APRN.[facility] Work Phone: [facility] Work Phone: Payers Date Payer Category Payer Self-pay [id number] 2021 [employer] [facility] BLUE ACCE PPO Member Subscriber Plan / Payer (Effective 2021-Present) Name: Kathrin Brownlee Relation to Subscriber: Self Name: Kathrin Brownlee Payer ID: [id number] (NAIC) Type: PPO Address: [place] [id number] 2021 Unknown [employer] BLUE ACCE SS PPO [id number] 2021-Present [phone] [id number] [place] [address] O [id number] 2016 Unknown [id number] Unknown [id number] Unknown [id number] Unknown [id number] Social History Date Type Detail Facility Start: 11-09-2020 End: 05-02-2023 Tobacco smoking status ILIS Unknown if ever smoked [facility] Start: 11-09-2020 Non-smoker [facility] Start: 1965 Sex Assigned At Female [facility] Start: 05-02-2023 End: 10-14-2023 Tobacco smoking status ILIS Never smoked tobacco [facility] Work Phone: Start: 10-14-2023 Tobacco use and exposure Smoke less tobacco non-user [facility] Work Phone: Start: 10-14-2023 End: 03-15-2025 Alcohol intake Current drinker of alcohol (finding) [facility] Start: 08-18-2020 End: 10-14-2023 History of Social function [facility] Work Phone: Start: 08-18-2020 End: 10-14-2023 Social connection and isolation panel [facility] Work Phone: Do you belong to any clubs or organizations such as yazidism groups, unions, fraternal or athletic groups, or school groups? Yes [facility] Work Phone: Are you now , , , , never or living with a partner? [facility] Work Phone: How hard is it for y ou to pay for the very basics like food, housing, medical care, and heating Not hard at all [facility] Work Phone: Do you feel stress - tense, restless, nervous, or anxious, or unable to sleep at night because your mind is troubled all the time - these days [OSQ] Only a little [facility] Work Phone: (I/We) worried ingrid er (my/our) food would run out before (I/we) got money to buy more. Never true [facility] Work Phone: Start: 08-18-2020 Education 16 [facility] Start: 04-03-2018 [facility] Start: 1965 Sex Assigned At Not [facility] file [facility] NEGATED: Highlighted rowStart: NINF History of tobacco use Passive smoker [facility] Work Phone: Clinical Notes 10-14-2023 to 04-14-2025 Rafi Lubin MD - 04/14/2025 10:32 AM Veda Velazquez Mammo Tech - 03/17/2025 12:50 PM EDTPatient InstructionsRafi Lubin MD - 03/15/2025 11:43 AM EDTPatient Instructions Note Date & Type Note Facility 04-14-2025 Note HNO ID: [id number] Author: RAFI LUBIN MD Service: ? Author [...] Ectopic0 Multiple0 Live Births2 Comment: x 2 Rv Service Technician History LMP: 07/19/2020, Ablation Age at Menarche: Age at First : Age at Menopause: Rv Service Technician History Comments: Sexual Activity: Yes; Male Contraception: [...] ftft > 30 min Rafi Lubin MD [facility] 04-14-2025 History of Presen t illness Narrative [...] Ectopic0 Multiple0 Live Births2 Comment: x 2 Rv Service Technician History LMP: 07/19/2020, Ablation Age at Menarche: Age at First : Age at Menopause: Rv Service Technician History Comments: Sexual Activity: Yes; Male Contraception: [...] Rafi Lubin MD documented in this encounter [facility] 03-17-2025 History of Presen t illness [...] PATIENT PRESENTS WITH AN IMPLANTABLE OR ATTACHED LAUNDRY TECH: No RADIOLOGY DEPARTMENT: Mammography PERIPHERAL IV DATA: Not applicable SIGNED BY: Liz Dawkins March 17, 2025 12:54 PM documented in this encounter [facility] 03-17-2025 Note HNO ID: [id number] Author: VEDA DOUGHERTY Mammo Tech Service: ? Author Type: [place] Type: Progress Notes Filed: 03/17/2025 12:54 Note [...] PATIENT PRESENTS WITH AN IMPLANTABLE OR ATTACHED LAUNDRY TECH: No RADIOLOGY DEPARTMENT: Mammography PERIPHERAL IV DATA: Not applicable SIGNED BY: Liz Dawkins March 17, 2025 12:54 PM [facility] 03-15-2025 Instructions Juliette Jurado MA - 03/15/2025 [...] your doctor's office. documented in this encounter [facility] 03-15-2025 Note HNO ID: [id number] Author: RAFI LUBIN MD Service: ? Author [...] as lesion is small. Rafi Lubin MD [facility] 03-15-2025 History of Presen t illness Narrative [...] Rafi Lubin MD documented in this encounter [facility] 03-10-2025 Instructions Iris Greer MA - [...] contact the office. documented in this encounter [facility] 03-10-2025 Note HNO ID: [id number] Author: RAFI LUBIN MD Service: ? Author Type: Physician Type: Progress Notes Filed: 03/10/2025 12:28 Note Text: Prom Burn Off Operator offered: Patient accepts, visit chaperoned by Iris [...] results in 1-2 weeks. Rafi Lubin MD [facility] 03-10-2025 History of Presen t illness Narrative Prom Burn Off Operator offered: Patient accepts, visit chaperoned by Iris [...] Rafi Lubin MD documented in this encounter [facility] 03-09-2025 Note HNO ID: [id number] Author: ALEXIA CASSIDY MD Service: ? Author Type: Physician Type: Progress Notes Filed: 03/09/2025 10:22 Note Text: The patient presents for requested ultrasound. Full report available in the Imaging tab in [employer]. Alexia Cassidy MD [facility] 03-09-2025 History of Presen t illness Narrative The patient presents for requested ultrasound. Full report available in the Imaging tab in [employer]. Alexia Cassidy MD documented in this encounter [facility] 03-03-2025 Note HNO ID: [id number] Author: RAFI LUBIN MD Service: ? Author Type: Physician Type: Progress Notes Filed: 03/03/2025 10:45 Note Text: Prom Burn Off Operator offered: Patient accepts, visit chaperoned by Iris [...] external genitalia normal, normal Bartholin's glands, urethra, Rumson's glands, no vulvar lesions, no cervical lesions, [...] schedule endometrial bx/pelvic ultrasound Rafi Lubin MD [facility] 03-03-2025 History of Presen t illness Narrative Prom Burn Off Operator offered: Patient accepts, visit chaperoned by Iris [...] external genitalia normal, normal Bartholin's glands, urethra, Rumson's glands, no vulvar lesions, no cervical lesions, [...] Rafi Lubin MD documented in this encounter [facility] 10-21-2023 Miscellaneous Notes October 22, 2023 PID: [id number] Kathrin Brownlee [address] [place] [address] Dear Ms. Brownlee, We are pleased to [...] report will be kept on file at [facility] as part of your permanent medical record and are available for your continuing care. Thank you for allowing us to help in meeting your health care needs. Sincerely, Dr. Puente Interpreting Radiologist [facility] (Normal over 40) documented in this encounter [facility] 10-18-2023 History of Presen t illness [...] 2023 9:43 AM documented in this encounter [facility] 10-18-2023 History of Presen t illness [...] 2023 11:52 AM documented in this encounter [facility] 10-14-2023 Miscellaneous Notes Patient notified and voiced understanding. Appointment scheduled. Oksana Patel RN Please notify patient: I would like her to have an ultrasound for the post coital bleeding. It has been ordered. Please assist in scheduling. Shantal Montalvo APRN.CNP documented in this encounter [facility] 10-14-2023 Instructions Shantal Montalvo APRN.CNP - [...] salmon and sardines and vegetables, such as Estonian cabbage, kale, and broccoli. Foods fortified with [...] acid, calcium carbonate is found in some ymyq-nmq-rnochgm antacid products, such as Tums and Rolaids [...] by your doctor. 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 old who [...] Ectopic0 Multiple0 Live Births2 Comment: x 2 Rv Service Technician History LMP: 07/19/2020, Ablation Age at Menarche: Age at First : Age at Menopause: Rv Service Technician History Comments: Sexual Activity: Yes; Male Contraception: [...] external genitalia normal, normal Bartholin's glands, urethra, Rumson's glands, no vulvar lesions, no cervical lesions, [...] 3 - Low documented in this encounter [facility] Evaluation note No assessment inform ation available [facility] Work Phone: Evaluation note Diagnosis Encounter for [...] bleeding) Postcoital bleeding [facility] Diagnosis Encounter for screening mammogram for breast cancer [facility] Diagnosis PCB (post coital bleeding) Postcoital bleeding [facility] Diagnosis Encounter for gynecological examination (general) (routine) without abnormal findings Encounter for screening mammogram for breast cancer Abnormal uterine bleeding (AUB) Screening for cervical cancer Screening for malignant neoplasm of the cervix Screening for human papillomavirus (HPV) Special screening examination for human papillomavirus (HPV) PMB (postmenopausal bleeding) Postmenopausal bleeding [facility] Abnormal [facility] bleeding (AUB) [facility] Diagnosis Abnormal uterine bleeding (AUB)- Primary [facility] Diagnosis ASCUS with positive high risk HPV cervical- Primary Cervical high risk human papillomavirus (HPV) DNA test positive [facility] Diagnosis Encounter for screening mammogram for breast cancer [facility] Diagnosis Perimenopause- Primary Symptomatic menopausal or female climacteric states Adenomyosis Endometriosis of uterus [facility] Diagnosis ASCUS with positive high risk HPV cervical- Primary Cervical high risk human papillomavirus (HPV) DNA test positive [facility] Dis[facility] Additional Instructions Ultrasound with gallstones, no signs of cholecystitis. White count 8.6 normal lipase and liver enzymes. Continue oral fluids. Avoid dairy products and greasy products. Follow- up with Dr. Ta. COVID influenza negative. Return if worsening symptoms..[facility] Work Phone: Hospital Discharge instructionsAmbulatory Orders* Pain Management Location: None Selected [facility] Work Phone: Reason for referral (narrative)* Diagnostic Procedure Only (Routine) - Authorized Specialty Diagnoses / Procedures Referred By Mami yanes Referred To Contact [facility] Diagnoses PCB (post coital bleeding) Procedures US FEMALE PELVIS TRANSVAG US TRANSVAGINAL Shantal Montalvo APRN.CNP [address] [place] [address] [facility] [place] [address] Referral ID Status Reason Start Date Expiration Date Visits Requested Visits Authorized [id number] Authorized Auto-Generat ed Referral 3 11/12/2024 1 1 * Consult, Test, Treat (Routine) - Authorized Specialty Diagnoses / Procedures Referred By Mami yanes Referred To Contact Hematology Diagnoses Family history of blood clots History of deep vein thrombosis Procedures CONSULT TO HEMATOLOGY OFFICE/OUTPATIENT [facility] 60-74 MINUTES Shantal Montalvo APRN.CNP [address] [place] [address] Referral ID Status Reason Start Date Expiration Date Visits Requested Visits Authorized [id number] Authorized PCP Requested Referral 3 10/13/2024 1 1 * Consult, Test, Treat (Routine) - Authorized Specialty Diagnoses / Procedures Referred By Mami yanes Referred To Contact General Surgery Diagnoses Colon cancer screening Procedures CONSULT TO GENERAL SURGERY OFFICE/OUTPATIENT [facility] MDM 60-74 MINUTES Shantal Montalvo APRN.CNP [address] [place] [address] Referral ID Status Reason Start Date Expiration Date Visits Requested Visits Authorized [id number] Authorized PCP Requested Referral 3 10/13/2024 1 1 * Diagnostic Procedure Only (Routine) - Authorized Specialty Diagnoses / Procedures Referred By Mami yanes Referred To Contact [facility] Diagnoses Encounter for screening mammogram for breast cancer Procedures DUANE SCREENING SCREENING MAMMOGRAPHY BI 2-VIEW BREAST INC CAD Shantal Montalvo APRN.CNP [address] [place] [address] [facility] [address] [place] [address] Referral ID Status Reason Start Date Expiration Date Visits Requested Visits Authorized [id number] Authorized Auto-Generat ed Referral 3 11/12/2024 1 1 [facility]ative)No reason for referral information [facility]De[facility] Work Phone: Reason for visit Narrative* Diagnostic Procedure Only (Routine) - Closed Specialty Diagnoses / Procedures Referred By Mami yanes Referred To Contact [facility] Diagnoses Encounter for screening mammogram for breast cancer Procedures DUANE SCREENING SCREENING MAMMOGRAPHY BI 2-VIEW BREAST INC CAD Shantal Montalvo APRN.CNP [address] [place] [address] [facility] [address] [place] [address] Referral ID Status Reason Start Date Expiration Date V isits Requested Visits Authorized [id number] Closed Auto-Generate d Referral 10/14/2023 11/12/2024 1 1 [facility] for visit Narrative* Diagnostic Procedure Only (Routine) - Closed Specialty Diagnoses / Procedures Referred By Mami yanes Referred To Contact [facility] Diagnoses Abnormal uterine bleeding (AUB) Procedures PELVIC US WHI US PELVIC NONOBSTETRIC REAL-TIME IMAGE COMPLETE Rafi Lubin MD [address] [place] [address] Phone: tel: fax: [facility] [address] [place] [address] Referral ID Status Reason Start Date Expiration Date V isits Requested Visits Authorized [id number] Closed Auto-Generate d Referral 03/03/2025 03/03/2026 1 1 [facility] for visit Narrative* Diagnostic Procedure Only (Routine) - Closed Specialty Diagnoses / Procedures Referred By Mami yanes Referred To Contact [facility] Diagnoses Encounter for screening mammogram for breast cancer Procedures DUANE SCREENING W BRADEN SCREENING DIGITAL BREAST TOMOSYNTHESIS BI SCREENING MAMMOGRAPHY BI 2-VIEW BREAST INC CAD Rafi Lubin MD [address] [place] [address] Phone: tel: fax:[phone] [facility] [address] [place] [address] Referral ID Status Reason Start Date Expiration Date V isits Requested Visits Authorized [id number] Closed Auto-Generate d Referral 03/03/2025 04/02/2026 1 1 [facility] Chief Complaint and Reason for Visit Chief Complaint PAIN AND INDIGESTION Chief Complaint ABD PAIN N/V/D Chief Complaint Admit Date LUMBAR SPINE July 01, 2025 2: 19pm Room 4 July 01, 2025 2: 35pm Advance Directives No Advanced Directives Records Found Advance Directive Response Recorded Date/ Time Living Will No November 09 2:10pm Power of Railway Yard Assistant No November 09 2:10pm Advance Directive Response Recorded Date/ Time Living Will No May 02, 2023 10:26am Power of Railway Yard Assistant No May 02 10:26am Family History Relationship [...] Dr. Salvatore Lamb DO Emergency Provider Active [employer] Relationship Specialty Start Date End Date Christina Singh MD PCP - General Family Medicine 10/11/10 [employer] Relationship Specialty Start Date End Date Christina Singh MD PCP - General Family Medicine 10/11/10 [employer] Relationship Specialty Start Date End Date Christina Singh MD PCP - General Family Medicine 10/11/10 [employer] Relationship Specialty Start Date End Date Christina Singh MD PCP - General Family Medicine 10/11/10 [employer] Relationship Specialty Start Date End Date Christina Singh MD PCP - General Family Medicine 10/11/10 [employer] Relationship Specialty Start Date End Date Christina Singh MD PCP - General Family Medicine 10/11/10 [employer] Relationship Specialty Start Date End Date Christina Singh MD PCP - General Family Medicine 10/11/10 [employer] Relationship Specialty Start Date End Date Christina Singh MD PCP - General Family Medicine 10/11/10 [employer] Relationship Specialty Start Date End Date Christina Singh MD PCP - General Family Medicine 10/11/10 [employer] Relationship Specialty Start Date End Date Christina Singh MD PCP - General Family Medicine 10/11/10 [employer] Relationship Specialty Start Date End Date Christina Singh MD PCP - General Family Medicine 10/11/10 [employer] Relationship Specialty Start Date End Date Christina Singh MD PCP - General Family Medicine 10/11/10 Team Status: Active Member Role/Relationship Status Dates Dr. Christina Singh MD Family Provider Active Dr. Christina Singh MD Primary Care Provider Active Team Status: Active Member Role/Relationship Status Dates Dr. Christina iSngh MD Primary Care Provider Active Start: July [...] or prosecute any alcohol or drug abuse patient.[facility] the event this information is protected by the Federal Confidentiality of Alcohol and Drug Abuse Patient Records regulations: The Federal rules restrict any use of the information to criminally investigate or prosecute any alcohol or drug abuse patient.[facility] the event this information is protected by the Federal Confidentiality of Alcohol and Drug Abuse Patient Records regulations: The Federal rules restrict any use of the information to criminally investigate or prosecute any alcohol or drug abuse patient.[facility] HospitalIn the event this information is protected by the Federal Confidentiality of Alcohol and Drug Abuse Patient Records regulations: The Federal rules restrict any use of the information to criminally investigate or prosecute any alcohol or drug abuse patient.[facility] HospitalIn the event this information is protected by the Federal Confidentiality of Alcohol and Drug Abuse Patient Records regulations: The Federal rules restrict any use of the information to criminally investigate or prosecute any alcohol or drug abuse patient.[facility] HospitalIn the event this information is protected by the Federal Confidentiality of Alcohol and Drug Abuse Patient Records regulations: The Federal rules restrict any use of the information to criminally investigate or prosecute any alcohol or drug abuse patient.[facility] HospitalIn the event this information is protected by the Federal Confidentiality of Alcohol and Drug Abuse Patient Records regulations: The Federal rules restrict any use of the information to criminally investigate or prosecute any alcohol or drug abuse patient.[facility] HospitalIn the event this information is protected by the Federal Confidentiality of Alcohol and Drug Abuse Patient Records regulations: The Federal rules restrict any use of the information to criminally investigate or prosecute any alcohol or drug abuse patient.[facility] HospitalIn the event this information is protected by the Federal Confidentiality of Alcohol and Drug Abuse Patient Records regulations: The Federal rules restrict any use of the information to criminally investigate or prosecute any alcohol or drug abuse patient.[facility] HospitalIn the event this information is protected by the Federal Confidentiality of Alcohol and Drug Abuse Patient Records regulations: The Federal rules restrict any use of the information to criminally investigate or prosecute any alcohol or drug abuse patient.[facility] HospitalIn the event this information is protected by the Federal Confidentiality of Alcohol and Drug Abuse Patient Records regulations: The Federal rules restrict any use of the information to criminally investigate or prosecute any alcohol or drug abuse patient.[facility] HospitalIn the event this information is protected by the Federal Confidentiality of Alcohol and Drug Abuse Patient Records regulations: The Federal rules restrict any use of the information to criminally investigate or prosecute any alcohol or drug abuse patient.[facility] HospitalIn the event this information is protected by the Federal Confidentiality of Alcohol and Drug Abuse Patient Records regulations: The Federal rules restrict any use of the information to criminally investigate or prosecute any alcohol or drug abuse patient.[facility] Reason for Visit (unrecogniz ed section and content) Reason Comments Yearly Exam Reason Comments Orders Patient Update Reason Comments Radiology US Specialty Diagnoses / Procedures Referred By Contac t Referred To Contact [facility] Diagnoses PCB (post coital bleeding) Procedures US FEMALE PELVIS TRANSVAG US TRANSVAGINAL Shantal Montalvo APRN.SAROJ [address] [place] [address] [place] [address] Referral ID Status Reason Start Date Expiration Date V isits Requested Visits Authorized [id number] Closed Auto-Generate d Referral 10/14/2023 11/12/2024 1 1 Reason Comments Well Woman Reason Comments Endometrial Biopsy Specialty Diagnoses / Procedures Referred By Contac t Referred To Contact [facility] Diagnoses Abnormal uterine bleeding (AUB) Procedures ENDOMETRIAL BIOPSY ENDOMETRIAL BX W/WO ENDOCERVIX BX W/O DILAT SPX Rafi Lubin MD [address] [place] [address] Phone: tel: fax: [facility] [address] [place] [address] Referral ID Status Reason Start Date Expiration Date V isits Requested Visits Authorized [id number] Closed Auto-Generate d Referral 03/03/2025 03/03/2026 1 1 Reason Comments Colposcopy Specialty Diagnoses / Procedures Referred By Contjaylene t Referred To Contact [facility] Diagnoses ASCUS with positive high risk HPV cervical Procedures COLPOSCOPY COLPOSCOPY CERVIX BX CERVIX & ENDOCRV Michael Pretty MD [address] [place] [address] Phone: tel: fax: [facility] [address] [place] [address] Referral ID Status Reason Start Date Expiration Date V isits Requested Visits Authorized [id number] Closed Auto-Generate d Referral 03/11/2025 03/11/2026 1 1 Reason Comments Problem Visit Reason Onset Date Comments pap results 03/05/2025 INFORMATION SOURCE (unrecogn ized section and content) DATE CREATED AUTHOR 04/16/2025 [facility] DATE CREATED AUTHOR AUTHOR'S ORGANIZ ATION 07/01/2025 [facility] FOR RECORDS PERTAINING TO PATIENTS WHO [...] BE BASED ON THE PRIMARY CLINICAL RECORDS. [employer] [facility]. provides no warranty or guarantee of the accuracy or completeness of information in this document.
[2025-09-12 23:11] LABS: CRP 6.89 mg/L (0.0-3.0)
[2025-09-12] MEDS: 0.9% Saline Lock 10 ML Syringe IV (23:39)
[2025-09-12] MEDS: 0.9% Normal Saline (1000mL) 1,000 ML 100 ML IV (23:43)
[2025-09-13] VITALS (7 sets, daily range): BP systolic 131–148; BP diastolic 73–81; PULSE 70–81; RESP 12–18; TEMP 36.2–36.9; O2SAT 93–98; BMI 34.1
[2025-09-13 05:43] LABS: Hematocrit 35.6 % (37-47); Hemoglobin 11.9 g/dL (12.0-15.0); Immature Granulocytes Count 0.060 X10^3/uL (0.0-0.0); Mean Corp Hgb Conc 33.4 g/dL (32-36); Mean Corpuscular Volume 86.2 fL (81-99); Mean Platelet Vol. 8.8 fl (6.2-12.0); NRBC Flagged by Analyzer 0 % (0-5); POSITIVE MORPHOLOGY YES; Platelet Count 337 K/mm3 (150-450); RBC Distribution Width CV 13.5 % (11.6-14.6); RBC Distribution Width SD 42.5 fl (35.1-43.9); Red Blood Count 4.13 M/mm3 (4.2-5.4); White Blood Count 11.7 K/mm3 (4.4-11.0)
[2025-09-13 05:45] LABS: Differential Indicated SCAN CRITERIA MET
[2025-09-13 06:12] LABS: Anisocytosis 1+; Reactive Lymphocyte 1+; Schistocytes RARE; Target Cells RARE
[2025-09-13 06:16] LABS: AST(SGOT) 16 U/L (<=31); Alanine Aminotransfer ALT/SGPT 11 U/L (<=34); Albumin, Serum 3.8 g/dL (3.5-5.0); Alkaline Phosphatase 86 U/L (35-104); Anion Gap 11 (5-15); BUN 9 mg/dL (4-19); BUN/Creat Ratio 14.4 RATIO (10-20); Calcium,Total 8.7 mg/dL (7.6-11.0); Carbon Dioxide 21.6 mmol/L (21.0-32.0); Chloride 107 mmol/L (98-108); Estimated Creatinine Clearance 108.06 ml/min (50-250); Globulin 2.3 g/dL (2.2-4.2); Glucose 115 mg/dL (70-99); Magnesium 2.2 mg/dL (1.5-2.2); Potassium 3.8 mmol/L (3.3-5.1)
[2025-09-13 06:36] LABS: Cholesterol 152 mg/dL (<=200); Low Density Lipoprotein Calc. 97 mg/dL; Triglycerides 92 mg/dL; Very Low Density Lipoprotein 18 mg/dL (5-40); cholesterol:hdl ratio screen 4.04
[2025-09-13] MEDS: Magnesium Chloride 64 MG Delay Rel.Tablet PO (08:27)
--- NOTE | 2025-09-13 09:45 | MRI_ITS ---
PROCEDURE: BRAIN W/WO CONTRAST 09/13/2025 REASON FOR EXAM: VERTIGO TECHNIQUE: Procedure Code: MRIBRWW Modality: MR Procedure: BRAIN W/WO CONTRAST Multiplanar and multisequence images were obtained. CONTRAST: Clariscan VOLUME: 18 mL COMPARISON: Available priors FINDINGS: Brain: FLAIR and T2 images demonstrate scattered foci of nonspecific increased signal in the deep and subcortical white matter. No intracranial hemorrhage midline shift or mass effect. No abnormal pattern of enhancement detected after the intravenous administration of contrast. Normal appearance of the cerebellopontine angles and internal auditory canals. Normal pituitary fossa. Normal signal in the howard and midbrain. No mass. Normal cerebellar hemispheres. Diffusion: Normal Ventricles: Normal. Major Intracranial Vessels: Normal flow voids. Sinuses: Clear Mastoids: Clear Other: Orbits are within normal limits MRI/Brain W/WO Contrast IMPRESSION: Mild small-vessel ischemic changes. No acute intracranial abnormality. Unremarkable appearance of the internal auditory canals. Reading Location: [id number]
[2025-09-13] MEDS: 0.9% Saline Lock 10 ML Syringe IV (10:33)
[2025-09-13] MEDS: 0.9% Normal Saline (1000mL) 1,000 ML 100 ML IV (10:33)
--- NOTE | 2025-09-13 12:48 | STROKE.CONS ---
Assessment and Plan: Stroke Assessment/Plan Patient presents with vertigo with motion. Symptoms improved but sometimes persist with motion. There is some ataxia with rightward gaze. Work up has not revealed acute stroke and likely suggests peripheral etiology. No further neurovascular work up at this time. HPI Consult Data Date of Consult: 09/14/25 HPI Narrative HPI Narrative: JOSE MOYA, is a 60 F who presents with vertigo with motion. No other neurologic deficits. [facility] Medical History Bacterial sinusitis child Chronic neck and back pain Abnormal bruising Hx of blood clots Fatigue Hemorrhoids Home Medications ?Medication ?Instructions ?Recorded ?Last Taken ?Type acetaminophen 325 mg capsule 325 mg PO ONCE PRN Pain 1-10 Or 08/27/20 Unknown History (Tylenol) Fever ascorbate calcium (vitamin C) 500 500 mg PO QDAY 07/01/25 Unknown History mg tablet magnesium 200 mg tablet 200 mg PO QDAY 07/01/25 Unknown History methocarbamol 500 mg tablet 500 mg PO TID PRN pain/spasms #60 07/01/25 Unknown Rx tabs turmeric 400 mg capsule mg PO 07/01/25 Unknown History amoxicillin 875 mg-potassium 1 tab PO BID 09/12/25 Unknown History clavulanate 125 mg tablet meclizine 25 mg tablet 25 mg PO BID PRN dizziness #20 tabs 09/13/25 Unknown Rx Allergy/AdvReac Type Severity Reaction Status Date / Time No Known Allergies Allergy Verified 09/12/25 14:57 Family History Unknown Diabetes CVA (cerebral vascular accident) Other Heart disease Surgical History History of endometrial ablation History of dilatation and curettage History of lumpectomy Social History (Updated 09/12/25 @ 22:[address] Barbara Carlin DO) household members: spouse housing: house current occupational status: employed Smoking Status: Never smoker alcohol intake: current details: occasional substance use type: does not use Vital Signs Vital Signs Vital Signs: 09/12/25 14:54 09/12/25 16:09 09/12/25 16:13 Temperature 97.7 F L 98.6 F Temperature Source Oral Oral Pulse Rate 90 83 Pulse Rate [Lying] 92 Pulse Rate [Sitting (for 1 minute prior to obtaining)] 94 Pulse Rate [Standing (for 1 minute prior to obtaining)] 91 Pulse Strength Respiratory Rate 18 14 Respiratory Effort Respiratory Depth Respiratory Pattern Blood Pressure 133/93 H 135/85 H Blood Pressure [Lying] 141/80 H Blood Pressure [Sitting (for 1 minute prior to obtaining)] 143/91 H Blood Pressure [Standing (for 1 minute prior to obtaining)] 135/85 H Blood Pressure Mean 106 101 Blood Pressure Mean [Lying] 100 Blood Pressure Mean [Sitting (for 1 minute prior to obtaining)] 108 Blood Pressure Mean [Standing (for 1 minute prior to obtaining)] 101 Blood Pressure Source Blood Pressure Position Blood Pressure Location Pulse Ox 99 96 Oxygen Delivery Method Room Air Room Air 09/12/25 17:00 09/12/25 18:00 09/12/25 19:47 Temperature 98.4 F 99.2 F H Temperature Source Oral Oral Pulse Rate 78 81 88 Pulse Rate [Lying] Pulse Rate [Sitting (for 1 minute prior to obtaining)] Pulse Rate [Standing (for 1 minute prior to obtaining)] Pulse Strength Respiratory Rate 14 14 16 Respiratory Effort Respiratory Depth Respiratory Pattern Blood Pressure 146/79 H 149/85 H 138/84 H Blood Pressure [Lying] Blood Pressure [Sitting (for 1 minute prior to obtaining)] Blood Pressure [Standing (for 1 minute prior to obtaining)] Blood Pressure Mean 101 106 102 Blood Pressure Mean [Lying] Blood Pressure Mean [Sitting (for 1 minute prior to obtaining)] Blood Pressure Mean [Standing (for 1 minute prior to obtaining)] Blood Pressure Source Blood Pressure Position Blood Pressure Location Pulse Ox 99 99 95 Oxygen Delivery Method Room Air Room Air 09/12/25 19:58 09/12/25 22:00 09/12/25 22:35 Temperature 99.2 F H 98.9 F Temperature Source Oral Pulse Rate 84 83 83 Pulse Rate [Lying] Pulse Rate [Sitting (for 1 minute prior to obtaining)] Pulse Rate [Standing (for 1 minute prior to obtaining)] Pulse Strength Respiratory Rate 13 17 16 Respiratory Effort Respiratory Depth Respiratory Pattern Blood Pressure 170/94 H 158/85 H 145/89 H Blood Pressure [Lying] Blood Pressure [Sitting (for 1 minute prior to obtaining)] Blood Pressure [Standing (for 1 minute prior to obtaining)] Blood Pressure Mean 119 109 107 Blood Pressure Mean [Lying] Blood Pressure Mean [Sitting (for 1 minute prior to obtaining)] Blood Pressure Mean [Standing (for 1 minute prior to obtaining)] Blood Pressure Source Monitor Blood Pressure Position Semi-Fowlers Blood Pressure Location Right Arm Pulse Ox 96 97 94 Oxygen Delivery Method Room Air Room Air 09/12/25 22:58 09/13/25 01:05 09/13/25 03:18 Temperature 97.1 F L Temperature Source Temporal Pulse Rate 81 Pulse Rate [Lying] Pulse Rate [Sitting (for 1 minute prior to obtaining)] Pulse Rate [Standing (for 1 minute prior to obtaining)] Pulse Strength Respiratory Rate 18 Respiratory Effort Normal Non-Labored Respiratory Depth Normal Respiratory Pattern Normal Blood Pressure 134/76 H Blood Pressure [Lying] Blood Pressure [Sitting (for 1 minute prior to obtaining)] Blood Pressure [Standing (for 1 minute prior to obtaining)] Blood Pressure Mean 95 Blood Pressure Mean [Lying] Blood Pressure Mean [Sitting (for 1 minute prior to obtaining)] Blood Pressure Mean [Standing (for 1 minute prior to obtaining)] Blood Pressure Source Monitor Blood Pressure Position Supine Blood Pressure Location Right Arm Pulse Ox 94 95 Oxygen Delivery Method Room Air Room Air Room Air 09/13/25 03:25 09/13/25 06:55 09/13/25 07:15 Temperature 97.4 F L Temperature Source Temporal Pulse Rate 72 Pulse Rate [Lying] Pulse Rate [Sitting (for 1 minute prior to obtaining)] Pulse Rate [Standing (for 1 minute prior to obtaining)] Pulse Strength Respiratory Rate 18 Respiratory Effort Normal Non-Labored Respiratory Depth Normal Respiratory Pattern Normal Blood Pressure 135/76 H Blood Pressure [Lying] Blood Pressure [Sitting (for 1 minute prior to obtaining)] Blood Pressure [Standing (for 1 minute prior to obtaining)] Blood Pressure Mean 95 Blood Pressure Mean [Lying] Blood Pressure Mean [Sitting (for 1 minute prior to obtaining)] Blood Pressure Mean [Standing (for 1 minute prior to obtaining)] Blood Pressure Source Monitor Blood Pressure Position Supine Blood Pressure Location Right Arm Pulse Ox 93 97 Oxygen Delivery Method Room Air Room Air Room Air 09/13/25 07:58 09/13/25 08:17 09/13/25 10:00 Temperature 98.2 F Temperature Source Oral Pulse Rate 70 Pulse Rate [Lying] Pulse Rate [Sitting (for 1 minute prior to obtaining)] Pulse Rate [Standing (for 1 minute prior to obtaining)] Pulse Strength Normal (2+) Respiratory Rate 12 Respiratory Effort Normal Non-Labored Respiratory Depth Normal Respiratory Pattern Normal Blood Pressure 137/73 H Blood Pressure [Lying] Blood Pressure [Sitting (for 1 minute prior to obtaining)] Blood Pressure [Standing (for 1 minute prior to obtaining)] Blood Pressure Mean 94 Blood Pressure Mean [Lying] Blood Pressure Mean [Sitting (for 1 minute prior to obtaining)] Blood Pressure Mean [Standing (for 1 minute prior to obtaining)] Blood Pressure Source Monitor Blood Pressure Position Semi-Fowlers Blood Pressure Location Right Arm Pulse Ox 95 Oxygen Delivery Method Room Air Room Air 09/13/25 11:15 Temperature 98.4 F Temperature Source Oral Pulse Rate 81 Pulse Rate [Lying] Pulse Rate [Sitting (for 1 minute prior to obtaining)] Pulse Rate [Standing (for 1 minute prior to obtaining)] Pulse Strength Respiratory Rate 14 Respiratory Effort Respiratory Depth Respiratory Pattern Blood Pressure 131/79 H Blood Pressure [Lying] Blood Pressure [Sitting (for 1 minute prior to obtaining)] Blood Pressure [Standing (for 1 minute prior to obtaining)] Blood Pressure Mean 96 Blood Pressure Mean [Lying] Blood Pressure Mean [Sitting (for 1 minute prior to obtaining)] Blood Pressure Mean [Standing (for 1 minute prior to obtaining)] Blood Pressure Source Monitor Blood Pressure Position Semi-Fowlers Blood Pressure Location Right Arm Pulse Ox 96 Oxygen Delivery Method Room Air Weight Weight: 93.1 kg Body Mass Index (BMI) 34.1 EEG Results Procedure Details EEG Procedure Details: JOSE MOYA is a 60 year old F with a past medical history of , who presents for evaluation of Electroencephalogram on DATE at TIME Lab / Micro Data 09/13/25 05:33 09/13/25 05:33 Labs: Laboratory Results - last 24 hr 09/12/25 16:05: WBC 11.7 H, RBC 4.65, Hgb 13.5, Hct 40.0, MCV 86.0, MCH 29.0, MCHC 33.8, RDW Std Deviation 42.1, RDW Coeff of April 13.3, Plt Count 383, MPV 9.2, Immature Gran % (Auto) 0.400, Neut % (Auto) 72.1 H, Lymph % (Auto) 20.9, Talbot % (Auto) 5.2, Eos % (Auto) 0.9, Baso % (Auto) 0.5, Absolute Neuts (auto) 8.4 H, Absolute Lymphs (auto) 2.44, Nucleated RBC % 0, ESR 5, Sodium 137, Potassium 3.8, Chloride 102, Carbon Dioxide 23.4, Anion Gap 12, BUN 12, Creatinine 0.66 L, Estim Creat Clear Calc 105.84, Est GFR (MDRD) Non-Af 102, BUN/Creatinine Ratio 18.4, Glucose 129 H, Calcium 9.3, C-React Prot Ext Range 6.89 H, Urine Color Straw, Urine Clarity Clear, Urine pH 7.0, Ur Specific Ethel 1.005, Urine Protein Negative, Urine Glucose (UA) Normal, Urine Ketones Negative, Urine Occult Blood Negative, Urine Nitrite Negative, Urine Bilirubin Negative, Urine Urobilinogen Normal, Ur Leukocyte Esterase Negative, Urine RBC 0 SEEN, Urine WBC 0 SEEN, Ur Squamous Epith Cells 0 SEEN, Urine Bacteria RARE, Urine Mucus 0 SEEN 09/12/25 16:19: Procalcitonin 0.05 09/13/25 05:33: WBC 11.7 H, RBC 4.13 L, Hgb 11.9 L, Hct 35.6 L, MCV 86.2, MCH 28.8, MCHC 33.4, RDW Std Deviation 42.5, RDW Coeff of April 13.5, Plt Count 337, MPV 8.8, Immature Gran % (Auto) 0.500, Neut % (Auto) 62.3, Lymph % (Auto) 28.0, Talbot % (Auto) 6.8, Eos % (Auto) 1.5, Baso % (Auto) 0.9, Absolute Neuts (auto) 7.3, Absolute Lymphs (auto) 3.28, Nucleated RBC % 0, Reactive Lymphocytes 1+, Platelet Estimate ADEQUATE, Anisocytosis 1+, Target Cells RARE, Schistocytes RARE, Sodium 139, Potassium 3.8, Chloride 107, Carbon Dioxide 21.6, Anion Gap 11, BUN 9, Creatinine 0.64 L, Estim Creat Clear Calc 108.06, Est GFR (MDRD) Non-Af 102, BUN/Creatinine Ratio 14.4, Glucose 115 H, Calcium 8.7, Phosphorus 4.0, Magnesium 2.2, Total Bilirubin 0.23, AST 16, ALT 11, Alkaline Phosphatase 86, Total Protein 6.1, Albumin 3.8, Globulin 2.3, Albumin/Globulin Ratio 1.7, Triglycerides 92, Cholesterol 152, LDL Cholesterol, Calc 97, VLDL Cholesterol 18, HDL Cholesterol 38 L, Cholesterol/HDL Ratio 4.04, TSH 0.608 Micro: Microbiology 09/12/25 16:05 Mucosa - Nose SARS-CoV-2, Influenza & RSV (PCR) - Final Imaging Radiology Impression Brain CT 09/12/25 16:35 IMPRESSION: Negative study [facility] Head/Neck CTA 09/12/25 19:58 IMPRESSION: Normal CTA of the head and neck. Reading Location: [id number] Brain MRI 09/13/25 09:45 IMPRESSION: Mild small-vessel ischemic changes. No acute intracranial abnormality. Unremarkable appearance of the internal auditory canals. Reading Location: [facility] Active Medications Active Medications Active Medications: Current Medications Generic Name Dose Route Start Last Admin Trade Name Freq PRN Reason Stop Dose Admin Acetaminophen 650 mg 09/12/25 22:31 09/12/25 23:41 Acetaminophen 325 Mg Tablet PO 650 mg Q4H PRN PRN Administration Pain 1-10 Or Fever>99.6 Ascorbic Acid 500 mg 09/13/25 10:00 09/13/25 08:27 Ascorbic Acid 500 Mg Tablet PO 500 mg DAILY MARI Administration Aspirin 81 mg 09/13/25 08:00 09/13/25 08:27 Aspirin 81 Mg Tab.Chew PO 81 mg BREAKFAST MARI Administration Atorvastatin Calcium 80 mg 09/12/25 23:00 09/12/25 23:12 Atorvastatin Calcium 80 Mg Tablet PO Not Given QHS MARI Enoxaparin Sodium 40 mg 09/13/25 10:00 09/13/25 08:27 Enoxaparin 40 Mg/0.4 Ml Syringe SC 40 mg DAILY MARI Administration Hydralazine HCl 5 mg 09/12/25 22:31 Hydralazine 20 Mg/Ml Vial IV 09/13/25 22:31 Q30M PRN maintain BP parameters with HR <60 Sodium Chloride 1,000 mls @ 100 mls/hr 09/12/25 22:31 09/13/25 10:33 IV 100 mls/hr .Q10H MARI Administration Sodium Chloride 250 mls @ 15 mls/hr 09/12/25 22:32 IV .[id number] PRN Saline Flush Sodium Chloride 250 mls @ 15 mls/hr 09/12/25 22:32 IV .[id number] PRN Additional IVPB Infusion Labetalol HCl 10 - 20 mg 09/12/25 22:31 Labetalol 20 Mg/4 Ml Vial IV 09/13/25 22:31 Q10M PRN PRN maintain BP parameters with HR >/=60 Magnesium Chloride 64 mg 09/13/25 10:00 09/13/25 08:27 Magnesium Chloride 64 Mg Delay Rel.Tablet PO 64 mg DAILY MARI Administration Meclizine HCl 25 mg 09/12/25 22:31 09/13/25 11:47 Meclizine Hcl 25 Mg Tablet PO 25 mg TID PRN PRN Administration Vertigo Melatonin 10 mg 09/12/25 22:31 Melatonin 10 Mg Tablet PO QHS PRN PRN INSOMNIA Methocarbamol 500 mg 09/12/25 22:31 Methocarbamol 500 Mg Tablet PO TID PRN pain/spasms Ondansetron HCl 4 mg 09/12/25 22:31 Ondansetron 4 Mg/2 Ml Vial IV Q8H PRN PRN NAUSEA/VOMITING Oxycodone HCl 5 mg 09/12/25 22:31 Oxycodone 5 Mg Tablet PO Q4H PRN PRN Pain Score 4-10 Pregabalin 25 mg 09/12/25 23:00 09/13/25 08:27 Pregabalin 25 Mg Capsule PO 25 mg BID MARI Administration Senna/Docusate Sodium 2 tablet 09/12/25 22:31 Senna/Docusate Sodium 1 Tablet PO BID PRN PRN Constipation Sodium Chloride 10 - 40 ml 09/12/25 22:32 09/13/25 10:33 0.9% Saline Lock 10 Ml Syringe IV 10 ml UD PRN Administration SALINE FLUSH NIHSS NIHSS Nursing Documentation NIHSS Nursing Documentation: NIHSS: Ischemic Stroke/TIA Start: 09/12/25 22:31 Text: For PCU Patients: NIH and Neuro Check every 4 Status: Active hours, PRN and with change in RN caregiver. Freq: [id number] Protocol: Activity Type Activity Date Activity User E-sign Co-sign Detail Recorded Client Recorded Date Recorded By Document 09/13/25 11:15 ANGELA 0 09/13/25 11:39 ANGELA 09/13/25 11:15 NIH Stroke Scale [NIHSS] A score of 0 is normal or asymptomatic . Total possible score is 42. Inpatient: RN or Physician to activate a stroke alert for onset of new stroke symptoms or with NIHSS increase >/= 3 points. Following change in neurological status, NIHSS will be performed per physician order or more frequently PRN. -1a. Level of Consciousness 0 - Alert; keenly responsive -1b. LOC Questions 0 - Answers BOTH questions correctly -1c. LOC Commands 0 - Performs BOTH tasks correctly -2. Best Gaze 0 - Normal -3. Visual 0 - No visual loss -4. Facial Palsy 0 - Normal symmetrical movements -5a. Left Arm 0 - No drift; arm holds 90 ( or 45) degrees for full 10 seconds -5b. Right Arm 0 - No drift; arm holds 90 ( or 45) degrees for full 10 seconds -6a. Left Leg 0 - No drift; leg holds 30- degree position for full 5 seconds -6b. Right Leg 0 - No drift; leg holds 30- degree position for full 5 seconds -7. Limb Ataxia 0 - Absent -8. Sensory 0 - Normal; no sensory loss -9. Best Language 0 - No aphasia; normal -10. Dysarthria 0 - Normal -11. Extinction and Inattention 0 - No abnormality -Total 0 Query Text:A score of 0 is normal or asymptomatic. Total possible score is 42 . ED: Notify Physician for NIHSS increase by > / = 3 points. Inpatient: RN or Physician to activate a stroke alert for NIHSS increase of > / = 3 points. Coma Scale [Assess] -Eye Opening Spontaneous -Motor Obeys Commands -Verbal Oriented [Total] -Coma Scale Total 15
--- NOTE | 2025-09-13 12:51 | DCINST_ITS ---
Discharge Instructions DC O2, CPAP, BIPAP needs Home O2 Discharge instructions: No Dressing / Incision Discharge Activity: Return to Normal Activity Dressing / Incision Call your doctor if you observe: Fever of 101 or Higher, Shortness of breath, Dizziness, Fainting spells, Swelling in the ankles, Chest pain and Increased palpitations (irregular heartbeat) Follow Up Care Test Results: Test results from this visit will be discussed in further detail at your follow- up appointment, if applicable. Discharge Plan Admission Admit Date/Time: 09/12/25 21:36 Attending Provider: Michael Stack Primary Care Provider: Indio Singh Consulting Providers: Evan Maier; Kayleen Keller; Sarah Mendez; Christina Goodrich; Mia Hendrix; Raymond Jean-Baptiste; Princess Avery; Shady Yousif; Jared Bunch; Ernst Rivera; Luh Meehan; Deya Pandya; Nathan Freeman; Mago Figueroa; Juan J Rico; Lucrecia Carmona; Christiano Benton; Doug Hannon; Can John; Salome Carlin; Lindsey Guzman; Barbara Carlin Instructions Patient Instructions: Ricardo Maneuver (Right Ear), Ricardo Maneuver (Left Ear), BPPV Discharge Orders/Prescriptions Prescriptions: New meclizine 25 mg tablet 25 mg PO BID PRN (Reason: dizziness) Qty: 20 0RF Continued acetaminophen [Tylenol] 325 mg capsule 325 mg PO ONCE PRN (Reason: Pain 1-10 Or Fever) ascorbate calcium (vitamin C) 500 mg tablet 500 mg PO QDAY magnesium 200 mg tablet 200 mg PO QDAY turmeric 400 mg capsule PO methocarbamol 500 mg tablet 500 mg PO TID PRN (Reason: pain/spasms) Qty: 60 0RF amoxicillin-pot clavulanate 875-125 mg tablet 1 tab PO BID Referrals / Follow Up: Indio Sinhg MD [Primary Care Provider, Family Practice] - Within 1 Week Disposition Disposition (needs filled in before D/C Order can be placed): Home, Self Care
--- NOTE | 2025-09-13 13:46 | CASEMGMT ---
Patient has order for discharge. RN CM in to discuss needs at discharge. Patient states she would like shower chair at discharge. RN CM informed patient that her insurance will not cover shower chair and that she can purchase at [employer], [employer], or [employer]. Patient voice understanding. Patient had no further questions or concerns.
--- NOTE | 2025-09-13 14:01 | PHA.DC_ITS ---
Pharmacy CT Med Rec Counseling Pharmacy Service has performed discharge medication reconciliation and counseling for this patient. Patient requested meds to beds, this [facility] called retail and requested delivery. 1. MECLIZINE 25MG PO BID PRN DIZZINESS The patient's discharge medication list was reviewed for discrepancies and discrepancies were resolved. The patient was counseled on the following discharge medications and changes in medications for homegoing were reviewed. The Reason for Use, instructions for use, and potential side effects were reviewed for all new medications. The patient's questions regarding all of their medications were answered. The patient was able to verbally demonstrate an understanding of their discharge medications. Patient counseled by pharmacy innovation assistantChris. Medications at Discharge Home Medications acetaminophen 325 mg capsule (Tylenol) 325 mg PO ONCE PRN Pain 1-10 Or Fever 08/27/20 ascorbate calcium (vitamin C) 500 mg tablet 500 mg PO QDAY 07/01/25 magnesium 200 mg tablet 200 mg PO QDAY 07/01/25 methocarbamol 500 mg tablet 500 mg PO TID PRN pain/spasms #60 tabs 07/01/25 turmeric 400 mg capsule mg PO 07/01/25 amoxicillin 875 mg-potassium clavulanate 125 mg tablet 1 tab PO BID 09/12/25 meclizine 25 mg tablet 25 mg PO BID PRN dizziness #20 tabs 09/13/25
--- NOTE | 2025-09-13 14:03 | PCM.DC.SUM ---
Providers Date of Admission: 09/12/25 Primary Care Physician: Dr. Indio Singh MD Consultations 09/12/25 22:31 Consult: Tele-Neurology Routine Consulting Provider: [facility] Reason for Consult: Intractable vertigo EMERGENT Consult: No MD Notified: Yes Date Notified: 09/12/25 Time Notified: 23:28 Method of Notification: Answering Service Nursing Unit Staff Notify [facility] of Tele-Neurology Consult: Yes Reason For Visit: INTRACTABLE VERTIGO Diagnosis Discharge Diagnosis (1) Elevated blood pressure reading: Status: Acute Code(s): R03.0 - Elevated blood-pressure reading, without diagnosis of hypertension (2) Leukocytosis: Status: Acute Code(s): D72.829 - Elevated white blood cell count, unspecified (3) Vertigo: Status: Acute Code(s): R42 - Dizziness and giddiness (4) Neck pain on left side: Status: Acute Code(s): M54.2 - Cervicalgia Medications at Discharge Home Medications acetaminophen 325 mg capsule (Tylenol) 325 mg PO ONCE PRN Pain 1-10 Or Fever 08/27/20 ascorbate calcium (vitamin C) 500 mg tablet 500 mg PO QDAY 07/01/25 magnesium 200 mg tablet 200 mg PO QDAY 07/01/25 methocarbamol 500 mg tablet 500 mg PO TID PRN pain/spasms #60 tabs 07/01/25 turmeric 400 mg capsule mg PO 07/01/25 amoxicillin 875 mg-potassium clavulanate 125 mg tablet 1 tab PO BID 09/12/25 meclizine 25 mg tablet 25 mg PO BID PRN dizziness #20 tabs 09/13/25 Hospital Course Operations None Procedures None Summary of Care Provided Minutes Spent on Discharge: 35 Hospital Course: Per HPI: JOSE MOYA, is a 60 F who presented to the emergency department at [facility] on 09/12/2025 due to worsening vertigo symptoms. Patient states that she has had symptoms similar for about a week. She has had associated left-sided mastoid and neck pain. She was seen by her primary care physician and was given the diagnosis of mastoiditis and placed on Augmentin. She has been taking this but continuing to get worse. She stated she presented today because of the vertigo has been very debilitating for her. She states she gets spinning anytime she moves. She states she has mild disequilibrium when she is lying down. She states that the spinning does trent slowly when she holds her position after she is moves but never completely goes away. She denies any tingling numbness or weakness. She has had no speech abnormalities. She has never had anything like this previously. She has had no recent viral illnesses. She also states that she feels a fullness in her left ear and she is having difficulty hearing out of that side. Vital signs at the time of presentation showed temperature of 97.7, heart rate 90, blood pressure 133/93, respiratory rate was 18 and pulse ox was 99% on room air. CBC showed a very mild leukocytosis with white count of 11.7. She does have a minimal left shift with a 72.1% neutrophilia but her CBC is otherwise unremarkable. Chemistry panel was unremarkable. Procalcitonin was 0.05. Her urine was unremarkable. CT of the brain was obtained and was unremarkable and not consistent with mastoiditis. Given her vertigo a CTA of the head and neck was performed and was unremarkable. Given her persistent vertigo and length of symptoms, observation status was pursued as we do anticipate hospital stay less than 2 midnights for continued workup and treatment. Hospital Course: 1. Vertigo with tinnitus and left-sided neck pain?60-year-old female who states that she has been having vertigo for about a week and follow-up with her PCP who thought she might have mastoiditis and started her on p.o. Augmentin. CT scan as well as MRI of her brain are negative for mastoiditis. CTA of the head and neck was unremarkable and MRI of the brain with and without contrast does not show any acute ischemia or masses. Her vertigo is all bit better today and I discussed with her the possibility for discharge, she expressed understanding and was amenable to going home and would like to go home today. Will trial her on meclizine on discharge with outpatient follow-up to her PCP. She did indicate that after the vertigo had presented with the tinnitus she also developed a migraine which she has once or twice a year with aura so it is unclear whether or not this is tied to her migraine. Of note she does have chronic neck and back pain at baseline and I do recommend resumption of her home medications with methocarbamol as needed. ESR was normal and her CRP was mildly elevated at this time no concern for inflammatory illness. Physical Exam Narrative General: Alert, Oriented x3, Cooperative, No apparent distress HEENT: Atraumatic, PERRLA, EOMI, Normocephalic, no nystagmus Oral: Moist Mucosa Neck: Supple, No JVD Lungs: Diminished, Normal air movement, No rhonchi, No wheeze, No rales Cardiovascular: Regular rate, Regular Rhythm, Normal S1, Normal S2, No murmurs Abdomen: Soft, Non Tender, Non-Distended, No Hepato-splenomegaly Extremities: No edema, Capillary Refill Less than 3 Seconds Skin: No rashes, No breakdown Musculoskeletal: No Tenderness to Palpation of Joints or Extremities Neurological: No focal neurological deficits, moves all extremities, no ataxia Psych/Mental Status: Normal Affect, Appropriate Weight / BMI Weight Weight: 205 lb 4.006 oz Body Mass Index (BMI) 34.1 ABG / Lab / Microbiology Data 09/13/25 05:33 09/13/25 05:33 Laboratory: Laboratory Results - last 24 hr 09/12/25 16:05: WBC 11.7 H, RBC 4.65, Hgb 13.5, Hct 40.0, MCV 86.0, MCH 29.0, MCHC 33.8, RDW Std Deviation 42.1, RDW Coeff of April 13.3, Plt Count 383, MPV 9.2, Immature Gran % (Auto) 0.400, Neut % (Auto) 72.1 H, Lymph % (Auto) 20.9, Maries % (Auto) 5.2, Eos % (Auto) 0.9, Baso % (Auto) 0.5, Absolute Neuts (auto) 8.4 H, Absolute Lymphs (auto) 2.44, Nucleated RBC % 0, ESR 5, Sodium 137, Potassium 3.8, Chloride 102, Carbon Dioxide 23.4, Anion Gap 12, BUN 12, Creatinine 0.66 L, Estim Creat Clear Calc 105.84, Est GFR (MDRD) Non-Af 102, BUN/Creatinine Ratio 18.4, Glucose 129 H, Calcium 9.3, C-React Prot Ext Range 6.89 H, Urine Color Straw, Urine Clarity Clear, Urine pH 7.0, Ur Specific [place] 1.005, Urine Protein Negative, Urine Glucose (UA) Normal, Urine Ketones Negative, Urine Occult Blood Negative, Urine Nitrite Negative, Urine Bilirubin Negative, Urine Urobilinogen Normal, Ur Leukocyte Esterase Negative, Urine RBC 0 SEEN, Urine WBC 0 SEEN, Ur Squamous Epith Cells 0 SEEN, Urine Bacteria RARE, Urine Mucus 0 SEEN 09/12/25 16:19: Procalcitonin 0.05 09/13/25 05:33: WBC 11.7 H, RBC 4.13 L, Hgb 11.9 L, Hct 35.6 L, MCV 86.2, MCH 28.8, MCHC 33.4, RDW Std Deviation 42.5, RDW Coeff of April 13.5, Plt Count 337, MPV 8.8, Immature Gran % (Auto) 0.500, Neut % (Auto) 62.3, Lymph % (Auto) 28.0, Maries % (Auto) 6.8, Eos % (Auto) 1.5, Baso % (Auto) 0.9, Absolute Neuts (auto) 7.3, Absolute Lymphs (auto) 3.28, Nucleated RBC % 0, Reactive Lymphocytes 1+, Platelet Estimate ADEQUATE, Anisocytosis 1+, Target Cells RARE, Schistocytes RARE, Sodium 139, Potassium 3.8, Chloride 107, Carbon Dioxide 21.6, Anion Gap 11, BUN 9, Creatinine 0.64 L, Estim Creat Clear Calc 108.06, Est GFR (MDRD) Non-Af 102, BUN/Creatinine Ratio 14.4, Glucose 115 H, Calcium 8.7, Phosphorus 4.0, Magnesium 2.2, Total Bilirubin 0.23, AST 16, ALT 11, Alkaline Phosphatase 86, Total Protein 6.1, Albumin 3.8, Globulin 2.3, Albumin/Globulin Ratio 1.7, Triglycerides 92, Cholesterol 152, LDL Cholesterol, Calc 97, VLDL Cholesterol 18, HDL Cholesterol 38 L, Cholesterol/HDL Ratio 4.04, TSH 0.608 Microbiology: Microbiology 09/12/25 16:05 Mucosa - Nose SARS-CoV-2, Influenza & RSV (PCR) - Final Radiography Diagnostic Testing: Radiology Impression Brain CT 09/12/25 16:35 IMPRESSION: Negative study Reading Location: [facility] Head/Neck CTA 09/12/25 19:58 IMPRESSION: Normal CTA of the head and neck. Reading Location: [facility] Brain MRI 09/13/25 09:45 IMPRESSION: Mild small-vessel ischemic changes. No acute intracranial abnormality. Unremarkable appearance of the internal auditory canals. Reading Location: [facility] D/C Instructions Call your doctor if you observe: Fever of 101 or Higher, Shortness of breath, Dizziness, Fainting spells, Swelling in the ankles, Chest pain and Increased palpitations (irregular heartbeat) DC O2, CPAP, BIPAP Needs Home O2 Discharge instructions: No Meaningful Use Info Meaningful Use Meaningful Use Diagnoses (Choose all that apply): None applicable Discharge Plan Admission Admit Date/Time: 09/12/25 21:36 Attending Provider: Michael Stack Primary Care Provider: Indio Singh Consulting Providers: Evan Maier; Kayleen Keller; Sarah Mendez; Christina Goodrich; Mia Hendrix; Raymond Jean-Baptiste; Princess Avery; Shady Yousif; Jared Bunch; Ernst Rivera; Luh Meehan; Deya Pandya; Nathan Freeman; Mago Figueroa; Juan J Rico; Lucrecia Carmona; Christiano Benton; Doug Hannon; Can John; Salome Carlin; Lindsey Guzman; Barbara Carlin Instructions Patient Instructions: Ricardo Maneuver (Right Ear), Ricardo Maneuver (Left Ear), BPPV Discharge Orders/Prescriptions Prescriptions: New meclizine 25 mg tablet 25 mg PO BID PRN (Reason: dizziness) Qty: 20 0RF Continued acetaminophen [Tylenol] 325 mg capsule 325 mg PO ONCE PRN (Reason: Pain 1-10 Or Fever) ascorbate calcium (vitamin C) 500 mg tablet 500 mg PO QDAY magnesium 200 mg tablet 200 mg PO QDAY turmeric 400 mg capsule PO methocarbamol 500 mg tablet 500 mg PO TID PRN (Reason: pain/spasms) Qty: 60 0RF amoxicillin-pot clavulanate 875-125 mg tablet 1 tab PO BID Referrals / Follow Up: Indio Singh MD [Primary Care Provider, Family Practice] - Within 1 Week Disposition Disposition (needs filled in before D/C Order can be placed): Home, Self Care Charges/Coding Visit Charges Inpatient E&M: 92339 Disch Hosp >30min
--- NOTE | 2025-09-13 14:08 | CASEMGMT ---
Social Work As per the MRI, pt negative for acute stroke. Therefore PHQ-9 not completed. SUKUMAR Tena
== END 2025-09-13 14:41 | disposition home or self-care (01) ==
LOC: ED 20:57 → PCU 21:54
PROVIDERS: Admitting Provider Internal Medicine; Emergency Provider Emergency Medicine; PCP Family Medicine; Visit Provider Family Medicine
DX: R42 Dizziness and giddiness (principal); Z82.3 Family history of stroke; R79.82 Elevated C-reactive protein (CRP); D72.829 Elevated white blood cell count, unspecified; G43.109 Migraine with aura, not intractable, without status migrainosus; R03.0 Elevated blood-pressure reading, without diagnosis of hypertension; R50.9 Fever, unspecified; M54.2 Cervicalgia; E66.9 Obesity, unspecified; Z68.34 Body mass index [BMI] 34.0-34.9, adult; H93.19 Tinnitus, unspecified ear
CPT/HCPCS: 36415; 70450; 70496; 70498; 70553; 80048; 80053; 80061; 81001; 83735; 84100; 84145; 84443; 85025; 85652; 86140; 87631; 94668; 94762; 96360; 96361; 96372; 97162; 97165; 99221; 99285; A9575; Q9967; A4216; G0378

== ENCOUNTER → 2025-09-14 | Outpatient (CLI) | payer BC, SELFPAY ==
[2025-09-16 14:09] LABS: Immunoglobulin G 1030 mg/dL (586-1602); Lyme Scn Total Ab w/Rflx Negative (Negative)
== END | disposition home or self-care (01) ==
PROVIDERS: PCP Family Medicine; Referring Provider Family Medicine; Visit Provider Family Medicine
DX: R42 Dizziness and giddiness (principal)
CPT/HCPCS: 36415; 82784; 86618